=== PATIENT | female | born 1975 | race Two or more races ===

== ENCOUNTER 2024-09-09 21:17 | Emergency (ER) | payer OTHER ==
[~2024-09-09] VITALS: Ht 160 cm; Wt 90.9 kg
[2024-09-09 22:47] LABS: Urine Bacteria FEW /hpf (None Seen); Urine Blood 3+ /uL (Negative); Urine Clarity Turbid (Clear); Urine Color Light-Brown (Yellow); Urine Protein, UAD TRACE (Negative); Urine Specific Gravity 1.004 (1.001-1.035); Urine Urobilinogen Normal (Negative); Urine WBC 2 /hpf (0 - 5)
[2024-09-10 00:03] LABS: Chloride 100 mmol/L (98-107); Potassium 3.9 mmol/L (3.5-5.1); Sodium 132 mmol/L (136-145)
[2024-09-10 00:04] LABS: Anion Gap 8 (5-15); Calcium 9.6 mg/dL (8.7-10.4); Carbon Dioxide 24 mmol/L (20-31)
[2024-09-10 00:08] LABS: Basophils # (auto) 0.1 10 ^3/uL (0-0.2); Eosinophils # (auto) 0.5 10 ^3/uL (0-0.8); Lymphocytes # (auto) 2.2 10 ^3/uL (0.4-5.4); Monocytes # (auto) 0.7 10 ^3/uL (0-1.3)
[2024-09-10 00:09] LABS: BUN/Creatinine Ratio 9.3 (10.0-20.0); Blood Urea Nitrogen 8 mg/dL (9-23); Eosinophils % (auto) 5.3 % (0.0-7.0); Glucose 92 mg/dL (74-106); Hematocrit 37.4 % (36.0-46.0); Hemoglobin 12.7 g/dL (12.2-16.2); Lymphocytes % (auto) 21.6 % (10.0-50.0); Mean Corpuscular Hemoglobin 30.6 pg (28.0-32.0); Mean Corpuscular Hgb Conc. 33.9 g/dL (32.0-36.0); Mean Corpuscular Volume 90.2 fL (80.0-100.0); Monocytes % (auto) 6.7 % (0.0-12.0); Neutrophils # (auto) 6.7 10 ^3/uL (1.6-8.6); Neutrophils % (auto) 65.4 % (37.0-80.0); Platelet Count (auto) 458 10^3/uL (140-450); Red Blood Cells 4.15 10^6/uL (4.0-5.20); Red Cell Distribution Width 14.7 % (11.8-14.3); White Blood Cell 10.2 10^3/uL (4.4-10.8)
[2024-09-10 03:15] VITALS: BP 123/78; PULSE 82; RESP 17; TEMP 98.6; O2SAT 97
== END 2024-09-10 06:00 | disposition home or self-care (01) ==
LOC: ER 21:17
DX: R31.9 Hematuria, unspecified (principal); R10.2 Pelvic and perineal pain
CPT/HCPCS: 36415; 74176; 80048; 81001; 84702; 85025

== ENCOUNTER 2024-11-25 08:43 | Inpatient (IN) | payer MEDICAID, OTHER ==
[2024-11-25] VITALS (28 sets, daily range): BP systolic 90–108; BP diastolic 51–69; PULSE 65–113; RESP 10–17; TEMP 98.2–99.3; O2SAT 97–100
[~2024-11-25] VITALS: Ht 170.2 cm; Wt 96.0 kg
[2024-11-25] MEDS: PIPERACILLIN-TAZOB 3.375GM 100 ML IV SCH
[2024-11-25] MEDS: ETOMIDATE (2MG/ML) 20ML VIAL IV ONE ×2 (08:51→08:58)
[2024-11-25] MEDS: ROCURONIUM 10MG/ML 10ML VIAL IV ONE ×2 (08:51→08:58)
[2024-11-25] MEDS: MIDAZOLAM DRIP 50 mg/50mL 50 ML IV ONE (08:57)
[2024-11-25] MEDS: fentaNYL Drip 2500mCg/250mlNS 250 ML IV ONE (08:59)
[2024-11-25] MEDS: fentaNYL Drip 2500mCg/250mlNS 250 ML IV SCH (09:00)
[2024-11-25] MEDS: MIDAZOLAM DRIP 50 mg/50mL 50 ML IV SCH (09:00)
--- NOTE | 2024-11-25 09:05 | ED.PDOC ---
History of Present Illness HPI Comments 49 y/o F, with a known Hx of HTN, hypothyroidism, and morbid obesity, is BIBA for c/o shortness of breath, today. Per EMS report, patient's spouse called on patient's behalf, due to her becoming short of breath and collapsing to the ground after going out for her morning walk, this morning. Patient was noted to have had unresponsive but had agonal respirations and pulse on scene, with a SpO2 in the low 60's. EMS endorses on placing the patient on oxygen and intubating her en route, with SpO2 improving, until endotracheal was dislodged moments prior to ED arrival. Patient has no additional symptoms reported. Further Hx cannot be obtained at this time, due to patient's current condition and absence of family/grips historians at time of initial assessment. Time Seen by MD: 08:50 Primary Care Provider: Dr. Almeida Reviewed Notes: Nurses Notes, Photocomposing Machine Operator Notes, Medications, Allergies Allergies: Coded Allergies: Cephalexin (Verified Allergy, Unknown, 11/25/24) Ciprofloxacin (Verified Allergy, Unknown, 11/25/24) Information Source: Emergency Med Personnel Mode of Arrival: EMS Severity: Moderate Timing: Hours Duration: Since onset Prehospital treatment: 12 Lead EKG, [employer] Instructor, Intubation, Oxygen Past Medical History PAST MEDICAL HISTORY: HTN, Thyroid (hypothyroidism ) Past Medical History (Other): morbid obesity Surgical History: Denies all surgeries FILLING STATION ATTENDANT History: No Pertinent FILLING STATION ATTENDANT History Family History Family History: Reviewed,noncontributory to illness, No family hx of Cancer, No family hx of DM, No family hx of Heart landen, No family hx of HTN, No family hx ofKidney landen, No family hx of Liver landen, No family hx of Lung landen, No family hx of Stroke Social History Smoker: Non-Smoker Alcohol: Denies ETOH Use Drugs: Denies Drug Use Lives In: Home Respiratory: reports: shortness of breath All Other Systems: Reviewed and Negative (negative unless otherwise stated above or in HPI) Physical Exam General Appearance: No Apparent Distress, Obese HEENT: Other (Pupils around but non reactive to light) Neck: Full Range of Motion, Non-Tender, Normal, Normal Inspection Respiratory: Chest Non-Tender, Lungs Clear, No Accessory Muscle Use, No Respiratory Distress, Normal Breath Sounds, Other (no spontaneous respiratory drive; patient being bagged with soft gel) Cardiovascular: No Edema, No JVD, No Murmur, No Gallop, Normal Peripheral Puls es, Regular Rate/Rhythm Breast Exam: Deferred Gastrointestinal: No Organomegaly, Non Tender, No Pulsatile Mass, Normal Bowel Sounds, Soft Genitalia: Deferred Pelvic: Deferred Rectal: Deferred Extremities: No calf tenderness, Normal capillary refill, Normal inspection, Normal range of motion, Non-tender, No pedal edema Musculoskeletal : Apperance: Normal Neurologic: violin tutor II-XII nml as Tested, No Motor Deficits, Other (unarousable GCS3; psych unable to assess ) Cerebellar Function: Normal Reflexes: Normal Skin: Dry, Normal Color, Warm Lymphatic: No Adenopathy Was a procedure done? Was a procedure done?: Yes Sedation Sedation?: No Intubation Indication: Respiratory Insufficiency, Altered Mental Status Prep: Preoxygenation Pretreated with: Nothing Medicated with: Other (70 mg rocuronium and 20 mg etomidate) Intubation Approach: Orotracheal (8.0) Intubation size: cm (size 8.0 - 24 cm at the lip) Informed consent obtained: No Risks/benefits/alt described: No Differential Dx Considerations may include: URI, respiratory distress, GA, PE, ACS, viral syndrome, encephalopathy X-Ray, Labs, Meds, VS Vital Signs Date Time Temp Pulse Resp B/P (MAP) Pulse Ox O2 Delivery O2 Flow Rate FiO2 11/25/24 13:05 74 16 105/63 (77) 100 55 11/25/24 13:00 97.3 75 16 109/67 (81) 100 97.3 11/25/24 12:45 97.3 75 16 105/63 (77) 100 97.3 11/25/24 12:30 97.3 74 16 105/64 (78) 100 97.3 11/25/24 12:22 83 16 108/69 100 75 11/25/24 12:15 97.3 75 16 106/65 (79) 100 97.3 11/25/24 12:00 97.3 76 16 107/68 (81) 100 97.3 11/25/24 11:45 97.3 76 16 106/67 (80) 100 97.3 11/25/24 11:30 97.3 78 16 107/67 (80) 100 97.3 11/25/24 11:15 80 16 106/66 (79) 100 11/25/24 11:00 83 16 108/69 (82) 100 75 11/25/24 11:00 82 16 108/69 (82) 100 11/25/24 11:00 108/69 11/25/24 11:00 108/69 11/25/24 10:45 85 16 114/73 (87) 100 11/25/24 10:30 115/85 11/25/24 10:30 115/85 11/25/24 10:30 95 20 115/85 (95) 100 11/25/24 10:15 85 16 120/76 (91) 100 11/25/24 10:00 106 27 122/86 (98) 100 11/25/24 10:00 122/86 11/25/24 10:00 122/86 11/25/24 09:45 122 17 166/106 (126) 100 11/25/24 09:30 113 17 165/111 (129) 100 11/25/24 09:30 165/111 11/25/24 09:30 165/111 11/25/24 09:30 113 17 100 Mechanical Ventilator+ 100 100 11/25/24 09:13 86 16 117/78 (91) 86 11/25/24 09:13 88 19 125/86 (99) 100 11/25/24 09:10 117 16 124/77 (93) 100 100 11/25/24 09:09 98.1 88 19 125/86 (99) 100 11/25/24 09:00 106 10 100 Mechanical Ventilator+ 100 100 11/25/24 09:00 123/77 11/25/24 09:00 123/77 11/25/24 08:58 124/77 11/25/24 08:58 117 7 123/72 (89) 96 11/25/24 08:51 92 11/25/24 08:45 96.8 111 7 119/77 (91) 83 96.8 Lab Test 11/25/24 10:47 11/25/24 10:45 11/25/24 09:51 11/25/24 09:32 Range/Units Troponin I High Sensitivity 16 7 </=34 ng/L C-Reactive Protein High Sensitivity 7.48 H <1.0 mg/dL Plasma/Serum Blood Alcohol < 3.0 <10 mg/dL Blood Gas Specimen Type Arterial Blood Gas Sample Site Right radial Blood Gas Patient Temperature 37.0 Arterial Blood Date Drawn [id number] Arterial Blood pH 7.425 7.350-7.450 Arterial Blood Partial Pressure CO2 31.1 L 32.0-45.0 mmHg Arterial Blood Partial Pressure O2 256.2 H 83.0-108.0 mmHg Arterial Blood HCO3 19.9 L 21.0-28.0 mmol/L Arterial Blood Oxygen Saturation 99.7 H 94.0-98.0 % Arterial Blood Base Excess -3.5 L -2.0-3.0 mmol/L Arterial Blood Oxyhemoglobin 98.6 H 94.0-98.0 % Arterial Blood Carboxyhemoglobin 0.3 L 0.5-1.5 % Arterial Blood Methemoglobin 0.8 0.0-1.5 % Jose Test Modified Blood Gas Total Hemoglobin 12.20 12.0-16.0 g/dL Blood Gas Set Respiration Rate 16.0 Blood Gas Modality Vent - ac FiO2 % 100.0 Blood Gas Tidal Volume 500.0 Blood Gas PEEP or CPAP 5.0 White Blood Count 14.3 H 4.4-10.8 10^3/uL Red Blood Count 4.17 4.0-5.20 10^6/uL Hemoglobin 12.6 12.2-16.2 g/dL Hematocrit 37.4 36.0-46.0 % Mean Corpuscular Volume 89.7 80.0-100.0 fL Mean Corpuscular Hemoglobin 30.3 28.0-32.0 pg Mean Corpuscular Hemoglobin Concent 33.8 32.0-36.0 g/dL Red Cell Distribution Width 12.9 11.8-14.3 % Platelet Count 393 140-450 10^3/uL Mean Platelet Volume 7.3 6.9-10.8 fL Neutrophils (%) (Auto) 91.9 H 37.0-80.0 % Lymphocytes (%) (Auto) 5.9 L 10.0-50.0 % Monocytes (%) (Auto) 2.0 0.0-12.0 % Eosinophils (%) (Auto) 0.1 0.0-7.0 % Basophils (%) (Auto) 0.1 0.0-2.0 % Neutrophils # (Auto) 13.2 H 1.6-8.6 10 ^3/uL Lymphocytes # (Auto) 0.8 0.4-5.4 10 ^3/uL Monocytes # (Auto) 0.3 0-1.3 10 ^3/uL Eosinophils # (Auto) 0 0-0.8 10 ^3/uL Basophils # (Auto) 0 0-0.2 10 ^3/uL Nucleated Red Blood Cells 0.2 % Sodium Level 130 L 136-145 mmol/L Potassium Level 4.4 3.5-5.1 mmol/L Chloride Level 98 98-107 mmol/L Carbon Dioxide Level 21 20-31 mmol/L Anion Gap 11 5-15 Blood Urea Nitrogen 6 L 9-23 mg/dL Creatinine 0.77 0.550-1.02 mg/dL Glomerular Filtration Rate Calc 95 >90 mL/min BUN/Creatinine Ratio 7.8 L 10.0-20.0 Serum Glucose 149 H 74-106 mg/dL Calcium Level 9.5 8.7-10.4 mg/dL Total Bilirubin 0.6 0.2-1.0 mg/dL Aspartate Amino Transferase (AST) 35 13-40 U/L Alanine Aminotransferase (ALT) 12 7-40 U/L Alkaline Phosphatase 72 46-116 U/L Total Protein 7.5 5.7-8.2 g/dL Albumin 4.5 3.2-4.8 g/dL Lactic Acid Level 1.2 0.4-2.0 mmol/L Test 11/25/24 08:52 Range/Units Urine Opiates Screen Neg NEGATIVE Urine Fentanyl Screen Pos NEGATIVE Urine Barbiturates Screen Neg NEGATIVE Urine Phencyclidine Screen Neg NEGATIVE Urine Amphetamines Screen Pos NEGATIVE Urine Benzodiazepines Screen Pos NEGATIVE Urine Cocaine Screen Pos NEGATIVE Urine Cannabinoids Screen Neg NEGATIVE Current Medications Medications (Trade) Dose Ordered Sig/Caterina Route Start Time Stop Time Status Last Admin Etomidate 20 mg ONCE ONCE IV 11/25/24 09:00 11/25/24 09:01 DC 11/25/24 08:58 Rocuronium [place] 70 mg ONCE ONCE IV 11/25/24 09:00 11/25/24 09:01 DC 11/25/24 08:58 Midazolam HCl 50 ml @ 1 mls/hr Q24H IV 11/25/24 09:00 11/25/24 09:00 Fentanyl Citrate 250 ml @ 2.5 mls/hr Q24H IV 11/25/24 09:00 11/25/24 09:00 Piperacillin Sod/ Tazobactam Sod 100 ml @ 100 mls/hr ONCE ONCE IV 11/25/24 11:00 11/25/24 11:59 DC 11/25/24 13:24 Vancomycin HCl 250 ml @ 250 mls/hr ONCE ONCE IV 11/25/24 11:30 11/25/24 12:29 DC 11/25/24 16:11 [place] [address] Ph: [phone] DIAGNOSTIC IMAGING Diagnostic Imaging Report : [id number] Signed PATIENT: SAEED TAO ACCT: [id number] UNIT: [id number] : 1975 LOC: ER ROOM / BED: / AGE / SEX: 49 / F ADM STATUS: REG ER SERVICE 1 ORDERING PHYSICIAN: KEMAR ORNELAS MD PROCEDURE(s): HWOCT - HEAD WITHOUT CONTRAST REASON: ALOC ORDER NUMBER(s): [id number], ACCESSION NUMBER(s): [id number] CLINICAL INFORMATION: 49 years old, Female; acute loss of consciousness. Patient found down, not breathing. TECHNIQUE: Axial imaging was obtained through the brain without contrast. Coronal and sagittal reformatted images were obtained, reviewed, and stored. Images were reviewed in brain and bone windows. All CT scans at this medical facility are performed using dose modulation techniques as appropriate to a performed exam including the following: Automated exposure control was utilized; adjustment of the MA and/or KV according to patient size; and use of iterative reconstruction technique. CTDIvol = 59.43 mGy DLP = 1070.12 mGy-cm COMPARISON: None FINDINGS: There is no acute intracranial hemorrhage or extraaxial fluid collection. No mass effect or midline shift. The ventricles and sulci are within normal limits in size for age. Basal cisterns are patent. The calvarium is unremarkable. Mucosal thickening areas of mild partial opacification of the paranasal sinuses. IMPRESSION: 1. No CT evidence of acute intracranial abnormality. 2. Nonacute findings as described above. ATED BY: OSCAR ROSEN DO DICTATED DATE/TIME: 11/25/24936 SIGNED BY: OSCAR ROSEN DO SIGNED DATE/TIME: 11/25/24936 CC: [address] [address] Ph: [phone] DIAGNOSTIC IMAGING Diagnostic Imaging Report : [id number] Signed PATIENT: SAEED TAO ACCT: [id number] UNIT: [id number] : 1975 LOC: ER ROOM / BED: / AGE / SEX: 49 / F ADM STATUS: REG ER SERVICE 1 ORDERING PHYSICIAN: KEMAR ORNELAS MD PROCEDURE(s): CXRP - CHEST PORTABLE REASON: POST INTUBATION ORDER NUMBER(s): [id number], ACCESSION NUMBER(s): [id number] Procedure: XY CHEST PORTABLE 11/25/2024 09:00 AM Indication: POST INTUBATION Comparison: None TECHNIQUE: XY CHEST PORTABLE FINDINGS: Medical devices: The ETT ends at the chuck. Cardiomediastinal: The heart is normal in size. Pulmonary vasculature is within normal limits. Lungs: No focal pulmonary opacity is seen. The costophrenic angles are clear. No pneumothorax. Bones/soft tissues: No acute abnormality is noted. IMPRESSION: 1. ETT ends at the chuck. Recommend 2-3 cm retraction for optimal positioning. 2. No acute cardiopulmonary disease. ATED BY: SOCORRO DIETZ MD DICTATED DATE/TIME: 11/25/24922 SIGNED BY: SOCORRO DIETZ MD SIGNED DATE/TIME: 11/25/24922 CC: Time of 1ST Reevaluation: 09:20 Reevaluation 1ST: Unchanged Patient Education/Counseling: Other (patient unresponsive secondary to respiratory insufficiency) Family Education/Counseling: No Family Present Departure 1 Departure Time of Disposition: 11:00 Impression: Primary Impression: Respiratory arrest Additional Impression: Acute encephalopathy Disposition: ADMITTED INPATIENT Admit to: ICU Condition: Critical Critical Care Note Critical Care Time?: Yes (90 min-critical care time only) Critical care comment: CRITICAL CARE TIME: 90 minutes Treatments/Evaluations: Close monitoring and treatment of unstable vital signs, cardiorespiratory, and neurologic status, while maintaining tight balance of fluid, respiratory, and cardiac interventions. This time includes discussing the case with the patient and the patients family. This time does not include all procedures stated elsewhere in this record. This time also includes reviewing old records, labs and radiological studies. This time includes examining and re-examining the patient. Additionally, this time also includes arranging care with admitting and consulting physicians. Stability Stability form required: No Unstable for transfer: ICU, CCU, PCU, MIKEY Heart Score Heart Score: Heart Score Response (Comments) Value History Highly Suspicious 2 EKG N/A 0 Age 45-64 1 Risk Factors 1 or 2 risk factors 1 Troponin Normal limit 0 Total 4 I personally scribed for KEMAR ORNELAS MD ([email or web address]) on 11/25/24 at 09:05. Electronically submitted by Jerardo Hutchison ([email or web address]). I personally scribed for KEMAR ORNELAS MD ([email or web address]) on 11/25/24 at 09:17. Electronically submitted by Jerardo Hutchison ([email or web address]). I personally scribed for KEMAR ORNELAS MD ([email or web address]) on 11/25/24 at 10:35. Electronically submitted by Jerardo Hutchison ([email or web address]). I personally scribed for KEMAR ORNELAS MD ([email or web address]) on 11/25/24 at 11:24. Electronically submitted by Jerardo Hutchison ([email or web address]). KEMAR ORNELAS MD Nov 25, 2024 09:05
--- NOTE | 2024-11-25 09:26 | DVH ---
Procedure: XY CHEST PORTABLE 11/25/2024 09:00 AM Indication: POST INTUBATION Comparison: None TECHNIQUE: XY CHEST PORTABLE FINDINGS: Medical devices: The ETT ends at the chuck. Cardiomediastinal: The heart is normal in size. Pulmonary vasculature is within normal limits. Lungs: No focal pulmonary opacity is seen. The costophrenic angles are clear. No pneumothorax. Bones/soft tissues: No acute abnormality is noted. IMPRESSION: 1. ETT ends at the chuck. Recommend 2-3 cm retraction for optimal positioning. 2. No acute cardiopulmonary disease.
--- NOTE | 2024-11-25 09:40 | DVH ---
CLINICAL INFORMATION: 49 years old, Female; acute loss of consciousness. Patient found down, not b reathing. TECHNIQUE: Axial imaging was obtained through the brain without contrast. Coronal and sagittal refor matted images were obtained, reviewed, and stored. Images were reviewed in brain and bone windows. A ll CT scans at this medical facility are performed using dose modulation techniques as appropriate to a performed exam including the following: Automated exposure control was utilized; adjustment of the MA and/or KV according to patient size; and use of iterative reconstruction technique. CTDIvol = 59.43 mGy DLP = 1070.12 mGy-cm COMPARISON: None FINDINGS: There is no acute intracranial hemorrhage or extraaxial fluid collection. No mass effect o r midline shift. The ventricles and sulci are within normal limits in size for age. Basal cisterns a re patent. The calvarium is unremarkable. Mucosal thickening areas of mild partial opacification of the paranasal sinuses. IMPRESSION: 1. No CT evidence of acute intracranial abnormality. 2. Nonacute findings as described above.
[2024-11-25] MEDS ORDERED: fentaNYL Drip 2500mCg/250mlNS 250 ML IV SCH (10:15)
[2024-11-25] MEDS ORDERED: MIDAZOLAM DRIP 50 mg/50mL 50 ML IV SCH (10:15)
[2024-11-25 10:31] LABS: Basophils # (auto) 0 10 ^3/uL (0-0.2); Basophils % (auto) 0.1 % (0.0-2.0); Eosinophils # (auto) 0 10 ^3/uL (0-0.8); Eosinophils % (auto) 0.1 % (0.0-7.0); Hematocrit 37.4 % (36.0-46.0); Hemoglobin 12.6 g/dL (12.2-16.2); Lymphocytes # (auto) 0.8 10 ^3/uL (0.4-5.4); Lymphocytes % (auto) 5.9 % (10.0-50.0); Mean Corpuscular Hemoglobin 30.3 pg (28.0-32.0); Mean Corpuscular Hgb Conc. 33.8 g/dL (32.0-36.0); Mean Corpuscular Volume 89.7 fL (80.0-100.0); Monocytes # (auto) 0.3 10 ^3/uL (0-1.3); Neutrophils # (auto) 13.2 10 ^3/uL (1.6-8.6); Neutrophils % (auto) 91.9 % (37.0-80.0); Nucleated Red Blood Cells % 0.2 %; Platelet Count (auto) 393 10^3/uL (140-450); Red Blood Cells 4.17 10^6/uL (4.0-5.20); Red Cell Distribution Width 12.9 % (11.8-14.3); White Blood Cell 14.3 10^3/uL (4.4-10.8)
[2024-11-25 10:33] LABS: Alanine Aminotransferase 12 U/L (7-40); Albumin 4.5 g/dL (3.2-4.8); Alkaline Phosphatase 72 U/L (46-116); Anion Gap 11 (5-15); Aspartate Aminotransferase 35 U/L (13-40); BUN/Creatinine Ratio 7.8 (10.0-20.0); Bilirubin, Total 0.6 mg/dL (0.2-1.0); Blood Urea Nitrogen 6 mg/dL (9-23); Calcium 9.5 mg/dL (8.7-10.4); Carbon Dioxide 21 mmol/L (20-31); Chloride 98 mmol/L (98-107); Glucose 149 mg/dL (74-106); Potassium 4.4 mmol/L (3.5-5.1); Sodium 130 mmol/L (136-145)
[2024-11-25 10:34] LABS: Total Protein 7.5 g/dL (5.7-8.2)
[2024-11-25 10:58] LABS: Base Excess -3.5 mmol/L (-2.0-3.0)
[2024-11-25] MEDS ORDERED: VANCOMYCIN PER PHARMACY 0 MG IV SCH ×2 (11:00→13:15)
--- NOTE | 2024-11-25 11:00 | DVH ---
CHEST RADIOGRAPH Indication: ET Tube adjustment Technique: Single frontal view of the chest was obtained COMPARISON: XY CHEST PORTABLE on DOS: 11/25/24 FINDINGS: Lines and Tubes: Endotracheal tube 2cm above the chuck. In G tube coursing into the stomach but not seen distally. Lungs: Clear Pleura: No effusion. No pneumothorax. Cardiomediastinal contours: Unremarkable Bones: Unremarkable IMPRESSION: 1. Endotracheal tube 2.1 cm above the chuck.
[2024-11-25 11:30] LABS: Amphetamine Screen, Urine Pos (NEGATIVE); Barbiturate Scree,Urine Neg (NEGATIVE); Benzodiazephine Screen, Urine Pos (NEGATIVE); Cannabinoid Screen, Urine Neg (NEGATIVE); Cocaine Screen, Urine Pos (NEGATIVE); Opiate Scree,Urine Neg (NEGATIVE); Phencyclidine Screen, Urine Neg (NEGATIVE)
[2024-11-25] MEDS ORDERED: NITROGLYCERIN 0.4 MG SL TAB SL PRN (13:15)
[2024-11-25] MEDS: SODIUM CHLORIDE 0.9% 1,000 ML IV SCH (13:15)
[2024-11-25] MEDS ORDERED: MORPHINE SULFATE INJ 2 MG/ml SYRG IV PRN (13:15)
[2024-11-25] MEDS ORDERED: ONDANSETRON HCL 4 MG/2 ML VIAL IV PRN (13:15)
--- NOTE | 2024-11-25 13:19 | DVHHP2 ---
History of Present Illness Reason for Visit: s/p cardiac arrest History of Present Illness Kristina Crystal is a 49-year-old female with past medical history of hypertension and hypothyroidism who presents to the ED status post cardiac arrest on the field. Patient currently intubated and on the vent. Per James he states that they were at home and she was in the living room putting something is a way became diaphoretic then passed out, she did not strike her head on the floor as had caught it before her falling down to the ground. He reports that he called EMS and started chest compressions immediately. Patient's reports that she was recently sick with a sore throat and cough had called telemedicine for some steroids. 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 Patient's also denies any recent sick contacts or recent travels. Cardiovascular: HTN Endocrine: Hypothyroidism Lives: with Family Domestic Violence: Neg Review of Systems Allergies: Coded Allergies: Cephalexin (Verified Allergy, Unknown, 11/25/24) Ciprofloxacin (Verified Allergy, Unknown, 11/25/24) Medications Current Medications Medications Dose Ordered Sig/Caterina Route Start Time Stop Time Status Last Admin Dose Admin Midazolam HCl 50 ml @ 1 mls/hr Q24H IV 11/25/24 09:00 11/25/24 09:00 1 MLS/HR Fentanyl Citrate 250 ml @ 2.5 mls/hr Q24H IV 11/25/24 09:00 11/25/24 09:00 2.5 MLS/HR Midazolam HCl 50 ml @ 1 mls/hr Q24H IV 11/25/24 10:15 UNV Fentanyl Citrate 250 ml @ 2.5 mls/hr Q24H IV 11/25/24 10:15 UNV Vancomycin HCl 0 ml @ 0 mls/hr UD IV 11/25/24 11:00 Exam Vital Signs Vital Signs Date Time Temp Pulse Resp B/P (MAP) Pulse Ox O2 Delivery O2 Flow Rate FiO2 11/25/24 12:22 83 16 108/69 100 75 11/25/24 09:09 98.1 11/25/24 09:00 Mechanical Ventilator+ Respiratory: Normal air movement Cardiovascular: Regular rate, Normal S1, Normal S2 Abdominal: Soft Labs/Xrays Labs Test 11/25/24 11:20 11/25/24 10:47 11/25/24 10:45 11/25/24 09:51 Range/Units Troponin I High Sensitivity 16 </=34 ng/L Plasma/Serum Blood Alcohol < 3.0 <10 mg/dL Blood Gas Specimen Type Arterial Blood Gas Sample Site Right radial Blood Gas Patient Temperature 37.0 Arterial Blood Date Drawn [id number] Arterial Blood pH 7.425 7.350-7.450 Arterial Blood Partial Pressure CO2 31.1 L 32.0-45.0 mmHg Arterial Blood Partial Pressure O2 256.2 H 83.0-108.0 mmHg Arterial Blood HCO3 19.9 L 21.0-28.0 mmol/L Arterial Blood Oxygen Saturation 99.7 H 94.0-98.0 % Arterial Blood Base Excess -3.5 L -2.0-3.0 mmol/L Arterial Blood Oxyhemoglobin 98.6 H 94.0-98.0 % Arterial Blood Carboxyhemoglobin 0.3 L 0.5-1.5 % Arterial Blood Methemoglobin 0.8 0.0-1.5 % Jose Test Modified Blood Gas Total Hemoglobin 12.20 12.0-16.0 g/dL Blood Gas Set Respiration Rate 16.0 Blood Gas Modality Vent - ac FiO2 % 100.0 Blood Gas Tidal Volume 500.0 Blood Gas PEEP or CPAP 5.0 White Blood Count 14.3 H 4.4-10.8 10^3/uL Red Blood Count 4.17 4.0-5.20 10^6/uL Hemoglobin 12.6 12.2-16.2 g/dL Hematocrit 37.4 36.0-46.0 % Mean Corpuscular Volume 89.7 80.0-100.0 fL Mean Corpuscular Hemoglobin 30.3 28.0-32.0 pg Mean Corpuscular Hemoglobin Concent 33.8 32.0-36.0 g/dL Red Cell Distribution Width 12.9 11.8-14.3 % Platelet Count 393 140-450 10^3/uL Mean Platelet Volume 7.3 6.9-10.8 fL Neutrophils (%) (Auto) 91.9 H 37.0-80.0 % Lymphocytes (%) (Auto) 5.9 L 10.0-50.0 % Monocytes (%) (Auto) 2.0 0.0-12.0 % Eosinophils (%) (Auto) 0.1 0.0-7.0 % Basophils (%) (Auto) 0.1 0.0-2.0 % Neutrophils # (Auto) 13.2 H 1.6-8.6 10 ^3/uL Lymphocytes # (Auto) 0.8 0.4-5.4 10 ^3/uL Monocytes # (Auto) 0.3 0-1.3 10 ^3/uL Eosinophils # (Auto) 0 0-0.8 10 ^3/uL Basophils # (Auto) 0 0-0.2 10 ^3/uL Nucleated Red Blood Cells 0.2 % Sodium Level 130 L 136-145 mmol/L Potassium Level 4.4 3.5-5.1 mmol/L Chloride Level 98 98-107 mmol/L Carbon Dioxide Level 21 20-31 mmol/L Anion Gap 11 5-15 Blood Urea Nitrogen 6 L 9-23 mg/dL Creatinine 0.77 0.550-1.02 mg/dL Glomerular Filtration Rate Calc 95 >90 mL/min BUN/Creatinine Ratio 7.8 L 10.0-20.0 Serum Glucose 149 H 74-106 mg/dL Calcium Level 9.5 8.7-10.4 mg/dL Total Bilirubin 0.6 0.2-1.0 mg/dL Aspartate Amino Transferase (AST) 35 13-40 U/L Alanine Aminotransferase (ALT) 12 7-40 U/L Alkaline Phosphatase 72 46-116 U/L Total Protein 7.5 5.7-8.2 g/dL Albumin 4.5 3.2-4.8 g/dL Test 11/25/24 09:32 11/25/24 08:52 Range/Units Lactic Acid Level 1.2 0.4-2.0 mmol/L Urine Opiates Screen Neg NEGATIVE Urine Fentanyl Screen Pos NEGATIVE Urine Barbiturates Screen Neg NEGATIVE Urine Phencyclidine Screen Neg NEGATIVE Urine Amphetamines Screen Pos NEGATIVE Urine Benzodiazepines Screen Pos NEGATIVE Urine Cocaine Screen Pos NEGATIVE Urine Cannabinoids Screen Neg NEGATIVE CHEST RADIOGRAPH Indication: ET Tube adjustment Technique: Single frontal view of the chest was obtained COMPARISON: XY CHEST PORTABLE on DOS: 11/25/24 FINDINGS: Lines and Tubes: Endotracheal tube 2cm above the chuck. In G tube coursing into the stomach but not seen distally. Lungs: Clear Pleura: No effusion. No pneumothorax. Cardiomediastinal contours: Unremarkable Bones: Unremarkable IMPRESSION: 1. Endotracheal tube 2.1 cm above the chuck. CLINICAL INFORMATION: 49 years old, Female; acute loss of consciousness. Patient found down, not breathing. TECHNIQUE: Axial imaging was obtained through the brain without contrast. Coronal and sagittal reformatted images were obtained, reviewed, and stored. Images were reviewed in brain and bone windows. All CT scans at this medical facility are performed using dose modulation techniques as appropriate to a performed exam including the following: Automated exposure control was utilized; adjustment of the MA and/or KV according to patient size; and use of iterative reconstruction technique. CTDIvol = 59.43 mGy DLP = 1070.12 mGy-cm COMPARISON: None FINDINGS: There is no acute intracranial hemorrhage or extraaxial fluid collection. No mass effect or midline shift. The ventricles and sulci are within normal limits in size for age. Basal cisterns are patent. The calvarium is unremarkable. Mucosal thickening areas of mild partial opacification of the paranasal sinuses. IMPRESSION: 1. No CT evidence of acute intracranial abnormality. 2. Nonacute findings as described above. Procedure: XY CHEST PORTABLE 11/25/2024 09:00 AM Indication: POST INTUBATION Comparison: None TECHNIQUE: XY CHEST PORTABLE FINDINGS: Medical devices: The ETT ends at the chuck. Cardiomediastinal: The heart is normal in size. Pulmonary vasculature is within normal limits. Lungs: No focal pulmonary opacity is seen. The costophrenic angles are clear. No pneumothorax. Bones/soft tissues: No acute abnormality is noted. IMPRESSION: 1. ETT ends at the chuck. Recommend 2-3 cm retraction for optimal positioning. 2. No acute cardiopulmonary disease. Assessment/Plan Assessment/Plan Assessment/Plan: Acute respiratory failure status post cardiac arrest Leukocytosis Hyponatremia Encephalopathy Intubated on vent IV antibiotics-vancomycin and Zosyn Chest x-ray noted Sedation Creatinine Keppra given ED Blood cultures EKG Li catheterization ABG Respiratory culture Blood alcohol Urine CT head noted UDS Positive for cocaine, amphetamines, benzo, and fentanyl NG tube Blood cultures Troponin negative x2 Lactic noted Chest x-ray in a.m. A.m. labs Labs Echo ordered pulmonary consult Respiratory treatments p.r.n. procal esr crp flu covid Chronic Hypertension Continue home meds Chronic hypothyroidism continue home meds FEN/PPX NPO Ivf DVT ppx lovenox PUD ppx - Protonix Discussed plan of care with nurse Home medications reconciled Admit to ICU Plan discussed with: Spouse, Other Date of Service: Nov 25, 2024 Billing Provider: DINO YOUSIF Common Visit Codes: [id number] INP/OBS CARE (HIGH) DINO YOUSIF Nov 25, 2024 13:19
[2024-11-25] MEDS: PIPERACILLIN-TAZOB 3.375GM 100 ML IV ONE (13:24)
[2024-11-25] MEDS: PROPOFOL 100 ML IV ONE (13:33)
[2024-11-25] MEDS: PROPOFOL 100 ML IV SCH (13:35)
[2024-11-25] MEDS ORDERED: PROPOFOL 100 ML IV SCH (14:00)
[2024-11-25 15:31] LABS: Base Excess 0.3 mmol/L (-2.0-3.0)
[2024-11-25 15:43] LABS: Erythrocyte Sedimentation Rate 43 mm/hr (0-20)
[2024-11-25] MEDS: VANCOMYCIN 1GM/250ML KIT 250 ML IV ONE ×3 (16:11→18:24)
[2024-11-25 18:05] LABS: Urine Bacteria None Seen /hpf (None Seen)
[2024-11-25 18:15] LABS: Urine Blood Negative /uL (Negative); Urine Clarity Clear (Clear); Urine Color Light-Yellow (Yellow); Urine Protein, UAD Negative (Negative); Urine Specific Gravity 1.009 (1.001-1.035); Urine Squamous Epithelial Cell FEW /hpf (<5); Urine Urobilinogen Normal (Negative); Urine WBC 1 /hpf (0 - 5)
[2024-11-25 19:48] LABS: COVID19 ANTIGEN SOFIA FIA NEGATIVE (NEGATIVE); Rapid Influenza A Negative (Negative); Rapid Influenza B Negative (Negative)
--- NOTE | 2024-11-25 22:07 | DVHSR ---
APPROVED REPORT EXAM: Two-dimensional and M-mode echocardiogram with Doppler and color Doppler. Blood Pressure: 108/69 mmHg INDICATION cardiac arrest RISK FACTORS Height: 5'7, Weight: 178 DIMENSIONS LVDd3.8 (3.8-5.7cm)LA (2D)2.8 (1.9-4.0cm)Aortic Root3.3 (2.0-3.7cm) LVDs2.3 (2.5-4.0cm)LA (MM) (1.9-4.0cm)Aortic Cusp Exc1.4 (1.5-2.0cm) EF (%) 60.0 (55-70%)Rt. Atrium3.0 (1.9-4.0cm)Asc. Aorta3.3 cm IVSd0.7 (0.7-1.1cm)RV (D)4.1 (1.8-2.4cm) PWd1.0 (0.7-1.1cm) Mitral Valve MitralMitral Stenosis E wave0.57m/sMV Mean GR.mmHg A wave0.91m/sMV Peak GR.mmHg E/A ratio0.62D MVAcm2 DECEL [id number] 1/2 Timems Aortic Valve Aortic ValveAortic Stenosis V11.22m/Michael Mean GR.5mmHg V21.55m/Michael Peak GR.10mmHg LVOT Diameter2.0 (1.8-2.4cm)Doppler AVA2.47cm2 Pulmonic Valve V20.95m/s Tricuspid Valve TR Velocity2.10m/s [id number] Conclusion LV EJECTION FRACTION IS 60% NORMAL VALVES NORMAL RV FUNCTION NORMAL RVSP AND IS 21 MM OF HG NO EFUSION
--- NOTE | 2024-11-25 23:42 | DVHINCON2 ---
Date of service: Nov 25, 2024 Referring Physician Consuelo Lozano NP Reason for Consultation Acute hypoxic respiratory failure requiring mechanical ventilator History of Present Illness A 49-year-old woman with past medical history of hypertension and hypothyroidism who presents to the ED today status post cardiac arrest on the field. Patient currently intubated and on the vent. Per , they were at home and she was in the living room putting something away, became diaphoretic and then passed out. Pt did not strike her head on the floor as had caught her before falling down to the ground. He reports that he called EMS and started chest compressions immediately. Reports that she was recently sick with a sore throat and cough, had called telemedicine for some steroids. 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 Patient was admitted for further care, and pulmonary consultation is requested for evaluation and management of acute hypoxic respiratory failure requiring mechanical ventilator. Review of Systems: Unable to obtain d/t intubated status. Past Medical History: Hypertension and hypothyroidism Past Surgical History: None Medications: Reviewed. Allergies: Cephalexin Ciprofloxacin Family History: No family history of premature CAD. No family history of lung disorders. Social History: Nonsmoker. 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 Drugs: reports quit drugs over 15 years ago Allergies: Coded Allergies: Cephalexin (Verified Allergy, Unknown, 11/25/24) Ciprofloxacin (Verified Allergy, Unknown, 11/25/24) Current Medications Current Medications Medications (Trade) Dose Ordered Sig/Caterina Route PRN Reason Start Time Stop Time Status Last Admin Midazolam HCl 50 ml @ 1 mls/hr Q24H IV 11/25/24 09:00 11/25/24 20:41 Fentanyl Citrate 250 ml @ 2.5 mls/hr Q24H IV 11/25/24 09:00 11/25/24 09:00 Midazolam HCl 50 ml @ 1 mls/hr Q24H IV 11/25/24 10:15 UNV Fentanyl Citrate 250 ml @ 2.5 mls/hr Q24H IV 11/25/24 10:15 UNV Vancomycin HCl 0 ml @ 0 mls/hr UD IV 11/25/24 11:00 Sodium Chloride 1,000 ml @ 100 mls/hr Q10H IV 11/25/24 13:15 11/25/24 13:15 Ondansetron HCl (Zofran) 4 mg Q4HP PRN IV NAUSEA / VOMITING 11/25/24 13:15 Enoxaparin Sodium (Lovenox) 40 mg DAILY SC 11/26/24 10:00 Nitroglycerin (Ntrostat Sublingual) 0.4 mg Q5MINP PRN SL FOR CHEST PAIN 11/25/24 13:15 Morphine Sulfate 2 mg Q30M PRN IV FOR CHEST PAIN 11/25/24 13:15 Vancomycin HCl 0 ml @ 0 mls/hr UD IV 11/25/24 13:15 UNV Piperacillin Sod/ Tazobactam Sod 100 ml @ 25 mls/hr Q8HR IV 11/25/24 14:00 Pantoprazole Sodium (Protonix) 40 mg DAILY IV 11/26/24 10:00 Albuterol (Ventolin Medneb) 2.5 mg Q4HPRN PRN NEB SHORTNESS OF BREATH 11/25/24 13:45 Ipratropium [place] (Atrovent Medneb) 0.5 mg Q4HPRN PRN NEB SHORTNESS OF BREATH 11/25/24 13:45 Propofol 100 ml @ 2.43 mls/hr Q24H IV 11/25/24 14:00 UNV Propofol 100 ml @ 2.43 mls/hr Q24H IV 11/25/24 14:15 11/25/24 20:25 Vancomycin HCl 300 ml @ 200 mls/hr Q12H IV 11/26/24 04:00 Vital Signs Vital Signs Date Time Temp Pulse Resp B/P (MAP) Pulse Ox O2 Delivery O2 Flow Rate FiO2 11/25/24 23:00 99.1 66 16 99/56 (70) 99 99.1 11/25/24 22:20 40 11/25/24 22:00 Mechanical Ventilator+ Physical Exam Gen.: Patient lying in bed in medical ICU. Sedated, intubated on mechanical ventilator. Head: Normocephalic, atraumatic. Eyes: PERRLA. Ears: Normal external anatomy. Throat: Endotracheal tube and orogastric tube in place. Neck: Supple, trachea midline. Chest: Transmitted breath sounds bilaterally. Decreased air entry bilaterally. No wheezing. Bibasilar crackles. Cardiovascular: Positive S1, positive S2. Regular rate and rhythm. Abdomen: Positive bowel sounds in all 4 quadrants. Soft, nontender, nondistended. : Li in place. Normal external genitalia. Rectal: Deferred. Skin: Warm, dry. Intact. Extremities: 2+ radial pulses bilaterally. No lower extremity edema. Neuro: Sedated. Labs/Diagnostic Data Labs Test 11/25/24 19:00 11/25/24 15:27 11/25/24 14:44 11/25/24 13:15 Range/Units Influenza Type A Antigen Negative Negative Influenza Type B Antigen Negative Negative SARS-CoV-2 Antigen (Rapid) Negative NEGATIVE Blood Gas Specimen Type Arterial Blood Gas Sample Site Right radial Blood Gas Patient Temperature 37.0 Arterial Blood Date Drawn [id number] Arterial Blood pH 7.447 7.350-7.450 Arterial Blood Partial Pressure CO2 35.5 32.0-45.0 mmHg Arterial Blood Partial Pressure O2 88.2 83.0-108.0 mmHg Arterial Blood HCO3 24.0 21.0-28.0 mmol/L Arterial Blood Oxygen Saturation 96.8 94.0-98.0 % Arterial Blood Base Excess 0.3 -2.0-3.0 mmol/L Arterial Blood Oxyhemoglobin 96.0 94.0-98.0 % Arterial Blood Carboxyhemoglobin 0.3 L 0.5-1.5 % Arterial Blood Methemoglobin 0.5 0.0-1.5 % Jose Test Modified Blood Gas Total Hemoglobin 11.80 L 12.0-16.0 g/dL Blood Gas Set Respiration Rate 16.0 Blood Gas Modality Vent - ac FiO2 % 45.0 Blood Gas Tidal Volume 500.0 Blood Gas PEEP or CPAP 5.0 Erythrocyte Sedimentation Rate 43 H 0-20 mm/hr Troponin I High Sensitivity 25 </=34 ng/L Test 11/25/24 10:47 11/25/24 09:51 11/25/24 09:32 11/25/24 08:52 Range/Units C-Reactive Protein High Sensitivity 7.48 H <1.0 mg/dL Plasma/Serum Blood Alcohol < 3.0 <10 mg/dL White Blood Count 14.3 H 4.4-10.8 10^3/uL Red Blood Count 4.17 4.0-5.20 10^6/uL Hemoglobin 12.6 12.2-16.2 g/dL Hematocrit 37.4 36.0-46.0 % Mean Corpuscular Volume 89.7 80.0-100.0 fL Mean Corpuscular Hemoglobin 30.3 28.0-32.0 pg Mean Corpuscular Hemoglobin Concent 33.8 32.0-36.0 g/dL Red Cell Distribution Width 12.9 11.8-14.3 % Platelet Count 393 140-450 10^3/uL Mean Platelet Volume 7.3 6.9-10.8 fL Neutrophils (%) (Auto) 91.9 H 37.0-80.0 % Lymphocytes (%) (Auto) 5.9 L 10.0-50.0 % Monocytes (%) (Auto) 2.0 0.0-12.0 % Eosinophils (%) (Auto) 0.1 0.0-7.0 % Basophils (%) (Auto) 0.1 0.0-2.0 % Neutrophils # (Auto) 13.2 H 1.6-8.6 10 ^3/uL Lymphocytes # (Auto) 0.8 0.4-5.4 10 ^3/uL Monocytes # (Auto) 0.3 0-1.3 10 ^3/uL Eosinophils # (Auto) 0 0-0.8 10 ^3/uL Basophils # (Auto) 0 0-0.2 10 ^3/uL Nucleated Red Blood Cells 0.2 % Sodium Level 130 L 136-145 mmol/L Potassium Level 4.4 3.5-5.1 mmol/L Chloride Level 98 98-107 mmol/L Carbon Dioxide Level 21 20-31 mmol/L Anion Gap 11 5-15 Blood Urea Nitrogen 6 L 9-23 mg/dL Creatinine 0.77 0.550-1.02 mg/dL Glomerular Filtration Rate Calc 95 >90 mL/min BUN/Creatinine Ratio 7.8 L 10.0-20.0 Serum Glucose 149 H 74-106 mg/dL Calcium Level 9.5 8.7-10.4 mg/dL Total Bilirubin 0.6 0.2-1.0 mg/dL Aspartate Amino Transferase (AST) 35 13-40 U/L Alanine Aminotransferase (ALT) 12 7-40 U/L Alkaline Phosphatase 72 46-116 U/L Total Protein 7.5 5.7-8.2 g/dL Albumin 4.5 3.2-4.8 g/dL Lactic Acid Level 1.2 0.4-2.0 mmol/L Urine Opiates Screen Neg NEGATIVE Urine Fentanyl Screen Pos NEGATIVE Urine Barbiturates Screen Neg NEGATIVE Urine Phencyclidine Screen Neg NEGATIVE Urine Amphetamines Screen Pos NEGATIVE Urine Benzodiazepines Screen Pos NEGATIVE Urine Cocaine Screen Pos NEGATIVE Urine Cannabinoids Screen Neg NEGATIVE Test 11/25/24 00:00 Range/Units Urine Color Light-yellow Yellow Urine Clarity Clear Clear Urine pH 6.0 5.0-9.0 Urine Specific [place] 1.009 1.001-1.035 Urine Protein Negative Negative Urine Ketones Negative Negative Urine Blood Negative Negative /uL Urine Nitrite Negative Negative Urine Bilirubin Negative Negative Urine Urobilinogen Normal Negative mg/dL Urine Leukocyte Esterase Negative Negative /uL Urine RBC <1 0 - 4 /hpf Urine WBC 1 0 - 5 /hpf Urine Squamous Epithelial Cells Few <5 /hpf Urine Bacteria None seen None Seen /hpf Urine Glucose Normal Normal mg/dL Assessment Impression: Acute hypoxic respiratory failure On mechanical ventilator Methamphetamine use Hyponatremia Leukocytosis Metabolic acidosis Plan: s/p intubation on mechanical ventilator. CXR image and report reviewed. Devices in place. No acute opacities. No pneumothorax. No pleural effusion. ABG reviewed, compensated. On AC mode; RR 16, VT 500, PEEP 5, FiO2 55% Titrate FIO2 to keep O2 saturation above 90%. VAP bundle. Daily ABG and CXR while intubated Sedate for ventilator synchrony - Fentanyl, Versed, Propofol Continue antibiotics. F/u cultures. Start pressors if necessary to maintain a mean arterial blood pressure greater than 65 mmHg. Obtain ABG and CXR in AM to assess for interval changes. Monitor renal function Monitor electrolytes. Supplement as necessary. Monitor ins and outs. Monitor WBC. GI prophylaxis. DVT prophylaxis. Prognosis: Poor given patient's multiple co-morbidities. Condition: Critical Rest of plan per hospitalist and other consultants. A total of 35 minutes of critical care time was spent reviewing the patient record, examining the patient, making a diagnostic and therapeutic plan, discussing this plan with the medical personnel, following up on diagnostic studies and following the patient for clinical stability excluding any and all procedures. At least 50% of this time was spent in direct, [id number] contact. Thank you, JOSE Lozano,, for allowing me to participate in this patient's care. Further recommendations will depend on the patient's clinical course. Please do not hesitate to contact me if you have any questions or concerns. This medical document was created using an electronic medical record system with [employer] computerized dictation system. Although these documentations are being carefully reviewed, there may still be some phonetic and typographical changes. The errors are purely typographical, due to imperfection on the software program, and do not reflect any compromise in the patient's medical care. Plan discussed with: Spouse, Other (CHRIS Gandhi/JOSE Lozano/) MARCIA BRIGGS MD Nov 25, 2024 23:42
[2024-11-26] VITALS (108 sets, daily range): BP systolic 84–113; BP diastolic 50–67; PULSE 60–90; RESP 16–21; TEMP 97.7–99.5; O2SAT 97–100
[2024-11-26 04:34] LABS: Basophils # (auto) 0 10 ^3/uL (0-0.2); Basophils % (auto) 0.1 % (0.0-2.0); Eosinophils # (auto) 0.4 10 ^3/uL (0-0.8); Eosinophils % (auto) 2.7 % (0.0-7.0); Hematocrit 29.8 % (36.0-46.0); Hemoglobin 10.3 g/dL (12.2-16.2); Lymphocytes % (auto) 6.5 % (10.0-50.0); Mean Corpuscular Hemoglobin 31.3 pg (28.0-32.0); Mean Corpuscular Hgb Conc. 34.7 g/dL (32.0-36.0); Monocytes # (auto) 0.9 10 ^3/uL (0-1.3); Monocytes % (auto) 6.1 % (0.0-12.0); Neutrophils # (auto) 13.1 10 ^3/uL (1.6-8.6); Neutrophils % (auto) 84.6 % (37.0-80.0); Nucleated Red Blood Cells % 0.1 %; Platelet Count (auto) 337 10^3/uL (140-450); Red Cell Distribution Width 13.1 % (11.8-14.3); White Blood Cell 15.5 10^3/uL (4.4-10.8)
[2024-11-26 04:51] LABS: Alkaline Phosphatase 51 U/L (46-116); Anion Gap 7 (5-15); BUN/Creatinine Ratio 6.4 (10.0-20.0); Carbon Dioxide 26 mmol/L (20-31); Chloride 101 mmol/L (98-107); Glucose 99 mg/dL (74-106)
[2024-11-26 04:52] LABS: Albumin 3.4 g/dL (3.2-4.8); Total Protein 5.7 g/dL (5.7-8.2)
[2024-11-26 04:54] LABS: Alanine Aminotransferase < 9 U/L (7-40); Aspartate Aminotransferase 15 U/L (13-40); Bilirubin, Total 0.3 mg/dL (0.2-1.0); Blood Urea Nitrogen 5 mg/dL (9-23); Potassium 3.2 mmol/L (3.5-5.1); Sodium 134 mmol/L (136-145)
[2024-11-26] MEDS: VANCOMYCIN 1.5GM/300ML 300 ML IV SCH (05:00)
--- NOTE | 2024-11-26 05:44 | DVH ---
CHEST RADIOGRAPH Indication: FOLLOW UP CXR Technique: Single frontal view of the chest was obtained Comparison: XY CHEST PORTABLE on DOS: 11/25/24, XY CHEST PORTABLE on DOS: 11/25/24, XY CHEST PORTABLE o n DOS: 11/25/24 FINDINGS: Lines and Tubes: Endotracheal tube 2cm above the chuck. In G tube coursing into the stomach but not seen distally. Lungs: Clear Pleura: No effusion. No pneumothorax. Cardiomediastinal contours: Unremarkable Bones: Unremarkable IMPRESSION: 1. No change.
[2024-11-26] MEDS: POTASSIUM EFFERVESENT TAB 25 MEQ GT ONE (06:47)
[2024-11-26 08:16] LABS: Base Excess 1.3 mmol/L (-2.0-3.0)
[2024-11-26] MEDS: PANTOPRAZOLE 40 MG/10 ML VIAL INJ IV SCH (09:29)
[2024-11-26] MEDS: ENOXAPARIN SOD 40 MG/0.4 ML SYRINGE SC SCH (09:30)
[2024-11-26] MEDS ORDERED: ACETAMINOPHEN 650 mg PER 20.3 mL UD GT PRN (12:45)
--- NOTE | 2024-11-26 13:05 | DVHPN2 ---
Subjective CARDIAC ARREST Reviewed: Care Plan, H&P, Labs, Medications, Previous Orders, Radiology Review of systems PATIENT INTUBATED AND SEDATED Changes from previous H/P or p: No Changes Objective Vitals Vital Signs Date Time Temp Pulse Resp B/P (MAP) Pulse Ox O2 Delivery O2 Flow Rate FiO2 11/26/24 10:42 70 16 106/60 (75) 100 45 11/26/24 10:30 99.1 99.1 11/26/24 10:00 Mechanical Ventilator+ Intake/Output Intake and Output 11/26/24 07:00 Intake Total 2410.94 ml Output Total 400 ml Balance 2010.94 ml Intake IV Total 2410.94 ml Output Urine Total 400 ml General Appearance: Other (INTUBATED AND SEDATED ) Lungs: Clear to auscultation Cardiovascular: Regular rate, Normal S1, Normal S2, No murmurs Abdomen: Normal bowel sounds, Soft, No tenderness Rectal: Deferred Neuro: Other (low grade fever ) Skin: Dry, Intact Psych/Mental Status: Other (INTUBATED AND SEDATED ) Medications Current Medications Medications Dose Ordered Sig/Caterina Route Start Time Stop Time Status Last Admin Dose Admin Midazolam HCl 50 ml @ 1 mls/hr Q24H IV 11/25/24 09:00 11/26/24 10:37 15 MLS/HR Fentanyl Citrate 250 ml @ 2.5 mls/hr Q24H IV 11/25/24 09:00 11/25/24 09:00 2.5 MLS/HR Midazolam HCl 50 ml @ 1 mls/hr Q24H IV 11/25/24 10:15 UNV Fentanyl Citrate 250 ml @ 2.5 mls/hr Q24H IV 11/25/24 10:15 UNV Vancomycin HCl 0 ml @ 0 mls/hr UD IV 11/25/24 11:00 Sodium Chloride 1,000 ml @ 100 mls/hr Q10H IV 11/25/24 13:15 11/26/24 09:15 100 MLS/HR Ondansetron HCl 4 mg Q4HP PRN IV 11/25/24 13:15 Enoxaparin Sodium 40 mg DAILY SC 11/26/24 10:00 11/26/24 09:30 40 MG Nitroglycerin 0.4 mg Q5MINP PRN SL 11/25/24 13:15 Morphine Sulfate 2 mg Q30M PRN IV 11/25/24 13:15 Vancomycin HCl 0 ml @ 0 mls/hr UD IV 11/25/24 13:15 UNV Piperacillin Sod/ Tazobactam Sod 100 ml @ 25 mls/hr Q8HR IV 11/25/24 14:00 11/26/24 00:00 25 MLS/HR Pantoprazole Sodium 40 mg DAILY IV 11/26/24 10:00 11/26/24 09:29 40 MG Albuterol 2.5 mg Q4HPRN PRN NEB 11/25/24 13:45 Ipratropium [place] 0.5 mg Q4HPRN PRN NEB 11/25/24 13:45 Propofol 100 ml @ 2.43 mls/hr Q24H IV 11/25/24 14:00 UNV Propofol 100 ml @ 2.43 mls/hr Q24H IV 11/25/24 14:15 11/26/24 05:25 9.72 MLS/HR Vancomycin HCl 300 ml @ 200 mls/hr Q12H IV 11/26/24 04:00 11/26/24 05:00 200 MLS/HR Laboratory Results Laboratory Tests 11/26/24 03:46 Chemistry Test 11/26/24 03:46 Albumin 3.4 g/dL (3.2-4.8) Calcium Level 9.0 mg/dL (8.7-10.4) Total Protein 5.7 g/dL (5.7-8.2) LFT Test 11/26/24 03:46 Alanine Aminotransferase (ALT) < 9 U/L (7-40) Alkaline Phosphatase 51 U/L (46-116) Aspartate Amino Transferase (AST) 15 U/L (13-40) Total Bilirubin 0.3 mg/dL (0.2-1.0) Urinalysis Test 11/25/24 00:00 Urine Color Light-yellow (Yellow) Urine Clarity Clear (Clear) Urine pH 6.0 (5.0-9.0) Urine Specific [place] 1.009 (1.001-1.035) Urine Protein Negative (Negative) Urine Ketones Negative (Negative) Urine Blood Negative /uL (Negative) Urine Nitrite Negative (Negative) Urine Bilirubin Negative (Negative) Urine Urobilinogen Normal mg/dL (Negative) Urine Leukocyte Esterase Negative /uL (Negative) Urine RBC <1 /hpf (0 - 4) Urine WBC 1 /hpf (0 - 5) Urine Squamous Epithelial Cells Few /hpf (<5) Urine Bacteria None seen /hpf (None Seen) Urine Glucose Normal mg/dL (Normal) Blood Gas Results Test 11/25/24 15:27 11/26/24 07:11 Arterial Blood pH 7.447 (7.350-7.450) 7.453 (7.350-7.450) FiO2 % 45.0 45.0 Microbiology Microbiology Date/Time Source Procedure Growth Status 11/25/24 09:32 Blood Blood Culture - Preliminary NO GROWTH AFTER 24 HOURS OF INCUBATION. Resulted Labs and/or images reviewed: Labs reviewed by me, Image(s) reviewed by me Assessment/Plan Assessment/Plan 49-year-old female with past medical history of hypertension and hypothyroidism who presents to the ED status post cardiac arrest on the field. Patient currently intubated and on the vent. Per James he states that they were at home and she was in the living room putting something is a way became diaphoretic then passed out, she did not strike her head on the floor as had caught it before her falling down to the ground. He reports that he called EMS and started chest compressions immediately. Patient's reports that she was recently sick with a sore throat and cough had called telemedicine for some steroids. 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 Patient's also denies any recent sick contacts or recent travle Impression: -cardiac arrest - acute respiratory failure -metabolic/toxic encephalopathy - substance abuse + for methamphetamines, cocaine - leucocytosis -hypokalemia plan - daily cbc,cmp - recheck potassium and mag for hypokalemia initiate electrolyte protocol -daily CXR -IV fluids 100 mls/hr - switched antibiotic treatment for Flagyl due to cephalexin allergy - Tylenol for fever greater than 100.3 -IV sedation -possible sedation vacation for tomorrow to check neurostatus Plan discussed with: Other (nurse) Date of Service: Nov 26, 2024 Billing Provider: LISA LARSON NP Common Visit Codes: [id number] CARE 30-74 MIN JEB RAMIRES STUDENT CERTIFIED COURT/MEDICAL INTERPRETER Nov 26, 2024 13:05
[2024-11-26] MEDS: metroNIDAZOLE 500MG/100ML 100 ML IV SCH (13:29)
[2024-11-26 14:01] LABS: Potassium 3.5 mmol/L (3.5-5.1)
[2024-11-26 14:30] LABS: Magnesium 1.6 mg/dL (1.6-2.6)
[2024-11-26] MEDS ORDERED: CEFEPIME 2GM/50ML NS 50 ML IV SCH (16:45)
[2024-11-26] MEDS: CEFEPIME 2GM/50ML NS 50 ML IV ONE (17:47)
--- NOTE | 2024-11-26 21:31 | DVHPN2 ---
Progress Note - Dictate Date Seen: Nov 26, 2024 Medical Necessity Reason Pt with a Central, PICC or Fol: Yes The following are medically ne: Zhu Catheter Reason for zhu catheter: Strict I&O Subjective Patient seen and examined at bedside. Sedated, intubated on mechanical ventilator. Overnight events reviewed. vital signs Vital Sign Date Time Temp Pulse Resp B/P (MAP) Pulse Ox O2 Delivery O2 Flow Rate FiO2 11/26/24 21:00 98.2 61 16 99/63 (75) 100 208.8 11/26/24 20:32 35 11/26/24 18:07 Mechanical Ventilator+ Total Intake and Output 11/25/24 11/25/24 11/26/24 15:00 23:00 07:00 Intake Total 100 ml 1155.68 ml 1155.26 ml Output Total 400 ml Balance 100 ml 1155.68 ml 755.26 ml medications Current Medications Medications Dose Ordered Sig/Caterina Route Start Time Stop Time Status Last Admin Dose Admin Midazolam HCl 50 ml @ 1 mls/hr Q24H IV 11/25/24 09:00 11/26/24 20:26 15 MLS/HR Fentanyl Citrate 250 ml @ 2.5 mls/hr Q24H IV 11/25/24 09:00 11/26/24 13:11 20 MLS/HR Midazolam HCl 50 ml @ 1 mls/hr Q24H IV 11/25/24 10:15 UNV Fentanyl Citrate 250 ml @ 2.5 mls/hr Q24H IV 11/25/24 10:15 UNV Vancomycin HCl 0 ml @ 0 mls/hr UD IV 11/25/24 11:00 Sodium Chloride 1,000 ml @ 100 mls/hr Q10H IV 11/25/24 13:15 11/26/24 09:15 100 MLS/HR Ondansetron HCl 4 mg Q4HP PRN IV 11/25/24 13:15 Enoxaparin Sodium 40 mg DAILY SC 11/26/24 10:00 11/26/24 09:30 40 MG Nitroglycerin 0.4 mg Q5MINP PRN SL 11/25/24 13:15 Morphine Sulfate 2 mg Q30M PRN IV 11/25/24 13:15 Vancomycin HCl 0 ml @ 0 mls/hr UD IV 11/25/24 13:15 UNV Pantoprazole Sodium 40 mg DAILY IV 11/26/24 10:00 11/26/24 09:29 40 MG Albuterol 2.5 mg Q4HPRN PRN NEB 11/25/24 13:45 Ipratropium [place] 0.5 mg Q4HPRN PRN NEB 11/25/24 13:45 Propofol 100 ml @ 2.43 mls/hr Q24H IV 11/25/24 14:00 UNV Propofol 100 ml @ 2.43 mls/hr Q24H IV 11/25/24 14:15 11/26/24 14:32 9.72 MLS/HR Vancomycin HCl 300 ml @ 200 mls/hr Q12H IV 11/26/24 04:00 11/26/24 15:51 200 MLS/HR Acetaminophen 650 mg Q6H PRN GT 11/26/24 12:45 Metronidazole 100 ml @ 100 mls/hr Q8HR IV 11/26/24 14:00 11/26/24 13:29 100 MLS/HR Cefepime HCl 50 ml @ 12.5 mls/hr Q8H IV 11/27/24 00:00 objective Gen.: Patient lying in bed in medical ICU. Sedated, intubated on mechanical ventilator. Head: Normocephalic, atraumatic. Eyes: PERRLA. Ears: Normal external anatomy. Throat: Endotracheal tube and orogastric tube in place. Neck: Supple, trachea midline. Chest: Transmitted breath sounds bilaterally. Decreased air entry bilaterally. No wheezing. Bibasilar crackles. Cardiovascular: Positive S1, positive S2. Regular rate and rhythm. Abdomen: Positive bowel sounds in all 4 quadrants. Soft, nontender, nondistended. : Zhu in place. Normal external genitalia. Rectal: Deferred. Skin: Warm, dry. Intact. Extremities: 2+ radial pulses bilaterally. No lower extremity edema. Neuro: Sedated. laboratory and microbiology Laboratory Tests 11/26/24 13:00 11/26/24 03:46 Test 11/26/24 03:46 Range/Units Serum Glucose 99 74-106 mg/dL Assessment/Plan Impression: Acute hypoxic respiratory failure On mechanical ventilator Methamphetamine use Hyponatremia Leukocytosis Metabolic acidosis Events: Remains on vent support On AC mode; RR 16, VT 500, PEEP 5, FiO2 55% -->40% Sedated on Propofol, Fentanyl, Versed ABG reviewed, notable for alkalemia. Continue abx - Vancomycin Follow up cultures Potassium supplementation Monitor renal function Taper sedation as tolerated CPAP in AM - with PS 8, PEEP of 5. Labs and imaging reviewed. Rest of plan as noted below. Plan: s/p intubation on mechanical ventilator. CXR image and report reviewed. Devices in place. No acute opacities. No pneumothorax. No pleural effusion. On AC mode; RR 16, VT 500, PEEP 5, FiO2 40% Titrate FIO2 to keep O2 saturation above 90%. VAP bundle. Daily ABG and CXR while intubated Sedate for ventilator synchrony Continue antibiotics. F/u cultures. Start pressors if necessary to maintain a mean arterial blood pressure greater than 65 mmHg. Monitor renal function Monitor electrolytes. Supplement as necessary. Monitor ins and outs. Monitor WBC. GI prophylaxis. DVT prophylaxis. Prognosis: Poor given patient's multiple co-morbidities. Condition: Critical Rest of plan per hospitalist and other consultants. A total of 35 minutes of critical care time was spent reviewing the patient record, examining the patient, making a diagnostic and therapeutic plan, discussing this plan with the medical personnel, following up on diagnostic studies and following the patient for clinical stability excluding any and all procedures. At least 50% of this time was spent in direct, [id number] contact. Thank you, JOSE Lozano,, for allowing me to participate in this patient's care. Further recommendations will depend on the patient's clinical course. Please do not hesitate to contact me if you have any questions or concerns. This medical document was created using an electronic medical record system with [employer] dictation system. Although these documentations are being carefully reviewed, there may still be some phonetic and typographical changes. The errors are purely typographical, due to imperfection on the software program, and do not reflect any compromise in the patient's medical care. Plan discussed with: Other (CHRIS Keen/Annelise) Critical Care Time(min): 35 MARCIA BRIGGS MD Nov 26, 2024 21:31
[2024-11-27] VITALS (106 sets, daily range): BP systolic 87–179; BP diastolic 46–85; PULSE 56–91; RESP 8–16; TEMP 97.5–98.6; O2SAT 95–100
[2024-11-27] MEDS: CEFEPIME 2GM/50ML NS 50 ML IV SCH (00:18)
--- NOTE | 2024-11-27 05:23 | DVH ---
CHEST RADIOGRAPH Indication: INTUBATED Technique: Single frontal view of the chest was obtained COMPARISON: XY CHEST PORTABLE on DOS: 11/26/24, XY CHEST PORTABLE on DOS: 11/25/24, XY CHEST PORTABLE o n DOS: 11/25/24 FINDINGS: Lines and Tubes: Endotracheal tube and enteric catheter in satisfactory position. Lungs: Right lower lobe airspace disease or atelectasis. Pleura: No effusion. No pneumothorax. Cardiomediastinal contours: Unremarkable Bones: Unremarkable IMPRESSION: Lines and tubes in satisfactory position. No significant interval change.
[2024-11-27 06:21] LABS: Basophils # (auto) 0.1 10 ^3/uL (0-0.2); Basophils % (auto) 0.4 % (0.0-2.0); Eosinophils # (auto) 0.8 10 ^3/uL (0-0.8); Eosinophils % (auto) 5.4 % (0.0-7.0); Hemoglobin 10.4 g/dL (12.2-16.2); Lymphocytes # (auto) 1.3 10 ^3/uL (0.4-5.4); Lymphocytes % (auto) 9.1 % (10.0-50.0); Mean Corpuscular Hemoglobin 30.3 pg (28.0-32.0); Mean Corpuscular Hgb Conc. 32.4 g/dL (32.0-36.0); Mean Corpuscular Volume 93.5 fL (80.0-100.0); Monocytes # (auto) 1.3 10 ^3/uL (0-1.3); Monocytes % (auto) 9.2 % (0.0-12.0); Neutrophils # (auto) 10.8 10 ^3/uL (1.6-8.6); Neutrophils % (auto) 75.9 % (37.0-80.0); Platelet Count (auto) 131 10^3/uL (140-450); Red Blood Cells 3.42 10^6/uL (4.0-5.20); Red Cell Distribution Width 13.8 % (11.8-14.3); White Blood Cell 14.2 10^3/uL (4.4-10.8)
[2024-11-27 06:35] LABS: Alkaline Phosphatase 66 U/L (46-116); Anion Gap 10 (5-15); Aspartate Aminotransferase 17 U/L (13-40); BUN/Creatinine Ratio 4.5 (10.0-20.0); Blood Urea Nitrogen 10 mg/dL (9-23); Calcium 8.8 mg/dL (8.7-10.4); Glucose 76 mg/dL (74-106); Potassium 3.9 mmol/L (3.5-5.1); Sodium 137 mmol/L (136-145)
[2024-11-27 06:44] LABS: Alanine Aminotransferase < 9 U/L (7-40); Albumin 3.1 g/dL (3.2-4.8); Bilirubin, Total 0.3 mg/dL (0.2-1.0); Carbon Dioxide 20 mmol/L (20-31); Chloride 107 mmol/L (98-107); Total Protein 5.4 g/dL (5.7-8.2)
[2024-11-27 06:45] LABS: Base Excess -6.5 mmol/L (-2.0-3.0)
[2024-11-27] MEDS: HEPARIN SODIUM (PORCINE) 5000 UNITS/ML 1ML VIAL ONE (07:42)
[2024-11-27] MEDS: ROCURONIUM 10MG/ML 10ML VIAL IV ONE (08:45)
[2024-11-27] MEDS: NOREPINEPHRINE 8 MG/250ML KIT 250 ML IV SCH (09:38)
[2024-11-27] MEDS: QUEtiapine FUMARATE 25 MG TAB PO SCH (10:00)
--- NOTE | 2024-11-27 11:35 | DVHPN2 ---
Subjective Patient chemically sedated Reviewed: Care Plan, H&P, Labs, Medications, Previous Orders, Radiology Changes from previous H/P or p: No Changes General: Per HPI Objective Vitals Vital Signs Date Time Temp Pulse Resp B/P (MAP) Pulse Ox O2 Delivery O2 Flow Rate FiO2 11/27/24 11:15 98.6 76 16 99/52 (68) 100 209.5 11/27/24 10:17 35 11/27/24 10:00 Mechanical Ventilator+ Intake/Output Intake and Output 11/27/24 06:59 Intake Total 3818.41 ml Output Total 550 ml Balance 3268.41 ml Intake IV Total 3818.41 ml Output Urine Total 550 ml General Appearance: Other (INTUBATED AND SEDATED ) HEENT: PERRLA Lungs: Clear to auscultation Cardiovascular: Regular rate, Normal S1, Normal S2, No murmurs Abdomen: Normal bowel sounds, Soft, No tenderness Rectal: Deferred Extremities: No clubbing, No cyanosis, Normal pulses Neuro: Other (low grade fever ) Skin: Dry, Intact Psych/Mental Status: Other (INTUBATED AND SEDATED ) Medications Current Medications Medications Dose Ordered Sig/Caterina Route Start Time Stop Time Status Last Admin Dose Admin Midazolam HCl 50 ml @ 1 mls/hr Q24H IV 11/25/24 09:00 11/27/24 10:44 15 MLS/HR Fentanyl Citrate 250 ml @ 2.5 mls/hr Q24H IV 11/25/24 09:00 11/27/24 02:05 20 MLS/HR Midazolam HCl 50 ml @ 1 mls/hr Q24H IV 11/25/24 10:15 UNV Fentanyl Citrate 250 ml @ 2.5 mls/hr Q24H IV 11/25/24 10:15 UNV Vancomycin HCl 0 ml @ 0 mls/hr UD IV 11/25/24 11:00 Sodium Chloride 1,000 ml @ 100 mls/hr Q10H IV 11/25/24 13:15 11/26/24 19:15 100 MLS/HR Ondansetron HCl 4 mg Q4HP PRN IV 11/25/24 13:15 Enoxaparin Sodium 40 mg DAILY SC 11/26/24 10:00 11/27/24 09:59 40 MG Nitroglycerin 0.4 mg Q5MINP PRN SL 11/25/24 13:15 Morphine Sulfate 2 mg Q30M PRN IV 11/25/24 13:15 Vancomycin HCl 0 ml @ 0 mls/hr UD IV 11/25/24 13:15 UNV Pantoprazole Sodium 40 mg DAILY IV 11/26/24 10:00 11/27/24 09:59 40 MG Albuterol 2.5 mg Q4HPRN PRN NEB 11/25/24 13:45 Ipratropium [place] 0.5 mg Q4HPRN PRN NEB 11/25/24 13:45 Propofol 100 ml @ 2.43 mls/hr Q24H IV 11/25/24 14:00 UNV Propofol 100 ml @ 2.43 mls/hr Q24H IV 11/25/24 14:15 11/27/24 00:12 7.29 MLS/HR Vancomycin HCl 300 ml @ 200 mls/hr Q12H IV 11/26/24 04:00 11/26/24 15:51 200 MLS/HR Acetaminophen 650 mg Q6H PRN GT 11/26/24 12:45 Metronidazole 100 ml @ 100 mls/hr Q8HR IV 11/26/24 14:00 11/27/24 06:08 100 MLS/HR Cefepime HCl 50 ml @ 12.5 mls/hr Q8H IV 11/27/24 00:00 11/27/24 09:51 12.5 MLS/HR Quetiapine Fumarate 50 mg BID PO 11/27/24 10:00 11/27/24 10:00 50 MG Dexmedetomidine HCl 400 mcg/ Dextrose 100 ml @ 4.05 mls/hr Q24H IV 11/27/24 08:45 Norepinephrine Bitartrate 250 ml @ 3.75 mls/hr Q24H IV 11/27/24 08:45 11/27/24 09:38 3.75 MLS/HR Laboratory Results Laboratory Tests 11/27/24 05:24 11/27/24 05:34 Chemistry Test 11/26/24 13:00 11/27/24 05:24 Magnesium Level 1.6 mg/dL (1.6-2.6) Albumin 3.1 g/dL (3.2-4.8) L Calcium Level 8.8 mg/dL (8.7-10.4) Total Protein 5.4 g/dL (5.7-8.2) L LFT Test 11/27/24 05:24 Alanine Aminotransferase (ALT) < 9 U/L (7-40) Alkaline Phosphatase 66 U/L (46-116) Aspartate Amino Transferase (AST) 17 U/L (13-40) Total Bilirubin 0.3 mg/dL (0.2-1.0) HgA1c, TSH Test 11/26/24 13:00 Thyroid Stimulating Hormone (TSH) 0.61 uIU/mL (0.55-4.78) Urinalysis Test 11/25/24 00:00 Urine Color Light-yellow (Yellow) Urine Clarity Clear (Clear) Urine pH 6.0 (5.0-9.0) Urine Specific [place] 1.009 (1.001-1.035) Urine Protein Negative (Negative) Urine Ketones Negative (Negative) Urine Blood Negative /uL (Negative) Urine Nitrite Negative (Negative) Urine Bilirubin Negative (Negative) Urine Urobilinogen Normal mg/dL (Negative) Urine Leukocyte Esterase Negative /uL (Negative) Urine RBC <1 /hpf (0 - 4) Urine WBC 1 /hpf (0 - 5) Urine Squamous Epithelial Cells Few /hpf (<5) Urine Bacteria None seen /hpf (None Seen) Urine Glucose Normal mg/dL (Normal) Blood Gas Results Test 11/27/24 06:34 Arterial Blood pH 7.384 (7.350-7.450) FiO2 % 35.0 Microbiology Microbiology Date/Time Source Procedure Growth Status 11/25/24 09:32 Blood Blood Culture - Preliminary NO GROWTH AFTER 48 HOURS OF INCUBATION. Resulted 11/25/24 09:07 Sputum Gram Stain - Final Resulted 11/25/24 09:07 Sputum Respiratory Culture - Preliminary Resulted Labs and/or images reviewed: Labs reviewed by me, Image(s) reviewed by me Assessment/Plan Assessment/Plan Impression: -acute hypoxic respiratory failure -toxic metabolic encephalopathy secondary to polysubstance abuse -polysubstance abuse -probable aspiration pneumonia -sepsis with shock -primary hypertension -hypothyroidism -acute kidney injury, hemodynamically mediated Plan: -continue current ventilator settings per pulmonology -vasopressor therapy to keep map greater than 65 mmHg -continue antibiotic therapy, stop vancomycin given increased creatinine -PUD, DVT prophylaxis -continue current sedation -repeat labs, chest x-ray, ABG -assess for spontaneous breathing trial in a.m. Critical care time spent with patient discussing and formulating plan of care: 40 minutes. This does not include time spent performing procedures. This medical document was created using an electronic medical record system with [employer] dictation system. Although this document has been carefully reviewed, there may still be some phonetic and typographical errors. These areas are purely typographical due to imperfections of the software programs, and do not reflect any compromise in the patient's medical care. Plan discussed with: Patient, Other (RN) My Orders Orders - LISA LARSON NP Procedure Category Date Status Time Complete Blood Count LAB 11/28/24 Verified 05:00 Complete Blood Count LAB 11/29/24 Verified 05:00 Comprehensive LAB 11/28/24 Verified Metabolic Panel 05:00 Comprehensive LAB 11/29/24 Verified Metabolic Panel 05:00 Chest Xray 1 View XY 11/27/24 Resulted 05:00 Chest Xray 1 View XY 11/28/24 Logged 05:00 Chest Xray 1 View XY 11/29/24 Logged 05:00 Free T4 (Free LAB 11/26/24 In Process Thyroxine) 14:00 Free T3 LAB 11/26/24 In Process 14:00 Thyroid Panel LAB 11/26/24 In Process 14:00 Acetaminophen PHA 11/26/24 In Process Solution Oral 12:45 Metronidazole PHA 11/26/24 In Process 500mg/100ml (Flagyl 14:00 Pharmacy [facility] 11/26/24 In Process Clarification: 16:33 Cefepime 2gm/50ml Ns PHA 11/27/24 In Process (Maxipime 2gm/50ml) 00:00 Date of Service: Nov 27, 2024 Billing Provider: LISA LARSON NP Common Visit Codes: [id number] CARE 30-74 MIN LISA LARSON NP Nov 27, 2024 11:35
[2024-11-27 11:41] LABS: Free T4 (Free Thyroxine) 1.06 ng/dL (0.89-1.76)
[2024-11-27 11:42] LABS: Free T3 1.96 pg/mL (2.3-4.2)
--- NOTE | 2024-11-27 14:27 | ECG ---
[facility] Test Date: 2024-11-25 Test Time: 08:51:15 Pat Name: SAEED TAO Department: ED Room: 0281T Gender: F Steward/Stewardess Second: SHAWN : 1975 Requested By: KEMAR ORNELAS Order Number: [id number] Reading MD: Sudhakar Pagan Measurements Intervals [place] Rate: 92 P: 58 MA: 180 QRS: 55 QRSD: 111 T: 56 QT: 388 QTc: 481 Interpretive Statements Sinus rhythm Probable left ventricular hypertrophy Electronically Signed On 12-03-2024 14:42:25 PST by Sudhakar Pagan Please click the below link to view image of tracing.
--- NOTE | 2024-11-27 23:16 | DVHPN2 ---
Progress Note - Dictate Date Seen: Nov 27, 2024 Medical Necessity Reason Pt with a Central, PICC or Fol: Yes The following are medically ne: Zhu Catheter Reason for zhu catheter: Strict I&O Subjective Patient seen and examined at bedside. Sedated, intubated on mechanical ventilator. Overnight events reviewed. vital signs Vital Sign Date Time Temp Pulse Resp B/P (MAP) Pulse Ox O2 Delivery O2 Flow Rate FiO2 11/27/24 20:14 105/63 11/27/24 20:02 58 16 100 35 11/27/24 18:00 Mechanical Ventilator+ 11/27/24 16:00 98.2 98.2 Total Intake and Output 11/26/24 11/26/24 11/27/24 15:00 23:00 07:00 Intake Total 1057.76 ml 1482.90 ml 1373.32 ml Output Total 200 ml 350 ml Balance 1057.76 ml 1282.90 ml 1023.32 ml medications Current Medications Medications Dose Ordered Sig/Caterina Route Start Time Stop Time Status Last Admin Dose Admin Midazolam HCl 50 ml @ 1 mls/hr Q24H IV 11/25/24 09:00 11/27/24 20:14 15 MLS/HR Fentanyl Citrate 250 ml @ 2.5 mls/hr Q24H IV 11/25/24 09:00 11/27/24 13:44 22.5 MLS/HR Midazolam HCl 50 ml @ 1 mls/hr Q24H IV 11/25/24 10:15 UNV Fentanyl Citrate 250 ml @ 2.5 mls/hr Q24H IV 11/25/24 10:15 UNV Sodium Chloride 1,000 ml @ 100 mls/hr Q10H IV 11/25/24 13:15 11/27/24 16:24 100 MLS/HR Ondansetron HCl 4 mg Q4HP PRN IV 11/25/24 13:15 Enoxaparin Sodium 40 mg DAILY SC 11/26/24 10:00 11/27/24 09:59 40 MG Nitroglycerin 0.4 mg Q5MINP PRN SL 11/25/24 13:15 Morphine Sulfate 2 mg Q30M PRN IV 11/25/24 13:15 Vancomycin HCl 0 ml @ 0 mls/hr UD IV 11/25/24 13:15 UNV Pantoprazole Sodium 40 mg DAILY IV 11/26/24 10:00 11/27/24 09:59 40 MG Albuterol 2.5 mg Q4HPRN PRN NEB 11/25/24 13:45 Ipratropium [place] 0.5 mg Q4HPRN PRN NEB 11/25/24 13:45 Propofol 100 ml @ 2.43 mls/hr Q24H IV 11/25/24 14:00 UNV Propofol 100 ml @ 2.43 mls/hr Q24H IV 11/25/24 14:15 11/27/24 00:12 7.29 MLS/HR Acetaminophen 650 mg Q6H PRN GT 11/26/24 12:45 Metronidazole 100 ml @ 100 mls/hr Q8HR IV 11/26/24 14:00 11/27/24 22:35 100 MLS/HR Cefepime HCl 50 ml @ 12.5 mls/hr Q8H IV 11/27/24 00:00 11/27/24 16:26 12.5 MLS/HR Quetiapine Fumarate 50 mg BID PO 11/27/24 10:00 11/27/24 22:33 50 MG Dexmedetomidine HCl 400 mcg/ Dextrose 100 ml @ 4.05 mls/hr Q24H IV 11/27/24 08:45 Norepinephrine Bitartrate 250 ml @ 3.75 mls/hr Q24H IV 11/27/24 08:45 11/27/24 09:38 3.75 MLS/HR Enteral Nutritional Formula 1,000 ml 40ML/HR GT 11/27/24 11:30 objective Gen.: Patient lying in bed in medical ICU. Sedated, intubated on mechanical ventilator. Head: Normocephalic, atraumatic. Eyes: PERRLA. Ears: Normal external anatomy. Throat: Endotracheal tube and orogastric tube in place. Neck: Supple, trachea midline. Chest: Transmitted breath sounds bilaterally. Decreased air entry bilaterally. No wheezing. Bibasilar crackles. Cardiovascular: Positive S1, positive S2. Regular rate and rhythm. Abdomen: Positive bowel sounds in all 4 quadrants. Soft, nontender, nondistended. : Zhu in place. Normal external genitalia. Rectal: Deferred. Skin: Warm, dry. Intact. Extremities: 2+ radial pulses bilaterally. No lower extremity edema. Neuro: Sedated. laboratory and microbiology Laboratory Tests 11/27/24 05:34 11/27/24 05:24 Test 11/27/24 05:24 Range/Units Serum Glucose 76 74-106 mg/dL Assessment/Plan Impression: Acute hypoxic respiratory failure On mechanical ventilator Methamphetamine use Hyponatremia Leukocytosis Metabolic acidosis Events: Remains on vent support On AC mode; RR 16, VT 500, PEEP 5, FiO2 40 -->35% Improving FiO2 requirements Sedated on Fentanyl, Versed Off Levophed, hemodynamically stable ABG reviewed, compensated. CXR reviewed, demonstrates Right lower lobe airspace disease or atelectasis. Devices in place. Start Seroquel 50 mg q.12 hours Continue abx - cefepime, metronidazole IV fluids at 100 ml/hr. Taper sedation as tolerated OK for Precedex for agitation CPAP in AM - with PS 8, PEEP of 5. Labs and imaging reviewed. Rest of plan as noted below. Plan: s/p intubation on mechanical ventilator. On AC mode; RR 16, VT 500, PEEP 5, FiO2 35% Titrate FIO2 to keep O2 saturation above 90%. VAP bundle. Daily ABG and CXR while intubated Sedate for ventilator synchrony Continue antibiotics. F/u cultures. Start pressors if necessary to maintain a mean arterial blood pressure greater than 65 mmHg. Monitor renal function Monitor electrolytes. Supplement as necessary. Monitor ins and outs. Monitor WBC. GI prophylaxis. DVT prophylaxis. Prognosis: Poor given patient's multiple co-morbidities. Condition: Critical Rest of plan per hospitalist and other consultants. A total of 35 minutes of critical care time was spent reviewing the patient record, examining the patient, making a diagnostic and therapeutic plan, discussing this plan with the medical personnel, following up on diagnostic studies and following the patient for clinical stability excluding any and all procedures. At least 50% of this time was spent in direct, [id number] contact. Thank you, JOSE Lozano,, for allowing me to participate in this patient's care. Further recommendations will depend on the patient's clinical course. Please do not hesitate to contact me if you have any questions or concerns. This medical document was created using an electronic medical record system with [employer] dictation system. Although these documentations are being carefully reviewed, there may still be some phonetic and typographical changes. The errors are purely typographical, due to imperfection on the software program, and do not reflect any compromise in the patient's medical care. Plan discussed with: Other (CHRIS Arias) Critical Care Time(min): 35 MARCIA BRIGGS MD Nov 27, 2024 23:16
[2024-11-28] VITALS (114 sets, daily range): BP systolic 92–142; BP diastolic 47–94; PULSE 57–91; RESP 12–21; TEMP 97.3–98.4; O2SAT 91–100
[2024-11-28 04:14] LABS: Basophils # (auto) 0.1 10 ^3/uL (0-0.2); Basophils % (auto) 0.7 % (0.0-2.0); Eosinophils % (auto) 9.1 % (0.0-7.0); Hematocrit 28.8 % (36.0-46.0); Hemoglobin 9.7 g/dL (12.2-16.2); Lymphocytes % (auto) 9.4 % (10.0-50.0); Mean Corpuscular Hemoglobin 30.5 pg (28.0-32.0); Mean Corpuscular Hgb Conc. 33.6 g/dL (32.0-36.0); Mean Corpuscular Volume 90.7 fL (80.0-100.0); Monocytes % (auto) 8.8 % (0.0-12.0); Neutrophils # (auto) 7.8 10 ^3/uL (1.6-8.6); Platelet Count (auto) 345 10^3/uL (140-450); Red Blood Cells 3.18 10^6/uL (4.0-5.20); Red Cell Distribution Width 13.6 % (11.8-14.3); White Blood Cell 10.8 10^3/uL (4.4-10.8)
[2024-11-28 04:28] LABS: Alkaline Phosphatase 51 U/L (46-116); Anion Gap 9 (5-15); Aspartate Aminotransferase 20 U/L (13-40); BUN/Creatinine Ratio 5.1 (10.0-20.0); Blood Urea Nitrogen 17 mg/dL (9-23); Glucose 76 mg/dL (74-106); Potassium 3.8 mmol/L (3.5-5.1); Sodium 139 mmol/L (136-145)
[2024-11-28 04:43] LABS: Alanine Aminotransferase < 9 U/L (7-40); Albumin 2.9 g/dL (3.2-4.8); Bilirubin, Total 0.2 mg/dL (0.2-1.0); Calcium 8.5 mg/dL (8.7-10.4); Carbon Dioxide 19 mmol/L (20-31); Chloride 111 mmol/L (98-107); Total Protein 5.3 g/dL (5.7-8.2)
--- NOTE | 2024-11-28 04:52 | DVH ---
CHEST RADIOGRAPH Indication: INTUBATED Technique: Single frontal view of the chest was obtained COMPARISON: XY CHEST XRAY 1 VIEW on DOS: 11/27/24, XY CHEST PORTABLE on DOS: 11/26/24, XY CHEST PORTABL E on DOS: 11/25/24, XY CHEST PORTABLE on DOS: 11/25/24 FINDINGS: Lines and Tubes: Endotracheal tube and enteric catheter in satisfactory position. Lungs: Congestion Pleura: No effusion. No pneumothorax. Cardiomediastinal contours: Unremarkable Bones: Unremarkable IMPRESSION: Lines and tubes in satisfactory position. No significant interval change.
[2024-11-28 07:13] LABS: Base Excess -10.3 mmol/L (-2.0-3.0)
--- NOTE | 2024-11-28 12:28 | DVHPN2 ---
Subjective Patient chemically sedated Reviewed: Care Plan, H&P, Labs, Medications, Previous Orders, Radiology Changes from previous H/P or p: No Changes General: Per HPI Objective Vitals Vital Signs Date Time Temp Pulse Resp B/P (MAP) Pulse Ox O2 Delivery O2 Flow Rate FiO2 11/28/24 10:53 62 16 120/72 (88) 98 11/28/24 10:00 35 11/28/24 10:00 Mechanical Ventilator+ 11/28/24 08:08 98.4 98.4 Intake/Output Intake and Output 11/28/24 07:00 Intake Total 3803.135 ml Output Total 1150 ml Balance 2653.135 ml Intake Oral 30 ml IV Total 3773.135 ml Output Urine Total 1150 ml General Appearance: Other (INTUBATED AND SEDATED ) HEENT: PERRLA Lungs: Clear to auscultation Cardiovascular: Regular rate, Normal S1, Normal S2, No murmurs Abdomen: Normal bowel sounds, Soft, No tenderness Rectal: Deferred Extremities: No clubbing, No cyanosis, Normal pulses Neuro: Other (low grade fever ) Skin: Dry, Intact Psych/Mental Status: Other (INTUBATED AND SEDATED ) Medications Current Medications Medications Dose Ordered Sig/Caterina Route Start Time Stop Time Status Last Admin Dose Admin Midazolam HCl 50 ml @ 1 mls/hr Q24H IV 11/25/24 09:00 11/28/24 06:58 10 MLS/HR Fentanyl Citrate 250 ml @ 2.5 mls/hr Q24H IV 11/25/24 09:00 11/27/24 23:44 25 MLS/HR Midazolam HCl 50 ml @ 1 mls/hr Q24H IV 11/25/24 10:15 UNV Fentanyl Citrate 250 ml @ 2.5 mls/hr Q24H IV 11/25/24 10:15 UNV Sodium Chloride 1,000 ml @ 100 mls/hr Q10H IV 11/25/24 13:15 11/28/24 02:15 100 MLS/HR Ondansetron HCl 4 mg Q4HP PRN IV 11/25/24 13:15 Enoxaparin Sodium 40 mg DAILY SC 11/26/24 10:00 11/28/24 08:22 40 MG Nitroglycerin 0.4 mg Q5MINP PRN SL 11/25/24 13:15 Morphine Sulfate 2 mg Q30M PRN IV 11/25/24 13:15 Vancomycin HCl 0 ml @ 0 mls/hr UD IV 11/25/24 13:15 UNV Pantoprazole Sodium 40 mg DAILY IV 11/26/24 10:00 11/28/24 08:21 40 MG Albuterol 2.5 mg Q4HPRN PRN NEB 11/25/24 13:45 Ipratropium [place] 0.5 mg Q4HPRN PRN NEB 11/25/24 13:45 Propofol 100 ml @ 2.43 mls/hr Q24H IV 11/25/24 14:00 UNV Propofol 100 ml @ 2.43 mls/hr Q24H IV 11/25/24 14:15 11/28/24 01:13 7.29 MLS/HR Acetaminophen 650 mg Q6H PRN GT 11/26/24 12:45 Metronidazole 100 ml @ 100 mls/hr Q8HR IV 11/26/24 14:00 11/28/24 06:14 100 MLS/HR Cefepime HCl 50 ml @ 12.5 mls/hr Q8H IV 11/27/24 00:00 11/28/24 08:22 12.5 MLS/HR Quetiapine Fumarate 50 mg BID PO 11/27/24 10:00 11/28/24 08:23 50 MG Dexmedetomidine HCl 400 mcg/ Dextrose 100 ml @ 4.05 mls/hr Q24H IV 11/27/24 08:45 11/28/24 06:47 4.05 MLS/HR Norepinephrine Bitartrate 250 ml @ 3.75 mls/hr Q24H IV 11/27/24 08:45 11/27/24 09:38 3.75 MLS/HR Enteral Nutritional Formula 1,000 ml 40ML/HR GT 11/27/24 11:30 Laboratory Results Laboratory Tests 11/28/24 03:40 Chemistry Test 11/28/24 03:40 Albumin 2.9 g/dL (3.2-4.8) L Calcium Level 8.5 mg/dL (8.7-10.4) L Total Protein 5.3 g/dL (5.7-8.2) L LFT Test 11/28/24 03:40 Alanine Aminotransferase (ALT) < 9 U/L (7-40) Alkaline Phosphatase 51 U/L (46-116) Aspartate Amino Transferase (AST) 20 U/L (13-40) Total Bilirubin 0.2 mg/dL (0.2-1.0) Urinalysis Test 11/25/24 00:00 Urine Color Light-yellow (Yellow) Urine Clarity Clear (Clear) Urine pH 6.0 (5.0-9.0) Urine Specific [place] 1.009 (1.001-1.035) Urine Protein Negative (Negative) Urine Ketones Negative (Negative) Urine Blood Negative /uL (Negative) Urine Nitrite Negative (Negative) Urine Bilirubin Negative (Negative) Urine Urobilinogen Normal mg/dL (Negative) Urine Leukocyte Esterase Negative /uL (Negative) Urine RBC <1 /hpf (0 - 4) Urine WBC 1 /hpf (0 - 5) Urine Squamous Epithelial Cells Few /hpf (<5) Urine Bacteria None seen /hpf (None Seen) Urine Glucose Normal mg/dL (Normal) Blood Gas Results Test 11/28/24 07:02 Arterial Blood pH 7.288 (7.350-7.450) FiO2 % 35.0 Microbiology Microbiology Date/Time Source Procedure Growth Status 11/25/24 09:32 Blood Blood Culture - Preliminary NO GROWTH AFTER 72 HOURS OF INCUBATION. Resulted 11/25/24 09:07 Sputum Gram Stain - Final Complete 11/25/24 09:07 Sputum Respiratory Culture - Final Complete Labs and/or images reviewed: Labs reviewed by me, Image(s) reviewed by me Assessment/Plan Assessment/Plan Impression: -acute hypoxic respiratory failure -toxic metabolic encephalopathy secondary to polysubstance abuse -polysubstance abuse -probable aspiration pneumonia -sepsis with shock -primary hypertension -hypothyroidism -acute kidney injury, hemodynamically mediated questionable ATN Plan: -events: Worsening renal function. Patient making adequate urine. FiO2 30%. Sedation has been weaned. Spontaneous breathing trial once patient was appropriate. Off vasopressor therapy. -continue Flagyl and cefepime -PUD, DVT prophylaxis -continue current sedation : Use Precedex as needed -repeat labs, chest x-ray, ABG Repeat labs in a.m. Critical care time spent with patient discussing and formulating plan of care: 40 minutes. This does not include time spent performing procedures. This medical document was created using an electronic medical record system with [employer] system. Although this document has been carefully reviewed, there may still be some phonetic and typographical errors. These areas are purely typographical due to imperfections of the software programs, and do not reflect any compromise in the patient's medical care. Plan discussed with: Patient, Other (RN) My Orders Orders - LISA LARSON NP Procedure Category Date Status Time Mrsa Screen KIKE 11/27/24 In Process 18:39 Date of Service: Nov 28, 2024 Billing Provider: LISA LARSON NP Common Visit Codes: [id number] CARE 30-74 MIN LISA LARSON NP Nov 28, 2024 12:28
[2024-11-28] MEDS: SOD CHL 0.45% 1,000 ML IV SCH (14:00)
[2024-11-28] MEDS: Jevity 1.2 Cal/Fiber 1 Liter GT SCH (20:00)
--- NOTE | 2024-11-28 21:42 | DVHPN2 ---
Progress Note - Dictate Date Seen: Nov 28, 2024 Medical Necessity Reason Pt with a Central, PICC or Fol: Yes The following are medically ne: Zhu Catheter Reason for zhu catheter: Strict I&O Subjective Patient seen and examined at bedside. Sedated, intubated on mechanical ventilator. Overnight events reviewed. vital signs Vital Sign Date Time Temp Pulse Resp B/P (MAP) Pulse Ox O2 Delivery O2 Flow Rate FiO2 11/28/24 20:10 71 16 113/67 (82) 100 30 11/28/24 18:00 Mechanical Ventilator+ 11/28/24 16:08 98.3 98.3 Total Intake and Output 11/27/24 11/27/24 11/28/24 14:59 22:59 06:59 Intake Total 1328.48 ml 1224.63 ml 1274.24 ml Output Total 700 ml 450 ml Balance 1328.48 ml 524.63 ml 824.24 ml medications Current Medications Medications Dose Ordered Sig/Caterina Route Start Time Stop Time Status Last Admin Dose Admin Midazolam HCl 50 ml @ 1 mls/hr Q24H IV 11/25/24 09:00 11/28/24 06:58 10 MLS/HR Fentanyl Citrate 250 ml @ 2.5 mls/hr Q24H IV 11/25/24 09:00 11/27/24 23:44 25 MLS/HR Midazolam HCl 50 ml @ 1 mls/hr Q24H IV 11/25/24 10:15 UNV Fentanyl Citrate 250 ml @ 2.5 mls/hr Q24H IV 11/25/24 10:15 UNV Ondansetron HCl 4 mg Q4HP PRN IV 11/25/24 13:15 Enoxaparin Sodium 40 mg DAILY SC 11/26/24 10:00 11/28/24 08:22 40 MG Nitroglycerin 0.4 mg Q5MINP PRN SL 11/25/24 13:15 Morphine Sulfate 2 mg Q30M PRN IV 11/25/24 13:15 Vancomycin HCl 0 ml @ 0 mls/hr UD IV 11/25/24 13:15 UNV Pantoprazole Sodium 40 mg DAILY IV 11/26/24 10:00 11/28/24 08:21 40 MG Albuterol 2.5 mg Q4HPRN PRN NEB 11/25/24 13:45 Ipratropium [place] 0.5 mg Q4HPRN PRN NEB 11/25/24 13:45 Propofol 100 ml @ 2.43 mls/hr Q24H IV 11/25/24 14:00 UNV Propofol 100 ml @ 2.43 mls/hr Q24H IV 11/25/24 14:15 11/28/24 01:13 7.29 MLS/HR Acetaminophen 650 mg Q6H PRN GT 11/26/24 12:45 Metronidazole 100 ml @ 100 mls/hr Q8HR IV 11/26/24 14:00 11/28/24 14:03 100 MLS/HR Quetiapine Fumarate 50 mg BID PO 11/27/24 10:00 11/28/24 08:23 50 MG Dexmedetomidine HCl 400 mcg/ Dextrose 100 ml @ 4.05 mls/hr Q24H IV 11/27/24 08:45 11/28/24 06:47 4.05 MLS/HR Norepinephrine Bitartrate 250 ml @ 3.75 mls/hr Q24H IV 11/27/24 08:45 11/27/24 09:38 3.75 MLS/HR Enteral Nutritional Formula 1,000 ml 40ML/HR GT 11/27/24 11:30 Sodium Chloride 1,000 ml @ 75 mls/hr [id number] IV 11/28/24 12:30 11/28/24 14:00 75 MLS/HR Cefepime HCl 50 ml @ 12.5 mls/hr DAILY@0800 IV 11/29/24 08:00 objective Gen.: Patient lying in bed in medical ICU. Sedated, intubated on mechanical ventilator. Head: Normocephalic, atraumatic. Eyes: PERRLA. Ears: Normal external anatomy. Throat: Endotracheal tube and orogastric tube in place. Neck: Supple, trachea midline. Chest: Transmitted breath sounds bilaterally. Decreased air entry bilaterally. No wheezing. Bibasilar crackles. Cardiovascular: Positive S1, positive S2. Regular rate and rhythm. Abdomen: Positive bowel sounds in all 4 quadrants. Soft, nontender, nondistended. : Zhu in place. Normal external genitalia. Rectal: Deferred. Skin: Warm, dry. Intact. Extremities: 2+ radial pulses bilaterally. No lower extremity edema. Neuro: Sedated. laboratory and microbiology Laboratory Tests 11/28/24 03:40 Test 11/28/24 03:40 Range/Units Serum Glucose 76 74-106 mg/dL Assessment/Plan Impression: Acute hypoxic respiratory failure On mechanical ventilator Methamphetamine use Hyponatremia Leukocytosis Metabolic acidosis Events: Remains on vent support On AC mode; RR 16, VT 500, PEEP 5, FiO2 35 -->30% Improving FiO2 requirements Patient failed CPAP. Sedated on Fentanyl Off Levophed, hemodynamically stable ABG reviewed, notable for acidemia CXR reviewed, demonstrates pulmonary congestion. Devices in place. Seroquel 50 mg q.12 hours Continue abx - cefepime, metronidazole IV fluids at 100 ml/hr. Taper sedation as tolerated OK for Precedex for agitation Will attempt CPAP in AM - with PS 8, PEEP of 5. Labs and imaging reviewed. Rest of plan as noted below. Plan: s/p intubation on mechanical ventilator. On AC mode; RR 16, VT 500, PEEP 5, FiO2 30% Titrate FIO2 to keep O2 saturation above 90%. VAP bundle. Daily ABG and CXR while intubated Sedate for ventilator synchrony Continue antibiotics. F/u cultures. Start pressors if necessary to maintain a mean arterial blood pressure greater than 65 mmHg. Monitor renal function Monitor electrolytes. Supplement as necessary. Monitor ins and outs. Monitor WBC. GI prophylaxis. DVT prophylaxis. Prognosis: Poor given patient's multiple co-morbidities. Condition: Critical Rest of plan per hospitalist and other consultants. A total of 35 minutes of critical care time was spent reviewing the patient record, examining the patient, making a diagnostic and therapeutic plan, discussing this plan with the medical personnel, following up on diagnostic studies and following the patient for clinical stability excluding any and all procedures. At least 50% of this time was spent in direct, [id number] contact. Thank you, [employer] Blake,, for allowing me to participate in this patient's care. Further recommendations will depend on the patient's clinical course. Please do not hesitate to contact me if you have any questions or concerns. This medical document was created using an electronic medical record system with [employer] system. Although these documentations are being carefully reviewed, there may still be some phonetic and typographical changes. The errors are purely typographical, due to imperfection on the software program, and do not reflect any compromise in the patient's medical care. Dietary Evaluation Review Comments: 1) If GI is accessible consider Jevity 1.2 @ 50 ml/hr x 24hr as tolerated (advance to 60ml/hr if GFR trends up to within normal range) 2) If pt remains NPO consider TPN to meet at least 75% of estimated needs 3) Advance pt diet when medically feasible to a 2gm Sodium diet modified per [employer] recommendations Expected Outcomes/Goals: 1) Pt to receive nutrition support within 7 days of NPO status 2) Pt diet to advance 3) F/U in 2-3 days Plan discussed with: Other (CHRIS Wilkins) Critical Care Time(min): 35 MARCIA BRIGGS MD Nov 28, 2024 21:42
[2024-11-29] VITALS (110 sets, daily range): BP systolic 102–162; BP diastolic 56–117; PULSE 65–120; RESP 9–26; TEMP 97.7–98.8; O2SAT 92–100
[2024-11-29 01:06] LABS: Free Thyroxine Index 2.5 (1.2-4.9); Thyroxine (T4) 9.6 ug/dL (4.5-12.0)
[2024-11-29 03:37] LABS: Basophils # (auto) 0.1 10 ^3/uL (0-0.2); Basophils % (auto) 0.8 % (0.0-2.0); Eosinophils # (auto) 1.2 10 ^3/uL (0-0.8); Eosinophils % (auto) 9.9 % (0.0-7.0); Hematocrit 30.7 % (36.0-46.0); Hemoglobin 10.1 g/dL (12.2-16.2); Lymphocytes # (auto) 1.3 10 ^3/uL (0.4-5.4); Lymphocytes % (auto) 11.4 % (10.0-50.0); Mean Corpuscular Hemoglobin 30.2 pg (28.0-32.0); Mean Corpuscular Volume 91.4 fL (80.0-100.0); Monocytes % (auto) 8.7 % (0.0-12.0); Neutrophils # (auto) 8.1 10 ^3/uL (1.6-8.6); Neutrophils % (auto) 69.2 % (37.0-80.0); Platelet Count (auto) 383 10^3/uL (140-450); Red Blood Cells 3.35 10^6/uL (4.0-5.20); Red Cell Distribution Width 14.1 % (11.8-14.3); White Blood Cell 11.7 10^3/uL (4.4-10.8)
[2024-11-29 03:51] LABS: Alkaline Phosphatase 49 U/L (46-116); Anion Gap 11 (5-15); Aspartate Aminotransferase 23 U/L (13-40); BUN/Creatinine Ratio 4.5 (10.0-20.0); Blood Urea Nitrogen 20 mg/dL (9-23); Potassium 3.8 mmol/L (3.5-5.1); Sodium 140 mmol/L (136-145)
[2024-11-29 04:09] LABS: Alanine Aminotransferase < 9 U/L (7-40); Bilirubin, Total 0.2 mg/dL (0.2-1.0); Carbon Dioxide 15 mmol/L (20-31); Chloride 114 mmol/L (98-107); Glucose 56 mg/dL (74-106); Total Protein 5.4 g/dL (5.7-8.2)
--- NOTE | 2024-11-29 05:26 | DVH ---
CHEST RADIOGRAPH Indication: INTUBATED Technique: Single frontal view of the chest was obtained Comparison: XY CHEST XRAY 1 VIEW on DOS: 11/28/24, XY CHEST XRAY 1 VIEW on DOS: 11/27/24, XY CHEST PORT ABLE on DOS: 11/26/24, XY CHEST PORTABLE on DOS: 11/25/24, XY CHEST PORTABLE on DOS: 11/25/24, XY CHEST XRAY 1 VIEW on DOS: 11/28/24 FINDINGS: Lines and Tubes: Endotracheal tube and enteric catheter in satisfactory position. Lungs: Congestion Pleura: No effusion. No pneumothorax. Cardiomediastinal contours: Unremarkable Bones: Unremarkable IMPRESSION: 1. Lines and tubes in satisfactory position. No significant interval change.
[2024-11-29] MEDS: SOD CHL 0.45% 1,000 ML IV SCH (08:00)
[2024-11-29 08:01] LABS: Base Excess -13.8 mmol/L (-2.0-3.0)
[2024-11-29] MEDS: CEFEPIME 2GM/50ML NS 50 ML IV SCH (08:16)
[2024-11-29] MEDS: SODIUM BICARB 8.4% 50Meq/50ml SYR Vial IV ONE ×2 (08:32→16:35)
[2024-11-29] MEDS ORDERED: SODIUM BICARB 50mEq/50ml Vial 50 ML in SOD CHL 0.45% 1,000 ML IV ONE (09:15)
--- NOTE | 2024-11-29 09:42 | DVHPN2 ---
Subjective Patient now awake and following some commands. Reviewed: Care Plan, H&P, Labs, Medications, Previous Orders, Radiology Changes from previous H/P or p: No Changes General: Per HPI Objective Vitals Vital Signs Date Time Temp Pulse Resp B/P (MAP) Pulse Ox O2 Delivery O2 Flow Rate FiO2 11/29/24 08:00 30 11/29/24 08:00 16 99 Mechanical Ventilator+ 11/29/24 06:00 68 11/29/24 05:30 114/68 11/29/24 04:09 98.2 98.2 Intake/Output Intake and Output 11/29/24 07:00 Intake Total 2303.058 ml Output Total 1025 ml Balance 1278.058 ml Intake Oral 30 ml IV Total 2228.058 ml Tube Feeding 45 ml Output Urine Total 1025 ml General Appearance: Alert, moderate distress, Other (Encephalopathic) HEENT: PERRLA Lungs: Clear to auscultation Cardiovascular: Regular rate, Normal S1, Normal S2, No murmurs Abdomen: Normal bowel sounds, Soft, No tenderness Rectal: Deferred Extremities: No clubbing, No cyanosis, Normal pulses Neuro: Other (low grade fever ) Skin: Dry, Intact Psych/Mental Status: Other (INTUBATED AND SEDATED ) Medications Current Medications Medications Dose Ordered Sig/Caterina Route Start Time Stop Time Status Last Admin Dose Admin Midazolam HCl 50 ml @ 1 mls/hr Q24H IV 11/25/24 09:00 11/28/24 06:58 10 MLS/HR Fentanyl Citrate 250 ml @ 2.5 mls/hr Q24H IV 11/25/24 09:00 11/29/24 04:20 7.5 MLS/HR Midazolam HCl 50 ml @ 1 mls/hr Q24H IV 11/25/24 10:15 UNV Fentanyl Citrate 250 ml @ 2.5 mls/hr Q24H IV 11/25/24 10:15 UNV Ondansetron HCl 4 mg Q4HP PRN IV 11/25/24 13:15 Enoxaparin Sodium 40 mg DAILY SC 11/26/24 10:00 11/28/24 08:22 40 MG Nitroglycerin 0.4 mg Q5MINP PRN SL 11/25/24 13:15 Morphine Sulfate 2 mg Q30M PRN IV 11/25/24 13:15 Vancomycin HCl 0 ml @ 0 mls/hr UD IV 11/25/24 13:15 UNV Pantoprazole Sodium 40 mg DAILY IV 11/26/24 10:00 11/28/24 08:21 40 MG Albuterol 2.5 mg Q4HPRN PRN NEB 11/25/24 13:45 Ipratropium [place] 0.5 mg Q4HPRN PRN NEB 11/25/24 13:45 Propofol 100 ml @ 2.43 mls/hr Q24H IV 11/25/24 14:00 UNV Propofol 100 ml @ 2.43 mls/hr Q24H IV 11/25/24 14:15 11/28/24 01:13 7.29 MLS/HR Acetaminophen 650 mg Q6H PRN GT 11/26/24 12:45 Metronidazole 100 ml @ 100 mls/hr Q8HR IV 11/26/24 14:00 11/29/24 05:53 100 MLS/HR Quetiapine Fumarate 50 mg BID PO 11/27/24 10:00 11/28/24 21:54 50 MG Dexmedetomidine HCl 400 mcg/ Dextrose 100 ml @ 4.05 mls/hr Q24H IV 11/27/24 08:45 11/28/24 06:47 4.05 MLS/HR Norepinephrine Bitartrate 250 ml @ 3.75 mls/hr Q24H IV 11/27/24 08:45 11/27/24 09:38 3.75 MLS/HR Enteral Nutritional Formula 1,000 ml 40ML/HR GT 11/27/24 11:30 11/28/24 20:00 1,000 ML Cefepime HCl 50 ml @ 12.5 mls/hr DAILY@0800 IV 11/29/24 08:00 11/29/24 08:16 12.5 MLS/HR Sodium Bicarbonate 75 ml/ Dextrose 1,075 ml @ 100 mls/hr [id number] IV 11/29/24 09:30 Laboratory Results Laboratory Tests 11/29/24 03:00 Chemistry Test 11/29/24 03:00 Albumin 3.0 g/dL (3.2-4.8) L Calcium Level 9.0 mg/dL (8.7-10.4) Total Protein 5.4 g/dL (5.7-8.2) L LFT Test 11/29/24 03:00 Alanine Aminotransferase (ALT) < 9 U/L (7-40) Alkaline Phosphatase 49 U/L (46-116) Aspartate Amino Transferase (AST) 23 U/L (13-40) Total Bilirubin 0.2 mg/dL (0.2-1.0) Urinalysis Test 11/25/24 00:00 Urine Color Light-yellow (Yellow) Urine Clarity Clear (Clear) Urine pH 6.0 (5.0-9.0) Urine Specific [place] 1.009 (1.001-1.035) Urine Protein Negative (Negative) Urine Ketones Negative (Negative) Urine Blood Negative /uL (Negative) Urine Nitrite Negative (Negative) Urine Bilirubin Negative (Negative) Urine Urobilinogen Normal mg/dL (Negative) Urine Leukocyte Esterase Negative /uL (Negative) Urine RBC <1 /hpf (0 - 4) Urine WBC 1 /hpf (0 - 5) Urine Squamous Epithelial Cells Few /hpf (<5) Urine Bacteria None seen /hpf (None Seen) Urine Glucose Normal mg/dL (Normal) Blood Gas Results Test 11/29/24 07:32 Arterial Blood pH 7.216 (7.350-7.450) FiO2 % 30.0 Microbiology Microbiology Date/Time Source Procedure Growth Status 11/27/24 17:00 Nose MRSA Screen - Final Complete 11/25/24 09:32 Blood Blood Culture - Preliminary NO GROWTH AFTER 72 HOURS OF INCUBATION. Resulted 11/25/24 09:07 Sputum Gram Stain - Final Complete 11/25/24 09:07 Sputum Respiratory Culture - Final Complete Labs and/or images reviewed: Labs reviewed by me, Image(s) reviewed by me Assessment/Plan Assessment/Plan Impression: -cardiopulmonary arrest -acute hypoxic respiratory failure -toxic metabolic encephalopathy secondary to polysubstance abuse -polysubstance abuse -probable aspiration pneumonia -sepsis with shock -primary hypertension -hypothyroidism -acute kidney injury, hemodynamically mediated questionable ATN Plan: -events: Patient with worsening acute kidney injury. Patient also hypoglycemic. Worsening acidosis. -two amps of sodium bicarbonate was given. Start sodium bicarbonate drip -nephrology consultation -renal ultrasound -continue Flagyl and cefepime -PUD, DVT prophylaxis -continue current sedation : Use Precedex as needed Repeat labs , chest x-ray, ABG in a.m. Critical care time spent with patient discussing and formulating plan of care: 40 minutes. This does not include time spent performing procedures. This medical document was created using an electronic medical record system with [employer] dictation system. Although this document has been carefully reviewed, there may still be some phonetic and typographical errors. These areas are purely typographical due to imperfections of the software programs, and do not reflect any compromise in the patient's medical care. Plan discussed with: Patient, Other (RN) My Orders Orders - LISA LARSON NP Procedure Category Date Status Time Cpap/Sed Vacation Med ORDERS 11/28/24 Transmitted Weaning 12:17 Cpap/Sed Vacation Med ORDERS 11/28/24 Transmitted Weaning 12:17 Cefepime 2gm/50ml Ns PHA 11/29/24 In Process (Maxipime 2gm/50ml) 08:00 *[facility] CONS 11/29/24 Transmitted -[place] 09:14 Kidney US 11/29/24 Logged 09:15 D5w 5% (Dextrose 5%) PHA 11/29/24 In Process W/Sodium Bicarb 50m 09:30 Date of Service: Nov 29, 2024 Billing Provider: LISA LARSON NP Common Visit Codes: [id number]-[id number] CARE 30-74 MIN LISA LARSON NP Nov 29, 2024 09:42
--- NOTE | 2024-11-29 11:32 | DVH ---
RENAL ULTRASOUND CLINICAL HISTORY: renal failure TECHNIQUE: Multiple ultrasound images of the kidneys and bladder were obtained. COMPARISON: None FINDINGS: The right kidney measures 12.2 cm in length. The left kidney measures 11.2 cm. The kidneys demonstrat e appropriate echotexture and cortical thickness without evidence of a discrete renal lesion, nephrol ithiasis or hydronephrosis. The bladder not visualized on the provided ultrasound images. IMPRESSION: 1. Unremarkable sonographic appearance of the kidneys. 2. Nonvisualization of the bladder. HS:Y
[2024-11-29] MEDS: SODIUM BICARB 50mEq/50ml Vial 75 ML in D5W 5% 1,000 ML IV SCH (12:17)
[2024-11-29 14:48] LABS: Base Excess -13.9 mmol/L (-2.0-3.0)
--- NOTE | 2024-11-29 15:51 | DVHINCON2 ---
Date of service: Nov 29, 2024 Referring Physician hospitalist Reason for Consultation Acute kidney injury History of Present Illness 49-year-old female with past medical history of polysubstance abuse presents to the hospital in the setting of unresponsiveness. Patient was brought to the cardiac arrest. Patient had return of spontaneous circulation. Patient's drug screen was positive for methamphetamine. Patient was intubated in the ICU. Nephrology consulted due to progressive worsening renal function. Over the last several days patient's renal function went from normal on admission to a creatinine greater than four. Patient today is noted to be acidotic. Allergies: Coded Allergies: Cephalexin (Verified Allergy, Unknown, 11/25/24) Ciprofloxacin (Verified Allergy, Unknown, 11/25/24) Current Medications Current Medications Medications (Trade) Dose Ordered Sig/Caterina Route PRN Reason Start Time Stop Time Status Last Admin Cefepime HCl 50 ml @ 12.5 mls/hr DAILY@0800 IV 11/29/24 08:00 11/29/24 08:16 Sodium Chloride 1,000 ml @ 125 mls/hr Q8H IV 11/29/24 08:00 11/29/24 09:20 DC Sodium Bicarbonate 75 ml/ Dextrose 1,075 ml @ 100 mls/hr [id number] IV 11/29/24 09:30 11/29/24 12:17 Hydralazine HCl (Apresoline Injection) 10 mg Q4HP PRN IV SBP>150 11/29/24 13:15 Review of Systems Can not obtain due to critical illness H&P Exam Vital Signs/I&O Vital Sign Date Time Temp Pulse Resp B/P (MAP) Pulse Ox O2 Delivery O2 Flow Rate FiO2 11/29/24 14:24 112 14 95 11/29/24 14:00 Mechanical Ventilator+ 30 30 11/29/24 12:09 98.0 98.0 Intake and Output 11/28/24 11/29/24 18:59 06:59 Intake Total 1213.950 ml 1305.183 ml Output Total 500 ml 525 ml Balance 713.950 ml 780.183 ml Intake Oral 30 ml IV Total 1213.950 ml 1230.183 ml Tube Feeding 45 ml Output Urine Total 500 ml 525 ml Physical Exam Middle-aged white female Intubated Not on pressors Off sedation moving spontaneously Not in respiratory distress breathing on spontaneous breathing trial that. Abdomen is soft No pitting edema Labs/Diagnostic Data Labs/Diagnostic Data Laboratory Tests Test 11/29/24 14:35 11/29/24 07:32 11/29/24 06:10 11/29/24 06:08 Range/Units Blood Gas Specimen Type Arterial Arterial Blood Gas Sample Site Left radial Left radial Blood Gas Patient Temperature 37.0 37.0 Arterial Blood Date Drawn [id number] Arterial Blood pH 7.183 *L 7.216 *L 7.350-7.450 Arterial Blood Partial Pressure CO2 36.6 32.2 32.0-45.0 mmHg Arterial Blood Partial Pressure O2 84.9 124.4 H 83.0-108.0 mmHg Arterial Blood HCO3 13.4 L 12.8 L 21.0-28.0 mmol/L Arterial Blood Oxygen Saturation 95.0 98.2 H 94.0-98.0 % Arterial Blood Base Excess -13.9 L -13.8 L -2.0-3.0 mmol/L Arterial Blood Oxyhemoglobin 94.4 97.9 94.0-98.0 % Arterial Blood Carboxyhemoglobin 0.3 L 0.1 L 0.5-1.5 % Arterial Blood Methemoglobin 0.3 0.2 0.0-1.5 % Jose Test Modified Modified Blood Gas Total Hemoglobin 12.40 13.20 12.0-16.0 g/dL Blood Gas Modality Vent - cpap Vent - ac FiO2 % 30.0 30.0 Blood Gas Pressure Support 8 Blood Gas PEEP or CPAP 5.0 5.0 Blood Gas Critical Value Read Back Yes Yes Blood Gas Notified Whom Dr. zamzam barajas Blood Gas Notified Time [id number] Blood Gas Notified By Blood Gas Set Respiration Rate 16.0 Blood Gas Tidal Volume 500.0 POC Glucose 63 L 52 L 70-106 mg/dl Test 11/29/24 03:00 11/28/24 07:02 11/28/24 03:40 11/27/24 13:50 Range/Units White Blood Count 11.7 H 10.8 4.4-10.8 10^3/uL Red Blood Count 3.35 L 3.18 L 4.0-5.20 10^6/uL Hemoglobin 10.1 L 9.7 L 12.2-16.2 g/dL Hematocrit 30.7 L 28.8 L 36.0-46.0 % Mean Corpuscular Volume 91.4 90.7 80.0-100.0 fL Mean Corpuscular Hemoglobin 30.2 30.5 28.0-32.0 pg Mean Corpuscular Hemoglobin Concent 33.0 33.6 32.0-36.0 g/dL Red Cell Distribution Width 14.1 13.6 11.8-14.3 % Platelet Count 383 345 140-450 10^3/uL Mean Platelet Volume 6.9 7.2 6.9-10.8 fL Neutrophils (%) (Auto) 69.2 72.0 37.0-80.0 % Lymphocytes (%) (Auto) 11.4 9.4 L 10.0-50.0 % Monocytes (%) (Auto) 8.7 8.8 0.0-12.0 % Eosinophils (%) (Auto) 9.9 H 9.1 H 0.0-7.0 % Basophils (%) (Auto) 0.8 0.7 0.0-2.0 % Neutrophils # (Auto) 8.1 7.8 1.6-8.6 10 ^3/uL Lymphocytes # (Auto) 1.3 1.0 0.4-5.4 10 ^3/uL Monocytes # (Auto) 1.0 1.0 0-1.3 10 ^3/uL Eosinophils # (Auto) 1.2 H 1.0 H 0-0.8 10 ^3/uL Basophils # (Auto) 0.1 0.1 0-0.2 10 ^3/uL Nucleated Red Blood Cells 0.0 0.0 % Sodium Level 140 139 136-145 mmol/L Potassium Level 3.8 3.8 3.5-5.1 mmol/L Chloride Level 114 H 111 H 98-107 mmol/L Carbon Dioxide Level 15 L 19 L 20-31 mmol/L Anion Gap 11 9 5-15 Blood Urea Nitrogen 20 17 9-23 mg/dL Creatinine 4.44 #H 3.32 #H 0.550-1.02 mg/dL Glomerular Filtration Rate Calc 12 16 >90 mL/min BUN/Creatinine Ratio 4.5 L 5.1 L 10.0-20.0 Serum Glucose 56 L 76 74-106 mg/dL Calcium Level 9.0 8.5 L 8.7-10.4 mg/dL Total Bilirubin 0.2 0.2 0.2-1.0 mg/dL Aspartate Amino Transferase (AST) 23 20 13-40 U/L Alanine Aminotransferase (ALT) < 9 < 9 7-40 U/L Alkaline Phosphatase 49 51 46-116 U/L Total Protein 5.4 L 5.3 L 5.7-8.2 g/dL Albumin 3.0 L 2.9 L 3.2-4.8 g/dL Blood Gas Specimen Type Arterial Blood Gas Sample Site Right radial Blood Gas Patient Temperature 37.0 Arterial Blood Date Drawn [id number] Arterial Blood pH 7.288 L 7.350-7.450 Arterial Blood Partial Pressure CO2 32.6 32.0-45.0 mmHg Arterial Blood Partial Pressure O2 134.5 H 83.0-108.0 mmHg Arterial Blood HCO3 15.3 L 21.0-28.0 mmol/L Arterial Blood Oxygen Saturation 98.3 H 94.0-98.0 % Arterial Blood Base Excess -10.3 L -2.0-3.0 mmol/L Arterial Blood Oxyhemoglobin 97.8 94.0-98.0 % Arterial Blood Carboxyhemoglobin 0.3 L 0.5-1.5 % Arterial Blood Methemoglobin 0.2 0.0-1.5 % Jose Test Yes Blood Gas Total Hemoglobin 10.40 L 12.0-16.0 g/dL Blood Gas Set Respiration Rate 16.0 Blood Gas Modality Vent - ac FiO2 % 35.0 Blood Gas Tidal Volume 500.0 Blood Gas PEEP or CPAP 5.0 POC Glucose 72 70-106 mg/dl Test 11/27/24 06:34 11/27/24 05:34 11/27/24 05:24 11/27/24 03:15 Range/Units Blood Gas Specimen Type Arterial Blood Gas Sample Site Right radial Blood Gas Patient Temperature 37.0 Arterial Blood Date Drawn [id number] Arterial Blood pH 7.384 7.350-7.450 Arterial Blood Partial Pressure CO2 29.8 L 32.0-45.0 mmHg Arterial Blood Partial Pressure O2 91.4 83.0-108.0 mmHg Arterial Blood HCO3 17.4 L 21.0-28.0 mmol/L Arterial Blood Oxygen Saturation 96.5 94.0-98.0 % Arterial Blood Base Excess -6.5 L -2.0-3.0 mmol/L Arterial Blood Oxyhemoglobin 95.7 94.0-98.0 % Arterial Blood Carboxyhemoglobin 0.3 L 0.5-1.5 % Arterial Blood Methemoglobin 0.5 0.0-1.5 % Jose Test Modified Blood Gas Total Hemoglobin 11.50 L 12.0-16.0 g/dL Blood Gas Set Respiration Rate 16.0 Blood Gas Modality Vent - ac FiO2 % 35.0 Blood Gas Tidal Volume 500.0 Blood Gas PEEP or CPAP 5.0 White Blood Count 14.2 H 4.4-10.8 10^3/uL Red Blood Count 3.42 L 4.0-5.20 10^6/uL Hemoglobin 10.4 L 12.2-16.2 g/dL Hematocrit 32.0 L 36.0-46.0 % Mean Corpuscular Volume 93.5 80.0-100.0 fL Mean Corpuscular Hemoglobin 30.3 28.0-32.0 pg Mean Corpuscular Hemoglobin Concent 32.4 32.0-36.0 g/dL Red Cell Distribution Width 13.8 11.8-14.3 % Platelet Count 131 L 140-450 10^3/uL Mean Platelet Volume 8.1 6.9-10.8 fL Neutrophils (%) (Auto) 75.9 37.0-80.0 % Lymphocytes (%) (Auto) 9.1 L 10.0-50.0 % Monocytes (%) (Auto) 9.2 0.0-12.0 % Eosinophils (%) (Auto) 5.4 0.0-7.0 % Basophils (%) (Auto) 0.4 0.0-2.0 % Neutrophils # (Auto) 10.8 H 1.6-8.6 10 ^3/uL Lymphocytes # (Auto) 1.3 0.4-5.4 10 ^3/uL Monocytes # (Auto) 1.3 0-1.3 10 ^3/uL Eosinophils # (Auto) 0.8 0-0.8 10 ^3/uL Basophils # (Auto) 0.1 0-0.2 10 ^3/uL Nucleated Red Blood Cells 0.0 % Sodium Level 137 136-145 mmol/L Potassium Level 3.9 3.5-5.1 mmol/L Chloride Level 107 98-107 mmol/L Carbon Dioxide Level 20 20-31 mmol/L Anion Gap 10 5-15 Blood Urea Nitrogen 10 9-23 mg/dL Creatinine 2.20 #H 0.550-1.02 mg/dL Glomerular Filtration Rate Calc 27 >90 mL/min BUN/Creatinine Ratio 4.5 L 10.0-20.0 Serum Glucose 76 74-106 mg/dL Calcium Level 8.8 8.7-10.4 mg/dL Total Bilirubin 0.3 0.2-1.0 mg/dL Aspartate Amino Transferase (AST) 17 13-40 U/L Alanine Aminotransferase (ALT) < 9 7-40 U/L Alkaline Phosphatase 66 46-116 U/L Total Protein 5.4 L 5.7-8.2 g/dL Albumin 3.1 L 3.2-4.8 g/dL Vancomycin Level Trough 45.6 *H 5-10 ug/mL Test 11/26/24 13:00 11/26/24 07:11 11/26/24 03:46 11/25/24 19:00 Range/Units Potassium Level 3.5 3.2 L 3.5-5.1 mmol/L Magnesium Level 1.6 1.6-2.6 mg/dL Thyroid Stimulating Hormone (TSH) 0.61 0.55-4.78 uIU/mL Free Thyroxine (T4) Calculated 1.06 0.89-1.76 ng/dL Free Thyroxine Index 2.5 1.2-4.9 Thyroxine (T4) 9.6 4.5-12.0 ug/dL Free Triiodothyronine (T3) pg/mL 1.96 L 2.3-4.2 pg/mL Triiodothyronine (T3) Uptake 26 24-39 % Blood Gas Specimen Type Arterial Blood Gas Sample Site Right radial Blood Gas Patient Temperature 37.0 Arterial Blood Date Drawn [id number] Arterial Blood pH 7.453 H 7.350-7.450 Arterial Blood Partial Pressure CO2 36.6 32.0-45.0 mmHg Arterial Blood Partial Pressure O2 78.0 L 83.0-108.0 mmHg Arterial Blood HCO3 25.0 21.0-28.0 mmol/L Arterial Blood Oxygen Saturation 95.5 94.0-98.0 % Arterial Blood Base Excess 1.3 -2.0-3.0 mmol/L Arterial Blood Oxyhemoglobin 94.7 94.0-98.0 % Arterial Blood Carboxyhemoglobin 0.3 L 0.5-1.5 % Arterial Blood Methemoglobin 0.5 0.0-1.5 % Jose Test Modified Blood Gas Total Hemoglobin 11.40 L 12.0-16.0 g/dL Blood Gas Set Respiration Rate 16.0 Blood Gas Modality Vent - ac FiO2 % 45.0 Blood Gas Tidal Volume 500.0 Blood Gas PEEP or CPAP 5.0 White Blood Count 15.5 H 4.4-10.8 10^3/uL Red Blood Count 3.30 L 4.0-5.20 10^6/uL Hemoglobin 10.3 #L 12.2-16.2 g/dL Hematocrit 29.8 #L 36.0-46.0 % Mean Corpuscular Volume 90.0 80.0-100.0 fL Mean Corpuscular Hemoglobin 31.3 28.0-32.0 pg Mean Corpuscular Hemoglobin Concent 34.7 32.0-36.0 g/dL Red Cell Distribution Width 13.1 11.8-14.3 % Platelet Count 337 140-450 10^3/uL Mean Platelet Volume 7.3 6.9-10.8 fL Neutrophils (%) (Auto) 84.6 H 37.0-80.0 % Lymphocytes (%) (Auto) 6.5 L 10.0-50.0 % Monocytes (%) (Auto) 6.1 0.0-12.0 % Eosinophils (%) (Auto) 2.7 0.0-7.0 % Basophils (%) (Auto) 0.1 0.0-2.0 % Neutrophils # (Auto) 13.1 H 1.6-8.6 10 ^3/uL Lymphocytes # (Auto) 1.0 0.4-5.4 10 ^3/uL Monocytes # (Auto) 0.9 0-1.3 10 ^3/uL Eosinophils # (Auto) 0.4 0-0.8 10 ^3/uL Basophils # (Auto) 0 0-0.2 10 ^3/uL Nucleated Red Blood Cells 0.1 % Sodium Level 134 L 136-145 mmol/L Chloride Level 101 98-107 mmol/L Carbon Dioxide Level 26 20-31 mmol/L Anion Gap 7 5-15 Blood Urea Nitrogen 5 L 9-23 mg/dL Creatinine 0.78 0.550-1.02 mg/dL Glomerular Filtration Rate Calc 94 >90 mL/min BUN/Creatinine Ratio 6.4 L 10.0-20.0 Serum Glucose 99 74-106 mg/dL Calcium Level 9.0 8.7-10.4 mg/dL Total Bilirubin 0.3 0.2-1.0 mg/dL Aspartate Amino Transferase (AST) 15 13-40 U/L Alanine Aminotransferase (ALT) < 9 7-40 U/L Alkaline Phosphatase 51 46-116 U/L Total Protein 5.7 5.7-8.2 g/dL Albumin 3.4 3.2-4.8 g/dL Influenza Type A Antigen Negative Negative Influenza Type B Antigen Negative Negative SARS-CoV-2 Antigen (Rapid) Negative NEGATIVE Test 11/25/24 15:27 11/25/24 14:44 11/25/24 13:15 11/25/24 10:47 Range/Units Blood Gas Specimen Type Arterial Blood Gas Sample Site Right radial Blood Gas Patient Temperature 37.0 Arterial Blood Date Drawn [id number] Arterial Blood pH 7.447 7.350-7.450 Arterial Blood Partial Pressure CO2 35.5 32.0-45.0 mmHg Arterial Blood Partial Pressure O2 88.2 83.0-108.0 mmHg Arterial Blood HCO3 24.0 21.0-28.0 mmol/L Arterial Blood Oxygen Saturation 96.8 94.0-98.0 % Arterial Blood Base Excess 0.3 -2.0-3.0 mmol/L Arterial Blood Oxyhemoglobin 96.0 94.0-98.0 % Arterial Blood Carboxyhemoglobin 0.3 L 0.5-1.5 % Arterial Blood Methemoglobin 0.5 0.0-1.5 % Jose Test Modified Blood Gas Total Hemoglobin 11.80 L 12.0-16.0 g/dL Blood Gas Set Respiration Rate 16.0 Blood Gas Modality Vent - ac FiO2 % 45.0 Blood Gas Tidal Volume 500.0 Blood Gas PEEP or CPAP 5.0 Erythrocyte Sedimentation Rate 43 H 0-20 mm/hr Levetiracetam Level <2.0 L 10.0-40.0 ug/mL Troponin I High Sensitivity 25 16 </=34 ng/L C-Reactive Protein High Sensitivity 7.48 H <1.0 mg/dL Plasma/Serum Blood Alcohol < 3.0 <10 mg/dL Test 11/25/24 10:45 11/25/24 09:51 11/25/24 09:32 11/25/24 08:52 Range/Units Blood Gas Specimen Type Arterial Blood Gas Sample Site Right radial Blood Gas Patient Temperature 37.0 Arterial Blood Date Drawn [id number] Arterial Blood pH 7.425 7.350-7.450 Arterial Blood Partial Pressure CO2 31.1 L 32.0-45.0 mmHg Arterial Blood Partial Pressure O2 256.2 H 83.0-108.0 mmHg Arterial Blood HCO3 19.9 L 21.0-28.0 mmol/L Arterial Blood Oxygen Saturation 99.7 H 94.0-98.0 % Arterial Blood Base Excess -3.5 L -2.0-3.0 mmol/L Arterial Blood Oxyhemoglobin 98.6 H 94.0-98.0 % Arterial Blood Carboxyhemoglobin 0.3 L 0.5-1.5 % Arterial Blood Methemoglobin 0.8 0.0-1.5 % Jose Test Modified Blood Gas Total Hemoglobin 12.20 12.0-16.0 g/dL Blood Gas Set Respiration Rate 16.0 Blood Gas Modality Vent - ac FiO2 % 100.0 Blood Gas Tidal Volume 500.0 Blood Gas PEEP or CPAP 5.0 White Blood Count 14.3 H 4.4-10.8 10^3/uL Red Blood Count 4.17 4.0-5.20 10^6/uL Hemoglobin 12.6 12.2-16.2 g/dL Hematocrit 37.4 36.0-46.0 % Mean Corpuscular Volume 89.7 80.0-100.0 fL Mean Corpuscular Hemoglobin 30.3 28.0-32.0 pg Mean Corpuscular Hemoglobin Concent 33.8 32.0-36.0 g/dL Red Cell Distribution Width 12.9 11.8-14.3 % Platelet Count 393 140-450 10^3/uL Mean Platelet Volume 7.3 6.9-10.8 fL Neutrophils (%) (Auto) 91.9 H 37.0-80.0 % Lymphocytes (%) (Auto) 5.9 L 10.0-50.0 % Monocytes (%) (Auto) 2.0 0.0-12.0 % Eosinophils (%) (Auto) 0.1 0.0-7.0 % Basophils (%) (Auto) 0.1 0.0-2.0 % Neutrophils # (Auto) 13.2 H 1.6-8.6 10 ^3/uL Lymphocytes # (Auto) 0.8 0.4-5.4 10 ^3/uL Monocytes # (Auto) 0.3 0-1.3 10 ^3/uL Eosinophils # (Auto) 0 0-0.8 10 ^3/uL Basophils # (Auto) 0 0-0.2 10 ^3/uL Nucleated Red Blood Cells 0.2 % Sodium Level 130 L 136-145 mmol/L Potassium Level 4.4 3.5-5.1 mmol/L Chloride Level 98 98-107 mmol/L Carbon Dioxide Level 21 20-31 mmol/L Anion Gap 11 5-15 Blood Urea Nitrogen 6 L 9-23 mg/dL Creatinine 0.77 0.550-1.02 mg/dL Glomerular Filtration Rate Calc 95 >90 mL/min BUN/Creatinine Ratio 7.8 L 10.0-20.0 Serum Glucose 149 H 74-106 mg/dL Calcium Level 9.5 8.7-10.4 mg/dL Total Bilirubin 0.6 0.2-1.0 mg/dL Aspartate Amino Transferase (AST) 35 13-40 U/L Alanine Aminotransferase (ALT) 12 7-40 U/L Alkaline Phosphatase 72 46-116 U/L Troponin I High Sensitivity 7 </=34 ng/L Total Protein 7.5 5.7-8.2 g/dL Albumin 4.5 3.2-4.8 g/dL Lactic Acid Level 1.2 0.4-2.0 mmol/L Urine Opiates Screen Neg NEGATIVE Urine Fentanyl Screen Pos NEGATIVE Urine Barbiturates Screen Neg NEGATIVE Urine Phencyclidine Screen Neg NEGATIVE Urine Amphetamines Screen Pos NEGATIVE Urine Benzodiazepines Screen Pos NEGATIVE Urine Cocaine Screen Pos NEGATIVE Urine Cannabinoids Screen Neg NEGATIVE Test 11/25/24 00:00 Range/Units Urine Color Light-yellow Yellow Urine Clarity Clear Clear Urine pH 6.0 5.0-9.0 Urine Specific [place] 1.009 1.001-1.035 Urine Protein Negative Negative Urine Ketones Negative Negative Urine Blood Negative Negative /uL Urine Nitrite Negative Negative Urine Bilirubin Negative Negative Urine Urobilinogen Normal Negative mg/dL Urine Leukocyte Esterase Negative Negative /uL Urine RBC <1 0 - 4 /hpf Urine WBC 1 0 - 5 /hpf Urine Squamous Epithelial Cells Few <5 /hpf Urine Bacteria None seen None Seen /hpf Urine Glucose Normal Normal mg/dL Microbiology Date/Time Source Procedure Growth Status 11/27/24 17:00 Nose MRSA Screen - Final Complete 11/25/24 09:07 Sputum Gram Stain - Final Complete 11/25/24 09:07 Sputum Respiratory Culture - Final Complete Assessment Acute kidney injury hemodynamically mediated in setting of cardiac arrest Acute respiratory failure Cardiac arrest Methamphetamine abuse Metabolic acidosis Sodium bicarbonate drip Diuretic stress dose challenge due to probable acute tubular necrosis Monitor urinary output Avoid hypotension That management as per primary medical team Cardiology Intensive care Critical care time spent 35 minutes Plan discussed with: Other MICHAEL GUAJARDO MD Nov 29, 2024 15:51
[2024-11-29] MEDS: SODIUM BICARB 50mEq/50ml Vial 150 ML in D5W 5% 1,000 ML IV SCH (16:29)
[2024-11-29] MEDS: BUMETANIDE 2.5mg/10ml (0.25 mg/ml) INJ IV ONE (17:01)
--- NOTE | 2024-11-29 22:08 | DVHPN2 ---
Progress Note - Dictate Date Seen: Nov 29, 2024 Medical Necessity Reason Pt with a Central, PICC or Fol: Yes The following are medically ne: Zhu Catheter Reason for zhu catheter: Strict I&O Subjective Patient seen and examined at bedside. Sedated, intubated on mechanical ventilator. Overnight events reviewed. vital signs Vital Sign Date Time Temp Pulse Resp B/P (MAP) Pulse Ox O2 Delivery O2 Flow Rate FiO2 11/29/24 19:26 102 16 143/81 (101) 98 30 11/29/24 18:25 Mechanical Ventilator+ 11/29/24 16:09 97.7 97.7 Total Intake and Output 11/28/24 11/28/24 11/29/24 15:00 23:00 07:00 Intake Total 755.375 ml 779.30 ml 852.883 ml Output Total 500 ml 525 ml Balance 755.375 ml 279.30 ml 327.883 ml medications Current Medications Medications Dose Ordered Sig/Caterina Route Start Time Stop Time Status Last Admin Dose Admin Midazolam HCl 50 ml @ 1 mls/hr Q24H IV 11/25/24 09:00 11/28/24 06:58 10 MLS/HR Fentanyl Citrate 250 ml @ 2.5 mls/hr Q24H IV 11/25/24 09:00 11/29/24 04:20 7.5 MLS/HR Midazolam HCl 50 ml @ 1 mls/hr Q24H IV 11/25/24 10:15 UNV Fentanyl Citrate 250 ml @ 2.5 mls/hr Q24H IV 11/25/24 10:15 UNV Ondansetron HCl 4 mg Q4HP PRN IV 11/25/24 13:15 Enoxaparin Sodium 40 mg DAILY SC 11/26/24 10:00 11/29/24 11:07 40 MG Nitroglycerin 0.4 mg Q5MINP PRN SL 11/25/24 13:15 Morphine Sulfate 2 mg Q30M PRN IV 11/25/24 13:15 Vancomycin HCl 0 ml @ 0 mls/hr UD IV 11/25/24 13:15 UNV Pantoprazole Sodium 40 mg DAILY IV 11/26/24 10:00 11/29/24 11:06 40 MG Albuterol 2.5 mg Q4HPRN PRN NEB 11/25/24 13:45 Ipratropium Haslet 0.5 mg Q4HPRN PRN NEB 11/25/24 13:45 Propofol 100 ml @ 2.43 mls/hr Q24H IV 11/25/24 14:00 UNV Propofol 100 ml @ 2.43 mls/hr Q24H IV 11/25/24 14:15 11/28/24 01:13 7.29 MLS/HR Acetaminophen 650 mg Q6H PRN GT 11/26/24 12:45 Metronidazole 100 ml @ 100 mls/hr Q8HR IV 11/26/24 14:00 11/29/24 17:06 100 MLS/HR Quetiapine Fumarate 50 mg BID PO 11/27/24 10:00 11/29/24 11:06 50 MG Dexmedetomidine HCl 400 mcg/ Dextrose 100 ml @ 4.05 mls/hr Q24H IV 11/27/24 08:45 11/29/24 11:05 4.05 MLS/HR Norepinephrine Bitartrate 250 ml @ 3.75 mls/hr Q24H IV 11/27/24 08:45 11/27/24 09:38 3.75 MLS/HR Enteral Nutritional Formula 1,000 ml 40ML/HR GT 11/27/24 11:30 11/28/24 20:00 1,000 ML Cefepime HCl 50 ml @ 12.5 mls/hr DAILY@0800 IV 11/29/24 08:00 11/29/24 08:16 12.5 MLS/HR Hydralazine HCl 10 mg Q4HP PRN IV 11/29/24 13:15 Sodium Bicarbonate 150 ml/Dextrose 1,150 ml @ 100 mls/hr [id number] IV 11/29/24 16:00 11/29/24 16:29 100 MLS/HR objective Gen.: Patient lying in bed in medical ICU. Sedated, intubated on mechanical ventilator. Head: Normocephalic, atraumatic. Eyes: PERRLA. Ears: Normal external anatomy. Throat: Endotracheal tube and orogastric tube in place. Neck: Supple, trachea midline. Chest: Transmitted breath sounds bilaterally. Decreased air entry bilaterally. No wheezing. Bibasilar crackles. Cardiovascular: Positive S1, positive S2. Regular rate and rhythm. Abdomen: Positive bowel sounds in all 4 quadrants. Soft, nontender, nondistended. : Zhu in place. Normal external genitalia. Rectal: Deferred. Skin: Warm, dry. Intact. Extremities: 2+ radial pulses bilaterally. No lower extremity edema. Neuro: Sedated. laboratory and microbiology Laboratory Tests 11/29/24 03:00 Test 11/29/24 03:00 Range/Units Serum Glucose 56 L 74-106 mg/dL Assessment/Plan Impression: Acute hypoxic respiratory failure On mechanical ventilator Methamphetamine use Hyponatremia Leukocytosis Metabolic acidosis Events: Patient tolerated CPAP. Remains on vent support On AC mode; RR 16, VT 500, PEEP 5, FiO2 30% Sedated on Fentanyl (off Versed) Off Levophed, hemodynamically stable ABG reviewed, notable for acidemia d/t CO2 retention Received 4 amps of bicarb. Bicarb drip at 100 ml/hr CXR reviewed, demonstrates pulmonary congestion. Devices in place. Seroquel 50 mg q.12 hours Continue abx - cefepime, metronidazole IV fluids at 100 ml/hr. Tube feeds for nutritional support Started Bumex for diuresis Monitor UOP Monitor renal function Nephrology recs appreciated. Taper sedation as tolerated OK for Precedex for agitation Will attempt CPAP in AM - with PS 8, PEEP of 5. Labs and imaging reviewed. Rest of plan as noted below. Plan: s/p intubation on mechanical ventilator. On AC mode; RR 16, VT 500, PEEP 5, FiO2 30% Titrate FIO2 to keep O2 saturation above 90%. VAP bundle. Daily ABG and CXR while intubated Sedate for ventilator synchrony Continue antibiotics. F/u cultures. Start pressors if necessary to maintain a mean arterial blood pressure greater than 65 mmHg. Monitor renal function Monitor electrolytes. Supplement as necessary. Monitor ins and outs. Monitor WBC. GI prophylaxis. DVT prophylaxis. Prognosis: Poor given patient's multiple co-morbidities. Condition: Critical Rest of plan per hospitalist and other consultants. A total of 35 minutes of critical care time was spent reviewing the patient record, examining the patient, making a diagnostic and therapeutic plan, discussing this plan with the medical personnel, following up on diagnostic studies and following the patient for clinical stability excluding any and all procedures. At least 50% of this time was spent in direct, [id number] contact. Thank you, JOSE Lozano,, for allowing me to participate in this patient's care. Further recommendations will depend on the patient's clinical course. Please do not hesitate to contact me if you have any questions or concerns. This medical document was created using an electronic medical record system with [employer] dictation system. Although these documentations are being carefully reviewed, there may still be some phonetic and typographical changes. The errors are purely typographical, due to imperfection on the software program, and do not reflect any compromise in the patient's medical care. Dietary Evaluation Review Comments: 1) If GI is accessible consider Jevity 1.2 @ 50 ml/hr x 24hr as tolerated (advance to 60ml/hr if GFR trends up to within normal range) 2) If pt remains NPO consider TPN to meet at least 75% of estimated needs 3) Advance pt diet when medically feasible to a 2gm Sodium diet modified per [employer] recommendations Expected Outcomes/Goals: 1) Pt to receive nutrition support within 7 days of NPO status 2) Pt diet to advance 3) F/U in 2-3 days Plan discussed with: Other (CHRIS Jacinto) Critical Care Time(min): 35 MARCIA BRIGGS MD Nov 29, 2024 22:08
[2024-11-30] VITALS (115 sets, daily range): BP systolic 128–176; BP diastolic 72–110; PULSE 79–134; RESP 5–31; TEMP 98.6–99.4; O2SAT 91–100
[2024-11-30 04:13] LABS: Basophils # (auto) 0.1 10 ^3/uL (0-0.2); Eosinophils # (auto) 0 10 ^3/uL (0-0.8); Hemoglobin 10.7 g/dL (12.2-16.2); Lymphocytes # (auto) 0.6 10 ^3/uL (0.4-5.4); Monocytes # (auto) 0.4 10 ^3/uL (0-1.3); Red Blood Cells 3.49 10^6/uL (4.0-5.20); Red Cell Distribution Width 13.6 % (11.8-14.3)
[2024-11-30 04:17] LABS: Basophils % (auto) 0.6 % (0.0-2.0); Eosinophils % (auto) 0.2 % (0.0-7.0); Hematocrit 31.2 % (36.0-46.0); Lymphocytes % (auto) 5.6 % (10.0-50.0); Mean Corpuscular Hemoglobin 30.6 pg (28.0-32.0); Mean Corpuscular Hgb Conc. 34.3 g/dL (32.0-36.0); Mean Corpuscular Volume 89.3 fL (80.0-100.0); Monocytes % (auto) 3.8 % (0.0-12.0); Neutrophils # (auto) 9.3 10 ^3/uL (1.6-8.6); Neutrophils % (auto) 89.8 % (37.0-80.0); Platelet Count (auto) 472 10^3/uL (140-450); White Blood Cell 10.3 10^3/uL (4.4-10.8)
[2024-11-30 04:37] LABS: Alkaline Phosphatase 52 U/L (46-116); Anion Gap 12 (5-15); Aspartate Aminotransferase 24 U/L (13-40); BUN/Creatinine Ratio 4.8 (10.0-20.0); Blood Urea Nitrogen 23 mg/dL (9-23); Calcium 8.8 mg/dL (8.7-10.4); Carbon Dioxide 23 mmol/L (20-31); Chloride 107 mmol/L (98-107); Sodium 142 mmol/L (136-145)
[2024-11-30 04:56] LABS: Glucose 145 mg/dL (74-106); Potassium 3.5 mmol/L (3.5-5.1)
[2024-11-30 04:57] LABS: Alanine Aminotransferase < 9 U/L (7-40); Albumin 3.1 g/dL (3.2-4.8); Bilirubin, Total 0.2 mg/dL (0.2-1.0); Total Protein 5.6 g/dL (5.7-8.2)
--- NOTE | 2024-11-30 05:43 | DVH ---
CHEST RADIOGRAPH Indication: VENTED Technique: Single frontal view of the chest was obtained Comparison: XY CHEST XRAY 1 VIEW on DOS: 11/29/24 FINDINGS: Lines and Tubes: The endotracheal tube terminates 4.2 cm above the chuck. The enteric tube terminate s in the stomach. Lungs: Mild pulmonary vascular congestion is unchanged. No consolidation. Pleura: No effusion. No pneumothorax. Cardiomediastinal contours: Unremarkable Bones: No acute osseous abnormality. IMPRESSION: 1. Stable position of the support lines and tubes. 2. Stable mild pulmonary congestion.
[2024-11-30 08:05] LABS: Base Excess 0.7 mmol/L (-2.0-3.0)
--- NOTE | 2024-11-30 09:35 | DVHPN2 ---
Subjective Patient now awake and following some commands. Reviewed: Care Plan, H&P, Labs, Medications, Previous Orders, Radiology Changes from previous H/P or p: No Changes General: Per HPI Objective Vitals Vital Signs Date Time Temp Pulse Resp B/P (MAP) Pulse Ox O2 Delivery O2 Flow Rate FiO2 11/30/24 09:28 111 18 152/95 (114) 97 30 11/30/24 06:00 Mechanical Ventilator+ 11/30/24 04:09 98.9 98.9 Intake/Output Intake and Output 11/30/24 07:00 Intake Total 2460.5 ml Output Total 2075 ml Balance 385.5 ml Intake Oral 0 ml IV Total 2390.5 ml Tube Feeding 70 ml Output Urine Total 2075 ml General Appearance: Alert, Oriented X3, mild distress HEENT: PERRLA Lungs: Clear to auscultation Cardiovascular: Regular rate, Normal S1, Normal S2, No murmurs Abdomen: Normal bowel sounds, Soft, No tenderness Rectal: Deferred Extremities: No clubbing, No cyanosis, Normal pulses Neuro: Other (low grade fever ) Skin: Dry, Intact Psych/Mental Status: Other (INTUBATED AND SEDATED ) Medications Current Medications Medications Dose Ordered Sig/Caterina Route Start Time Stop Time Status Last Admin Dose Admin Midazolam HCl 50 ml @ 1 mls/hr Q24H IV 11/25/24 09:00 11/28/24 06:58 10 MLS/HR Fentanyl Citrate 250 ml @ 2.5 mls/hr Q24H IV 11/25/24 09:00 11/29/24 04:20 7.5 MLS/HR Midazolam HCl 50 ml @ 1 mls/hr Q24H IV 11/25/24 10:15 UNV Fentanyl Citrate 250 ml @ 2.5 mls/hr Q24H IV 11/25/24 10:15 UNV Ondansetron HCl 4 mg Q4HP PRN IV 11/25/24 13:15 Enoxaparin Sodium 40 mg DAILY SC 11/26/24 10:00 11/29/24 11:07 40 MG Nitroglycerin 0.4 mg Q5MINP PRN SL 11/25/24 13:15 Morphine Sulfate 2 mg Q30M PRN IV 11/25/24 13:15 Vancomycin HCl 0 ml @ 0 mls/hr UD IV 11/25/24 13:15 UNV Pantoprazole Sodium 40 mg DAILY IV 11/26/24 10:00 11/29/24 11:06 40 MG Albuterol 2.5 mg Q4HPRN PRN NEB 11/25/24 13:45 Ipratropium [place] 0.5 mg Q4HPRN PRN NEB 11/25/24 13:45 Propofol 100 ml @ 2.43 mls/hr Q24H IV 11/25/24 14:00 UNV Propofol 100 ml @ 2.43 mls/hr Q24H IV 11/25/24 14:15 11/28/24 01:13 7.29 MLS/HR Acetaminophen 650 mg Q6H PRN GT 11/26/24 12:45 Metronidazole 100 ml @ 100 mls/hr Q8HR IV 11/26/24 14:00 11/30/24 05:39 100 MLS/HR Quetiapine Fumarate 50 mg BID PO 11/27/24 10:00 11/29/24 22:36 50 MG Dexmedetomidine HCl 400 mcg/ Dextrose 100 ml @ 4.05 mls/hr Q24H IV 11/27/24 08:45 11/29/24 11:05 4.05 MLS/HR Norepinephrine Bitartrate 250 ml @ 3.75 mls/hr Q24H IV 11/27/24 08:45 11/27/24 09:38 3.75 MLS/HR Enteral Nutritional Formula 1,000 ml 40ML/HR GT 11/27/24 11:30 11/28/24 20:00 1,000 ML Cefepime HCl 50 ml @ 12.5 mls/hr DAILY@0800 IV 11/29/24 08:00 11/30/24 08:58 12.5 MLS/HR Hydralazine HCl 10 mg Q4HP PRN IV 11/29/24 13:15 Sodium Bicarbonate 150 ml/Dextrose 1,150 ml @ 100 mls/hr [id number] IV 11/29/24 16:00 11/30/24 04:30 100 MLS/HR Bumetanide 2.5 mg DAILY IV 11/30/24 10:00 Laboratory Results Laboratory Tests 11/30/24 03:54 Chemistry Test 11/30/24 03:54 Albumin 3.1 g/dL (3.2-4.8) L Calcium Level 8.8 mg/dL (8.7-10.4) Total Protein 5.6 g/dL (5.7-8.2) L LFT Test 11/30/24 03:54 Alanine Aminotransferase (ALT) < 9 U/L (7-40) Alkaline Phosphatase 52 U/L (46-116) Aspartate Amino Transferase (AST) 24 U/L (13-40) Total Bilirubin 0.2 mg/dL (0.2-1.0) Urinalysis Test 11/25/24 00:00 Urine Color Light-yellow (Yellow) Urine Clarity Clear (Clear) Urine pH 6.0 (5.0-9.0) Urine Specific [place] 1.009 (1.001-1.035) Urine Protein Negative (Negative) Urine Ketones Negative (Negative) Urine Blood Negative /uL (Negative) Urine Nitrite Negative (Negative) Urine Bilirubin Negative (Negative) Urine Urobilinogen Normal mg/dL (Negative) Urine Leukocyte Esterase Negative /uL (Negative) Urine RBC <1 /hpf (0 - 4) Urine WBC 1 /hpf (0 - 5) Urine Squamous Epithelial Cells Few /hpf (<5) Urine Bacteria None seen /hpf (None Seen) Urine Glucose Normal mg/dL (Normal) Blood Gas Results Test 11/29/24 14:35 11/30/24 07:59 Arterial Blood pH 7.183 (7.350-7.450) 7.461 (7.350-7.450) FiO2 % 30.0 30.0 Microbiology Microbiology Date/Time Source Procedure Growth Status 11/27/24 17:00 Nose MRSA Screen - Final Complete 11/25/24 09:32 Blood Blood Culture - Preliminary NO GROWTH AFTER 72 HOURS OF INCUBATION. Resulted 11/25/24 09:07 Sputum Gram Stain - Final Complete 11/25/24 09:07 Sputum Respiratory Culture - Final Complete Labs and/or images reviewed: Labs reviewed by me, Image(s) reviewed by me Assessment/Plan Assessment/Plan Impression: -cardiopulmonary arrest -acute hypoxic respiratory failure -toxic metabolic encephalopathy secondary to polysubstance abuse -polysubstance abuse -probable aspiration pneumonia -sepsis with shock -primary hypertension -hypothyroidism -acute kidney injury, hemodynamically mediated questionable ATN Plan: -events: Patient failed CPAP trial yesterday. Patient is more awake today. Patient placed back on CPAP. Order has been placed to transfer to network facility. Awaiting notification by case management for accepting provider in hospital. -continue bicarb drip. -nephrology consultation -renal ultrasound -continue Flagyl and cefepime -PUD, DVT prophylaxis -continue current sedation : Use Precedex as needed Repeat labs , chest x-ray, ABG in a.m. Critical care time spent with patient discussing and formulating plan of care: 40 minutes. This does not include time spent performing procedures. This medical document was created using an electronic medical record system with [employer] dictation system. Although this document has been carefully reviewed, there may still be some phonetic and typographical errors. These areas are purely typographical due to imperfections of the software programs, and do not reflect any compromise in the patient's medical care. Plan discussed with: Patient, Other (RN) My Orders Orders - LISA LARSON NP Procedure Category Date Status Time * [facility] [place] CONS 11/29/24 Transmitted Consult Hydralazine Injection PHA 11/29/24 In Process (Apresoline Inject 13:15 Abg W/ Co-Ox RT 11/29/24 Logged 14:00 Discharge DISCHARGE 11/29/24 Transmitted 16:38 Chest Xray 1 View XY 11/30/24 Resulted 04:00 Abg W/ Co-Ox RT 11/30/24 Logged 06:00 Complete Blood Count LAB 12/01/24 Verified 04:00 Comprehensive LAB 12/01/24 Verified Metabolic Panel 04:00 Date of Service: Nov 30, 2024 Billing Provider: LISA LARSON NP Common Visit Codes: [id number] CARE 30-74 MIN LISA LARSON NP Nov 30, 2024 09:35
[2024-11-30 10:24] LABS: Base Excess 1.9 mmol/L (-2.0-3.0)
[2024-11-30] MEDS: BUMETANIDE 2.5mg/10ml (0.25 mg/ml) INJ IV SCH (10:28)
[2024-11-30] MEDS: hydrALAZINE HCL 20 MG/ML VL IV PRN (12:16)
--- NOTE | 2024-11-30 16:21 | DVHPN2 ---
Progress Note Date Seen: Nov 30, 2024 Medical Necessity Reason Pt with a Central, PICC or Fol: Yes The following are medically ne: Zhu Catheter Reason for zhu catheter: Strict I&O Subjective Review of Systems: Deferred Objective vital signs Vital Sign Date Time Temp Pulse Resp B/P (MAP) Pulse Ox O2 Delivery O2 Flow Rate FiO2 11/30/24 15:37 120 17 161/102 (121) 94 11/30/24 14:00 Cool Aerosol 5 28 28 11/30/24 08:10 99.1 99.1 Total Intake and Output 11/29/24 11/29/24 11/30/24 14:59 22:59 06:59 Intake Total 510.0 ml 915.0 ml 1120.0 ml Output Total 475 ml 1600 ml Balance 510.0 ml 440.0 ml -480.0 ml medications Current Medications Medications Dose Ordered Sig/Caterina Route Start Time Stop Time Status Last Admin Dose Admin Midazolam HCl 50 ml @ 1 mls/hr Q24H IV 11/25/24 09:00 11/28/24 06:58 10 MLS/HR Fentanyl Citrate 250 ml @ 2.5 mls/hr Q24H IV 11/25/24 09:00 11/29/24 04:20 7.5 MLS/HR Midazolam HCl 50 ml @ 1 mls/hr Q24H IV 11/25/24 10:15 UNV Fentanyl Citrate 250 ml @ 2.5 mls/hr Q24H IV 11/25/24 10:15 UNV Ondansetron HCl 4 mg Q4HP PRN IV 11/25/24 13:15 Enoxaparin Sodium 40 mg DAILY SC 11/26/24 10:00 11/30/24 10:27 40 MG Nitroglycerin 0.4 mg Q5MINP PRN SL 11/25/24 13:15 Morphine Sulfate 2 mg Q30M PRN IV 11/25/24 13:15 Vancomycin HCl 0 ml @ 0 mls/hr UD IV 11/25/24 13:15 UNV Pantoprazole Sodium 40 mg DAILY IV 11/26/24 10:00 11/30/24 10:26 40 MG Albuterol 2.5 mg Q4HPRN PRN NEB 11/25/24 13:45 Ipratropium [place] 0.5 mg Q4HPRN PRN NEB 11/25/24 13:45 Propofol 100 ml @ 2.43 mls/hr Q24H IV 11/25/24 14:00 UNV Propofol 100 ml @ 2.43 mls/hr Q24H IV 11/25/24 14:15 11/28/24 01:13 7.29 MLS/HR Acetaminophen 650 mg Q6H PRN GT 11/26/24 12:45 Metronidazole 100 ml @ 100 mls/hr Q8HR IV 11/26/24 14:00 11/30/24 15:32 100 MLS/HR Quetiapine Fumarate 50 mg BID PO 11/27/24 10:00 11/29/24 22:36 50 MG Dexmedetomidine HCl 400 mcg/ Dextrose 100 ml @ 4.05 mls/hr Q24H IV 11/27/24 08:45 11/29/24 11:05 4.05 MLS/HR Norepinephrine Bitartrate 250 ml @ 3.75 mls/hr Q24H IV 11/27/24 08:45 11/27/24 09:38 3.75 MLS/HR Enteral Nutritional Formula 1,000 ml 40ML/HR GT 11/27/24 11:30 11/28/24 20:00 1,000 ML Cefepime HCl 50 ml @ 12.5 mls/hr DAILY@0800 IV 11/29/24 08:00 11/30/24 08:58 12.5 MLS/HR Hydralazine HCl 10 mg Q4HP PRN IV 11/29/24 13:15 11/30/24 12:16 10 MG Sodium Bicarbonate 150 ml/Dextrose 1,150 ml @ 100 mls/hr [id number] IV 11/29/24 16:00 11/30/24 15:31 100 MLS/HR Bumetanide 2.5 mg DAILY IV 11/30/24 10:00 11/30/24 10:28 2.5 MG Labetalol HCl 10 mg Q3HR PRN IV 11/30/24 15:45 Examination: GENERAL:Abnormal, LUNGS:Abnormal, ABDOMEN:Abnormal laboratory and microbiology Laboratory Tests 11/30/24 03:54 Test 11/30/24 03:54 Range/Units Serum Glucose 145 H 74-106 mg/dL Microbiology Date/Time Source Procedure Growth Status 11/27/24 17:00 Nose MRSA Screen - Final Complete 11/25/24 09:32 Blood Blood Culture - Final NO GROWTH AFTER 5 DAYS OF INCUBATION. Complete 11/25/24 09:07 Sputum Gram Stain - Final Complete 11/25/24 09:07 Sputum Respiratory Culture - Final Complete Problem List/Assessment/Plan Problem List/Assessment/Plan Acute kidney injury hemodynamically mediated in setting of cardiac arrest Acute respiratory failure Cardiac arrest Methamphetamine abuse Metabolic acidosis cr might have peaked, UOP responded to high dose diuretics. will continue as daily Sodium bicarbonate drip will be stopped today b/c metabolic acidosis resolved continue daily loop diuretic to maintain UOP Monitor urinary output Avoid hypotension no emergent indication for HD at this time now that UOP is improved Critical care time spent 35 minutes Plan discussed with: Other My Orders My Orders Orders - MICHAEL GUAJARDO MD Procedure Category Date Status Time Bumetanide Injection PHA 11/30/24 In Process (Bumex Injection) 10:00 Dietary Evaluation Review Comments: 1) If GI is accessible consider Jevity 1.2 @ 50 ml/hr x 24hr as tolerated (advance to 60ml/hr if GFR trends up to within normal range) 2) If pt remains NPO consider TPN to meet at least 75% of estimated needs 3) Advance pt diet when medically feasible to a 2gm Sodium diet modified per TIRE DESIGN ENGINEER recommendations Expected Outcomes/Goals: 1) Pt to receive nutrition support within 7 days of NPO status 2) Pt diet to advance 3) F/U in 2-3 days MICHAEL GUAJARDO MD Nov 30, 2024 16:21
[2024-11-30] MEDS: LABETALOL HCL 20 MG/4 ML VL IV PRN (16:50)
[2024-11-30] MEDS: LACTATED RINGER'S 1,000 ML IV SCH (16:56)
--- NOTE | 2024-11-30 21:51 | DVHPN2 ---
Progress Note - Dictate Date Seen: Nov 30, 2024 Medical Necessity Reason Pt with a Central, PICC or Fol: Yes The following are medically ne: Zhu Catheter Reason for zhu catheter: Strict I&O Subjective Patient seen and examined at bedside. S/p extubation, currently on supplemental oxygen Overnight events reviewed. vital signs Vital Sign Date Time Temp Pulse Resp B/P (MAP) Pulse Ox O2 Delivery O2 Flow Rate FiO2 11/30/24 20:47 113 17 138/75 (96) 94 11/30/24 20:00 Nasal Cannula* 4 36 11/30/24 19:59 98.6 98.6 Total Intake and Output 11/29/24 11/29/24 11/30/24 15:00 23:00 07:00 Intake Total 525.5 ml 1025.0 ml 1017.5 ml Output Total 475 ml 1600 ml Balance 525.5 ml 550.0 ml -582.5 ml medications Current Medications Medications Dose Ordered Sig/Caterina Route Start Time Stop Time Status Last Admin Dose Admin Midazolam HCl 50 ml @ 1 mls/hr Q24H IV 11/25/24 09:00 11/28/24 06:58 10 MLS/HR Fentanyl Citrate 250 ml @ 2.5 mls/hr Q24H IV 11/25/24 09:00 11/29/24 04:20 7.5 MLS/HR Midazolam HCl 50 ml @ 1 mls/hr Q24H IV 11/25/24 10:15 UNV Fentanyl Citrate 250 ml @ 2.5 mls/hr Q24H IV 11/25/24 10:15 UNV Ondansetron HCl 4 mg Q4HP PRN IV 11/25/24 13:15 Enoxaparin Sodium 40 mg DAILY SC 11/26/24 10:00 11/30/24 10:27 40 MG Nitroglycerin 0.4 mg Q5MINP PRN SL 11/25/24 13:15 Morphine Sulfate 2 mg Q30M PRN IV 11/25/24 13:15 Vancomycin HCl 0 ml @ 0 mls/hr UD IV 11/25/24 13:15 UNV Pantoprazole Sodium 40 mg DAILY IV 11/26/24 10:00 11/30/24 10:26 40 MG Albuterol 2.5 mg Q4HPRN PRN NEB 11/25/24 13:45 Ipratropium [place] 0.5 mg Q4HPRN PRN NEB 11/25/24 13:45 Propofol 100 ml @ 2.43 mls/hr Q24H IV 11/25/24 14:00 UNV Propofol 100 ml @ 2.43 mls/hr Q24H IV 11/25/24 14:15 11/28/24 01:13 7.29 MLS/HR Acetaminophen 650 mg Q6H PRN GT 11/26/24 12:45 Metronidazole 100 ml @ 100 mls/hr Q8HR IV 11/26/24 14:00 11/30/24 21:36 100 MLS/HR Quetiapine Fumarate 50 mg BID PO 11/27/24 10:00 11/29/24 22:36 50 MG Dexmedetomidine HCl 400 mcg/ Dextrose 100 ml @ 4.05 mls/hr Q24H IV 11/27/24 08:45 11/29/24 11:05 4.05 MLS/HR Norepinephrine Bitartrate 250 ml @ 3.75 mls/hr Q24H IV 11/27/24 08:45 11/27/24 09:38 3.75 MLS/HR Enteral Nutritional Formula 1,000 ml 40ML/HR GT 11/27/24 11:30 11/28/24 20:00 1,000 ML Cefepime HCl 50 ml @ 12.5 mls/hr DAILY@0800 IV 11/29/24 08:00 11/30/24 08:58 12.5 MLS/HR Hydralazine HCl 10 mg Q4HP PRN IV 11/29/24 13:15 11/30/24 18:39 10 MG Bumetanide 2.5 mg DAILY IV 11/30/24 10:00 11/30/24 10:28 2.5 MG Labetalol HCl 10 mg Q3HR PRN IV 11/30/24 15:45 11/30/24 16:50 10 MG Lactated Ringer's 1,000 ml @ 75 mls/hr [id number] IV 11/30/24 16:30 11/30/24 16:56 75 MLS/HR objective Gen.: Patient lying in bed in no apparent distress. On supplemental oxygen. Head: Normocephalic, atraumatic. Eyes: EOMI/PERRLA. Ears: Normal hearing. Normal anatomy. Neck/trachea: Trachea midline, supple. Nose: Normal external anatomy. Mouth: Moist mucous membranes. Chest: Decreased air entry bilaterally. No wheezing or rhonchi. Cardiovascular: Positive S1, positive S2. Regular rate and rhythm. Abdomen: Positive bowel sounds in all 4 quadrants. Soft, non-tender, non- distended. : Deferred. Rectal: Deferred. Skin: Warm, dry. Intact. Extremities: 2+ radial pulses bilaterally. No lower extremity edema. Neuro: Awake, alert, oriented x3. No gross motor or sensory deficits. Cranial nerves II through XII intact. Gait not assessed. laboratory and microbiology Laboratory Tests 11/30/24 03:54 Test 11/30/24 03:54 Range/Units Serum Glucose 145 H 74-106 mg/dL Assessment/Plan Impression: Acute hypoxic respiratory failure On mechanical ventilator Methamphetamine use Hyponatremia Leukocytosis Metabolic acidosis Events: Patient underwent CPAP trial this AM, tolerated. She was extubated uneventfully at 10:34 AM, placed on Cool Aerosol at 10L/40%. Off sedation Off pressors, hemodynamically stable CXR reviewed, demonstrates stable mild pulmonary congestion. Devices in place. Continue abx - cefepime, metronidazole Tube feeds for nutritional support Bumex for diuresis Monitor UOP Monitor renal function - creatinine trending up Follow up Nephrology recs Started IV fluids with LR at 75 ml/hr. Stop bicarb drip. Labs and imaging reviewed. Rest of plan as noted below. Plan: s/p extubation today Placed on Cool Aerosol at 10L/40%. Continue supplemental oxygen Off sedation Off pressors, hemodynamically stable Continue antibiotics. F/u cultures. Start pressors if necessary to maintain a mean arterial blood pressure greater than 65 mmHg. Monitor renal function Monitor electrolytes. Supplement as necessary. Monitor ins and outs. Monitor WBC. GI prophylaxis. DVT prophylaxis. Prognosis: Poor given patient's multiple co-morbidities. Condition: Critical Rest of plan per hospitalist and other consultants. A total of 35 minutes of critical care time was spent reviewing the patient record, examining the patient, making a diagnostic and therapeutic plan, discussing this plan with the medical personnel, following up on diagnostic studies and following the patient for clinical stability excluding any and all procedures. At least 50% of this time was spent in direct, [id number] contact. Thank you, JOSE Lozano, for allowing me to participate in this patient's care. Further recommendations will depend on the patient's clinical course. Please do not hesitate to contact me if you have any questions or concerns. This medical document was created using an electronic medical record system with [employer] dictation system. Although these documentations are being carefully reviewed, there may still be some phonetic and typographical changes. The errors are purely typographical, due to imperfection on the software program, and do not reflect any compromise in the patient's medical care. Dietary Evaluation Review Comments: 1) If GI is accessible consider Jevity 1.2 @ 50 ml/hr x 24hr as tolerated (advance to 60ml/hr if GFR trends up to within normal range) 2) If pt remains NPO consider TPN to meet at least 75% of estimated needs 3) Advance pt diet when medically feasible to a 2gm Sodium diet modified per EAR MOLD LABORATORY TECHNICIAN recommendations Expected Outcomes/Goals: 1) Pt to receive nutrition support within 7 days of NPO status 2) Pt diet to advance 3) F/U in 2-3 days Plan discussed with: Patient, Other (CHRIS Arias) Critical Care Time(min): 35 MARCIA BRIGGS MD Nov 30, 2024 21:51
[2024-12-01] VITALS (61 sets, daily range): BP systolic 130–180; BP diastolic 73–127; PULSE 70–118; RESP 10–21; TEMP 98–99.7; O2SAT 90–99
[2024-12-01 03:53] LABS: Basophils # (auto) 0.1 10 ^3/uL (0-0.2); Basophils % (auto) 0.8 % (0.0-2.0); Eosinophils # (auto) 0.2 10 ^3/uL (0-0.8); Eosinophils % (auto) 1.6 % (0.0-7.0); Hematocrit 28.3 % (36.0-46.0); Hemoglobin 9.7 g/dL (12.2-16.2); Lymphocytes # (auto) 1.3 10 ^3/uL (0.4-5.4); Lymphocytes % (auto) 8.8 % (10.0-50.0); Mean Corpuscular Hemoglobin 30.1 pg (28.0-32.0); Mean Corpuscular Hgb Conc. 34.2 g/dL (32.0-36.0); Mean Corpuscular Volume 87.9 fL (80.0-100.0); Monocytes # (auto) 1.1 10 ^3/uL (0-1.3); Monocytes % (auto) 7.5 % (0.0-12.0); Neutrophils # (auto) 11.8 10 ^3/uL (1.6-8.6); Neutrophils % (auto) 81.3 % (37.0-80.0); Platelet Count (auto) 434 10^3/uL (140-450); Red Blood Cells 3.22 10^6/uL (4.0-5.20); Red Cell Distribution Width 13.5 % (11.8-14.3); White Blood Cell 14.6 10^3/uL (4.4-10.8)
[2024-12-01 04:11] LABS: Alkaline Phosphatase 51 U/L (46-116); Anion Gap 12 (5-15); Aspartate Aminotransferase 21 U/L (13-40); BUN/Creatinine Ratio 4.7 (10.0-20.0); Blood Urea Nitrogen 23 mg/dL (9-23); Calcium 8.7 mg/dL (8.7-10.4); Carbon Dioxide 27 mmol/L (20-31); Chloride 106 mmol/L (98-107); Sodium 145 mmol/L (136-145)
[2024-12-01 04:22] LABS: Alanine Aminotransferase < 9 U/L (7-40); Bilirubin, Total 0.2 mg/dL (0.2-1.0); Glucose 112 mg/dL (74-106); Potassium 3.1 mmol/L (3.5-5.1); Total Protein 5.6 g/dL (5.7-8.2)
--- NOTE | 2024-12-01 06:18 | DVH ---
CHEST RADIOGRAPH Indication: CONGESTION Technique: Single frontal view of the chest was obtained Comparison: XY CHEST XRAY 1 VIEW on DOS: 11/30/24, XY CHEST XRAY 1 VIEW on DOS: 11/29/24, XY CHEST XRAY 1 VIEW on DOS: 11/28/24, XY CHEST XRAY 1 VIEW on DOS: 11/27/24, XY CHEST PORTABLE on DOS: 11/26/24, XY CHEST XRAY 1 VIEW on DOS: 11/30/24 FINDINGS: Lines and Tubes: ET and NG tube removed. Lungs: Mild pulmonary vascular congestion is unchanged. No consolidation. Pleura: No effusion. No pneumothorax. Cardiomediastinal contours: Unremarkable Bones: No acute osseous abnormality. IMPRESSION: 1. ET and NG tube removed. 2. Stable mild pulmonary congestion.
--- NOTE | 2024-12-01 08:52 | DVHPN2 ---
Subjective Patient now awake and following some commands. Reviewed: Care Plan, H&P, Labs, Medications, Previous Orders, Radiology Changes from previous H/P or p: No Changes General: Per HPI Objective Vitals Vital Signs Date Time Temp Pulse Resp B/P (MAP) Pulse Ox O2 Delivery O2 Flow Rate FiO2 12/01/24 08:29 109 12 148/80 (102) 95 12/01/24 07:20 Nasal Cannula* 4 36 12/01/24 03:59 98.9 98.9 Intake/Output Intake and Output 12/01/24 07:00 Intake Total 2297.5 ml Output Total 1700 ml Balance 597.5 ml Intake Oral 20 ml IV Total 2277.5 ml Output Urine Total 1700 ml General Appearance: Alert, Oriented X3, mild distress HEENT: PERRLA Lungs: Clear to auscultation Cardiovascular: Regular rate, Normal S1, Normal S2, No murmurs Abdomen: Normal bowel sounds, Soft, No tenderness Rectal: Deferred Extremities: No clubbing, No cyanosis, Normal pulses Neuro: Other (low grade fever ) Skin: Dry, Intact Psych/Mental Status: Other (INTUBATED AND SEDATED ) Medications Current Medications Medications Dose Ordered Sig/Caterina Route Start Time Stop Time Status Last Admin Dose Admin Midazolam HCl 50 ml @ 1 mls/hr Q24H IV 11/25/24 10:15 UNV Fentanyl Citrate 250 ml @ 2.5 mls/hr Q24H IV 11/25/24 10:15 UNV Ondansetron HCl 4 mg Q4HP PRN IV 11/25/24 13:15 Enoxaparin Sodium 40 mg DAILY SC 11/26/24 10:00 11/30/24 10:27 40 MG Nitroglycerin 0.4 mg Q5MINP PRN SL 11/25/24 13:15 Morphine Sulfate 2 mg Q30M PRN IV 11/25/24 13:15 Vancomycin HCl 0 ml @ 0 mls/hr UD IV 11/25/24 13:15 UNV Pantoprazole Sodium 40 mg DAILY IV 11/26/24 10:00 11/30/24 10:26 40 MG Albuterol 2.5 mg Q4HPRN PRN NEB 11/25/24 13:45 Ipratropium [place] 0.5 mg Q4HPRN PRN NEB 11/25/24 13:45 Propofol 100 ml @ 2.43 mls/hr Q24H IV 11/25/24 14:00 UNV Propofol 100 ml @ 2.43 mls/hr Q24H IV 11/25/24 14:15 11/28/24 01:13 7.29 MLS/HR Acetaminophen 650 mg Q6H PRN GT 11/26/24 12:45 Metronidazole 100 ml @ 100 mls/hr Q8HR IV 11/26/24 14:00 12/01/24 05:37 100 MLS/HR Cefepime HCl 50 ml @ 12.5 mls/hr DAILY@0800 IV 11/29/24 08:00 11/30/24 08:58 12.5 MLS/HR Bumetanide 2.5 mg DAILY IV 11/30/24 10:00 11/30/24 10:28 2.5 MG Labetalol HCl 10 mg Q3HR PRN IV 11/30/24 15:45 11/30/24 16:50 10 MG Lactated Ringer's 1,000 ml @ 75 mls/hr [id number] IV 11/30/24 16:30 12/01/24 05:37 75 MLS/HR Potassium Chloride 100 ml @ 50 mls/hr Q2H IV 12/01/24 07:30 12/01/24 11:29 Metoprolol Succinate 25 mg DAILY PO 12/01/24 10:00 Laboratory Results Laboratory Tests 12/01/24 03:07 Chemistry Test 12/01/24 03:07 Albumin 3.0 g/dL (3.2-4.8) L Calcium Level 8.7 mg/dL (8.7-10.4) Total Protein 5.6 g/dL (5.7-8.2) L LFT Test 12/01/24 03:07 Alanine Aminotransferase (ALT) < 9 U/L (7-40) Alkaline Phosphatase 51 U/L (46-116) Aspartate Amino Transferase (AST) 21 U/L (13-40) Total Bilirubin 0.2 mg/dL (0.2-1.0) Urinalysis Test 11/25/24 00:00 Urine Color Light-yellow (Yellow) Urine Clarity Clear (Clear) Urine pH 6.0 (5.0-9.0) Urine Specific [place] 1.009 (1.001-1.035) Urine Protein Negative (Negative) Urine Ketones Negative (Negative) Urine Blood Negative /uL (Negative) Urine Nitrite Negative (Negative) Urine Bilirubin Negative (Negative) Urine Urobilinogen Normal mg/dL (Negative) Urine Leukocyte Esterase Negative /uL (Negative) Urine RBC <1 /hpf (0 - 4) Urine WBC 1 /hpf (0 - 5) Urine Squamous Epithelial Cells Few /hpf (<5) Urine Bacteria None seen /hpf (None Seen) Urine Glucose Normal mg/dL (Normal) Blood Gas Results Test 11/30/24 10:18 Arterial Blood pH 7.438 (7.350-7.450) FiO2 % 30.0 Microbiology Microbiology Date/Time Source Procedure Growth Status 11/27/24 17:00 Nose MRSA Screen - Final Complete 11/25/24 09:32 Blood Blood Culture - Final NO GROWTH AFTER 5 DAYS OF INCUBATION. Complete 11/25/24 09:07 Sputum Gram Stain - Final Complete 11/25/24 09:07 Sputum Respiratory Culture - Final Complete Labs and/or images reviewed: Labs reviewed by me, Image(s) reviewed by me Assessment/Plan Assessment/Plan Impression: -cardiopulmonary arrest -acute hypoxic respiratory failure -toxic metabolic encephalopathy secondary to polysubstance abuse -polysubstance abuse -probable aspiration pneumonia -sepsis with shock -primary hypertension -hypothyroidism -acute kidney injury, hemodynamically mediated questionable ATN -anoxic encephalopathy Plan: -events: Patient extubated yesterday. Neurologically following some commands, but still nurse speaking full sentences. Swallow evaluation currently pending. -nephrology consultation -IV fluids per Nephrology -continue Flagyl and cefepime -PUD, DVT prophylaxis -transfer to telemetry floor -repeat labs in a.m. Total time spent with patient discussing and formulating plan of care: 35 minutes. This medical document was created using an electronic medical record system with [employer] dictation system. Although this document has been carefully reviewed, there may still be some phonetic and typographical errors. These areas are purely typographical due to imperfections of the software programs, and do not reflect any compromise in the patient's medical care. Plan discussed with: Patient, Other (RN) My Orders Orders - LISA LARSON NP Procedure Category Date Status Time Abg W/ Co-Ox RT 11/30/24 Logged 10:00 Extubate CRISELDA 1/16/25 In Process 10:24 Labetalol Hcl PHA 11/30/24 In Process (Labetalol Hcl) 15:45 Chest Portable XY 12/01/24 Resulted 04:00 Potassium Chl PHA 12/01/24 In Process 20meq/100ml 07:30 Metoprolol Xl PHA 12/01/24 In Process Succinate (Toprol Xl) 10:00 Transfer Orders XFER 12/01/24 Transmitted 07:18 * Swallow Request ST 12/01/24 Transmitted 07:48 Date of Service: Dec 01, 2024 Billing Provider: LISA LARSON NP Common Visit Codes: [id number] INP/OBS CARE(HIGH) LISA LARSON NP Dec 01, 2024 08:52
[2024-12-01] MEDS: METOPROLOL SUCCINATE XL 50 MG TAB PO SCH (10:00)
[2024-12-01] MEDS: POTASSIUM CHL 20MEQ/100ML 100 ML IV SCH (10:30)
[2024-12-01] MEDS: ENOXAPARIN SOD 30 MG/0.3 ML SYRINGE SC SCH (10:30)
[2024-12-01] MEDS: LABETALOL HCL 20 MG/4 ML VL IV ONE (14:48)
--- NOTE | 2024-12-01 20:14 | DVHPN2 ---
Progress Note Date Seen: Dec 01, 2024 Medical Necessity Reason Pt with a Central, PICC or Fol: Yes The following are medically ne: Zhu Catheter Reason for zhu catheter: Strict I&O Subjective Patient reports: Other (Patient is awake is bedside) Review of Systems: Deferred Objective vital signs Vital Sign Date Time Temp Pulse Resp B/P (MAP) Pulse Ox O2 Delivery O2 Flow Rate FiO2 12/01/24 17:00 98.2 70 20 146/88 (107) 99 98.2 12/01/24 14:00 Nasal Cannula* 4 36 Total Intake and Output 11/30/24 11/30/24 12/01/24 15:00 23:00 07:00 Intake Total 852.5 ml 735 ml 710 ml Output Total 1200 ml 500 ml Balance 852.5 ml -465 ml 210 ml medications Current Medications Medications Dose Ordered Sig/Caterina Route Start Time Stop Time Status Last Admin Dose Admin Midazolam HCl 50 ml @ 1 mls/hr Q24H IV 11/25/24 10:15 UNV Fentanyl Citrate 250 ml @ 2.5 mls/hr Q24H IV 11/25/24 10:15 UNV Ondansetron HCl 4 mg Q4HP PRN IV 11/25/24 13:15 Nitroglycerin 0.4 mg Q5MINP PRN SL 11/25/24 13:15 Morphine Sulfate 2 mg Q30M PRN IV 11/25/24 13:15 Vancomycin HCl 0 ml @ 0 mls/hr UD IV 11/25/24 13:15 UNV Pantoprazole Sodium 40 mg DAILY IV 11/26/24 10:00 12/01/24 10:00 40 MG Albuterol 2.5 mg Q4HPRN PRN NEB 11/25/24 13:45 Ipratropium [place] 0.5 mg Q4HPRN PRN NEB 11/25/24 13:45 Propofol 100 ml @ 2.43 mls/hr Q24H IV 11/25/24 14:00 UNV Acetaminophen 650 mg Q6H PRN GT 11/26/24 12:45 Metronidazole 100 ml @ 100 mls/hr Q8HR IV 11/26/24 14:00 12/01/24 14:18 100 MLS/HR Cefepime HCl 50 ml @ 12.5 mls/hr DAILY@0800 IV 11/29/24 08:00 12/01/24 08:00 12.5 MLS/HR Bumetanide 2.5 mg DAILY IV 11/30/24 10:00 12/01/24 10:28 2.5 MG Labetalol HCl 10 mg Q3HR PRN IV 11/30/24 15:45 12/01/24 11:57 10 MG Metoprolol Succinate 25 mg DAILY PO 12/01/24 10:00 Enoxaparin Sodium 30 mg DAILY SC 12/01/24 10:00 12/01/24 10:30 30 MG Examination: GENERAL:Abnormal, MSK:Abnormal, NEURO:Abnormal laboratory and microbiology Laboratory Tests 12/01/24 03:07 Test 12/01/24 03:07 Range/Units Serum Glucose 112 H 74-106 mg/dL Microbiology Date/Time Source Procedure Growth Status 11/27/24 17:00 Nose MRSA Screen - Final Complete 11/25/24 09:32 Blood Blood Culture - Final NO GROWTH AFTER 5 DAYS OF INCUBATION. Complete 11/25/24 09:07 Sputum Gram Stain - Final Complete 11/25/24 09:07 Sputum Respiratory Culture - Final Complete Problem List/Assessment/Plan Problem List/Assessment/Plan Acute kidney injury hemodynamically mediated in setting of cardiac arrest Acute respiratory failure Cardiac arrest Methamphetamine abuse Metabolic acidosis Hypertension Recommendations Continue diuretics No indication for dialysis yet Nonoliguric DC IV fluids given BP very high Plan discussed with: Spouse, Other Dietary Evaluation Review Comments: 1) If GI is accessible consider Jevity 1.2 @ 50 ml/hr x 24hr as tolerated (advance to 60ml/hr if GFR trends up to within normal range) 2) If pt remains NPO consider TPN to meet at least 75% of estimated needs 3) Advance pt diet when medically feasible to a 2gm Sodium diet modified per HARBOR TUG CAPTAIN recommendations Expected Outcomes/Goals: 1) Pt to receive nutrition support within 7 days of NPO status 2) Pt diet to advance 3) F/U in 2-3 days KIRSTEN WHIPPLE MD Dec 01, 2024 20:14
--- NOTE | 2024-12-01 23:02 | DVHPN2 ---
Progress Note - Dictate Date Seen: Dec 01, 2024 Medical Necessity Reason Pt with a Central, PICC or Fol: Yes The following are medically ne: Zhu Catheter Reason for zhu catheter: Strict I&O Subjective Patient seen and examined at bedside. Remains on supplemental oxygen Overnight events reviewed. vital signs Vital Sign Date Time Temp Pulse Resp B/P (MAP) Pulse Ox O2 Delivery O2 Flow Rate FiO2 12/01/24 21:56 98.3 83 19 171/86 (114) 95 98.3 12/01/24 21:18 Nasal Cannula* 3 32 Total Intake and Output 11/30/24 11/30/24 12/01/24 15:00 23:00 07:00 Intake Total 852.5 ml 735 ml 710 ml Output Total 1200 ml 500 ml Balance 852.5 ml -465 ml 210 ml medications Current Medications Medications Dose Ordered Sig/Caterina Route Start Time Stop Time Status Last Admin Dose Admin Midazolam HCl 50 ml @ 1 mls/hr Q24H IV 11/25/24 10:15 UNV Fentanyl Citrate 250 ml @ 2.5 mls/hr Q24H IV 11/25/24 10:15 UNV Ondansetron HCl 4 mg Q4HP PRN IV 11/25/24 13:15 Nitroglycerin 0.4 mg Q5MINP PRN SL 11/25/24 13:15 Morphine Sulfate 2 mg Q30M PRN IV 11/25/24 13:15 Vancomycin HCl 0 ml @ 0 mls/hr UD IV 11/25/24 13:15 UNV Pantoprazole Sodium 40 mg DAILY IV 11/26/24 10:00 12/01/24 10:00 40 MG Albuterol 2.5 mg Q4HPRN PRN NEB 11/25/24 13:45 Ipratropium [place] 0.5 mg Q4HPRN PRN NEB 11/25/24 13:45 Propofol 100 ml @ 2.43 mls/hr Q24H IV 11/25/24 14:00 UNV Acetaminophen 650 mg Q6H PRN GT 11/26/24 12:45 Metronidazole 100 ml @ 100 mls/hr Q8HR IV 11/26/24 14:00 12/01/24 21:29 100 MLS/HR Cefepime HCl 50 ml @ 12.5 mls/hr DAILY@0800 IV 11/29/24 08:00 12/01/24 08:00 12.5 MLS/HR Bumetanide 2.5 mg DAILY IV 11/30/24 10:00 12/01/24 10:28 2.5 MG Labetalol HCl 10 mg Q3HR PRN IV 11/30/24 15:45 12/01/24 21:31 10 MG Metoprolol Succinate 25 mg DAILY PO 12/01/24 10:00 Enoxaparin Sodium 30 mg DAILY SC 12/01/24 10:00 12/01/24 10:30 30 MG objective Gen.: Patient lying in bed in no apparent distress. On supplemental oxygen. Head: Normocephalic, atraumatic. Eyes: EOMI/PERRLA. Ears: Normal hearing. Normal anatomy. Neck/trachea: Trachea midline, supple. Nose: Normal external anatomy. Mouth: Moist mucous membranes. Chest: Decreased air entry bilaterally. No wheezing or rhonchi. Cardiovascular: Positive S1, positive S2. Regular rate and rhythm. Abdomen: Positive bowel sounds in all 4 quadrants. Soft, non-tender, non- distended. : Deferred. Rectal: Deferred. Skin: Warm, dry. Intact. Extremities: 2+ radial pulses bilaterally. No lower extremity edema. Neuro: Awake, alert, oriented x3. No gross motor or sensory deficits. Cranial nerves II through XII intact. Gait not assessed. laboratory and microbiology Laboratory Tests 12/01/24 03:07 Test 12/01/24 03:07 Range/Units Serum Glucose 112 H 74-106 mg/dL Assessment/Plan Impression: Acute hypoxic respiratory failure On mechanical ventilator Methamphetamine use Hyponatremia Leukocytosis Metabolic acidosis Events: Remains on supplemental oxygen at 3 LPM NC Taper O2 as tolerated CXR reviewed, demonstrates stable mild pulmonary congestion. Head of bed elevation Aspiration precautions Continue abx - cefepime, metronidazole Tube feeds for nutritional support Bumex for diuresis Monitor UOP Monitor renal function - creatinine 4.88 Nephrology recs appreciated. IV fluids with LR at 75 ml/hr. Patient is stable for discharge from the pulmonary standpoint. Labs and imaging reviewed. Rest of plan as noted below. Plan: s/p extubation on 11/30/24 Remains on supplemental oxygen Off sedation Off pressors, hemodynamically stable Continue antibiotics. F/u cultures. Start pressors if necessary to maintain a mean arterial blood pressure greater than 65 mmHg. Monitor renal function Monitor electrolytes. Supplement as necessary. Monitor ins and outs. Monitor WBC. GI prophylaxis. DVT prophylaxis. Prognosis: Poor given patient's multiple co-morbidities. Condition: Critical Rest of plan per hospitalist and other consultants. A total of 35 minutes of critical care time was spent reviewing the patient record, examining the patient, making a diagnostic and therapeutic plan, discussing this plan with the medical personnel, following up on diagnostic studies and following the patient for clinical stability excluding any and all procedures. At least 50% of this time was spent in direct, [id number] contact. Thank you, GAS PLANT SPECIALIST Blake, for allowing me to participate in this patient's care. Further recommendations will depend on the patient's clinical course. Please do not hesitate to contact me if you have any questions or concerns. This medical document was created using an electronic medical record system with [employer] dictation system. Although these documentations are being carefully reviewed, there may still be some phonetic and typographical changes. The errors are purely typographical, due to imperfection on the software program, and do not reflect any compromise in the patient's medical care. Dietary Evaluation Review Comments: 1) If GI is accessible consider Jevity 1.2 @ 50 ml/hr x 24hr as tolerated (advance to 60ml/hr if GFR trends up to within normal range) 2) If pt remains NPO consider TPN to meet at least 75% of estimated needs 3) Advance pt diet when medically feasible to a 2gm Sodium diet modified per RESEARCH ASST recommendations Expected Outcomes/Goals: 1) Pt to receive nutrition support within 7 days of NPO status 2) Pt diet to advance 3) F/U in 2-3 days Plan discussed with: Other (CHRIS Arias) Critical Care Time(min): 35 MARCIA BRIGGS MD Dec 01, 2024 23:02
[2024-12-02] VITALS (10 sets, daily range): BP systolic 149–165; BP diastolic 75–126; PULSE 89–115; RESP 18–24; TEMP 98–99.3; O2SAT 92–100
--- NOTE | 2024-12-02 08:41 | DVHPN2 ---
Progress Note Date Seen: Dec 02, 2024 Medical Necessity Reason Pt with a Central, PICC or Fol: Yes The following are medically ne: Zhu Catheter Reason for zhu catheter: Strict I&O Subjective Patient reports: Other Review of Systems: Deferred Objective vital signs Vital Sign Date Time Temp Pulse Resp B/P (MAP) Pulse Ox O2 Delivery O2 Flow Rate FiO2 12/02/24 07:17 89 160/75 12/02/24 05:00 99.3 18 96 99.3 12/01/24 21:18 Nasal Cannula* 3 32 Total Intake and Output 12/01/24 12/01/24 12/02/24 14:59 22:59 06:59 Intake Total 450 ml 100 ml 0 ml Output Total 350 ml Balance 450 ml 100 ml -350 ml medications Current Medications Medications Dose Ordered Sig/Caterina Route Start Time Stop Time Status Last Admin Dose Admin Midazolam HCl 50 ml @ 1 mls/hr Q24H IV 11/25/24 10:15 UNV Fentanyl Citrate 250 ml @ 2.5 mls/hr Q24H IV 11/25/24 10:15 UNV Ondansetron HCl 4 mg Q4HP PRN IV 11/25/24 13:15 Nitroglycerin 0.4 mg Q5MINP PRN SL 11/25/24 13:15 Morphine Sulfate 2 mg Q30M PRN IV 11/25/24 13:15 Vancomycin HCl 0 ml @ 0 mls/hr UD IV 11/25/24 13:15 UNV Pantoprazole Sodium 40 mg DAILY IV 11/26/24 10:00 12/01/24 10:00 40 MG Albuterol 2.5 mg Q4HPRN PRN NEB 11/25/24 13:45 Ipratropium [place] 0.5 mg Q4HPRN PRN NEB 11/25/24 13:45 Propofol 100 ml @ 2.43 mls/hr Q24H IV 11/25/24 14:00 UNV Acetaminophen 650 mg Q6H PRN GT 11/26/24 12:45 Metronidazole 100 ml @ 100 mls/hr Q8HR IV 11/26/24 14:00 12/02/24 06:05 100 MLS/HR Cefepime HCl 50 ml @ 12.5 mls/hr DAILY@0800 IV 11/29/24 08:00 12/02/24 08:18 12.5 MLS/HR Bumetanide 2.5 mg DAILY IV 11/30/24 10:00 12/01/24 10:28 2.5 MG Labetalol HCl 10 mg Q3HR PRN IV 11/30/24 15:45 12/02/24 06:17 10 MG Metoprolol Succinate 25 mg DAILY PO 12/01/24 10:00 Enoxaparin Sodium 30 mg DAILY SC 12/01/24 10:00 12/01/24 10:30 30 MG Examination: MSK:Abnormal, SKIN:Abnormal, NEURO:Abnormal laboratory and microbiology Laboratory Tests 12/01/24 03:07 Test 12/01/24 03:07 Range/Units Serum Glucose 112 H 74-106 mg/dL Microbiology Date/Time Source Procedure Growth Status 11/27/24 17:00 Nose MRSA Screen - Final Complete 11/25/24 09:32 Blood Blood Culture - Final NO GROWTH AFTER 5 DAYS OF INCUBATION. Complete 11/25/24 09:07 Sputum Gram Stain - Final Complete 11/25/24 09:07 Sputum Respiratory Culture - Final Complete Problem List/Assessment/Plan Problem List/Assessment/Plan Acute kidney injury hemodynamically mediated in setting of cardiac arrest Acute respiratory failure Cardiac arrest Methamphetamine abuse Metabolic acidosis Hypertension Recommendations Continue diuretics No indication for dialysis yet Nonoliguric DC IV fluids given BP very high downgraded from icu Plan discussed with: Spouse, Other My Orders My Orders Orders - KIRSTEN WHIPPLE MD Procedure Category Date Status Time Basic Metabolic Panel LAB 12/02/24 Logged 08:39 Basic Metabolic Panel LAB 12/03/24 Verified 04:00 Bumetanide Injection PHA 12/02/24 Verified (Bumex Injection) 10:00 Dietary Evaluation Review Comments: 1) If GI is accessible consider Jevity 1.2 @ 50 ml/hr x 24hr as tolerated (advance to 60ml/hr if GFR trends up to within normal range) 2) If pt remains NPO consider TPN to meet at least 75% of estimated needs 3) Advance pt diet when medically feasible to a 2gm Sodium diet modified per URGENT CARE PHYSICIAN ASSISTANT recommendations Expected Outcomes/Goals: 1) Pt to receive nutrition support within 7 days of NPO status 2) Pt diet to advance 3) F/U in 2-3 days KIRSTEN WHIPPLE MD Dec 02, 2024 08:41
--- NOTE | 2024-12-02 09:55 | MEDREC ---
[facility] Intervention Section I [facility] Intervention: Deescalate AB based on CS (PATIENT HAS BEEN ON CEFEPIME AND FLAGYL FOR 7 DAYS. MRSA SCREEN WAS NEGATIVE. THE FINAL RESPIRATORY CULTURE SHOWED BETA-HEMOLYTIC GROUP A STREP. PLEASE CONSIDER DE-ESCALATE ANTIBIOTICS BASED IN CULTURE RESULT) [facility] Dec 02, 2024 09:55
[2024-12-02] MEDS ORDERED: BUMETANIDE 2.5mg/10ml (0.25 mg/ml) INJ IV SCH (10:00)
[2024-12-02] MEDS: BUMETANIDE 2.5mg/10ml (0.25 mg/ml) INJ IV SCH (10:07)
[2024-12-02 10:22] LABS: Sodium 144 mmol/L (136-145)
[2024-12-02 10:23] LABS: Anion Gap 17 (5-15)
[2024-12-02 10:28] LABS: BUN/Creatinine Ratio 6.1 (10.0-20.0)
[2024-12-02 10:32] LABS: Blood Urea Nitrogen 31 mg/dL (9-23); Carbon Dioxide 20 mmol/L (20-31); Chloride 107 mmol/L (98-107); Glucose 119 mg/dL (74-106)
[2024-12-02] MEDS: ACETAMINOPHEN 650 mg PER 20.3 mL UD PO PRN (12:35)
[2024-12-02] MEDS: LORazepam 2MG/ML-1ML VIAL IV ONE (15:49)
--- NOTE | 2024-12-02 20:59 | DVHPN2 ---
Reviewed: Care Plan, H&P, Labs, Medications, Previous Orders, Radiology General: Per HPI Objective Vitals Vital Signs Date Time Temp Pulse Resp B/P (MAP) Pulse Ox O2 Delivery O2 Flow Rate FiO2 12/02/24 17:52 163/87 12/02/24 16:52 98.9 104 18 92 98.9 12/02/24 08:05 Nasal Cannula* 3 32 Intake/Output Intake and Output 12/02/24 07:00 Intake Total 475 ml Output Total 350 ml Balance 125 ml Intake Oral 0 ml IV Total 475 ml Output Urine Total 350 ml General Appearance: Alert, Oriented X3, mild distress HEENT: PERRLA Lungs: Clear to auscultation Cardiovascular: Regular rate, Normal S1, Normal S2, No murmurs Abdomen: Normal bowel sounds, Soft, No tenderness Rectal: Deferred Extremities: No clubbing, No cyanosis, Normal pulses Neuro: Other (low grade fever ) Skin: Dry, Intact Psych/Mental Status: Other (INTUBATED AND SEDATED ) Medications Current Medications Medications Dose Ordered Sig/Caterina Route Start Time Stop Time Status Last Admin Dose Admin Midazolam HCl 50 ml @ 1 mls/hr Q24H IV 11/25/24 10:15 UNV Fentanyl Citrate 250 ml @ 2.5 mls/hr Q24H IV 11/25/24 10:15 UNV Ondansetron HCl 4 mg Q4HP PRN IV 11/25/24 13:15 Nitroglycerin 0.4 mg Q5MINP PRN SL 11/25/24 13:15 Morphine Sulfate 2 mg Q30M PRN IV 11/25/24 13:15 Vancomycin HCl 0 ml @ 0 mls/hr UD IV 11/25/24 13:15 UNV Pantoprazole Sodium 40 mg DAILY IV 11/26/24 10:00 12/02/24 09:32 40 MG Albuterol 2.5 mg Q4HPRN PRN NEB 11/25/24 13:45 Ipratropium [place] 0.5 mg Q4HPRN PRN NEB 11/25/24 13:45 Propofol 100 ml @ 2.43 mls/hr Q24H IV 11/25/24 14:00 UNV Cefepime HCl 50 ml @ 12.5 mls/hr DAILY@0800 IV 11/29/24 08:00 12/02/24 08:18 12.5 MLS/HR Labetalol HCl 10 mg Q3HR PRN IV 11/30/24 15:45 12/02/24 06:17 10 MG Metoprolol Succinate 25 mg DAILY PO 12/01/24 10:00 12/02/24 09:35 25 MG Enoxaparin Sodium 30 mg DAILY SC 12/01/24 10:00 12/02/24 09:33 30 MG Bumetanide 1 mg BIDD IV 12/02/24 10:00 12/02/24 17:52 1 MG Acetaminophen 650 mg Q6H PRN PO 12/02/24 12:15 12/02/24 12:35 650 MG Morphine Sulfate 1 mg Q4HP PRN IV 12/02/24 13:45 Laboratory Results Laboratory Tests 12/01/24 03:07 12/02/24 08:38 Chemistry Test 12/02/24 08:38 Calcium Level 9.0 mg/dL (8.7-10.4) Urinalysis Test 11/25/24 00:00 Urine Color Light-yellow (Yellow) Urine Clarity Clear (Clear) Urine pH 6.0 (5.0-9.0) Urine Specific [place] 1.009 (1.001-1.035) Urine Protein Negative (Negative) Urine Ketones Negative (Negative) Urine Blood Negative /uL (Negative) Urine Nitrite Negative (Negative) Urine Bilirubin Negative (Negative) Urine Urobilinogen Normal mg/dL (Negative) Urine Leukocyte Esterase Negative /uL (Negative) Urine RBC <1 /hpf (0 - 4) Urine WBC 1 /hpf (0 - 5) Urine Squamous Epithelial Cells Few /hpf (<5) Urine Bacteria None seen /hpf (None Seen) Urine Glucose Normal mg/dL (Normal) Microbiology Microbiology Date/Time Source Procedure Growth Status 11/27/24 17:00 Nose MRSA Screen - Final Complete 11/25/24 09:32 Blood Blood Culture - Final NO GROWTH AFTER 5 DAYS OF INCUBATION. Complete 11/25/24 09:07 Sputum Gram Stain - Final Complete 11/25/24 09:07 Sputum Respiratory Culture - Final Complete Assessment/Plan My Orders Orders - DEO WOODY DO Procedure Category Date Status Time Lorazepam 2mg/Ml Inj PHA 12/02/24 In Process (Ativan Inj) 13:45 Morphine Sulfate PHA 12/02/24 In Process Injection 13:45 DEO WOODY DO Dec 02, 2024 20:59
--- NOTE | 2024-12-02 21:02 | DVHPN2 ---
Progress Note - Dictate Date Seen: Dec 02, 2024 Medical Necessity Reason Pt with a Central, PICC or Fol: Yes The following are medically ne: Zhu Catheter Reason for zhu catheter: Strict I&O Subjective Patient seen and examined at bedside. Remains on supplemental oxygen Overnight events reviewed. vital signs Vital Sign Date Time Temp Pulse Resp B/P (MAP) Pulse Ox O2 Delivery O2 Flow Rate FiO2 12/02/24 17:52 163/87 12/02/24 16:52 98.9 104 18 92 98.9 12/02/24 08:05 Nasal Cannula* 3 32 Total Intake and Output 12/01/24 12/01/24 12/02/24 15:00 23:00 07:00 Intake Total 375 ml 100 ml 0 ml Output Total 350 ml Balance 375 ml 100 ml -350 ml medications Current Medications Medications Dose Ordered Sig/Caterina Route Start Time Stop Time Status Last Admin Dose Admin Midazolam HCl 50 ml @ 1 mls/hr Q24H IV 11/25/24 10:15 UNV Fentanyl Citrate 250 ml @ 2.5 mls/hr Q24H IV 11/25/24 10:15 UNV Ondansetron HCl 4 mg Q4HP PRN IV 11/25/24 13:15 Nitroglycerin 0.4 mg Q5MINP PRN SL 11/25/24 13:15 Morphine Sulfate 2 mg Q30M PRN IV 11/25/24 13:15 Vancomycin HCl 0 ml @ 0 mls/hr UD IV 11/25/24 13:15 UNV Pantoprazole Sodium 40 mg DAILY IV 11/26/24 10:00 12/02/24 09:32 40 MG Albuterol 2.5 mg Q4HPRN PRN NEB 11/25/24 13:45 Ipratropium [place] 0.5 mg Q4HPRN PRN NEB 11/25/24 13:45 Propofol 100 ml @ 2.43 mls/hr Q24H IV 11/25/24 14:00 UNV Cefepime HCl 50 ml @ 12.5 mls/hr DAILY@0800 IV 11/29/24 08:00 12/02/24 08:18 12.5 MLS/HR Labetalol HCl 10 mg Q3HR PRN IV 11/30/24 15:45 12/02/24 06:17 10 MG Metoprolol Succinate 25 mg DAILY PO 12/01/24 10:00 12/02/24 09:35 25 MG Enoxaparin Sodium 30 mg DAILY SC 12/01/24 10:00 12/02/24 09:33 30 MG Bumetanide 1 mg BIDD IV 12/02/24 10:00 12/02/24 17:52 1 MG Acetaminophen 650 mg Q6H PRN PO 12/02/24 12:15 12/02/24 12:35 650 MG Morphine Sulfate 1 mg Q4HP PRN IV 12/02/24 13:45 objective Gen.: Patient lying in bed in no apparent distress. On supplemental oxygen. Head: Normocephalic, atraumatic. Eyes: EOMI/PERRLA. Ears: Normal hearing. Normal anatomy. Neck/trachea: Trachea midline, supple. Nose: Normal external anatomy. Mouth: Moist mucous membranes. Chest: Decreased air entry bilaterally. No wheezing or rhonchi. Cardiovascular: Positive S1, positive S2. Regular rate and rhythm. Abdomen: Positive bowel sounds in all 4 quadrants. Soft, non-tender, non- distended. : Deferred. Rectal: Deferred. Skin: Warm, dry. Intact. Extremities: 2+ radial pulses bilaterally. No lower extremity edema. Neuro: Awake, alert, oriented x3. No gross motor or sensory deficits. Cranial nerves II through XII intact. Gait not assessed. laboratory and microbiology Laboratory Tests 12/02/24 08:38 12/01/24 03:07 Test 12/02/24 08:38 Range/Units Serum Glucose 119 H 74-106 mg/dL Assessment/Plan Impression: Acute hypoxic respiratory failure On mechanical ventilator Methamphetamine use Hyponatremia Leukocytosis Metabolic acidosis Events: Remains on supplemental oxygen at 3 LPM NC Taper O2 as tolerated Ativan for anxiety Pain control w/ morphine Avoid oversedation Head of bed elevation Aspiration precautions Tylenol for fever. Continue abx - cefepime Discontinue Flagyl Tube feeds for nutritional support CPK of 43. Bumex for diuresis Monitor UOP Monitor renal function - creatinine trending up, 5.10 Follow up Nephrology recs IV fluids with LR at 75 ml/hr. Patient is stable for discharge from the pulmonary standpoint. CXR on 12/01 demonstrates stable mild pulmonary congestion. Labs and imaging reviewed. Rest of plan as noted below. Plan: s/p extubation on 11/30/24 Remains on supplemental oxygen Off sedation Off pressors, hemodynamically stable Continue antibiotics. F/u cultures. Start pressors if necessary to maintain a mean arterial blood pressure greater than 65 mmHg. Monitor renal function Monitor electrolytes. Supplement as necessary. Monitor ins and outs. Monitor WBC. GI prophylaxis. DVT prophylaxis. Prognosis: Poor given patient's multiple co-morbidities. Condition: Critical Rest of plan per hospitalist and other consultants. A total of 35 minutes of critical care time was spent reviewing the patient record, examining the patient, making a diagnostic and therapeutic plan, discussing this plan with the medical personnel, following up on diagnostic studies and following the patient for clinical stability excluding any and all procedures. At least 50% of this time was spent in direct, [id number] contact. Thank you, JOSE Lozano, for allowing me to participate in this patient's care. Further recommendations will depend on the patient's clinical course. Please do not hesitate to contact me if you have any questions or concerns. This medical document was created using an electronic medical record system with [email or web address] dictation system. Although these documentations are being carefully reviewed, there may still be some phonetic and typographical changes. The errors are purely typographical, due to imperfection on the software program, and do not reflect any compromise in the patient's medical care. Dietary Evaluation Review Comments: 1) If GI is accessible consider Jevity 1.2 @ 50 ml/hr x 24hr as tolerated (advance to 60ml/hr if GFR trends up to within normal range) 2) If pt remains NPO consider TPN to meet at least 75% of estimated needs 3) Advance pt diet when medically feasible to a 2gm Sodium diet modified per STRUCTURAL STEEL SHOP SUPERVISOR recommendations Expected Outcomes/Goals: 1) Pt to receive nutrition support within 7 days of NPO status 2) Pt diet to advance 3) F/U in 2-3 days Plan discussed with: Patient, Other (MARCIA Lake MD Dec 02, 2024 21:02
[2024-12-02] MEDS: ALBUTEROL SULF 2.5 MG/0.5ML(0.5%) NEB SOLN NEB PRN (22:52)
[2024-12-02] MEDS: IPRATROPIUM BROM 0.5 MG/2.5ML INH SOL NEB PRN (22:52)
[2024-12-03] VITALS (11 sets, daily range): BP systolic 175–182; BP diastolic 81–91; PULSE 66–123; RESP 18–40; TEMP 97.5–100.3; O2SAT 89–99
[2024-12-03 06:16] LABS: Potassium 3.7 mmol/L (3.5-5.1)
[2024-12-03 06:17] LABS: Anion Gap 19 (5-15); Calcium 9.6 mg/dL (8.7-10.4); Carbon Dioxide 21 mmol/L (20-31)
[2024-12-03 06:22] LABS: Glucose 88 mg/dL (74-106)
[2024-12-03 06:23] LABS: Blood Urea Nitrogen 48 mg/dL (9-23); Chloride 108 mmol/L (98-107); Sodium 148 mmol/L (136-145)
--- NOTE | 2024-12-03 16:36 | DVHPN2 ---
Progress Note Date Seen: Dec 03, 2024 Medical Necessity Reason Pt with a Central, PICC or Fol: Yes The following are medically ne: Zhu Catheter Reason for zhu catheter: Strict I&O Subjective Patient reports: Other (altered) Review of Systems: Deferred Objective vital signs Vital Sign Date Time Temp Pulse Resp B/P (MAP) Pulse Ox O2 Delivery O2 Flow Rate FiO2 12/03/24 13:11 100.7 12/03/24 12:51 87 26 93 12/03/24 12:45 Nasal Cannula 5.0 12/03/24 12:45 40 12/03/24 12:27 173/92 Total Intake and Output 12/02/24 12/02/24 12/03/24 15:00 23:00 07:00 Intake Total 150 ml 125 ml Output Total 750 ml Balance 150 ml -625 ml medications Current Medications Medications Dose Ordered Sig/Caterina Route Start Time Stop Time Status Last Admin Dose Admin Midazolam HCl 50 ml @ 1 mls/hr Q24H IV 11/25/24 10:15 UNV Fentanyl Citrate 250 ml @ 2.5 mls/hr Q24H IV 11/25/24 10:15 UNV Ondansetron HCl 4 mg Q4HP PRN IV 11/25/24 13:15 Nitroglycerin 0.4 mg Q5MINP PRN SL 11/25/24 13:15 Morphine Sulfate 2 mg Q30M PRN IV 11/25/24 13:15 Vancomycin HCl 0 ml @ 0 mls/hr UD IV 11/25/24 13:15 UNV Pantoprazole Sodium 40 mg DAILY IV 11/26/24 10:00 12/03/24 08:22 40 MG Albuterol 2.5 mg Q4HPRN PRN NEB 11/25/24 13:45 12/03/24 12:45 2.5 MG Ipratropium [place] 0.5 mg Q4HPRN PRN NEB 11/25/24 13:45 12/03/24 12:45 0.5 MG Propofol 100 ml @ 2.43 mls/hr Q24H IV 11/25/24 14:00 UNV Cefepime HCl 50 ml @ 12.5 mls/hr DAILY@0800 IV 11/29/24 08:00 12/03/24 08:22 12.5 MLS/HR Labetalol HCl 10 mg Q3HR PRN IV 11/30/24 15:45 12/03/24 12:27 10 MG Metoprolol Succinate 25 mg DAILY PO 12/01/24 10:00 12/03/24 08:23 25 MG Enoxaparin Sodium 30 mg DAILY SC 12/01/24 10:00 12/03/24 08:23 30 MG Acetaminophen 650 mg Q6H PRN PO 12/02/24 12:15 12/03/24 13:11 650 MG Morphine Sulfate 1 mg Q4HP PRN IV 12/02/24 13:45 Bumetanide 1 mg DAILY IV 12/04/24 10:00 Examination: GENERAL:Abnormal, LUNGS:Abnormal, MSK:Abnormal, SKIN:Abnormal, NEURO:Abnormal laboratory and microbiology Laboratory Tests 12/03/24 04:59 12/01/24 03:07 Test 12/03/24 04:59 Range/Units Serum Glucose 88 74-106 mg/dL Microbiology Date/Time Source Procedure Growth Status 11/27/24 17:00 Nose MRSA Screen - Final Complete 11/25/24 09:32 Blood Blood Culture - Final NO GROWTH AFTER 5 DAYS OF INCUBATION. Complete 11/25/24 09:07 Sputum Gram Stain - Final Complete 11/25/24 09:07 Sputum Respiratory Culture - Final Complete Problem List/Assessment/Plan Problem List/Assessment/Plan Acute kidney injury likely ATN in setting of cardiac arrest + vanco toxicity levels greater than 40 Acute respiratory failure intubated now s/p extubation Status post Cardiac arrest Methamphetamine abuse Metabolic acidosis Hypertension Encephalopathy Hypernatremia Recommendations Continue diuretics as patient on 5 L nasal cannula No emergent indication for dialysis yet,, evaluate MARBLE POLISHER HAND needs daily,,, discussed with patient in detail today Kidney ultrasound no hydronephrosis Nonoliguric We will start low-dose hypotonic fluid for sodium correction downgraded from icu Plan discussed with: Spouse, Other My Orders My Orders Orders - KIRSTEN WHIPPLE MD Procedure Category Date Status Time Bumetanide Injection PHA 12/04/24 In Process (Bumex Injection) 10:00 Dietary Evaluation Review Comments: 1) If GI is accessible consider Jevity 1.2 @ 50 ml/hr x 24hr as tolerated (advance to 60ml/hr if GFR trends up to within normal range) 2) If pt remains NPO consider TPN to meet at least 75% of estimated needs 3) Advance pt diet when medically feasible to a 2gm Sodium diet modified per COMMERCIAL FISHING VESSEL OPERATOR recommendations Expected Outcomes/Goals: 1) Pt to receive nutrition support within 7 days of NPO status 2) Pt diet to advance 3) F/U in 2-3 days KIRSTEN WHIPPLE MD Dec 03, 2024 16:36
[2024-12-03] MEDS: D5W 5% 1,000 ML IV SCH (18:01)
[2024-12-03] MEDS: MORPHINE SULFATE INJ 2 MG/ml SYRG IV PRN (18:03)
--- NOTE | 2024-12-03 23:28 | DVHPN2 ---
Progress Note - Dictate Date Seen: Dec 03, 2024 Medical Necessity Reason Pt with a Central, PICC or Fol: Yes The following are medically ne: Zhu Catheter Reason for zhu catheter: Strict I&O Subjective Patient seen and examined at bedside. Remains on supplemental oxygen Overnight events reviewed. vital signs Vital Sign Date Time Temp Pulse Resp B/P (MAP) Pulse Ox O2 Delivery O2 Flow Rate FiO2 12/03/24 21:00 97.5 86 20 182/81 (114) 95 97.5 12/03/24 18:38 Nasal Cannula 2.0 12/03/24 18:38 28 Total Intake and Output 12/02/24 12/02/24 12/03/24 15:00 23:00 07:00 Intake Total 150 ml 125 ml Output Total 750 ml Balance 150 ml -625 ml medications Current Medications Medications Dose Ordered Sig/Caterina Route Start Time Stop Time Status Last Admin Dose Admin Midazolam HCl 50 ml @ 1 mls/hr Q24H IV 11/25/24 10:15 UNV Fentanyl Citrate 250 ml @ 2.5 mls/hr Q24H IV 11/25/24 10:15 UNV Ondansetron HCl 4 mg Q4HP PRN IV 11/25/24 13:15 Nitroglycerin 0.4 mg Q5MINP PRN SL 11/25/24 13:15 Morphine Sulfate 2 mg Q30M PRN IV 11/25/24 13:15 Vancomycin HCl 0 ml @ 0 mls/hr UD IV 11/25/24 13:15 UNV Pantoprazole Sodium 40 mg DAILY IV 11/26/24 10:00 12/03/24 08:22 40 MG Albuterol 2.5 mg Q4HPRN PRN NEB 11/25/24 13:45 12/03/24 19:14 2.5 MG Ipratropium [place] 0.5 mg Q4HPRN PRN NEB 11/25/24 13:45 12/03/24 19:14 0.5 MG Propofol 100 ml @ 2.43 mls/hr Q24H IV 11/25/24 14:00 UNV Cefepime HCl 50 ml @ 12.5 mls/hr DAILY@0800 IV 11/29/24 08:00 12/03/24 08:22 12.5 MLS/HR Labetalol HCl 10 mg Q3HR PRN IV 11/30/24 15:45 12/03/24 12:27 10 MG Metoprolol Succinate 25 mg DAILY PO 12/01/24 10:00 12/03/24 08:23 25 MG Enoxaparin Sodium 30 mg DAILY SC 12/01/24 10:00 12/03/24 08:23 30 MG Acetaminophen 650 mg Q6H PRN PO 12/02/24 12:15 12/03/24 13:11 650 MG Morphine Sulfate 1 mg Q4HP PRN IV 12/02/24 13:45 12/03/24 18:03 1 MG Bumetanide 1 mg DAILY IV 12/04/24 10:00 Dextrose 1,000 ml @ 75 mls/hr [id number] IV 12/03/24 16:45 12/03/24 18:01 75 MLS/HR objective Gen.: Patient lying in bed in no apparent distress. On supplemental oxygen. Head: Normocephalic, atraumatic. Eyes: EOMI/PERRLA. Ears: Normal hearing. Normal anatomy. Neck/trachea: Trachea midline, supple. Nose: Normal external anatomy. Mouth: Moist mucous membranes. Chest: Decreased air entry bilaterally. No wheezing or rhonchi. Cardiovascular: Positive S1, positive S2. Regular rate and rhythm. Abdomen: Positive bowel sounds in all 4 quadrants. Soft, non-tender, non- distended. : Deferred. Rectal: Deferred. Skin: Warm, dry. Intact. Extremities: 2+ radial pulses bilaterally. No lower extremity edema. Neuro: Altered. No gross motor or sensory deficits. Cranial nerves II through XII intact. Gait not assessed. laboratory and microbiology Laboratory Tests 12/03/24 04:59 12/01/24 03:07 Test 12/03/24 04:59 Range/Units Serum Glucose 88 74-106 mg/dL Assessment/Plan Impression: Acute hypoxic respiratory failure Methamphetamine use Hyponatremia Leukocytosis Metabolic acidosis Events: Remains on supplemental oxygen at 3 --> 5 LPM NC OK to use simple mask or Oxymask Taper O2 as tolerated Patient remains altered. Pain control w/ morphine Avoid oversedation Head of bed elevation Aspiration precautions Continue bronchodilators. Continue abx - cefepime Tube feeds for nutritional support Wound care Bumex for diuresis Monitor UOP Monitor renal function - creatinine trending up, 5.33 Follow up Nephrology recs IV fluids with LR at 75 ml/hr. Patient is stable for discharge from the pulmonary standpoint. CXR on 12/01 demonstrates stable mild pulmonary congestion. Labs and imaging reviewed. Rest of plan as noted below. Plan: s/p extubation on 11/30/24 Remains on supplemental oxygen Off sedation Off pressors, hemodynamically stable Continue antibiotics. F/u cultures. Start pressors if necessary to maintain a mean arterial blood pressure greater than 65 mmHg. Monitor renal function Monitor electrolytes. Supplement as necessary. Monitor ins and outs. Monitor WBC. GI prophylaxis. DVT prophylaxis. Prognosis: Poor given patient's multiple co-morbidities. Rest of plan per hospitalist and other consultants. Thank you, BAG GRADER Blake, for allowing me to participate in this patient's care. Further recommendations will depend on the patient's clinical course. Please do not hesitate to contact me if you have any questions or concerns. This medical document was created using an electronic medical record system with [employer] dictation system. Although these documentations are being carefully reviewed, there may still be some phonetic and typographical changes. The errors are purely typographical, due to imperfection on the software program, and do not reflect any compromise in the patient's medical care. Dietary Evaluation Review Comments: 1) If GI is accessible consider Jevity 1.2 @ 50 ml/hr x 24hr as tolerated (advance to 60ml/hr if GFR trends up to within normal range) 2) If pt remains NPO consider TPN to meet at least 75% of estimated needs 3) Advance pt diet when medically feasible to a 2gm Sodium diet modified per NATIONAL SECRETARY recommendations Expected Outcomes/Goals: 1) Pt to receive nutrition support within 7 days of NPO status 2) Pt diet to advance 3) F/U in 2-3 days Plan discussed with: Patient, Other (CHRIS Rosales) MARCIA BRIGGS MD Dec 03, 2024 23:28
[2024-12-04] VITALS (10 sets, daily range): BP systolic 106–179; BP diastolic 79–102; PULSE 84–115; RESP 18–20; TEMP 97.9–98.3; O2SAT 94–98
[2024-12-04] MEDS: TEMAZEPAM 15 MG CAP PO ONE (01:02)
[2024-12-04 08:15] LABS: Calcium 9.7 mg/dL (8.7-10.4)
[2024-12-04 08:16] LABS: Anion Gap 15 (5-15); Carbon Dioxide 24 mmol/L (20-31); Chloride 110 mmol/L (98-107); Sodium 149 mmol/L (136-145)
[2024-12-04 08:21] LABS: BUN/Creatinine Ratio 10.9 (10.0-20.0)
[2024-12-04 08:23] LABS: Blood Urea Nitrogen 57 mg/dL (9-23); Glucose 115 mg/dL (74-106)
[2024-12-04] MEDS: BUMETANIDE 2.5mg/10ml (0.25 mg/ml) INJ IV SCH (10:23)
[2024-12-04] MEDS: POTASSIUM EFFERVESENT TAB 25 MEQ PO ONE (11:26)
--- NOTE | 2024-12-04 14:45 | DVHPN2 ---
Subjective Patient now awake and following some commands. Pt. aphasic. Reviewed: Care Plan, H&P, Labs, Medications, Previous Orders, Radiology Changes from previous H/P or p: No Changes General: Per HPI Objective Vitals Vital Signs Date Time Temp Pulse Resp B/P (MAP) Pulse Ox O2 Delivery O2 Flow Rate FiO2 12/04/24 11:14 88 18 106/79 98 6.0 45 12/04/24 10:42 Nasal Cannula 12/04/24 05:00 97.9 97.9 Intake/Output Intake and Output 12/04/24 07:00 Intake Total 850 ml Output Total 550 ml Balance 300 ml IV Total 850 ml Output Urine Total 550 ml General Appearance: Alert, Cooperative HEENT: PERRLA Lungs: Clear to auscultation Cardiovascular: Normal S1, Normal S2, No murmurs, Other (ST) Abdomen: Normal bowel sounds, Soft, No tenderness Rectal: Deferred Extremities: No clubbing, No cyanosis, Normal pulses Neuro: Other (low grade fever ) Skin: Dry, Intact Psych/Mental Status: Other (Encephalopathic) Medications Current Medications Medications Dose Ordered Sig/Caterina Route Start Time Stop Time Status Last Admin Dose Admin Midazolam HCl 50 ml @ 1 mls/hr Q24H IV 11/25/24 10:15 UNV Fentanyl Citrate 250 ml @ 2.5 mls/hr Q24H IV 11/25/24 10:15 UNV Ondansetron HCl 4 mg Q4HP PRN IV 11/25/24 13:15 Nitroglycerin 0.4 mg Q5MINP PRN SL 11/25/24 13:15 Morphine Sulfate 2 mg Q30M PRN IV 11/25/24 13:15 Vancomycin HCl 0 ml @ 0 mls/hr UD IV 11/25/24 13:15 UNV Pantoprazole Sodium 40 mg DAILY IV 11/26/24 10:00 12/04/24 10:22 40 MG Albuterol 2.5 mg Q4HPRN PRN NEB 11/25/24 13:45 12/03/24 19:14 2.5 MG Ipratropium [place] 0.5 mg Q4HPRN PRN NEB 11/25/24 13:45 12/03/24 19:14 0.5 MG Propofol 100 ml @ 2.43 mls/hr Q24H IV 11/25/24 14:00 UNV Cefepime HCl 50 ml @ 12.5 mls/hr DAILY@0800 IV 11/29/24 08:00 12/04/24 10:22 12.5 MLS/HR Labetalol HCl 10 mg Q3HR PRN IV 11/30/24 15:45 12/03/24 12:27 10 MG Metoprolol Succinate 25 mg DAILY PO 12/01/24 10:00 12/03/24 08:23 25 MG Enoxaparin Sodium 30 mg DAILY SC 12/01/24 10:00 12/04/24 10:24 30 MG Acetaminophen 650 mg Q6H PRN PO 12/02/24 12:15 12/04/24 12:38 650 MG Morphine Sulfate 1 mg Q4HP PRN IV 12/02/24 13:45 12/03/24 18:03 1 MG Bumetanide 1 mg DAILY IV 12/04/24 10:00 12/04/24 10:23 1 MG Dextrose 1,000 ml @ 75 mls/hr [id number] IV 12/03/24 16:45 12/04/24 10:35 75 MLS/HR Laboratory Results Laboratory Tests 12/01/24 03:07 12/04/24 06:58 Chemistry Test 12/04/24 06:58 Calcium Level 9.7 mg/dL (8.7-10.4) Urinalysis Test 11/25/24 00:00 Urine Color Light-yellow (Yellow) Urine Clarity Clear (Clear) Urine pH 6.0 (5.0-9.0) Urine Specific [place] 1.009 (1.001-1.035) Urine Protein Negative (Negative) Urine Ketones Negative (Negative) Urine Blood Negative /uL (Negative) Urine Nitrite Negative (Negative) Urine Bilirubin Negative (Negative) Urine Urobilinogen Normal mg/dL (Negative) Urine Leukocyte Esterase Negative /uL (Negative) Urine RBC <1 /hpf (0 - 4) Urine WBC 1 /hpf (0 - 5) Urine Squamous Epithelial Cells Few /hpf (<5) Urine Bacteria None seen /hpf (None Seen) Urine Glucose Normal mg/dL (Normal) Microbiology Microbiology Date/Time Source Procedure Growth Status 11/27/24 17:00 Nose MRSA Screen - Final Complete 11/25/24 09:32 Blood Blood Culture - Final NO GROWTH AFTER 5 DAYS OF INCUBATION. Complete 11/25/24 09:07 Sputum Gram Stain - Final Complete 11/25/24 09:07 Sputum Respiratory Culture - Final Complete Labs and/or images reviewed: Labs reviewed by me, Image(s) reviewed by me Assessment/Plan Assessment/Plan Impression: -cardiopulmonary arrest -acute hypoxic respiratory failure -toxic metabolic encephalopathy secondary to polysubstance abuse -polysubstance abuse -probable aspiration pneumonia -sepsis with shock -primary hypertension -hypothyroidism -acute kidney injury, hemodynamically mediated questionable ATN -anoxic encephalopathy Plan: -events: Pt. aphasic. Able to follow commands -Bronchodilators -Neurology consult -nephrology consultation -IV fluids per Nephrology -continue Flagyl and cefepime -PUD, DVT prophylaxis -Chest x ray -Social service consult: Transfer to [facility]. Total time spent with patient discussing and formulating plan of care: 35 minutes. This medical document was created using an electronic medical record system with [employer] dictation system. Although this document has been carefully reviewed, there may still be some phonetic and typographical errors. These areas are purely typographical due to imperfections of the software programs, and do not reflect any compromise in the patient's medical care. Plan discussed with: Patient, Other (RN) My Orders Orders - LISA LARSON NP Procedure Category Date Status Time Pt Request For Service PT 12/04/24 Logged 10:09 Chest Xray 1 View XY 12/04/24 Logged 13:52 Complete Blood Count LAB 12/05/24 Verified 04:00 Comprehensive LAB 12/05/24 Verified Metabolic Panel 04:00 * Optical Manufacturing Technician CONS 12/04/24 Transmitted Consult 14:37 Date of Service: Dec 04, 2024 Billing Provider: LISA LARSON NP Common Visit Codes: [id number] INP/OBS CARE(HIGH) LISA LARSON NP Dec 04, 2024 14:45
--- NOTE | 2024-12-04 16:33 | DVHPN2 ---
Progress Note Date Seen: Dec 04, 2024 Medical Necessity Reason Pt with a Central, PICC or Fol: Yes The following are medically ne: Zhu Catheter Reason for zhu catheter: Strict I&O Subjective Patient reports: No new complaints Other Systems: Patient seen and examined by myself today in f/u Objective vital signs Vital Sign Date Time Temp Pulse Resp B/P (MAP) Pulse Ox O2 Delivery O2 Flow Rate FiO2 12/04/24 11:14 88 18 106/79 98 6.0 45 12/04/24 10:42 Nasal Cannula 12/04/24 05:00 97.9 97.9 Total Intake and Output 12/03/24 12/03/24 12/04/24 15:00 23:00 07:00 Intake Total 50 ml 800 ml Output Total 550 ml Balance 50 ml -550 ml 800 ml medications Current Medications Medications Dose Ordered Sig/Caterina Route Start Time Stop Time Status Last Admin Dose Admin Midazolam HCl 50 ml @ 1 mls/hr Q24H IV 11/25/24 10:15 UNV Fentanyl Citrate 250 ml @ 2.5 mls/hr Q24H IV 11/25/24 10:15 UNV Ondansetron HCl 4 mg Q4HP PRN IV 11/25/24 13:15 Nitroglycerin 0.4 mg Q5MINP PRN SL 11/25/24 13:15 Morphine Sulfate 2 mg Q30M PRN IV 11/25/24 13:15 Vancomycin HCl 0 ml @ 0 mls/hr UD IV 11/25/24 13:15 UNV Pantoprazole Sodium 40 mg DAILY IV 11/26/24 10:00 12/04/24 10:22 40 MG Albuterol 2.5 mg Q4HPRN PRN NEB 11/25/24 13:45 12/03/24 19:14 2.5 MG Ipratropium [place] 0.5 mg Q4HPRN PRN NEB 11/25/24 13:45 12/03/24 19:14 0.5 MG Propofol 100 ml @ 2.43 mls/hr Q24H IV 11/25/24 14:00 UNV Cefepime HCl 50 ml @ 12.5 mls/hr DAILY@0800 IV 11/29/24 08:00 12/04/24 10:22 12.5 MLS/HR Labetalol HCl 10 mg Q3HR PRN IV 11/30/24 15:45 12/03/24 12:27 10 MG Metoprolol Succinate 25 mg DAILY PO 12/01/24 10:00 12/03/24 08:23 25 MG Enoxaparin Sodium 30 mg DAILY SC 12/01/24 10:00 12/04/24 10:24 30 MG Acetaminophen 650 mg Q6H PRN PO 12/02/24 12:15 12/04/24 12:38 650 MG Morphine Sulfate 1 mg Q4HP PRN IV 12/02/24 13:45 12/03/24 18:03 1 MG Bumetanide 1 mg DAILY IV 12/04/24 10:00 12/04/24 10:23 1 MG Dextrose 1,000 ml @ 75 mls/hr [id number] IV 12/03/24 16:45 12/04/24 10:35 75 MLS/HR Examination: LUNGS:Normal, CVS:Normal, MSK:Normal laboratory and microbiology Laboratory Tests 12/04/24 06:58 12/01/24 03:07 Test 12/04/24 06:58 Range/Units Serum Glucose 115 H 74-106 mg/dL Microbiology Date/Time Source Procedure Growth Status 11/27/24 17:00 Nose MRSA Screen - Final Complete 11/25/24 09:32 Blood Blood Culture - Final NO GROWTH AFTER 5 DAYS OF INCUBATION. Complete 11/25/24 09:07 Sputum Gram Stain - Final Complete 11/25/24 09:07 Sputum Respiratory Culture - Final Complete Problem List/Assessment/Plan Problem List/Assessment/Plan Acute kidney injury likely ATN in setting of cardiac arrest + vanco toxicity levels greater than 40 Acute respiratory failure intubated now s/p extubation Status post Cardiac arrest Methamphetamine abuse Metabolic acidosis Hypertension Encephalopathy Hypernatremia Non verbal Recommendations Kidney function stabilized Increased UOP IVF 1/2 NS @ 100 cc/hr d/c vancomycin Kidney ultrasound no hydronephrosis Will continue to follow Plan discussed with: Other (nurse) Dietary Evaluation Review Comments: 1) If GI is accessible consider Jevity 1.2 @ 50 ml/hr x 24hr as tolerated (advance to 60ml/hr if GFR trends up to within normal range) 2) If pt remains NPO consider TPN to meet at least 75% of estimated needs 3) Advance pt diet when medically feasible to a 2gm Sodium diet modified per INDUSTRIAL MAINTENANCE TECHNICIAN recommendations Expected Outcomes/Goals: 1) Pt to receive nutrition support within 7 days of NPO status 2) Pt diet to advance 3) F/U in 2-3 days VERONICA COLLINS MD Dec 04, 2024 16:33
[2024-12-04] MEDS: SOD CHL 0.45% 1,000 ML IV SCH (16:45)
--- NOTE | 2024-12-04 22:43 | DVHPN2 ---
Progress Note - Dictate Date Seen: Dec 04, 2024 Medical Necessity Reason Pt with a Central, PICC or Fol: Yes The following are medically ne: Zhu Catheter Reason for zhu catheter: Strict I&O Subjective Patient seen and examined at bedside. Remains on supplemental oxygen Overnight events reviewed. vital signs Vital Sign Date Time Temp Pulse Resp B/P (MAP) Pulse Ox O2 Delivery O2 Flow Rate FiO2 12/04/24 22:14 90 179/100 12/04/24 20:00 Nasal Cannula* 5 40 12/04/24 17:00 98.0 20 94 98.0 Total Intake and Output 12/03/24 12/03/24 12/04/24 15:00 23:00 07:00 Intake Total 50 ml 1040 ml Output Total 550 ml 850 ml Balance 50 ml -550 ml 190 ml medications Current Medications Medications Dose Ordered Sig/Caterina Route Start Time Stop Time Status Last Admin Dose Admin Midazolam HCl 50 ml @ 1 mls/hr Q24H IV 11/25/24 10:15 UNV Fentanyl Citrate 250 ml @ 2.5 mls/hr Q24H IV 11/25/24 10:15 UNV Ondansetron HCl 4 mg Q4HP PRN IV 11/25/24 13:15 Nitroglycerin 0.4 mg Q5MINP PRN SL 11/25/24 13:15 Morphine Sulfate 2 mg Q30M PRN IV 11/25/24 13:15 Vancomycin HCl 0 ml @ 0 mls/hr UD IV 11/25/24 13:15 UNV Pantoprazole Sodium 40 mg DAILY IV 11/26/24 10:00 12/04/24 10:22 40 MG Albuterol 2.5 mg Q4HPRN PRN NEB 11/25/24 13:45 12/04/24 19:28 2.5 MG Ipratropium [place] 0.5 mg Q4HPRN PRN NEB 11/25/24 13:45 12/04/24 19:28 0.5 MG Propofol 100 ml @ 2.43 mls/hr Q24H IV 11/25/24 14:00 UNV Cefepime HCl 50 ml @ 12.5 mls/hr DAILY@0800 IV 11/29/24 08:00 12/04/24 10:22 12.5 MLS/HR Labetalol HCl 10 mg Q3HR PRN IV 11/30/24 15:45 12/04/24 22:14 10 MG Metoprolol Succinate 25 mg DAILY PO 12/01/24 10:00 12/03/24 08:23 25 MG Enoxaparin Sodium 30 mg DAILY SC 12/01/24 10:00 12/04/24 10:24 30 MG Acetaminophen 650 mg Q6H PRN PO 12/02/24 12:15 12/04/24 20:44 650 MG Morphine Sulfate 1 mg Q4HP PRN IV 12/02/24 13:45 12/03/24 18:03 1 MG Bumetanide 1 mg DAILY IV 12/04/24 10:00 12/04/24 10:23 1 MG Sodium Chloride 1,000 ml @ 125 mls/hr Q8H IV 12/04/24 16:45 12/04/24 16:45 125 MLS/HR objective Gen.: Patient lying in bed in no apparent distress. On supplemental oxygen. Head: Normocephalic, atraumatic. Eyes: EOMI/PERRLA. Ears: Normal hearing. Normal anatomy. Neck/trachea: Trachea midline, supple. Nose: Normal external anatomy. Mouth: Moist mucous membranes. Chest: Decreased air entry bilaterally. No wheezing or rhonchi. Cardiovascular: Positive S1, positive S2. Regular rate and rhythm. Abdomen: Positive bowel sounds in all 4 quadrants. Soft, non-tender, non- distended. : Deferred. Rectal: Deferred. Skin: Warm, dry. Intact. Extremities: 2+ radial pulses bilaterally. No lower extremity edema. Neuro: Altered. No gross motor or sensory deficits. Cranial nerves II through XII intact. Gait not assessed. laboratory and microbiology Laboratory Tests 12/04/24 06:58 12/01/24 03:07 Test 12/04/24 06:58 Range/Units Serum Glucose 115 H 74-106 mg/dL Assessment/Plan Impression: Acute hypoxic respiratory failure Methamphetamine use Hyponatremia Leukocytosis Metabolic acidosis Events: Remains on supplemental oxygen at 5 LPM NC Taper O2 as tolerated Patient remains altered. Head of bed elevation Aspiration precautions Continue bronchodilators. Continue abx - cefepime Tube feeds for nutritional support Wound care Bumex for diuresis Monitor UOP Monitor renal function - creatinine 5.22 Follow up Nephrology recs IV fluids with LR at 75 ml/hr. Patient is stable for discharge from the pulmonary standpoint. Awaiting for transfer due to insurance issues CXR on 12/01 demonstrates stable mild pulmonary congestion. Labs and imaging reviewed. Rest of plan as noted below. Plan: s/p extubation on 11/30/24 Remains on supplemental oxygen Off sedation Off pressors, hemodynamically stable Continue antibiotics. F/u cultures. Start pressors if necessary to maintain a mean arterial blood pressure greater than 65 mmHg. Monitor renal function Monitor electrolytes. Supplement as necessary. Monitor ins and outs. Monitor WBC. GI prophylaxis. DVT prophylaxis. Prognosis: Poor given patient's multiple co-morbidities. Rest of plan per hospitalist and other consultants. Thank you, CREATIVE RESOURCE MANAGER Blake, for allowing me to participate in this patient's care. Further recommendations will depend on the patient's clinical course. Please do not hesitate to contact me if you have any questions or concerns. This medical document was created using an electronic medical record system with [employer] dictation system. Although these documentations are being carefully reviewed, there may still be some phonetic and typographical changes. The errors are purely typographical, due to imperfection on the software program, and do not reflect any compromise in the patient's medical care. Dietary Evaluation Review Comments: 1) If GI is accessible consider Jevity 1.2 @ 50 ml/hr x 24hr as tolerated (advance to 60ml/hr if GFR trends up to within normal range) 2) If pt remains NPO consider TPN to meet at least 75% of estimated needs 3) Advance pt diet when medically feasible to a 2gm Sodium diet modified per CANE PUSHER recommendations Expected Outcomes/Goals: 1) Pt to receive nutrition support within 7 days of NPO status 2) Pt diet to advance 3) F/U in 2-3 days Plan discussed with: Patient, Other (CHRIS Soto) MARCIA BRIGGS MD Dec 04, 2024 22:43
--- NOTE | 2024-12-04 23:50 | DVHINCON2 ---
Date of service: Dec 04, 2024 Referring Physician Srini Reason for Consultation Anoxic damage, aphasia History of Present Illness Ms. Crystal is a 49 years old female with a history of hypertension, hypothyroidism, obesity, the patient was brought to the [facility] on 11/25/2024 with a chief complaint of altered mental status, shortness breath. At this time, the patient was awake, she tracks, but she does not vocalize, or answer/follow. She keeps moving in the bed, sitter and nurse reported the patient was did not have sleep. History is obtained from her nurse, and chart review On 11/25/2024, after he returned from her morning walk, her noticed ab normal behavior on her, and the patient was had sharp breath, and then she collapsed, and become nonresponsive, her /CPR right away and when the EMS came over, her pulse ox was in the low 60s. The patient resuscitated, and intubated in the ambulance on the way to the hospital, but unfortunately the tube dislodged before she was arrived the ER, and then the patient was reint ubated again. With appropriate treatment, the patient was extubated on 12/01/2024, but mentally the patient was does not know improve as anticipated UDS, 11/25/2024: Fentanyl, amphetamine, benzo, cocaine Urinalysis, 11/25/2024: Unremarkable WBC/HB/PLT/CV, 12/01/2024: 14.6/9.7/434/87.9 ABG, 11/28/24: Metabolic acidosis, 11/29/2024: Metabolic acidosis, BUN/CR, 11/25/2019 5:6/1.77, 11/27/24: 10/2.2, 11/30/24: 20/4.4 12/04/2024: 57/2.22 Liver function tests, 11/25/2024: Normal TSH, 11/26/2024: 0.61 FT4, 11/26/2024: 1.06 Chest x-ray, 11/25/2024: 1. ETT ends at the chuck. Recommend 2-3 cm retraction for optimal positioning. 2. No acute cardiopulmonary disease Chest x-ray 11/30/2024: 1. Stable position of the support lines and tubes. 2. St able mild pulmonary congestion Chest x-ray,12/01/24: ET and NG tube removed. CT head, 11/25/2024: 1. No CT evidence of acute intracranial abnormality. 2. Nonacute findings as described above Past Medical History Hypertension, hypothyroidism, obesity Past Surgical History Unobtainable Family History Unobtainable Social History Unobtainable, but UDS dated 11/25/2024 showed fentanyl, amphetamine, cocaine and benzo Allergies: Coded Allergies: Cephalexin (Verified Allergy, Unknown, 11/25/24) Ciprofloxacin (Verified Allergy, Unknown, 11/25/24) Home Meds Unobtainable Current Medications Current Medications Medications (Trade) Dose Ordered Sig/Caterina Route PRN Reason Start Time Stop Time Status Last Admin Bumetanide (Bumex Injection) 1 mg DAILY IV 12/04/24 10:00 12/04/24 10:23 Sodium Chloride 1,000 ml @ 125 mls/hr Q8H IV 12/04/24 16:45 12/04/24 16:45 Vital Signs Vital Signs Date Time Temp Pulse Resp B/P (MAP) Pulse Ox O2 Delivery O2 Flow Rate FiO2 12/04/24 22:14 90 179/100 12/04/24 20:00 Nasal Cannula* 5 40 12/04/24 17:00 98.0 20 94 98.0 Physical Exam GENERAL EXAM: General: the patient is well developed and nourished. No acute distress. HEENT: Normocephalic, neck is supple, no carotid bruits. No mass. RESPIRATORY: Normal respiratory effort with symmetrical lung expansion. Lungs clear to auscultation. CARDIOVASCULAR: Regular rate and rhythm with no murmurs. S1, S2. ABDOMEN: Soft, nontender, normal bowel sound NEUROLOGICAL: HPI SPEECH, LANGUAGE, HIGHER CORTICAL FUNCTION: She does not notice vocalize. CRANIAL NERVES: #2: Intact visual river to confrontation (visual thread) #3,4,6: Pupils are equal, round and reactive. EOMs full and conjugate. #5: Facial sensation intact in all three divisions bilaterally. Mandibular strength ok #7: Facial muscles symmetrical and strength intact. #8: Hearing grossly ok. #9,10: Deferred #11: Trapezius and sternomastoid strength intact bilaterally. #12: Deferred SENSATION: Sensation to touch and pinprick is okay MOTOR: Normal tone in the upper and lower extremity. Normal muscle bulk. No fasciculations. No abnormal movements or posturing. He moves the arms and legs REFLEXES: Deep tendon reflexes are symmetrical. No pathological reflexes. CEREBELLAR/COORDINATION: Deferred GAIT/STATION: deferred. Labs/Diagnostic Data Labs Test 12/04/24 06:58 12/02/24 08:38 12/01/24 07:29 12/01/24 03:07 Range/Units Sodium Level 149 H 136-145 mmol/L Potassium Level 3.0 L 3.5-5.1 mmol/L Chloride Level 110 H 98-107 mmol/L Carbon Dioxide Level 24 20-31 mmol/L Anion Gap 15 5-15 Blood Urea Nitrogen 57 H 9-23 mg/dL Creatinine 5.22 H 0.550-1.02 mg/dL Glomerular Filtration Rate Calc 10 >90 mL/min BUN/Creatinine Ratio 10.9 10.0-20.0 Serum Glucose 115 H 74-106 mg/dL Calcium Level 9.7 8.7-10.4 mg/dL Creatine Kinase 43 34-145 U/L POC Glucose 128 H 70-106 mg/dl White Blood Count 14.6 #H 4.4-10.8 10^3/uL Red Blood Count 3.22 L 4.0-5.20 10^6/uL Hemoglobin 9.7 L 12.2-16.2 g/dL Hematocrit 28.3 L 36.0-46.0 % Mean Corpuscular Volume 87.9 80.0-100.0 fL Mean Corpuscular Hemoglobin 30.1 28.0-32.0 pg Mean Corpuscular Hemoglobin Concent 34.2 32.0-36.0 g/dL Red Cell Distribution Width 13.5 11.8-14.3 % Platelet Count 434 140-450 10^3/uL Mean Platelet Volume 6.9 6.9-10.8 fL Neutrophils (%) (Auto) 81.3 H 37.0-80.0 % Lymphocytes (%) (Auto) 8.8 L 10.0-50.0 % Monocytes (%) (Auto) 7.5 0.0-12.0 % Eosinophils (%) (Auto) 1.6 0.0-7.0 % Basophils (%) (Auto) 0.8 0.0-2.0 % Neutrophils # (Auto) 11.8 H 1.6-8.6 10 ^3/uL Lymphocytes # (Auto) 1.3 0.4-5.4 10 ^3/uL Monocytes # (Auto) 1.1 0-1.3 10 ^3/uL Eosinophils # (Auto) 0.2 0-0.8 10 ^3/uL Basophils # (Auto) 0.1 0-0.2 10 ^3/uL Nucleated Red Blood Cells 0.0 % Total Bilirubin 0.2 0.2-1.0 mg/dL Aspartate Amino Transferase (AST) 21 13-40 U/L Alanine Aminotransferase (ALT) < 9 7-40 U/L Alkaline Phosphatase 51 46-116 U/L Total Protein 5.6 L 5.7-8.2 g/dL Albumin 3.0 L 3.2-4.8 g/dL Test 11/30/24 10:18 11/30/24 07:59 11/29/24 16:15 11/29/24 14:35 Range/Units Blood Gas Specimen Type Arterial Blood Gas Sample Site Right radial Blood Gas Patient Temperature 37.0 Arterial Blood Date Drawn [id number] Arterial Blood pH 7.438 7.350-7.450 Arterial Blood Partial Pressure CO2 39.6 32.0-45.0 mmHg Arterial Blood Partial Pressure O2 81.3 L 83.0-108.0 mmHg Arterial Blood HCO3 26.2 21.0-28.0 mmol/L Arterial Blood Oxygen Saturation 95.6 94.0-98.0 % Arterial Blood Base Excess 1.9 -2.0-3.0 mmol/L Arterial Blood Oxyhemoglobin 95.0 94.0-98.0 % Arterial Blood Carboxyhemoglobin 0.3 L 0.5-1.5 % Arterial Blood Methemoglobin 0.3 0.0-1.5 % Jose Test Modified Blood Gas Total Hemoglobin 11.40 L 12.0-16.0 g/dL Blood Gas Modality Vent - cpap FiO2 % 30.0 Blood Gas Pressure Support 8 Blood Gas PEEP or CPAP 5.0 Blood Gas Set Respiration Rate 16.0 Blood Gas Tidal Volume 500.0 Lactic Acid Level 0.4 0.4-2.0 mmol/L Blood Gas Critical Value Read Back Yes Blood Gas Notified Whom Dr. zamzam vazquez Blood Gas Notified Time [id number] Blood Gas Notified By Test 11/27/24 03:15 11/26/24 13:00 11/25/24 19:00 11/25/24 14:44 Range/Units Vancomycin Level Trough 45.6 *H 5-10 ug/mL Magnesium Level 1.6 1.6-2.6 mg/dL Thyroid Stimulating Hormone (TSH) 0.61 0.55-4.78 uIU/mL Free Thyroxine (T4) Calculated 1.06 0.89-1.76 ng/dL Free Thyroxine Index 2.5 1.2-4.9 Thyroxine (T4) 9.6 4.5-12.0 ug/dL Free Triiodothyronine (T3) pg/mL 1.96 L 2.3-4.2 pg/mL Triiodothyronine (T3) Uptake 26 24-39 % Influenza Type A Antigen Negative Negative Influenza Type B Antigen Negative Negative SARS-CoV-2 Antigen (Rapid) Negative NEGATIVE Erythrocyte Sedimentation Rate 43 H 0-20 mm/hr Levetiracetam Level <2.0 L 10.0-40.0 ug/mL Test 11/25/24 13:15 11/25/24 10:47 11/25/24 08:52 11/25/24 00:00 Range/Units Troponin I High Sensitivity 25 </=34 ng/L C-Reactive Protein High Sensitivity 7.48 H <1.0 mg/dL Plasma/Serum Blood Alcohol < 3.0 <10 mg/dL Urine Opiates Screen Neg NEGATIVE Urine Fentanyl Screen Pos NEGATIVE Urine Barbiturates Screen Neg NEGATIVE Urine Phencyclidine Screen Neg NEGATIVE Urine Amphetamines Screen Pos NEGATIVE Urine Benzodiazepines Screen Pos NEGATIVE Urine Cocaine Screen Pos NEGATIVE Urine Cannabinoids Screen Neg NEGATIVE Urine Color Light-yellow Yellow Urine Clarity Clear Clear Urine pH 6.0 5.0-9.0 Urine Specific [place] 1.009 1.001-1.035 Urine Protein Negative Negative Urine Ketones Negative Negative Urine Blood Negative Negative /uL Urine Nitrite Negative Negative Urine Bilirubin Negative Negative Urine Urobilinogen Normal Negative mg/dL Urine Leukocyte Esterase Negative Negative /uL Urine RBC <1 0 - 4 /hpf Urine WBC 1 0 - 5 /hpf Urine Squamous Epithelial Cells Few <5 /hpf Urine Bacteria None seen None Seen /hpf Urine Glucose Normal Normal mg/dL Microbiology Date/Time Source Procedure Growth Status 11/27/24 17:00 Nose MRSA Screen - Final Complete 11/25/24 09:32 Blood Blood Culture - Final NO GROWTH AFTER 5 DAYS OF INCUBATION. Complete 11/25/24 09:07 Sputum Gram Stain - Final Complete 11/25/24 09:07 Sputum Respiratory Culture - Final Complete Assessment Altered mental status Hypoxic encephalopathy Metabolic encephalopathy ? Chronic organic brain syndrome Acute respiratory failure Status post CPR Cardiopulmonary arrest Substance abuse Plan/Recommendation Monitoring Supportive treatment Telemetry MR brain scan Haldol 2.5 mg intramuscular Q 6 hours p.r.n. for agitation DVT prophylaxis/Lovenox GI prophylaxis/Protonix More recommendation per clinical course Progress: Poor This medical document was created using an electronic medical record system with [employer] dictation system. Although this document has been carefully reviewed, there may still be some phonetic and typographical errors. These areas are purely typographical due to imperfections of the software programs, and do not reflect any compromise in the patient's medical care. Plan discussed with: JEFFREY Zelaya MD Dec 04, 2024 23:50
[2024-12-05] VITALS (13 sets, daily range): BP systolic 158–189; BP diastolic 78–102; PULSE 62–98; RESP 16–20; TEMP 96.5–98.9; O2SAT 90–100
[2024-12-05] MEDS ORDERED: LORazepam 2MG/ML-1ML VIAL IV PRN ×2 (00:15→08:45)
[2024-12-05 05:59] LABS: Basophils # (auto) 0.1 10 ^3/uL (0-0.2); Basophils % (auto) 0.5 % (0.0-2.0); Eosinophils # (auto) 0.7 10 ^3/uL (0-0.8); Eosinophils % (auto) 4.3 % (0.0-7.0); Hematocrit 27.3 % (36.0-46.0); Hemoglobin 9.1 g/dL (12.2-16.2); Lymphocytes % (auto) 11.4 % (10.0-50.0); Mean Corpuscular Hemoglobin 30.1 pg (28.0-32.0); Mean Corpuscular Hgb Conc. 33.3 g/dL (32.0-36.0); Mean Corpuscular Volume 90.4 fL (80.0-100.0); Monocytes # (auto) 1.1 10 ^3/uL (0-1.3); Monocytes % (auto) 6.4 % (0.0-12.0); Neutrophils # (auto) 13.5 10 ^3/uL (1.6-8.6); Neutrophils % (auto) 77.4 % (37.0-80.0); Platelet Count (auto) 318 10^3/uL (140-450); Red Blood Cells 3.02 10^6/uL (4.0-5.20); White Blood Cell 17.4 10^3/uL (4.4-10.8)
[2024-12-05 06:21] LABS: Alanine Aminotransferase 13 U/L (7-40); Alkaline Phosphatase 47 U/L (46-116); Anion Gap 15 (5-15); Aspartate Aminotransferase 38 U/L (13-40); BUN/Creatinine Ratio 11.5 (10.0-20.0); Calcium 8.8 mg/dL (8.7-10.4); Carbon Dioxide 24 mmol/L (20-31); Chloride 107 mmol/L (98-107); Glucose 87 mg/dL (74-106)
[2024-12-05 06:22] LABS: Albumin 3.2 g/dL (3.2-4.8); Bilirubin, Total 0.3 mg/dL (0.2-1.0); Blood Urea Nitrogen 54 mg/dL (9-23); Potassium 3.2 mmol/L (3.5-5.1); Sodium 146 mmol/L (136-145); Total Protein 5.5 g/dL (5.7-8.2)
[2024-12-05] MEDS: LORazepam 2MG/ML-1ML VIAL IV ONE (10:16)
--- NOTE | 2024-12-05 10:51 | DVHPN2 ---
Progress Note Date Seen: Dec 05, 2024 Medical Necessity Reason Pt with a Central, PICC or Fol: Yes The following are medically ne: Zhu Catheter Reason for zhu catheter: Strict I&O Subjective Patient reports: No new complaints Other Systems: Patient seen and examined by myself today in follow-up Objective vital signs Vital Sign Date Time Temp Pulse Resp B/P (MAP) Pulse Ox O2 Delivery O2 Flow Rate FiO2 12/05/24 09:14 98 187/90 12/05/24 05:00 96.5 20 100 96.5 12/04/24 20:00 Nasal Cannula* 5 40 Total Intake and Output 12/04/24 12/04/24 12/05/24 15:00 23:00 07:00 Intake Total 2180 ml 2140 ml Output Total 1650 ml 1000 ml Balance 530 ml 1140 ml medications Current Medications Medications Dose Ordered Sig/Caterina Route Start Time Stop Time Status Last Admin Dose Admin Midazolam HCl 50 ml @ 1 mls/hr Q24H IV 11/25/24 10:15 UNV Fentanyl Citrate 250 ml @ 2.5 mls/hr Q24H IV 11/25/24 10:15 UNV Ondansetron HCl 4 mg Q4HP PRN IV 11/25/24 13:15 Nitroglycerin 0.4 mg Q5MINP PRN SL 11/25/24 13:15 Morphine Sulfate 2 mg Q30M PRN IV 11/25/24 13:15 Vancomycin HCl 0 ml @ 0 mls/hr UD IV 11/25/24 13:15 UNV Pantoprazole Sodium 40 mg DAILY IV 11/26/24 10:00 12/05/24 09:12 40 MG Albuterol 2.5 mg Q4HPRN PRN NEB 11/25/24 13:45 12/04/24 19:28 2.5 MG Ipratropium [place] 0.5 mg Q4HPRN PRN NEB 11/25/24 13:45 12/04/24 19:28 0.5 MG Propofol 100 ml @ 2.43 mls/hr Q24H IV 11/25/24 14:00 UNV Cefepime HCl 50 ml @ 12.5 mls/hr DAILY@0800 IV 11/29/24 08:00 12/05/24 09:13 12.5 MLS/HR Labetalol HCl 10 mg Q3HR PRN IV 11/30/24 15:45 12/05/24 06:42 10 MG Metoprolol Succinate 25 mg DAILY PO 12/01/24 10:00 12/05/24 09:14 25 MG Enoxaparin Sodium 30 mg DAILY SC 12/01/24 10:00 12/05/24 09:14 30 MG Acetaminophen 650 mg Q6H PRN PO 12/02/24 12:15 12/04/24 20:44 650 MG Morphine Sulfate 1 mg Q4HP PRN IV 12/02/24 13:45 12/03/24 18:03 1 MG Bumetanide 1 mg DAILY IV 12/04/24 10:00 12/05/24 09:13 1 MG Sodium Chloride 1,000 ml @ 125 mls/hr Q8H IV 12/04/24 16:45 12/05/24 09:15 125 MLS/HR Haloperidol Lactate 2.5 mg Q8HP PRN IM 12/05/24 00:15 Lorazepam 1 mg ONCE PRN IV 12/05/24 08:45 Cancel Examination: LUNGS:Normal, CVS:Normal, MSK:Normal laboratory and microbiology Laboratory Tests 12/05/24 04:33 Test 12/05/24 04:33 Range/Units Serum Glucose 87 74-106 mg/dL Microbiology Date/Time Source Procedure Growth Status 11/27/24 17:00 Nose MRSA Screen - Final Complete 11/25/24 09:32 Blood Blood Culture - Final NO GROWTH AFTER 5 DAYS OF INCUBATION. Complete 11/25/24 09:07 Sputum Gram Stain - Final Complete 11/25/24 09:07 Sputum Respiratory Culture - Final Complete Problem List/Assessment/Plan Problem List/Assessment/Plan Acute kidney injury likely ATN in setting of cardiac arrest + vanco toxicity levels greater than 40 Acute respiratory failure intubated now s/p extubation Status post Cardiac arrest Methamphetamine abuse Metabolic acidosis Hypertension Encephalopathy Hypernatremia Non verbal Hypokalemia Recommendations Kidney function continues to improve Increased UOP IVF 1/2 NS @ 100 cc/hr KCL replacement d/c vancomycin Kidney ultrasound no hydronephrosis Will continue to follow Plan discussed with: Patient My Orders My Orders Orders - VERONICA COLLINS MD Procedure Category Date Status Time Sod Chl 0.45% (Sodium PHA 12/04/24 In Process Chloride 0.45% Via 16:45 Dietary Evaluation Review Comments: 1) If GI is accessible consider Jevity 1.2 @ 50 ml/hr x 24hr as tolerated (advance to 60ml/hr if GFR trends up to within normal range) 2) If pt remains NPO consider TPN to meet at least 75% of estimated needs 3) Advance pt diet when medically feasible to a 2gm Sodium diet modified per SEAL[facility] S[facility]ER recommendations Expected Outcomes/Goals: 1) Pt to receive nutrition support within 7 days of NPO status 2) Pt diet to advance 3) F/U in 2-3 days VERONICA COLLINS MD Dec 05, 2024 10:51
--- NOTE | 2024-12-05 12:04 | DVH ---
EXAMINATION: MRI BRAIN HEAD WO CONTRAST INDICATION: ALOC COMPARISON: CT head 11/25/2024 TECHNIQUE: Multiplanar, multisequence magnetic resonance imaging of the brain was performed without the use of i ntravenous contrast. FINDINGS: There is no restricted diffusion. The renee and white matter signal is age appropriate. There is no ev idence of hemorrhage, mass, mass effect or midline shift. There is no hydrocephalus or extra-axial fl uid collection. The visualized intracranial vasculature demonstrates appropriate flow-voids. The sagi ttal midline structures appear unremarkable. The craniocervical junction is within normal limits. The calvarium demonstrates normal marrow signal. There is mucosal thickening in the right maxillary sinu s. There is small amount of fluid in the right mastoid air cells. IMPRESSION: 1. There is no acute intracranial process. HS:Y
[2024-12-05] MEDS: POTASSIUM EFFERVESENT TAB 25 MEQ PO ONE (12:39)
--- NOTE | 2024-12-05 14:36 | DVHPN2 ---
Subjective Patient now awake and following some commands. Pt now awake and verbal. Reviewed: Care Plan, H&P, Labs, Medications, Previous Orders, Radiology Changes from previous H/P or p: No Changes General: Per HPI Objective Vitals Vital Signs Date Time Temp Pulse Resp B/P (MAP) Pulse Ox O2 Delivery O2 Flow Rate FiO2 12/05/24 11:29 86 18 100 12/05/24 11:19 Nasal Cannula* 1 24 12/05/24 09:14 187/90 12/05/24 05:00 96.5 96.5 Intake/Output Intake and Output 12/05/24 07:00 Intake Total 4320 ml Output Total 2650 ml Balance 1670 ml Intake Oral 2320 ml IV Total 1000 ml Tube Feeding 1000 ml Output Urine Total 2650 ml # Bowel Movements 4 General Appearance: Alert, Cooperative, No acute distress HEENT: PERRLA Lungs: Clear to auscultation Cardiovascular: Normal S1, Normal S2, No murmurs, Other (ST) Abdomen: Normal bowel sounds, Soft, No tenderness Rectal: Deferred Extremities: No clubbing, No cyanosis, Normal pulses Neuro: Other (low grade fever ) Skin: Dry, Intact Psych/Mental Status: Other (Encephalopathic) Medications Current Medications Medications Dose Ordered Sig/Caterina Route Start Time Stop Time Status Last Admin Dose Admin Midazolam HCl 50 ml @ 1 mls/hr Q24H IV 11/25/24 10:15 UNV Fentanyl Citrate 250 ml @ 2.5 mls/hr Q24H IV 11/25/24 10:15 UNV Ondansetron HCl 4 mg Q4HP PRN IV 11/25/24 13:15 Nitroglycerin 0.4 mg Q5MINP PRN SL 11/25/24 13:15 Morphine Sulfate 2 mg Q30M PRN IV 11/25/24 13:15 Vancomycin HCl 0 ml @ 0 mls/hr UD IV 11/25/24 13:15 UNV Pantoprazole Sodium 40 mg DAILY IV 11/26/24 10:00 12/05/24 09:12 40 MG Albuterol 2.5 mg Q4HPRN PRN NEB 11/25/24 13:45 12/05/24 11:18 2.5 MG Ipratropium [place] 0.5 mg Q4HPRN PRN NEB 11/25/24 13:45 12/05/24 11:18 0.5 MG Propofol 100 ml @ 2.43 mls/hr Q24H IV 11/25/24 14:00 UNV Cefepime HCl 50 ml @ 12.5 mls/hr DAILY@0800 IV 11/29/24 08:00 12/05/24 09:13 12.5 MLS/HR Labetalol HCl 10 mg Q3HR PRN IV 11/30/24 15:45 12/05/24 06:42 10 MG Metoprolol Succinate 25 mg DAILY PO 12/01/24 10:00 12/05/24 09:14 25 MG Enoxaparin Sodium 30 mg DAILY SC 12/01/24 10:00 12/05/24 09:14 30 MG Acetaminophen 650 mg Q6H PRN PO 12/02/24 12:15 12/04/24 20:44 650 MG Morphine Sulfate 1 mg Q4HP PRN IV 12/02/24 13:45 12/03/24 18:03 1 MG Bumetanide 1 mg DAILY IV 12/04/24 10:00 12/05/24 09:13 1 MG Sodium Chloride 1,000 ml @ 125 mls/hr Q8H IV 12/04/24 16:45 12/05/24 09:15 125 MLS/HR Haloperidol Lactate 2.5 mg Q8HP PRN IM 12/05/24 00:15 Lorazepam 1 mg ONCE PRN IV 12/05/24 08:45 Cancel Laboratory Results Laboratory Tests 12/05/24 04:33 Chemistry Test 12/05/24 04:33 Albumin 3.2 g/dL (3.2-4.8) Calcium Level 8.8 mg/dL (8.7-10.4) Total Protein 5.5 g/dL (5.7-8.2) L LFT Test 12/05/24 04:33 Alanine Aminotransferase (ALT) 13 U/L (7-40) Alkaline Phosphatase 47 U/L (46-116) Aspartate Amino Transferase (AST) 38 U/L (13-40) Total Bilirubin 0.3 mg/dL (0.2-1.0) Urinalysis Test 11/25/24 00:00 Urine Color Light-yellow (Yellow) Urine Clarity Clear (Clear) Urine pH 6.0 (5.0-9.0) Urine Specific [place] 1.009 (1.001-1.035) Urine Protein Negative (Negative) Urine Ketones Negative (Negative) Urine Blood Negative /uL (Negative) Urine Nitrite Negative (Negative) Urine Bilirubin Negative (Negative) Urine Urobilinogen Normal mg/dL (Negative) Urine Leukocyte Esterase Negative /uL (Negative) Urine RBC <1 /hpf (0 - 4) Urine WBC 1 /hpf (0 - 5) Urine Squamous Epithelial Cells Few /hpf (<5) Urine Bacteria None seen /hpf (None Seen) Urine Glucose Normal mg/dL (Normal) Microbiology Microbiology Date/Time Source Procedure Growth Status 11/27/24 17:00 Nose MRSA Screen - Final Complete 11/25/24 09:32 Blood Blood Culture - Final NO GROWTH AFTER 5 DAYS OF INCUBATION. Complete 11/25/24 09:07 Sputum Gram Stain - Final Complete 11/25/24 09:07 Sputum Respiratory Culture - Final Complete Labs and/or images reviewed: Labs reviewed by me, Image(s) reviewed by me Assessment/Plan Assessment/Plan Impression: -cardiopulmonary arrest -acute hypoxic respiratory failure -toxic metabolic encephalopathy secondary to polysubstance abuse -polysubstance abuse -probable aspiration pneumonia -sepsis with shock -primary hypertension -hypothyroidism -acute kidney injury, hemodynamically mediated questionable ATN -anoxic encephalopathy Plan: -events: Pt. verbal and alert -Dc zhu -Advance diet -Bronchodilators -Neurology consult -nephrology consultation -IV fluids per Nephrology -continue abx -continue IVF Total time spent with patient discussing and formulating plan of care: 35 minutes. This medical document was created using an electronic medical record system with [employer] dictation system. Although this document has been carefully reviewed, there may still be some phonetic and typographical errors. These areas are purely typographical due to imperfections of the software programs, and do not reflect any compromise in the patient's medical care. Plan discussed with: Patient, Other (RN) My Orders Orders - LISA LARSON NP Procedure Category Date Status Time * Leather Stamper CONS 12/04/24 Transmitted Consult 14:37 * Neurology Consult CONS 12/04/24 Transmitted 14:42 Basic Metabolic Panel LAB 12/06/24 Verified 04:00 Date of Service: Dec 05, 2024 Billing Provider: LISA LARSON NP Common Visit Codes: [id number] INP/OBS CARE(HIGH) LISA LARSON NP Dec 05, 2024 14:36
[2024-12-05] MEDS: SOD CHL 0.45% 1,000 ML IV SCH (15:16)
--- NOTE | 2024-12-05 22:08 | DVHPN2 ---
Progress Note - Dictate Date Seen: Dec 05, 2024 Medical Necessity Reason Pt with a Central, PICC or Fol: Yes The following are medically ne: Zhu Catheter Reason for zhu catheter: Strict I&O Subjective Patient seen and examined at bedside. Breathing comfortably on room air. Overnight events reviewed. vital signs Vital Sign Date Time Temp Pulse Resp B/P (MAP) Pulse Ox O2 Delivery O2 Flow Rate FiO2 12/05/24 21:40 68 188/78 12/05/24 20:30 16 Room Air* 0 21 12/05/24 17:11 98.1 98 98.1 Total Intake and Output 12/04/24 12/04/24 12/05/24 15:00 23:00 07:00 Intake Total 2180 ml 2140 ml Output Total 1650 ml 1000 ml Balance 530 ml 1140 ml medications Current Medications Medications Dose Ordered Sig/Caterina Route Start Time Stop Time Status Last Admin Dose Admin Midazolam HCl 50 ml @ 1 mls/hr Q24H IV 11/25/24 10:15 UNV Fentanyl Citrate 250 ml @ 2.5 mls/hr Q24H IV 11/25/24 10:15 UNV Ondansetron HCl 4 mg Q4HP PRN IV 11/25/24 13:15 Nitroglycerin 0.4 mg Q5MINP PRN SL 11/25/24 13:15 Morphine Sulfate 2 mg Q30M PRN IV 11/25/24 13:15 Vancomycin HCl 0 ml @ 0 mls/hr UD IV 11/25/24 13:15 UNV Pantoprazole Sodium 40 mg DAILY IV 11/26/24 10:00 12/05/24 09:12 40 MG Albuterol 2.5 mg Q4HPRN PRN NEB 11/25/24 13:45 12/05/24 11:18 2.5 MG Ipratropium Cornell 0.5 mg Q4HPRN PRN NEB 11/25/24 13:45 12/05/24 11:18 0.5 MG Propofol 100 ml @ 2.43 mls/hr Q24H IV 11/25/24 14:00 UNV Cefepime HCl 50 ml @ 12.5 mls/hr DAILY@0800 IV 11/29/24 08:00 12/05/24 09:13 12.5 MLS/HR Labetalol HCl 10 mg Q3HR PRN IV 11/30/24 15:45 12/05/24 21:40 10 MG Metoprolol Succinate 25 mg DAILY PO 12/01/24 10:00 12/05/24 09:14 25 MG Enoxaparin Sodium 30 mg DAILY SC 12/01/24 10:00 12/05/24 09:14 30 MG Acetaminophen 650 mg Q6H PRN PO 12/02/24 12:15 12/04/24 20:44 650 MG Morphine Sulfate 1 mg Q4HP PRN IV 12/02/24 13:45 12/03/24 18:03 1 MG Bumetanide 1 mg DAILY IV 12/04/24 10:00 12/05/24 09:13 1 MG Haloperidol Lactate 2.5 mg Q8HP PRN IM 12/05/24 00:15 Lorazepam 1 mg ONCE PRN IV 12/05/24 08:45 Cancel Sodium Chloride 1,000 ml @ 100 mls/hr Q10H IV 12/05/24 15:00 12/05/24 15:16 100 MLS/HR objective Gen.: Patient lying in bed in no apparent distress. On room air. Head: Normocephalic, atraumatic. Eyes: EOMI/PERRLA. Ears: Normal hearing. Normal anatomy. Neck/trachea: Trachea midline, supple. Nose: Normal external anatomy. Mouth: Moist mucous membranes. Chest: Decreased air entry bilaterally. No wheezing or rhonchi. Cardiovascular: Positive S1, positive S2. Regular rate and rhythm. Abdomen: Positive bowel sounds in all 4 quadrants. Soft, non-tender, non- distended. : Deferred. Rectal: Deferred. Skin: Warm, dry. Intact. Extremities: 2+ radial pulses bilaterally. No lower extremity edema. Neuro: Awake, alert, following commands. No gross motor or sensory deficits. Cranial nerves II through XII intact. Gait not assessed. laboratory and microbiology Laboratory Tests 12/05/24 04:33 Test 12/05/24 04:33 Range/Units Serum Glucose 87 74-106 mg/dL Assessment/Plan Impression: Acute hypoxic respiratory failure Methamphetamine use Hyponatremia Leukocytosis Metabolic acidosis Events: Currently breathing on room air. Supplemental oxygen PRN Patient is following all commands and answering questions appropriately. Head of bed elevation Aspiration precautions Continue bronchodilators PRN Continue abx - cefepime Incentive spirometry Tube feeds for nutritional support Wound care Pain control Avoid oversedation Bumex for diuresis Monitor UOP Monitor renal function; creatinine 5.22 -->4.68 Potassium supplementation Follow up Nephrology recs IV fluids with NS at 100 ml/hr. Patient is stable for discharge from the pulmonary standpoint. Awaiting for transfer due to insurance issues CXR on 12/01 demonstrates stable mild pulmonary congestion. Labs and imaging reviewed. Rest of plan as noted below. Plan: s/p extubation on 11/30/24 Supplemental oxygen PRN Titrate to keep sats above 92% Off sedation Off pressors, hemodynamically stable Continue antibiotics. F/u cultures. Start pressors if necessary to maintain a mean arterial blood pressure greater than 65 mmHg. Monitor renal function Monitor electrolytes. Supplement as necessary. Monitor ins and outs. Monitor WBC. GI prophylaxis. DVT prophylaxis. Prognosis: Poor given patient's multiple co-morbidities. Rest of plan per hospitalist and other consultants. Thank you, JOSE Lozano, for allowing me to participate in this patient's care. Further recommendations will depend on the patient's clinical course. Please do not hesitate to contact me if you have any questions or concerns. This medical document was created using an electronic medical record system with [employer] dictation system. Although these documentations are being carefully reviewed, there may still be some phonetic and typographical changes. The errors are purely typographical, due to imperfection on the software program, and do not reflect any compromise in the patient's medical care. Dietary Evaluation Review Comments: 1) If GI is accessible consider Jevity 1.2 @ 50 ml/hr x 24hr as tolerated (advance to 60ml/hr if GFR trends up to within normal range) 2) If pt remains NPO consider TPN to meet at least 75% of estimated needs 3) Advance pt diet when medically feasible to a 2gm Sodium diet modified per DISC RULER OPERATOR recommendations Expected Outcomes/Goals: 1) Pt to receive nutrition support within 7 days of NPO status 2) Pt diet to advance 3) F/U in 2-3 days Plan discussed with: Patient, Other (CHRIS Soto) MARCIA BRIGGS MD Dec 05, 2024 22:08
[2024-12-06] VITALS (10 sets, daily range): BP systolic 104–184; BP diastolic 58–109; PULSE 66–94; RESP 17–22; TEMP 97.6–98.1; O2SAT 94–100
[2024-12-06 06:05] LABS: Chloride 107 mmol/L (98-107)
[2024-12-06 06:06] LABS: Anion Gap 12 (5-15); Calcium 9.4 mg/dL (8.7-10.4); Carbon Dioxide 26 mmol/L (20-31)
[2024-12-06 06:11] LABS: BUN/Creatinine Ratio 10.5 (10.0-20.0); Glucose 94 mg/dL (74-106)
[2024-12-06 06:19] LABS: Blood Urea Nitrogen 43 mg/dL (9-23); Potassium 3.4 mmol/L (3.5-5.1); Sodium 145 mmol/L (136-145)
[2024-12-06] MEDS: NIFEdipine ER 30 MG TAB PO ONE (12:12)
--- NOTE | 2024-12-06 12:19 | DVHPN2 ---
Subjective Patient now awake and following some commands. Pt now awake and verbal. Reviewed: Care Plan, H&P, Labs, Medications, Previous Orders, Radiology Changes from previous H/P or p: No Changes General: Per HPI Objective Vitals Vital Signs Date Time Temp Pulse Resp B/P (MAP) Pulse Ox O2 Delivery O2 Flow Rate FiO2 12/06/24 12:12 204/103 12/06/24 10:46 78 12/06/24 09:00 97.6 18 94 97.6 12/06/24 07:30 Room Air 0.0 12/06/24 07:30 21 Intake/Output Intake and Output 12/06/24 07:00 Intake Total 1050 ml Output Total 2000 ml Balance -950 ml Intake Oral 1000 ml IV Total 50 ml Output Urine Total 2000 ml # Voids 2 # Bowel Movements 3 General Appearance: Alert, Cooperative, No acute distress HEENT: PERRLA Lungs: Clear to auscultation Cardiovascular: Normal S1, Normal S2, No murmurs, Other (ST) Abdomen: Normal bowel sounds, Soft, No tenderness Rectal: Deferred Extremities: No clubbing, No cyanosis, Normal pulses Neuro: Other (Garbled speech) Skin: Dry, Intact Psych/Mental Status: Other (Encephalopathic) Medications Current Medications Medications Dose Ordered Sig/Caterina Route Start Time Stop Time Status Last Admin Dose Admin Midazolam HCl 50 ml @ 1 mls/hr Q24H IV 11/25/24 10:15 UNV Fentanyl Citrate 250 ml @ 2.5 mls/hr Q24H IV 11/25/24 10:15 UNV Ondansetron HCl 4 mg Q4HP PRN IV 11/25/24 13:15 Nitroglycerin 0.4 mg Q5MINP PRN SL 11/25/24 13:15 Morphine Sulfate 2 mg Q30M PRN IV 11/25/24 13:15 Vancomycin HCl 0 ml @ 0 mls/hr UD IV 11/25/24 13:15 UNV Pantoprazole Sodium 40 mg DAILY IV 11/26/24 10:00 12/06/24 09:31 40 MG Albuterol 2.5 mg Q4HPRN PRN NEB 11/25/24 13:45 12/05/24 11:18 2.5 MG Ipratropium Sharps 0.5 mg Q4HPRN PRN NEB 11/25/24 13:45 12/05/24 11:18 0.5 MG Propofol 100 ml @ 2.43 mls/hr Q24H IV 11/25/24 14:00 UNV Cefepime HCl 50 ml @ 12.5 mls/hr DAILY@0800 IV 11/29/24 08:00 12/06/24 08:35 12.5 MLS/HR Labetalol HCl 10 mg Q3HR PRN IV 11/30/24 15:45 12/06/24 10:46 10 MG Enoxaparin Sodium 30 mg DAILY SC 12/01/24 10:00 12/06/24 10:47 30 MG Acetaminophen 650 mg Q6H PRN PO 12/02/24 12:15 12/04/24 20:44 650 MG Morphine Sulfate 1 mg Q4HP PRN IV 12/02/24 13:45 12/03/24 18:03 1 MG Bumetanide 1 mg DAILY IV 12/04/24 10:00 12/06/24 09:30 1 MG Haloperidol Lactate 2.5 mg Q8HP PRN IM 12/05/24 00:15 Lorazepam 1 mg ONCE PRN IV 12/05/24 08:45 Cancel Sodium Chloride 1,000 ml @ 100 mls/hr Q10H IV 12/05/24 15:00 12/05/24 15:16 100 MLS/HR Nifedipine 60 mg DAILY PO 12/07/24 10:00 Laboratory Results Laboratory Tests 12/05/24 04:33 12/06/24 05:29 Chemistry Test 12/06/24 05:29 Calcium Level 9.4 mg/dL (8.7-10.4) Urinalysis Test 11/25/24 00:00 Urine Color Light-yellow (Yellow) Urine Clarity Clear (Clear) Urine pH 6.0 (5.0-9.0) Urine Specific Barnard 1.009 (1.001-1.035) Urine Protein Negative (Negative) Urine Ketones Negative (Negative) Urine Blood Negative /uL (Negative) Urine Nitrite Negative (Negative) Urine Bilirubin Negative (Negative) Urine Urobilinogen Normal mg/dL (Negative) Urine Leukocyte Esterase Negative /uL (Negative) Urine RBC <1 /hpf (0 - 4) Urine WBC 1 /hpf (0 - 5) Urine Squamous Epithelial Cells Few /hpf (<5) Urine Bacteria None seen /hpf (None Seen) Urine Glucose Normal mg/dL (Normal) Microbiology Microbiology Date/Time Source Procedure Growth Status 11/27/24 17:00 Nose MRSA Screen - Final Complete 11/25/24 09:32 Blood Blood Culture - Final NO GROWTH AFTER 5 DAYS OF INCUBATION. Complete 11/25/24 09:07 Sputum Gram Stain - Final Complete 11/25/24 09:07 Sputum Respiratory Culture - Final Complete Assessment/Plan Assessment/Plan Impression: -cardiopulmonary arrest -acute hypoxic respiratory failure -toxic metabolic encephalopathy secondary to polysubstance abuse -polysubstance abuse -probable aspiration pneumonia -sepsis with shock -primary hypertension -hypothyroidism -acute kidney injury, hemodynamically mediated questionable ATN -anoxic encephalopathy Plan: -events: Pt. verbal and alert -Dc zhu -Advance diet -Bronchodilators -Neurology consult -nephrology consultation -IV fluids per Nephrology -continue abx -continue IVF Total time spent with patient discussing and formulating plan of care: 35 minutes. This medical document was created using an electronic medical record system with [employer] dictation system. Although this document has been carefully reviewed, there may still be some phonetic and typographical errors. These areas are purely typographical due to imperfections of the software programs, and do not reflect any compromise in the patient's medical care. Plan discussed with: Patient, Other (RN) My Orders Orders - LISA LARSON NP Procedure Category Date Status Time Sod Chl 0.45% (Sodium PHA 12/05/24 In Process Chloride 0.45% Via 15:00 Discontinue Zhu CRISELDA 12/05/24 In Process Catheter 14:54 Renal DIET 12/05/24 Transmitted Standard(2gna,3gk,Lopho) Dinner Nifedipine Er PHA 12/07/24 In Process (Procardia Xl 10:00 1/2 Ns PHA 12/06/24 Verified 12:15 Complete Blood Count LAB 12/07/24 Verified 04:00 Date of Service: Dec 06, 2024 Billing Provider: LISA LARSON NP Common Visit Codes: [id number] INP/OBS CARE(HIGH) LISA LARSON NP Dec 06, 2024 12:19
[2024-12-06] MEDS: POTASSIUM EFFERVESENT TAB 25 MEQ PO ONE (13:18)
--- NOTE | 2024-12-06 13:40 | DVH ---
Chest x-ray Technique: AP portable Comparison: 12/01/2024 CLINICAL INDICATION: Shortness of breath FINDINGS: Size is slightly prominent. The aorta is tortuous. There are congestive changes throughout all lung river. IMPRESSION: 1. Signs of mild pulmonary edema CTICIDE SPRAYER MAXI
[2024-12-06] MEDS: SOD CHL 0.45% 1,000 ML IV SCH (15:05)
--- NOTE | 2024-12-06 16:15 | DVHPN2 ---
Progress Note Date Seen: Dec 06, 2024 Medical Necessity Reason Pt with a Central, PICC or Fol: Yes The following are medically ne: Zhu Catheter Reason for zhu catheter: Strict I&O Subjective Patient reports: No new complaints Other Systems: Patient seen and examined by myself today in follow-up Objective vital signs Vital Sign Date Time Temp Pulse Resp B/P (MAP) Pulse Ox O2 Delivery O2 Flow Rate FiO2 12/06/24 14:58 90 113/71 (85) 12/06/24 13:00 20 12/06/24 10:00 94 Room Air 12/06/24 10:00 0 21 12/06/24 09:00 97.6 97.6 Total Intake and Output 12/05/24 12/05/24 12/06/24 15:00 23:00 07:00 Intake Total 50 ml 300 ml 700 ml Output Total 2000 ml Balance 50 ml -1700 ml 700 ml medications Current Medications Medications Dose Ordered Sig/Caterina Route Start Time Stop Time Status Last Admin Dose Admin Midazolam HCl 50 ml @ 1 mls/hr Q24H IV 11/25/24 10:15 UNV Fentanyl Citrate 250 ml @ 2.5 mls/hr Q24H IV 11/25/24 10:15 UNV Ondansetron HCl 4 mg Q4HP PRN IV 11/25/24 13:15 Nitroglycerin 0.4 mg Q5MINP PRN SL 11/25/24 13:15 Morphine Sulfate 2 mg Q30M PRN IV 11/25/24 13:15 Vancomycin HCl 0 ml @ 0 mls/hr UD IV 11/25/24 13:15 UNV Pantoprazole Sodium 40 mg DAILY IV 11/26/24 10:00 12/06/24 09:31 40 MG Propofol 100 ml @ 2.43 mls/hr Q24H IV 11/25/24 14:00 UNV Cefepime HCl 50 ml @ 12.5 mls/hr DAILY@0800 IV 11/29/24 08:00 12/06/24 08:35 12.5 MLS/HR Labetalol HCl 10 mg Q3HR PRN IV 11/30/24 15:45 12/06/24 10:46 10 MG Enoxaparin Sodium 30 mg DAILY SC 12/01/24 10:00 12/06/24 10:47 30 MG Acetaminophen 650 mg Q6H PRN PO 12/02/24 12:15 12/04/24 20:44 650 MG Morphine Sulfate 1 mg Q4HP PRN IV 12/02/24 13:45 12/03/24 18:03 1 MG Bumetanide 1 mg DAILY IV 12/04/24 10:00 12/06/24 09:30 1 MG Haloperidol Lactate 2.5 mg Q8HP PRN IM 12/05/24 00:15 Lorazepam 1 mg ONCE PRN IV 12/05/24 08:45 Cancel Nifedipine 60 mg DAILY PO 12/07/24 10:00 Sodium Chloride 1,000 ml @ 75 mls/hr [id number] IV 12/06/24 12:15 12/06/24 15:05 75 MLS/HR Examination: LUNGS:Normal, CVS:Normal, MSK:Normal laboratory and microbiology Laboratory Tests 12/06/24 05:29 12/05/24 04:33 Test 12/06/24 05:29 Range/Units Serum Glucose 94 74-106 mg/dL Microbiology Date/Time Source Procedure Growth Status 11/27/24 17:00 Nose MRSA Screen - Final Complete 11/25/24 09:32 Blood Blood Culture - Final NO GROWTH AFTER 5 DAYS OF INCUBATION. Complete 11/25/24 09:07 Sputum Gram Stain - Final Complete 11/25/24 09:07 Sputum Respiratory Culture - Final Complete Problem List/Assessment/Plan Problem List/Assessment/Plan Acute kidney injury likely ATN in setting of cardiac arrest + vanco toxicity levels greater than 40 Acute respiratory failure intubated now s/p extubation Status post Cardiac arrest Methamphetamine abuse Metabolic acidosis Hypertension Encephalopathy Hypernatremia Non verbal Hypokalemia Recommendations Kidney function continues to improve Increased UOP IVF 1/2 NS @ 100 cc/hr KCL replacement d/c vancomycin Kidney ultrasound no hydronephrosis Will continue to follow Plan discussed with: Patient Dietary Evaluation Review Comments: 1) If GI is accessible consider Jevity 1.2 @ 50 ml/hr x 24hr as tolerated (advance to 60ml/hr if GFR trends up to within normal range) 2) If pt remains NPO consider TPN to meet at least 75% of estimated needs 3) Advance pt diet when medically feasible to a 2gm Sodium diet modified per PRESS OPERATOR MEAT recommendations Expected Outcomes/Goals: 1) Pt to receive nutrition support within 7 days of NPO status 2) Pt diet to advance 3) F/U in 2-3 days VERONICA COLLINS MD Dec 06, 2024 16:15
--- NOTE | 2024-12-06 22:21 | DVHPN2 ---
Progress Note - Dictate Date Seen: Dec 06, 2024 Medical Necessity Reason Pt with a Central, PICC or Fol: Yes The following are medically ne: Zhu Catheter Reason for zhu catheter: Strict I&O Subjective Ms. Crystal is a 49 years old female with a history of hypertension, hypothyroidism, obesity, the patient was brought to the [facility] on 11/25/2024 with a chief complaint of altered mental status, shortness breath. I have seen examined the patient, discussed with nurse and sitter she is awake, she does not but talked nurse earlier today. UDS, 11/25/2024: Fentanyl, amphetamine, benzo, cocaine Urinalysis, 11/25/2024: Unremarkable WBC/HB/PLT/CV, 12/01/2024: 14.6/9.7/434/87.9 ABG, 11/28/24: Metabolic acidosis, 11/29/2024: Metabolic acidosis, BUN/CR, 11/25/2019 5:6/1.77, 11/27/24: 10/2.2, 11/30/24: 20/4.4 12/04/2024: 57/2.22 Liver function tests, 11/25/2024: Normal TSH, 11/26/2024: 0.61 FT4, 11/26/2024: 1.06 Chest x-ray, 11/25/2024: 1. ETT ends at the chuck. Recommend 2-3 cm retraction for optimal positioning. 2. No acute cardiopulmonary disease Chest x-ray 11/30/2024: 1. Stable position of the support lines and tubes. 2. Stable mild pulmonary congestion Chest x-ray,12/01/24: ET and NG tube removed. CT head, 11/25/2024: 1. No CT evidence of acute intracranial abnormality. 2. Nonacute findings as described above MRI head, 12/05/2024: There is no acute intracranial process. vital signs Vital Sign Date Time Temp Pulse Resp B/P (MAP) Pulse Ox O2 Delivery O2 Flow Rate FiO2 12/06/24 20:00 94 Room Air* 0 21 12/06/24 14:58 90 113/71 (85) 12/06/24 13:00 98.1 20 98.1 Total Intake and Output 12/05/24 12/05/24 12/06/24 15:00 23:00 07:00 Intake Total 50 ml 300 ml 700 ml Output Total 2000 ml Balance 50 ml -1700 ml 700 ml medications Current Medications Medications Dose Ordered Sig/Caterina Route Start Time Stop Time Status Last Admin Dose Admin Midazolam HCl 50 ml @ 1 mls/hr Q24H IV 11/25/24 10:15 UNV Fentanyl Citrate 250 ml @ 2.5 mls/hr Q24H IV 11/25/24 10:15 UNV Ondansetron HCl 4 mg Q4HP PRN IV 11/25/24 13:15 Nitroglycerin 0.4 mg Q5MINP PRN SL 11/25/24 13:15 Morphine Sulfate 2 mg Q30M PRN IV 11/25/24 13:15 Vancomycin HCl 0 ml @ 0 mls/hr UD IV 11/25/24 13:15 UNV Pantoprazole Sodium 40 mg DAILY IV 11/26/24 10:00 12/06/24 09:31 40 MG Propofol 100 ml @ 2.43 mls/hr Q24H IV 11/25/24 14:00 UNV Cefepime HCl 50 ml @ 12.5 mls/hr DAILY@0800 IV 11/29/24 08:00 12/06/24 08:35 12.5 MLS/HR Labetalol HCl 10 mg Q3HR PRN IV 11/30/24 15:45 12/06/24 10:46 10 MG Enoxaparin Sodium 30 mg DAILY SC 12/01/24 10:00 12/06/24 10:47 30 MG Acetaminophen 650 mg Q6H PRN PO 12/02/24 12:15 12/04/24 20:44 650 MG Morphine Sulfate 1 mg Q4HP PRN IV 12/02/24 13:45 12/03/24 18:03 1 MG Bumetanide 1 mg DAILY IV 12/04/24 10:00 12/06/24 09:30 1 MG Haloperidol Lactate 2.5 mg Q8HP PRN IM 12/05/24 00:15 Lorazepam 1 mg ONCE PRN IV 12/05/24 08:45 Cancel Nifedipine 60 mg DAILY PO 12/07/24 10:00 Sodium Chloride 1,000 ml @ 75 mls/hr [id number] IV 12/06/24 12:15 12/06/24 15:05 75 MLS/HR objective General: the patient is well developed and nourished. No acute distress. NEUROLOGICAL: Subjective SPEECH, LANGUAGE, HIGHER CORTICAL FUNCTION: She does not notice vocalize. CRANIAL NERVES: Pupils are equal, round and reactive. EOMs full and conjugate. Facial sensation intact in all three divisions bilaterally. Mandibular strength ok Facial muscles symmetrical and strength intact. SENSATION: Sensation to touch and pinprick is okay MOTOR: Normal tone in the upper and lower extremity. Normal muscle bulk. No fasciculations. No abnormal movements or posturing. He moves the arms and legs REFLEXES: Deep tendon reflexes are symmetrical. No pathological reflexes. CEREBELLAR/COORDINATION: Deferred GAIT/STATION: deferred laboratory and microbiology Laboratory Tests 12/06/24 05:29 12/05/24 04:33 Test 12/06/24 05:29 Range/Units Serum Glucose 94 74-106 mg/dL Problem List Altered mental status Hypoxic encephalopathy Metabolic encephalopathy ? Chronic organic brain syndrome Acute respiratory failure Status post CPR Cardiopulmonary arrest Substance abuse Assessment/Plan Monitoring Supportive treatment Telemetry Haldol 2.5 mg intramuscular Q 6 hours p.r.n. for agitation DVT prophylaxis/Lovenox GI prophylaxis/Protonix More recommendation per clinical course This medical document was created using an electronic medical record system with [employer] computerized dictation system. Although this document has been carefully reviewed, there may still be some phonetic and typographical errors. These areas are purely typographical due to imperfections of the software programs, and do not reflect any compromise in the patient's medical care. Prognosis poor Dietary Evaluation Review Comments: 1) If GI is accessible consider Jevity 1.2 @ 50 ml/hr x 24hr as tolerated (advance to 60ml/hr if GFR trends up to within normal range) 2) If pt remains NPO consider TPN to meet at least 75% of estimated needs 3) Advance pt diet when medically feasible to a 2gm Sodium diet modified per BEVERAGE INSPECTION MACHINE TENDER recommendations Expected Outcomes/Goals: 1) Pt to receive nutrition support within 7 days of NPO status 2) Pt diet to advance 3) F/U in 2-3 days Plan discussed with: JEFFREY Zelaya MD Dec 06, 2024 22:21
--- NOTE | 2024-12-06 22:33 | DVHPN2 ---
Progress Note - Dictate Date Seen: Dec 06, 2024 Medical Necessity Reason Pt with a Central, PICC or Fol: Yes The following are medically ne: Zhu Catheter Reason for zhu catheter: Strict I&O Subjective Patient seen and examined at bedside. Breathing comfortably on room air. Overnight events reviewed. vital signs Vital Sign Date Time Temp Pulse Resp B/P (MAP) Pulse Ox O2 Delivery O2 Flow Rate FiO2 12/06/24 20:00 94 Room Air* 0 21 12/06/24 14:58 90 113/71 (85) 12/06/24 13:00 98.1 20 98.1 Total Intake and Output 12/05/24 12/05/24 12/06/24 15:00 23:00 07:00 Intake Total 50 ml 300 ml 700 ml Output Total 2000 ml Balance 50 ml -1700 ml 700 ml medications Current Medications Medications Dose Ordered Sig/Caterina Route Start Time Stop Time Status Last Admin Dose Admin Midazolam HCl 50 ml @ 1 mls/hr Q24H IV 11/25/24 10:15 UNV Fentanyl Citrate 250 ml @ 2.5 mls/hr Q24H IV 11/25/24 10:15 UNV Ondansetron HCl 4 mg Q4HP PRN IV 11/25/24 13:15 Nitroglycerin 0.4 mg Q5MINP PRN SL 11/25/24 13:15 Morphine Sulfate 2 mg Q30M PRN IV 11/25/24 13:15 Vancomycin HCl 0 ml @ 0 mls/hr UD IV 11/25/24 13:15 UNV Pantoprazole Sodium 40 mg DAILY IV 11/26/24 10:00 12/06/24 09:31 40 MG Propofol 100 ml @ 2.43 mls/hr Q24H IV 11/25/24 14:00 UNV Cefepime HCl 50 ml @ 12.5 mls/hr DAILY@0800 IV 11/29/24 08:00 12/06/24 08:35 12.5 MLS/HR Labetalol HCl 10 mg Q3HR PRN IV 11/30/24 15:45 12/06/24 10:46 10 MG Enoxaparin Sodium 30 mg DAILY SC 12/01/24 10:00 12/06/24 10:47 30 MG Acetaminophen 650 mg Q6H PRN PO 12/02/24 12:15 12/04/24 20:44 650 MG Morphine Sulfate 1 mg Q4HP PRN IV 12/02/24 13:45 12/03/24 18:03 1 MG Bumetanide 1 mg DAILY IV 12/04/24 10:00 12/06/24 09:30 1 MG Haloperidol Lactate 2.5 mg Q8HP PRN IM 12/05/24 00:15 Lorazepam 1 mg ONCE PRN IV 12/05/24 08:45 Cancel Nifedipine 60 mg DAILY PO 12/07/24 10:00 Sodium Chloride 1,000 ml @ 75 mls/hr [id number] IV 12/06/24 12:15 12/06/24 15:05 75 MLS/HR objective Gen.: Patient lying in bed in no apparent distress. On room air. Head: Normocephalic, atraumatic. Eyes: EOMI/PERRLA. Ears: Normal hearing. Normal anatomy. Neck/trachea: Trachea midline, supple. Nose: Normal external anatomy. Mouth: Moist mucous membranes. Chest: Decreased air entry bilaterally. No wheezing or rhonchi. Cardiovascular: Positive S1, positive S2. Regular rate and rhythm. Abdomen: Positive bowel sounds in all 4 quadrants. Soft, non-tender, non- distended. : Deferred. Rectal: Deferred. Skin: Warm, dry. Intact. Extremities: 2+ radial pulses bilaterally. No lower extremity edema. Neuro: Awake, alert. Altered. No gross motor or sensory deficits. Cranial nerves II through XII intact. Gait not assessed. laboratory and microbiology Laboratory Tests 12/06/24 05:29 12/05/24 04:33 Test 12/06/24 05:29 Range/Units Serum Glucose 94 74-106 mg/dL Assessment/Plan Impression: Acute hypoxic respiratory failure Methamphetamine use Hyponatremia Leukocytosis Metabolic acidosis Events: Remains on room air. Supplemental oxygen PRN Patient is altered. Head of bed elevation Aspiration precautions Monitor blood pressure Continue bronchodilators PRN Continue abx - cefepime Incentive spirometry Tube feeds for nutritional support Wound care Bumex for diuresis Monitor UOP Monitor renal function; creatinine 4.68 -->4.11 Potassium supplementation Nephrology recs appreciated IV fluids with NS at 75 ml/hr. Patient is stable for discharge from the pulmonary standpoint. Awaiting for transfer due to insurance issues CXR on 12/01 demonstrates stable mild pulmonary congestion. Labs and imaging reviewed. Rest of plan as noted below. Plan: s/p extubation on 11/30/24 Supplemental oxygen PRN Titrate to keep sats above 92% Off sedation Off pressors, hemodynamically stable Continue antibiotics. F/u cultures. Start pressors if necessary to maintain a mean arterial blood pressure greater than 65 mmHg. Monitor renal function Monitor electrolytes. Supplement as necessary. Monitor ins and outs. Monitor WBC. GI prophylaxis. DVT prophylaxis. Prognosis: Poor given patient's multiple co-morbidities. Rest of plan per hospitalist and other consultants. Thank you, FITNESS TECHNICIAN Blake, for allowing me to participate in this patient's care. Further recommendations will depend on the patient's clinical course. Please do not hesitate to contact me if you have any questions or concerns. This medical document was created using an electronic medical record system with [employer] dictation system. Although these documentations are being carefully reviewed, there may still be some phonetic and typographical changes. The errors are purely typographical, due to imperfection on the software program, and do not reflect any compromise in the patient's medical care. Dietary Evaluation Review Comments: 1) If GI is accessible consider Jevity 1.2 @ 50 ml/hr x 24hr as tolerated (advance to 60ml/hr if GFR trends up to within normal range) 2) If pt remains NPO consider TPN to meet at least 75% of estimated needs 3) Advance pt diet when medically feasible to a 2gm Sodium diet modified per BIOENGINEER recommendations Expected Outcomes/Goals: 1) Pt to receive nutrition support within 7 days of NPO status 2) Pt diet to advance 3) F/U in 2-3 days Plan discussed with: Patient, Other (CHRIS Johnson) MARCIA BRIGGS MD Dec 06, 2024 22:33
[2024-12-06] MEDS: HALOPERIDOL LACTATE 5 MG/ML INJ VIAL IM PRN (22:58)
[2024-12-07] VITALS (10 sets, daily range): BP systolic 113–190; BP diastolic 59–111; PULSE 66–95; RESP 18–22; TEMP 97.3–98.4; O2SAT 94–100
[2024-12-07 06:05] LABS: Basophils # (auto) 0.1 10 ^3/uL (0-0.2); Basophils % (auto) 0.6 % (0.0-2.0); Eosinophils # (auto) 0.5 10 ^3/uL (0-0.8); Eosinophils % (auto) 2.3 % (0.0-7.0); Hematocrit 34.8 % (36.0-46.0); Hemoglobin 11.5 g/dL (12.2-16.2); Lymphocytes # (auto) 1.8 10 ^3/uL (0.4-5.4); Lymphocytes % (auto) 9.3 % (10.0-50.0); Mean Corpuscular Hemoglobin 30.2 pg (28.0-32.0); Mean Corpuscular Volume 91.7 fL (80.0-100.0); Monocytes # (auto) 0.8 10 ^3/uL (0-1.3); Neutrophils # (auto) 16.3 10 ^3/uL (1.6-8.6); Neutrophils % (auto) 83.8 % (37.0-80.0); Platelet Count (auto) 419 10^3/uL (140-450); Red Cell Distribution Width 14.3 % (11.8-14.3); White Blood Cell 19.4 10^3/uL (4.4-10.8)
[2024-12-07 06:11] LABS: Chloride 104 mmol/L (98-107); Sodium 140 mmol/L (136-145)
[2024-12-07 06:13] LABS: Anion Gap 15 (5-15); Calcium 9.4 mg/dL (8.7-10.4); Carbon Dioxide 21 mmol/L (20-31)
[2024-12-07 06:18] LABS: BUN/Creatinine Ratio 8.1 (10.0-20.0); Blood Urea Nitrogen 31 mg/dL (9-23); Glucose 85 mg/dL (74-106); Potassium 3.3 mmol/L (3.5-5.1)
[2024-12-07] MEDS: NIFEdipine ER 30 MG TAB PO SCH (10:00)
[2024-12-07] MEDS: LABETALOL HCL 20 MG/4 ML VL IV ONE (12:33)
--- NOTE | 2024-12-07 14:21 | DVHPN2 ---
Subjective Acute neurological changes with patient no longer being verbal, not following commands. Reviewed: Care Plan, H&P, Labs, Medications, Previous Orders, Radiology Changes from previous H/P or p: Changes General: Per HPI Objective Vitals Vital Signs Date Time Temp Pulse Resp B/P (MAP) Pulse Ox O2 Delivery O2 Flow Rate FiO2 12/07/24 12:48 98.1 81 20 179/102 (127) 98 98.1 12/06/24 20:00 Room Air* 0 21 Intake/Output Intake and Output 12/07/24 07:00 Intake Total 2009 ml Balance 2009 ml Intake Oral 960 ml IV Total 1050 ml # Voids 9 # Bowel Movements 7 General Appearance: Other (Acute mental change) HEENT: PERRLA Lungs: Clear to auscultation Cardiovascular: Normal S1, Normal S2, No murmurs, Other (ST) Abdomen: Normal bowel sounds, Soft, No tenderness Rectal: Deferred Extremities: No clubbing, No cyanosis, Normal pulses Neuro: Other (Eyes fluttering, no longer following commands or tracking to voice) Skin: Dry, Intact Psych/Mental Status: Other (Encephalopathic) Medications Current Medications Medications Dose Ordered Sig/Caterina Route Start Time Stop Time Status Last Admin Dose Admin Midazolam HCl 50 ml @ 1 mls/hr Q24H IV 11/25/24 10:15 UNV Fentanyl Citrate 250 ml @ 2.5 mls/hr Q24H IV 11/25/24 10:15 UNV Ondansetron HCl 4 mg Q4HP PRN IV 11/25/24 13:15 Nitroglycerin 0.4 mg Q5MINP PRN SL 11/25/24 13:15 Morphine Sulfate 2 mg Q30M PRN IV 11/25/24 13:15 Vancomycin HCl 0 ml @ 0 mls/hr UD IV 11/25/24 13:15 UNV Pantoprazole Sodium 40 mg DAILY IV 11/26/24 10:00 12/07/24 09:19 40 MG Propofol 100 ml @ 2.43 mls/hr Q24H IV 11/25/24 14:00 UNV Cefepime HCl 50 ml @ 12.5 mls/hr DAILY@0800 IV 11/29/24 08:00 12/07/24 09:19 12.5 MLS/HR Enoxaparin Sodium 30 mg DAILY SC 12/01/24 10:00 12/07/24 09:18 30 MG Acetaminophen 650 mg Q6H PRN PO 12/02/24 12:15 12/04/24 20:44 650 MG Morphine Sulfate 1 mg Q4HP PRN IV 12/02/24 13:45 12/03/24 18:03 1 MG Bumetanide 1 mg DAILY IV 12/04/24 10:00 12/07/24 09:21 1 MG Haloperidol Lactate 2.5 mg Q8HP PRN IM 12/05/24 00:15 12/06/24 22:58 2.5 MG Lorazepam 1 mg ONCE PRN IV 12/05/24 08:45 Cancel Nifedipine 60 mg DAILY PO 12/07/24 10:00 Sodium Chloride 1,000 ml @ 75 mls/hr [id number] IV 12/06/24 12:15 12/07/24 02:11 75 MLS/HR Labetalol HCl 20 mg Q3HR PRN IV 12/07/24 12:00 Laboratory Results Laboratory Tests 12/07/24 05:25 Chemistry Test 12/07/24 05:25 Calcium Level 9.4 mg/dL (8.7-10.4) Urinalysis Test 11/25/24 00:00 Urine Color Light-yellow (Yellow) Urine Clarity Clear (Clear) Urine pH 6.0 (5.0-9.0) Urine Specific [place] 1.009 (1.001-1.035) Urine Protein Negative (Negative) Urine Ketones Negative (Negative) Urine Blood Negative /uL (Negative) Urine Nitrite Negative (Negative) Urine Bilirubin Negative (Negative) Urine Urobilinogen Normal mg/dL (Negative) Urine Leukocyte Esterase Negative /uL (Negative) Urine RBC <1 /hpf (0 - 4) Urine WBC 1 /hpf (0 - 5) Urine Squamous Epithelial Cells Few /hpf (<5) Urine Bacteria None seen /hpf (None Seen) Urine Glucose Normal mg/dL (Normal) Microbiology Microbiology Date/Time Source Procedure Growth Status 11/27/24 17:00 Nose MRSA Screen - Final Complete 11/25/24 09:32 Blood Blood Culture - Final NO GROWTH AFTER 5 DAYS OF INCUBATION. Complete 11/25/24 09:07 Sputum Gram Stain - Final Complete 11/25/24 09:07 Sputum Respiratory Culture - Final Complete Labs and/or images reviewed: Labs reviewed by me, Image(s) reviewed by me Assessment/Plan Assessment/Plan Impression: -cardiopulmonary arrest -acute hypoxic respiratory failure -toxic metabolic encephalopathy secondary to polysubstance abuse -polysubstance abuse -probable aspiration pneumonia -sepsis with shock -primary hypertension -hypothyroidism -acute kidney injury, hemodynamically mediated questionable ATN -anoxic encephalopathy Plan: -events: Patient with acute mental change with patient no longer following commands, eye fluttering noted, as well as being aphasic. Patient also noted to have uncontrolled hypertension. -stat CT scan of the head. MRI of the brain reviewed from yesterday, unremarkable -Advance diet -Bronchodilators -Neurology consult -nephrology consultation -IV fluids per Nephrology -continue abx -continue IVF Total time spent with patient discussing and formulating plan of care: 35 minutes. This medical document was created using an electronic medical record system with [employer] dictation system. Although this document has been carefully reviewed, there may still be some phonetic and typographical errors. These areas are purely typographical due to imperfections of the software programs, and do not reflect any compromise in the patient's medical care. Plan discussed with: Patient, Other (RN) My Orders Orders - LISA LARSON NP Procedure Category Date Status Time Labetalol Hcl PHA 12/07/24 In Process (Labetalol Hcl) 12:00 Clonidine 0.3mg/24hr PHA 12/07/24 Logged 7day Patc (Catapres 13:30 * Medical Insurance Coding Specialist CONS 12/07/24 Transmitted Consult Head Without Contrast CT 12/07/24 Taken 13:46 Date of Service: Dec 07, 2024 Billing Provider: LISA LARSON NP Common Visit Codes: [id number] INP/OBS CARE(HIGH) LISA LARSON NP Dec 07, 2024 14:21
--- NOTE | 2024-12-07 14:24 | DVH ---
EXAM: CT HEAD WITHOUT CONTRAST HISTORY: RULE OUT CVA COMPARISON: CT HEAD WITHOUT CONTRAST on DOS: 11/25/24 TECHNIQUE: Axial images of the head were obtained and reformatted in coronal and sagittal planes. All CT scans at this medical facility are performed using dose modulation techniques as appropriate t o a performed exam including the following: Automated exposure control was utilized; adjustment of th e MA and/or KV according to patient size; and use of iterative reconstruction technique. CT Dose: CTDI volume is 67 mGy. Dose-length product is 1313 mGy*cm FINDINGS: There is no evidence of acute intracranial hemorrhage, mass, mass effect midline shift. There is no h ydrocephalus or extra-axial fluid collection. Ratliff-white matter differentiation is maintained. The visualized paranasal sinuses and mastoid air cells are clear. The calvarium is intact. IMPRESSION: 1. No acute intracranial process. HS:Y
--- NOTE | 2024-12-07 14:44 | DVHPN2 ---
Progress Note Date Seen: Dec 07, 2024 Medical Necessity Reason Pt with a Central, PICC or Fol: Yes The following are medically ne: Zhu Catheter Reason for zhu catheter: Strict I&O Subjective Patient reports: No new complaints Other Systems: Patient seen and examined by myself today in follow-up Objective vital signs Vital Sign Date Time Temp Pulse Resp B/P (MAP) Pulse Ox O2 Delivery O2 Flow Rate FiO2 12/07/24 12:48 98.1 81 20 179/102 (127) 98 98.1 12/06/24 20:00 Room Air* 0 21 Total Intake and Output 12/06/24 12/06/24 12/07/24 15:00 23:00 07:00 Intake Total 50 ml 460 ml 1500 ml Balance 50 ml 460 ml 1500 ml medications Current Medications Medications Dose Ordered Sig/Caterina Route Start Time Stop Time Status Last Admin Dose Admin Midazolam HCl 50 ml @ 1 mls/hr Q24H IV 11/25/24 10:15 UNV Fentanyl Citrate 250 ml @ 2.5 mls/hr Q24H IV 11/25/24 10:15 UNV Ondansetron HCl 4 mg Q4HP PRN IV 11/25/24 13:15 Nitroglycerin 0.4 mg Q5MINP PRN SL 11/25/24 13:15 Morphine Sulfate 2 mg Q30M PRN IV 11/25/24 13:15 Vancomycin HCl 0 ml @ 0 mls/hr UD IV 11/25/24 13:15 UNV Pantoprazole Sodium 40 mg DAILY IV 11/26/24 10:00 12/07/24 09:19 40 MG Propofol 100 ml @ 2.43 mls/hr Q24H IV 11/25/24 14:00 UNV Cefepime HCl 50 ml @ 12.5 mls/hr DAILY@0800 IV 11/29/24 08:00 12/07/24 09:19 12.5 MLS/HR Enoxaparin Sodium 30 mg DAILY SC 12/01/24 10:00 12/07/24 09:18 30 MG Acetaminophen 650 mg Q6H PRN PO 12/02/24 12:15 12/04/24 20:44 650 MG Morphine Sulfate 1 mg Q4HP PRN IV 12/02/24 13:45 12/03/24 18:03 1 MG Bumetanide 1 mg DAILY IV 12/04/24 10:00 12/07/24 09:21 1 MG Haloperidol Lactate 2.5 mg Q8HP PRN IM 12/05/24 00:15 12/06/24 22:58 2.5 MG Lorazepam 1 mg ONCE PRN IV 12/05/24 08:45 Cancel Nifedipine 60 mg DAILY PO 12/07/24 10:00 Sodium Chloride 1,000 ml @ 75 mls/hr [id number] IV 12/06/24 12:15 12/07/24 02:11 75 MLS/HR Labetalol HCl 20 mg Q3HR PRN IV 12/07/24 12:00 Examination: LUNGS:Normal, CVS:Normal, MSK:Normal laboratory and microbiology Laboratory Tests 12/07/24 05:25 Test 12/07/24 05:25 Range/Units Serum Glucose 85 74-106 mg/dL Microbiology Date/Time Source Procedure Growth Status 11/27/24 17:00 Nose MRSA Screen - Final Complete 11/25/24 09:32 Blood Blood Culture - Final NO GROWTH AFTER 5 DAYS OF INCUBATION. Complete 11/25/24 09:07 Sputum Gram Stain - Final Complete 11/25/24 09:07 Sputum Respiratory Culture - Final Complete Problem List/Assessment/Plan Problem List/Assessment/Plan Acute kidney injury likely ATN in setting of cardiac arrest + vanco toxicity levels greater than 40 Acute respiratory failure intubated now s/p extubation Status post Cardiac arrest Methamphetamine abuse Metabolic acidosis Hypertension Encephalopathy Hypernatremia Non verbal Hypokalemia Hypomagnesemia Recommendations Kidney function continues to improve Hyponatremia appropriately resolved Increased UOP IVF 1/2 NS @ 100 cc/hr KCL replacement Magnesium sulfate IV piggyback d/c vancomycin Kidney ultrasound no hydronephrosis Will continue to follow Plan discussed with: Patient Dietary Evaluation Review Comments: 1) If GI is accessible consider Jevity 1.2 @ 50 ml/hr x 24hr as tolerated (advance to 60ml/hr if GFR trends up to within normal range) 2) If pt remains NPO consider TPN to meet at least 75% of estimated needs 3) Advance pt diet when medically feasible to a 2gm Sodium diet modified per [employer] OFFICER recommendations Expected Outcomes/Goals: 1) Pt to receive nutrition support within 7 days of NPO status 2) Pt diet to advance 3) F/U in 2-3 days VERONICA COLLINS MD Dec 07, 2024 14:44
[2024-12-07] MEDS: POTASSIUM CHLORIDE 20 MEQ, LIDOCAINE 1% (LOCAL ANESTH.) 2 ML in SODIUM CHL 0.9% 100 ML IV ONE (14:53)
[2024-12-07] MEDS: cloNIDine 0.3 mg/24hr 7DAY PATCH TD ONE (15:51)
[2024-12-07] MEDS: hydrALAZINE HCL 20 MG/ML VL IV ONE (17:05)
[2024-12-07] MEDS: MAGNESIUM SULFATE 1GM/100ML 100 ML IV SCH (17:06)
[2024-12-07] MEDS: LABETALOL HCL 20 MG/4 ML VL IV PRN (18:15)
[2024-12-07] MEDS: hydrALAZINE HCL 20 MG/ML VL IV PRN (23:30)
--- NOTE | 2024-12-07 23:34 | DVHPN2 ---
Progress Note - Dictate Date Seen: Dec 07, 2024 Medical Necessity Reason Pt with a Central, PICC or Fol: No Subjective Patient seen and examined at bedside. Breathing comfortably on room air. Overnight events reviewed. vital signs Vital Sign Date Time Temp Pulse Resp B/P (MAP) Pulse Ox O2 Delivery O2 Flow Rate FiO2 12/07/24 21:16 91 181/106 12/07/24 21:00 97.7 18 98 97.7 12/07/24 20:00 Room Air* 0 21 Total Intake and Output 12/06/24 12/06/24 12/07/24 15:00 23:00 07:00 Intake Total 50 ml 460 ml 1500 ml Balance 50 ml 460 ml 1500 ml medications Current Medications Medications Dose Ordered Sig/Caterina Route Start Time Stop Time Status Last Admin Dose Admin Midazolam HCl 50 ml @ 1 mls/hr Q24H IV 11/25/24 10:15 UNV Fentanyl Citrate 250 ml @ 2.5 mls/hr Q24H IV 11/25/24 10:15 UNV Ondansetron HCl 4 mg Q4HP PRN IV 11/25/24 13:15 Nitroglycerin 0.4 mg Q5MINP PRN SL 11/25/24 13:15 Morphine Sulfate 2 mg Q30M PRN IV 11/25/24 13:15 Vancomycin HCl 0 ml @ 0 mls/hr UD IV 11/25/24 13:15 UNV Pantoprazole Sodium 40 mg DAILY IV 11/26/24 10:00 12/07/24 09:19 40 MG Propofol 100 ml @ 2.43 mls/hr Q24H IV 11/25/24 14:00 UNV Cefepime HCl 50 ml @ 12.5 mls/hr DAILY@0800 IV 11/29/24 08:00 12/07/24 09:19 12.5 MLS/HR Enoxaparin Sodium 30 mg DAILY SC 12/01/24 10:00 12/07/24 09:18 30 MG Acetaminophen 650 mg Q6H PRN PO 12/02/24 12:15 12/04/24 20:44 650 MG Morphine Sulfate 1 mg Q4HP PRN IV 12/02/24 13:45 12/03/24 18:03 1 MG Bumetanide 1 mg DAILY IV 12/04/24 10:00 12/07/24 09:21 1 MG Haloperidol Lactate 2.5 mg Q8HP PRN IM 12/05/24 00:15 12/06/24 22:58 2.5 MG Lorazepam 1 mg ONCE PRN IV 12/05/24 08:45 Cancel Nifedipine 60 mg DAILY PO 12/07/24 10:00 Sodium Chloride 1,000 ml @ 75 mls/hr [id number] IV 12/06/24 12:15 12/07/24 02:11 75 MLS/HR Labetalol HCl 20 mg Q3HR PRN IV 12/07/24 12:00 12/07/24 21:16 20 MG Hydralazine HCl 10 mg Q6HP PRN IV 12/07/24 23:15 objective Gen.: Patient lying in bed in no apparent distress. On room air. Head: Normocephalic, atraumatic. Eyes: EOMI/PERRLA. Ears: Normal hearing. Normal anatomy. Neck/trachea: Trachea midline, supple. Nose: Normal external anatomy. Mouth: Moist mucous membranes. Chest: Decreased air entry bilaterally. No wheezing or rhonchi. Cardiovascular: Positive S1, positive S2. Regular rate and rhythm. Abdomen: Positive bowel sounds in all 4 quadrants. Soft, non-tender, non- distended. : Deferred. Rectal: Deferred. Skin: Warm, dry. Intact. Extremities: 2+ radial pulses bilaterally. No lower extremity edema. Neuro: Awake, alert. Altered. No gross motor or sensory deficits. Cranial nerves II through XII intact. Gait not assessed. laboratory and microbiology Laboratory Tests 12/07/24 05:25 Test 12/07/24 05:25 Range/Units Serum Glucose 85 74-106 mg/dL Assessment/Plan Impression: Acute hypoxic respiratory failure Methamphetamine use Hyponatremia Leukocytosis Metabolic acidosis Events: Remains on room air. Supplemental oxygen PRN Patient is altered. Refusing medications Received Haldol. Head CT revealed no intracranial hemorrhage or stroke. Head of bed elevation Aspiration precautions Increased blood pressure - labetalol/Bumex Continue bronchodilators PRN Continue abx - cefepime Incentive spirometry Tube feeds for nutritional support Wound care Bumex for diuresis Monitor UOP Monitor renal function; creatinine 4.11 -->3.82 Potassium supplementation - K of 3.3 Nephrology recs appreciated IV fluids with NS at 75 ml/hr. Patient is stable for discharge from the pulmonary standpoint. Awaiting transfer due to insurance issues Labs and imaging reviewed. Rest of plan as noted below. Plan: s/p extubation on 11/30/24 Supplemental oxygen PRN Titrate to keep sats above 92% Off sedation Off pressors, hemodynamically stable Continue antibiotics. F/u cultures. Start pressors if necessary to maintain a mean arterial blood pressure greater than 65 mmHg. Monitor renal function Monitor electrolytes. Supplement as necessary. Monitor ins and outs. Monitor WBC. GI prophylaxis. DVT prophylaxis. Prognosis: Poor given patient's multiple co-morbidities. Rest of plan per hospitalist and other consultants. Thank you, CLOTH CARRIER Blake, for allowing me to participate in this patient's care. Further recommendations will depend on the patient's clinical course. Please do not hesitate to contact me if you have any questions or concerns. This medical document was created using an electronic medical record system with [employer] dictation system. Although these documentations are being carefully reviewed, there may still be some phonetic and typographical changes. The errors are purely typographical, due to imperfection on the software program, and do not reflect any compromise in the patient's medical care. Dietary Evaluation Review Comments: 1) If GI is accessible consider Jevity 1.2 @ 50 ml/hr x 24hr as tolerated (advance to 60ml/hr if GFR trends up to within normal range) 2) If pt remains NPO consider TPN to meet at least 75% of estimated needs 3) Advance pt diet when medically feasible to a 2gm Sodium diet modified per DELINQUENCY PREVENTION OFFICER recommendations Expected Outcomes/Goals: 1) Pt to receive nutrition support within 7 days of NPO status 2) Pt diet to advance 3) F/U in 2-3 days Plan discussed with: Patient, Other (CHRIS Canales) MARCIA BRIGGS MD Dec 07, 2024 23:34
[2024-12-08] VITALS (9 sets, daily range): BP systolic 126–175; BP diastolic 84–102; PULSE 69–93; RESP 17–19; TEMP 97.5–98.7; O2SAT 94–100
[2024-12-08 06:40] LABS: Anion Gap 16 (5-15); Calcium 9.5 mg/dL (8.7-10.4); Chloride 105 mmol/L (98-107); Sodium 141 mmol/L (136-145)
[2024-12-08 06:42] LABS: Carbon Dioxide 20 mmol/L (20-31); Potassium 3.3 mmol/L (3.5-5.1)
[2024-12-08 06:46] LABS: BUN/Creatinine Ratio 9.5 (10.0-20.0); Glucose 94 mg/dL (74-106)
[2024-12-08 06:47] LABS: Blood Urea Nitrogen 34 mg/dL (9-23)
[2024-12-08] MEDS: EPINEPHrine HCL 0.5 ML NEB NEB ONE (09:37)
--- NOTE | 2024-12-08 12:15 | DVHPN2 ---
Progress Note Date Seen: Dec 08, 2024 Medical Necessity Reason Pt with a Central, PICC or Fol: No Subjective Patient reports: No new complaints Other Systems: Patient seen and examined by myself today in follow-up Objective vital signs Vital Sign Date Time Temp Pulse Resp B/P (MAP) Pulse Ox O2 Delivery O2 Flow Rate FiO2 12/08/24 11:30 89 158/83 12/08/24 09:13 98.2 17 98 98.2 12/07/24 20:00 Room Air* 0 21 Total Intake and Output 12/07/24 12/07/24 12/08/24 15:00 23:00 07:00 Intake Total 362 ml 240 ml Balance 362 ml 240 ml medications Current Medications Medications Dose Ordered Sig/Caterina Route Start Time Stop Time Status Last Admin Dose Admin Midazolam HCl 50 ml @ 1 mls/hr Q24H IV 11/25/24 10:15 UNV Fentanyl Citrate 250 ml @ 2.5 mls/hr Q24H IV 11/25/24 10:15 UNV Ondansetron HCl 4 mg Q4HP PRN IV 11/25/24 13:15 Nitroglycerin 0.4 mg Q5MINP PRN SL 11/25/24 13:15 Morphine Sulfate 2 mg Q30M PRN IV 11/25/24 13:15 Vancomycin HCl 0 ml @ 0 mls/hr UD IV 11/25/24 13:15 UNV Pantoprazole Sodium 40 mg DAILY IV 11/26/24 10:00 12/08/24 09:38 40 MG Propofol 100 ml @ 2.43 mls/hr Q24H IV 11/25/24 14:00 UNV Cefepime HCl 50 ml @ 12.5 mls/hr DAILY@0800 IV 11/29/24 08:00 12/08/24 09:38 12.5 MLS/HR Enoxaparin Sodium 30 mg DAILY SC 12/01/24 10:00 12/08/24 09:39 30 MG Acetaminophen 650 mg Q6H PRN PO 12/02/24 12:15 12/04/24 20:44 650 MG Morphine Sulfate 1 mg Q4HP PRN IV 12/02/24 13:45 12/08/24 00:19 1 MG Bumetanide 1 mg DAILY IV 12/04/24 10:00 12/08/24 09:39 1 MG Haloperidol Lactate 2.5 mg Q8HP PRN IM 12/05/24 00:15 12/06/24 22:58 2.5 MG Lorazepam 1 mg ONCE PRN IV 12/05/24 08:45 Cancel Nifedipine 60 mg DAILY PO 12/07/24 10:00 Sodium Chloride 1,000 ml @ 75 mls/hr [id number] IV 12/06/24 12:15 12/07/24 02:11 75 MLS/HR Labetalol HCl 20 mg Q3HR PRN IV 12/07/24 12:00 12/08/24 10:09 20 MG Hydralazine HCl 10 mg Q6HP PRN IV 12/07/24 23:15 12/08/24 06:32 10 MG Examination: LUNGS:Normal, CVS:Normal, MSK:Normal laboratory and microbiology Laboratory Tests 12/08/24 05:11 12/07/24 05:25 Test 12/08/24 05:11 Range/Units Serum Glucose 94 74-106 mg/dL Microbiology Date/Time Source Procedure Growth Status 11/27/24 17:00 Nose MRSA Screen - Final Complete 11/25/24 09:32 Blood Blood Culture - Final NO GROWTH AFTER 5 DAYS OF INCUBATION. Complete 11/25/24 09:07 Sputum Gram Stain - Final Complete 11/25/24 09:07 Sputum Respiratory Culture - Final Complete Problem List/Assessment/Plan Problem List/Assessment/Plan Acute kidney injury likely ATN in setting of cardiac arrest + vanco toxicity levels greater than 40 Acute respiratory failure intubated now s/p extubation Status post Cardiac arrest Methamphetamine abuse Metabolic acidosis Hypertension Encephalopathy Hypernatremia Non verbal Hypokalemia Hypomagnesemia Recommendations Kidney function continues to improve Hypernatremia appropriately resolved Increased UOP IVF 1/2 NS @ 100 cc/hr KCL replacement Magnesium sulfate IV piggyback d/c vancomycin Kidney ultrasound no hydronephrosis Will continue to follow Plan discussed with: Patient Dietary Evaluation Review Comments: 1) If GI is accessible consider Jevity 1.2 @ 50 ml/hr x 24hr as tolerated (advance to 60ml/hr if GFR trends up to within normal range) 2) If pt remains NPO consider TPN to meet at least 75% of estimated needs 3) Advance pt diet when medically feasible to a 2gm Sodium diet modified per METHODS STUDY ANALYST recommendations Expected Outcomes/Goals: 1) Pt to receive nutrition support within 7 days of NPO status 2) Pt diet to advance 3) F/U in 2-3 days VERONICA COLLINS MD Dec 08, 2024 12:15
[2024-12-08] MEDS: MAGNESIUM SULFATE 1GM/100ML 100 ML IV SCH ×2 (13:00→22:42)
[2024-12-08] MEDS ORDERED: CLINIMIX PER PHARMACY 0 ML IV SCH (14:15)
--- NOTE | 2024-12-08 14:23 | DVHPN2 ---
Subjective Acute neurological changes with patient no longer being verbal, not following commands. Reviewed: Care Plan, H&P, Labs, Medications, Previous Orders, Radiology Changes from previous H/P or p: No Changes General: Per HPI Objective Vitals Vital Signs Date Time Temp Pulse Resp B/P (MAP) Pulse Ox O2 Delivery O2 Flow Rate FiO2 12/08/24 13:04 98.6 86 18 142/85 (104) 94 98.6 12/08/24 10:00 Room Air* 0 21 Intake/Output Intake and Output 12/08/24 07:00 Intake Total 602 ml Balance 602 ml IV Total 602 ml # Voids 9 General Appearance: Other (Patient with altered mental status. Not following any commands.) HEENT: PERRLA Lungs: Clear to auscultation Cardiovascular: Normal S1, Normal S2, No murmurs, Other (ST) Abdomen: Normal bowel sounds, Soft, No tenderness Rectal: Deferred Extremities: No clubbing, No cyanosis, Normal pulses Neuro: Other (Eyes fluttering, no longer following commands or tracking to voice) Skin: Dry, Intact Psych/Mental Status: Other (Encephalopathic) Medications Current Medications Medications Dose Ordered Sig/Caterina Route Start Time Stop Time Status Last Admin Dose Admin Midazolam HCl 50 ml @ 1 mls/hr Q24H IV 11/25/24 10:15 UNV Fentanyl Citrate 250 ml @ 2.5 mls/hr Q24H IV 11/25/24 10:15 UNV Ondansetron HCl 4 mg Q4HP PRN IV 11/25/24 13:15 Nitroglycerin 0.4 mg Q5MINP PRN SL 11/25/24 13:15 Morphine Sulfate 2 mg Q30M PRN IV 11/25/24 13:15 Vancomycin HCl 0 ml @ 0 mls/hr UD IV 11/25/24 13:15 UNV Pantoprazole Sodium 40 mg DAILY IV 11/26/24 10:00 12/08/24 09:38 40 MG Propofol 100 ml @ 2.43 mls/hr Q24H IV 11/25/24 14:00 UNV Cefepime HCl 50 ml @ 12.5 mls/hr DAILY@0800 IV 11/29/24 08:00 12/08/24 09:38 12.5 MLS/HR Enoxaparin Sodium 30 mg DAILY SC 12/01/24 10:00 12/08/24 09:39 30 MG Acetaminophen 650 mg Q6H PRN PO 12/02/24 12:15 12/04/24 20:44 650 MG Morphine Sulfate 1 mg Q4HP PRN IV 12/02/24 13:45 12/08/24 00:19 1 MG Bumetanide 1 mg DAILY IV 12/04/24 10:00 12/08/24 09:39 1 MG Haloperidol Lactate 2.5 mg Q8HP PRN IM 12/05/24 00:15 12/06/24 22:58 2.5 MG Lorazepam 1 mg ONCE PRN IV 12/05/24 08:45 Cancel Nifedipine 60 mg DAILY PO 12/07/24 10:00 Sodium Chloride 1,000 ml @ 75 mls/hr [id number] IV 12/06/24 12:15 12/07/24 02:11 75 MLS/HR Labetalol HCl 20 mg Q3HR PRN IV 12/07/24 12:00 12/08/24 10:09 20 MG Hydralazine HCl 10 mg Q6HP PRN IV 12/07/24 23:15 12/08/24 12:26 10 MG Magnesium Sulfate/ Dextrose 100 ml @ 100 mls/hr Q1HR IV 12/08/24 13:00 12/08/24 14:59 Potassium Chloride 100 ml @ 50 mls/hr Q2H IV 12/08/24 12:15 12/08/24 16:14 Laboratory Results Laboratory Tests 12/07/24 05:25 12/08/24 05:11 Chemistry Test 12/08/24 05:11 Calcium Level 9.5 mg/dL (8.7-10.4) Urinalysis Test 11/25/24 00:00 Urine Color Light-yellow (Yellow) Urine Clarity Clear (Clear) Urine pH 6.0 (5.0-9.0) Urine Specific [place] 1.009 (1.001-1.035) Urine Protein Negative (Negative) Urine Ketones Negative (Negative) Urine Blood Negative /uL (Negative) Urine Nitrite Negative (Negative) Urine Bilirubin Negative (Negative) Urine Urobilinogen Normal mg/dL (Negative) Urine Leukocyte Esterase Negative /uL (Negative) Urine RBC <1 /hpf (0 - 4) Urine WBC 1 /hpf (0 - 5) Urine Squamous Epithelial Cells Few /hpf (<5) Urine Bacteria None seen /hpf (None Seen) Urine Glucose Normal mg/dL (Normal) Microbiology Microbiology Date/Time Source Procedure Growth Status 11/27/24 17:00 Nose MRSA Screen - Final Complete 11/25/24 09:32 Blood Blood Culture - Final NO GROWTH AFTER 5 DAYS OF INCUBATION. Complete 11/25/24 09:07 Sputum Gram Stain - Final Complete 11/25/24 09:07 Sputum Respiratory Culture - Final Complete Labs and/or images reviewed: Labs reviewed by me, Image(s) reviewed by me Assessment/Plan Assessment/Plan Impression: -cardiopulmonary arrest -acute hypoxic respiratory failure -toxic metabolic encephalopathy secondary to polysubstance abuse -polysubstance abuse -probable aspiration pneumonia -sepsis with shock -primary hypertension -hypothyroidism -acute kidney injury, hemodynamically mediated questionable ATN -anoxic encephalopathy Plan: -events: Patient was continues to be encephalopathic. Not opening eyes or following commands as she was two days ago. CT scan of the head performed yesterday was unremarkable. Noted white blood cell count elevation. Patient continues to be hypertensive. -blood pressure control with IV hydralazine, labetalol, and Catapres TTS three patch -start Clinimix -dexter cultures -change antibiotic therapy to Zyvox and Zosyn -strict aspiration precaution -Bronchodilators -recommend re-consultation with Neurology -continue IV hydration with Clinimix Total time spent with patient discussing and formulating plan of care: 35 minutes. This medical document was created using an electronic medical record system with [employer] dictation system. Although this document has been carefully reviewed, there may still be some phonetic and typographical errors. These areas are purely typographical due to imperfections of the software programs, and do not reflect any compromise in the patient's medical care. Plan discussed with: Patient, Other (RN) Date of Service: Dec 08, 2024 Billing Provider: LISA LARSON NP Common Visit Codes: [id number] INP/OBS CARE(HIGH) LISA LARSON NP Dec 08, 2024 14:22
[2024-12-08] MEDS: POTASSIUM CHL 20MEQ/100ML 100 ML IV SCH (15:17)
[2024-12-08] MEDS: PIPERACILLIN-TAZOB 3.375GM 100 ML IV SCH (18:49)
--- NOTE | 2024-12-08 22:15 | DVHPN2 ---
Progress Note - Dictate Date Seen: Dec 08, 2024 Medical Necessity Reason Pt with a Central, PICC or Fol: No Subjective Ms. Crystal is a 49 years old female with a history of hypertension, hypothyroidism, obesity, the patient was brought to the [facility] on 11/25/2024 with a chief complaint of altered mental status, shortness breath. I have seen examined the patient, discussed with nurse and sitter she is awake, she does not talk or follow verbal commands, she does not not respond to verbal stimuli. She has mild muscle twitching in bilateral face, left leg UDS, 11/25/2024: Fentanyl, amphetamine, benzo, cocaine Urinalysis, 11/25/2024: Unremarkable WBC/HB/PLT/CV, 12/01/2024: 14.6/9.7/434/87.9 ABG, 11/28/24: Metabolic acidosis, 11/29/2024: Metabolic acidosis, BUN/CR, 11/25/2019 5:6/1.77, 11/27/24: 10/2.2, 11/30/24: 20/4.4 12/04/2024: 57/2.22 Liver function tests, 11/25/2024: Normal TSH, 11/26/2024: 0.61 FT4, 11/26/2024: 1.06 Chest x-ray, 11/25/2024: 1. ETT ends at the chuck. Recommend 2-3 cm retraction for optimal positioning. 2. No acute cardiopulmonary disease Chest x-ray 11/30/2024: 1. Stable position of the support lines and tubes. 2. Stable mild pulmonary congestion Chest x-ray,12/01/24: ET and NG tube removed. CT head, 11/25/2024: 1. No CT evidence of acute intracranial abnormality. 2. Nonacute findings as described above MRI head, 12/05/2024: There is no acute intracranial process. vital signs Vital Sign Date Time Temp Pulse Resp B/P (MAP) Pulse Ox O2 Delivery O2 Flow Rate FiO2 12/08/24 17:08 98.7 71 17 164/88 (113) 97 98.7 12/08/24 10:00 Room Air* 0 21 Total Intake and Output 12/07/24 12/07/24 12/08/24 15:00 23:00 07:00 Intake Total 362 ml 240 ml Balance 362 ml 240 ml medications Current Medications Medications Dose Ordered Sig/Caterina Route Start Time Stop Time Status Last Admin Dose Admin Midazolam HCl 50 ml @ 1 mls/hr Q24H IV 11/25/24 10:15 UNV Fentanyl Citrate 250 ml @ 2.5 mls/hr Q24H IV 11/25/24 10:15 UNV Ondansetron HCl 4 mg Q4HP PRN IV 11/25/24 13:15 Nitroglycerin 0.4 mg Q5MINP PRN SL 11/25/24 13:15 Morphine Sulfate 2 mg Q30M PRN IV 11/25/24 13:15 Vancomycin HCl 0 ml @ 0 mls/hr UD IV 11/25/24 13:15 UNV Pantoprazole Sodium 40 mg DAILY IV 11/26/24 10:00 12/08/24 09:38 40 MG Propofol 100 ml @ 2.43 mls/hr Q24H IV 11/25/24 14:00 UNV Enoxaparin Sodium 30 mg DAILY SC 12/01/24 10:00 12/08/24 09:39 30 MG Acetaminophen 650 mg Q6H PRN PO 12/02/24 12:15 12/04/24 20:44 650 MG Morphine Sulfate 1 mg Q4HP PRN IV 12/02/24 13:45 12/08/24 00:19 1 MG Bumetanide 1 mg DAILY IV 12/04/24 10:00 12/08/24 09:39 1 MG Haloperidol Lactate 2.5 mg Q8HP PRN IM 12/05/24 00:15 12/06/24 22:58 2.5 MG Lorazepam 1 mg ONCE PRN IV 12/05/24 08:45 Cancel Nifedipine 60 mg DAILY PO 12/07/24 10:00 Sodium Chloride 1,000 ml @ 75 mls/hr [id number] IV 12/06/24 12:15 12/07/24 02:11 75 MLS/HR Labetalol HCl 20 mg Q3HR PRN IV 12/07/24 12:00 12/08/24 15:34 20 MG Hydralazine HCl 10 mg Q6HP PRN IV 12/07/24 23:15 12/08/24 12:26 10 MG Linezolid 300 ml @ 150 mls/hr Q12HR IV 12/08/24 22:00 Amino Acids 0 ml @ 0 mls/hr PER PHARMACY IV 12/08/24 14:15 Piperacillin Sod/ Tazobactam Sod 100 ml @ 25 mls/hr Q12H IV 12/08/24 17:00 12/08/24 18:49 25 MLS/HR Diagnostic Test (Pha) 1 strip Q6HR 12/09/24 00:00 Insulin Human Regular FOLLOW SLIDING SCALE Q6HR SC 12/09/24 00:00 Dextrose 50 ml UD IV 12/09/24 00:00 Amino Acids/ Electrolytes/ Dextrose 1,000 ml @ 41 mls/hr DAILY@2200 IV 12/08/24 22:00 Magnesium Sulfate/ Dextrose 100 ml @ 100 mls/hr Q1HR IV 12/08/24 22:00 12/08/24 23:59 objective General: the patient is well developed and nourished. No acute distress. NEUROLOGICAL: Subjective SPEECH, LANGUAGE, HIGHER CORTICAL FUNCTION: She does not notice vocalize. CRANIAL NERVES: Pupils are equal, round and reactive. EOMs full and conjugate. Facial sensation intact in all three divisions bilaterally. Mandibular strength ok Facial muscles symmetrical and strength intact. SENSATION: Sensation to touch and pinprick is okay MOTOR: Normal tone in the upper and lower extremity. Normal muscle bulk. No fasciculations. No abnormal movements or posturing. She can move REFLEXES: Deep tendon reflexes are symmetrical. No pathological reflexes. CEREBELLAR/COORDINATION: Deferred GAIT/STATION: deferred laboratory and microbiology Laboratory Tests 12/08/24 05:11 12/07/24 05:25 Test 12/08/24 05:11 Range/Units Serum Glucose 94 74-106 mg/dL Problem List Altered mental status Hypoxic encephalopathy Metabolic encephalopathy ? Chronic organic brain syndrome Acute respiratory failure Status post CPR Cardiopulmonary arrest Substance abuse Bilateral facial muscle twitching Left leg twitching Assessment/Plan Monitoring Supportive treatment Telemetry EEG Haldol 2.5 mg intramuscular Q 6 hours p.r.n. for agitation DVT prophylaxis/Lovenox GI prophylaxis/Protonix More recommendation per clinical course This medical document was created using an electronic medical record system with [employer] system. Although this document has been carefully reviewed, there may still be some phonetic and typographical errors. These areas are purely typographical due to imperfections of the software programs, and do not reflect any compromise in the patient's medical care. Prognosis poor Dietary Evaluation Review Comments: 1) If GI is accessible consider Jevity 1.2 @ 50 ml/hr x 24hr as tolerated (advance to 60ml/hr if GFR trends up to within normal range) 2) If pt remains NPO consider TPN to meet at least 75% of estimated needs 3) Advance pt diet when medically feasible to a 2gm Sodium diet modified per COMMUNITY MARKETING COORDINATOR recommendations Expected Outcomes/Goals: 1) Pt to receive nutrition support within 7 days of NPO status 2) Pt diet to advance 3) F/U in 2-3 days Plan discussed with: Other JEFFREY ANDRADE MD Dec 08, 2024 22:15
[2024-12-08] MEDS: LINEZOLID 600MG/300ML 300 ML IV SCH (22:40)
[2024-12-08] MEDS: AMINO ACID INFUSION IN D10W 1,000 ML IV SCH (22:41)
[2024-12-08] MEDS: ACCU-CHEK COMFORT CURVE STRIP VI SCH (23:11)
[2024-12-08] MEDS: InsuLIN REG 1unit/0.01ml Soln (100units/ml) SC SCH (23:11)
--- NOTE | 2024-12-08 23:26 | DVHPN2 ---
Progress Note - Dictate Date Seen: Dec 08, 2024 Medical Necessity Reason Pt with a Central, PICC or Fol: Yes The following are medically ne: Zhu Catheter Reason for zhu catheter: Strict I&O Subjective Patient seen and examined at bedside. Breathing comfortably on room air. Overnight events reviewed. vital signs Vital Sign Date Time Temp Pulse Resp B/P (MAP) Pulse Ox O2 Delivery O2 Flow Rate FiO2 12/08/24 17:08 98.7 71 17 164/88 (113) 97 98.7 12/08/24 10:00 Room Air* 0 21 Total Intake and Output 12/07/24 12/07/24 12/08/24 15:00 23:00 07:00 Intake Total 362 ml 240 ml Balance 362 ml 240 ml medications Current Medications Medications Dose Ordered Sig/Caterina Route Start Time Stop Time Status Last Admin Dose Admin Midazolam HCl 50 ml @ 1 mls/hr Q24H IV 11/25/24 10:15 UNV Fentanyl Citrate 250 ml @ 2.5 mls/hr Q24H IV 11/25/24 10:15 UNV Ondansetron HCl 4 mg Q4HP PRN IV 11/25/24 13:15 Nitroglycerin 0.4 mg Q5MINP PRN SL 11/25/24 13:15 Morphine Sulfate 2 mg Q30M PRN IV 11/25/24 13:15 Vancomycin HCl 0 ml @ 0 mls/hr UD IV 11/25/24 13:15 UNV Pantoprazole Sodium 40 mg DAILY IV 11/26/24 10:00 12/08/24 09:38 40 MG Propofol 100 ml @ 2.43 mls/hr Q24H IV 11/25/24 14:00 UNV Enoxaparin Sodium 30 mg DAILY SC 12/01/24 10:00 12/08/24 09:39 30 MG Acetaminophen 650 mg Q6H PRN PO 12/02/24 12:15 12/04/24 20:44 650 MG Morphine Sulfate 1 mg Q4HP PRN IV 12/02/24 13:45 12/08/24 00:19 1 MG Bumetanide 1 mg DAILY IV 12/04/24 10:00 12/08/24 09:39 1 MG Haloperidol Lactate 2.5 mg Q8HP PRN IM 12/05/24 00:15 12/06/24 22:58 2.5 MG Lorazepam 1 mg ONCE PRN IV 12/05/24 08:45 Cancel Nifedipine 60 mg DAILY PO 12/07/24 10:00 Sodium Chloride 1,000 ml @ 75 mls/hr [id number] IV 12/06/24 12:15 12/07/24 02:11 75 MLS/HR Labetalol HCl 20 mg Q3HR PRN IV 12/07/24 12:00 12/08/24 15:34 20 MG Hydralazine HCl 10 mg Q6HP PRN IV 12/07/24 23:15 12/08/24 12:26 10 MG Linezolid 300 ml @ 150 mls/hr Q12HR IV 12/08/24 22:00 12/08/24 22:40 150 MLS/HR Amino Acids 0 ml @ 0 mls/hr PER PHARMACY IV 12/08/24 14:15 Piperacillin Sod/ Tazobactam Sod 100 ml @ 25 mls/hr Q12H IV 12/08/24 17:00 12/08/24 18:49 25 MLS/HR Diagnostic Test (Pha) 1 strip Q6HR 12/09/24 00:00 Insulin Human Regular FOLLOW SLIDING SCALE Q6HR SC 12/09/24 00:00 Dextrose 50 ml UD IV 12/09/24 00:00 Amino Acids/ Electrolytes/ Dextrose 1,000 ml @ 41 mls/hr DAILY@2200 IV 12/08/24 22:00 12/08/24 22:41 41 MLS/HR Magnesium Sulfate/ Dextrose 100 ml @ 100 mls/hr Q1HR IV 12/08/24 22:00 12/08/24 23:59 12/08/24 22:42 100 MLS/HR objective Gen.: Patient lying in bed in no apparent distress. On room air. Head: Normocephalic, atraumatic. Eyes: EOMI/PERRLA. Ears: Normal hearing. Normal anatomy. Neck/trachea: Trachea midline, supple. Nose: Normal external anatomy. Mouth: Moist mucous membranes. Chest: Decreased air entry bilaterally. No wheezing or rhonchi. Cardiovascular: Positive S1, positive S2. Regular rate and rhythm. Abdomen: Positive bowel sounds in all 4 quadrants. Soft, non-tender, non- distended. : Deferred. Rectal: Deferred. Skin: Warm, dry. Intact. Extremities: 2+ radial pulses bilaterally. No lower extremity edema. Neuro: Patient is altered, not responsive. GCS >8. laboratory and microbiology Laboratory Tests 12/08/24 05:11 12/07/24 05:25 Test 12/08/24 05:11 Range/Units Serum Glucose 94 74-106 mg/dL Assessment/Plan Impression: Acute hypoxic respiratory failure Methamphetamine use Hyponatremia Leukocytosis Metabolic acidosis Events: Remains on room air. Supplemental oxygen PRN Patient is altered, GCS >8. Not responsive Head of bed elevation Aspiration precautions Continue bronchodilators PRN Continue antibiotics Incentive spirometry Tube feeds for nutritional support Wound care Bumex for diuresis Monitor UOP - Zhu was placed Monitor renal function; creatinine 3.57, trending down Potassium, magnesium supplementation Nephrology recs appreciated IV fluids with NS at 75 ml/hr. Awaiting transfer due to insurance issues Labs and imaging reviewed. Rest of plan as noted below. Plan: s/p extubation on 11/30/24 Supplemental oxygen PRN Titrate to keep sats above 92% Off sedation Off pressors, hemodynamically stable Continue antibiotics. F/u cultures. Start pressors if necessary to maintain a mean arterial blood pressure greater than 65 mmHg. Monitor renal function Monitor electrolytes. Supplement as necessary. Monitor ins and outs. Monitor WBC. GI prophylaxis. DVT prophylaxis. Prognosis: Poor given patient's multiple co-morbidities. Rest of plan per hospitalist and other consultants. Thank you, JOSE Lozano, for allowing me to participate in this patient's care. Further recommendations will depend on the patient's clinical course. Please do not hesitate to contact me if you have any questions or concerns. This medical document was created using an electronic medical record system with [employer] dictation system. Although these documentations are being carefully reviewed, there may still be some phonetic and typographical changes. The errors are purely typographical, due to imperfection on the software program, and do not reflect any compromise in the patient's medical care. Dietary Evaluation Review Comments: 1) If GI is accessible consider Jevity 1.2 @ 50 ml/hr x 24hr as tolerated (advance to 60ml/hr if GFR trends up to within normal range) 2) If pt remains NPO consider TPN to meet at least 75% of estimated needs 3) Advance pt diet when medically feasible to a 2gm Sodium diet modified per HAND SANDER recommendations Expected Outcomes/Goals: 1) Pt to receive nutrition support within 7 days of NPO status 2) Pt diet to advance 3) F/U in 2-3 days Plan discussed with: Other (CHRIS Mccord) MARCIA BRIGGS MD Dec 08, 2024 23:26
[2024-12-09] VITALS (10 sets, daily range): BP systolic 134–164; BP diastolic 64–94; PULSE 65–90; RESP 16–20; TEMP 97.5–98.5; O2SAT 94–99
[2024-12-09] MEDS ORDERED: DEXTROSE (50%) 50ML SYRG IV SCH
[2024-12-09 06:01] LABS: Alanine Aminotransferase 13 U/L (7-40); Albumin 3.5 g/dL (3.2-4.8); Alkaline Phosphatase 50 U/L (46-116); Anion Gap 15 (5-15); Aspartate Aminotransferase 37 U/L (13-40); BUN/Creatinine Ratio 8.8 (10.0-20.0); Calcium 9.1 mg/dL (8.7-10.4); Carbon Dioxide 21 mmol/L (20-31); Chloride 104 mmol/L (98-107); Magnesium 2.4 mg/dL (1.6-2.6); Potassium 4.6 mmol/L (3.5-5.1); Sodium 140 mmol/L (136-145)
[2024-12-09 06:02] LABS: Phosphorus 3.1 mg/dL (2.4-5.1); Total Protein 6.2 g/dL (5.7-8.2)
[2024-12-09 06:05] LABS: Bilirubin, Total 0.2 mg/dL (0.2-1.0); Blood Urea Nitrogen 31 mg/dL (9-23); Glucose 134 mg/dL (74-106)
--- NOTE | 2024-12-09 11:35 | DVHPN2 ---
Progress Note Date Seen: Dec 09, 2024 Medical Necessity Reason Pt with a Central, PICC or Fol: Yes The following are medically ne: Zhu Catheter Reason for zhu catheter: Strict I&O Subjective Patient reports: No new complaints Other Systems: Patient seen and examined by myself today in follow-up Objective vital signs Vital Sign Date Time Temp Pulse Resp B/P (MAP) Pulse Ox O2 Delivery O2 Flow Rate FiO2 12/09/24 10:38 123/72 12/09/24 08:00 97.6 90 20 96 97.6 12/08/24 20:00 Room Air* 0 21 Total Intake and Output 12/08/24 12/08/24 12/09/24 15:00 23:00 07:00 Intake Total 275 ml 100 ml Output Total 550 ml Balance 275 ml -450 ml medications Current Medications Medications Dose Ordered Sig/Caterina Route Start Time Stop Time Status Last Admin Dose Admin Midazolam HCl 50 ml @ 1 mls/hr Q24H IV 11/25/24 10:15 UNV Fentanyl Citrate 250 ml @ 2.5 mls/hr Q24H IV 11/25/24 10:15 UNV Ondansetron HCl 4 mg Q4HP PRN IV 11/25/24 13:15 Nitroglycerin 0.4 mg Q5MINP PRN SL 11/25/24 13:15 Morphine Sulfate 2 mg Q30M PRN IV 11/25/24 13:15 Vancomycin HCl 0 ml @ 0 mls/hr UD IV 11/25/24 13:15 UNV Pantoprazole Sodium 40 mg DAILY IV 11/26/24 10:00 12/09/24 10:36 40 MG Propofol 100 ml @ 2.43 mls/hr Q24H IV 11/25/24 14:00 UNV Enoxaparin Sodium 30 mg DAILY SC 12/01/24 10:00 12/09/24 10:37 30 MG Acetaminophen 650 mg Q6H PRN PO 12/02/24 12:15 12/04/24 20:44 650 MG Morphine Sulfate 1 mg Q4HP PRN IV 12/02/24 13:45 12/08/24 00:19 1 MG Bumetanide 1 mg DAILY IV 12/04/24 10:00 12/09/24 10:36 1 MG Haloperidol Lactate 2.5 mg Q8HP PRN IM 12/05/24 00:15 12/06/24 22:58 2.5 MG Lorazepam 1 mg ONCE PRN IV 12/05/24 08:45 Cancel Nifedipine 60 mg DAILY PO 12/07/24 10:00 12/09/24 10:38 60 MG Sodium Chloride 1,000 ml @ 75 mls/hr [id number] IV 12/06/24 12:15 12/09/24 05:26 75 MLS/HR Labetalol HCl 20 mg Q3HR PRN IV 12/07/24 12:00 12/08/24 15:34 20 MG Hydralazine HCl 10 mg Q6HP PRN IV 12/07/24 23:15 12/08/24 12:26 10 MG Linezolid 300 ml @ 150 mls/hr Q12HR IV 12/08/24 22:00 12/09/24 10:34 150 MLS/HR Amino Acids 0 ml @ 0 mls/hr PER PHARMACY IV 12/08/24 14:15 Piperacillin Sod/ Tazobactam Sod 100 ml @ 25 mls/hr Q12H IV 12/08/24 17:00 12/09/24 05:11 25 MLS/HR Diagnostic Test (Pha) 1 strip Q6HR 12/09/24 00:00 12/09/24 05:26 1 STRIP Insulin Human Regular FOLLOW SLIDING SCALE Q6HR SC 12/09/24 00:00 Dextrose 50 ml UD IV 12/09/24 00:00 Amino Acids/ Electrolytes/ Dextrose 1,000 ml @ 41 mls/hr DAILY@2200 IV 12/08/24 22:00 12/08/24 22:41 41 MLS/HR Examination: LUNGS:Normal, CVS:Normal, MSK:Normal laboratory and microbiology Laboratory Tests 12/09/24 05:04 12/07/24 05:25 Test 12/09/24 05:04 Range/Units Serum Glucose 134 H 74-106 mg/dL Microbiology Date/Time Source Procedure Growth Status 11/27/24 17:00 Nose MRSA Screen - Final Complete 11/25/24 09:32 Blood Blood Culture - Final NO GROWTH AFTER 5 DAYS OF INCUBATION. Complete 11/25/24 09:07 Sputum Gram Stain - Final Complete 11/25/24 09:07 Sputum Respiratory Culture - Final Complete Problem List/Assessment/Plan Problem List/Assessment/Plan Acute kidney injury likely ATN in setting of cardiac arrest + vanco toxicity levels greater than 40 Acute respiratory failure intubated now s/p extubation Status post Cardiac arrest Methamphetamine abuse Metabolic acidosis Hypertension Encephalopathy Hypernatremia Non verbal Hypokalemia Hypomagnesemia Recommendations Kidney function slowly is improving Hypernatremia appropriately resolved Increased UOP IVF 1/2 NS @ 100 cc/hr KCL replacement Magnesium sulfate IV piggyback d/c vancomycin Kidney ultrasound no hydronephrosis Will continue to follow Plan discussed with: Other (Nurse) Dietary Evaluation Review Comments: 1) If GI is accessible consider Jevity 1.2 @ 50 ml/hr x 24hr as tolerated (advance to 60ml/hr if GFR trends up to within normal range) 2) If pt remains NPO consider TPN to meet at least 75% of estimated needs 3) Advance pt diet when medically feasible to a 2gm Sodium diet modified per QUALITY ASSURANCE REPRESENTATIVE recommendations Expected Outcomes/Goals: 1) Pt to receive nutrition support within 7 days of NPO status 2) Pt diet to advance 3) F/U in 2-3 days VERONICA COLLINS MD Dec 09, 2024 11:35
--- NOTE | 2024-12-09 22:47 | DVHPN2 ---
Progress Note - Dictate Date Seen: Dec 09, 2024 Medical Necessity Reason Pt with a Central, PICC or Fol: Yes The following are medically ne: Zhu Catheter Reason for zhu catheter: Strict I&O Subjective Patient seen and examined at bedside. Breathing comfortably on room air. Overnight events reviewed. vital signs Vital Sign Date Time Temp Pulse Resp B/P (MAP) Pulse Ox O2 Delivery O2 Flow Rate FiO2 12/09/24 18:21 76 140/84 (102) 12/09/24 16:00 97.5 20 98 97.5 12/09/24 10:03 Room Air* 0 21 Total Intake and Output 12/08/24 12/08/24 12/09/24 15:00 23:00 07:00 Intake Total 275 ml 100 ml Output Total 550 ml Balance 275 ml -450 ml medications Current Medications Medications Dose Ordered Sig/Caterina Route Start Time Stop Time Status Last Admin Dose Admin Midazolam HCl 50 ml @ 1 mls/hr Q24H IV 11/25/24 10:15 UNV Fentanyl Citrate 250 ml @ 2.5 mls/hr Q24H IV 11/25/24 10:15 UNV Ondansetron HCl 4 mg Q4HP PRN IV 11/25/24 13:15 Nitroglycerin 0.4 mg Q5MINP PRN SL 11/25/24 13:15 Morphine Sulfate 2 mg Q30M PRN IV 11/25/24 13:15 Vancomycin HCl 0 ml @ 0 mls/hr UD IV 11/25/24 13:15 UNV Pantoprazole Sodium 40 mg DAILY IV 11/26/24 10:00 12/09/24 10:36 40 MG Propofol 100 ml @ 2.43 mls/hr Q24H IV 11/25/24 14:00 UNV Enoxaparin Sodium 30 mg DAILY SC 12/01/24 10:00 12/09/24 10:37 30 MG Acetaminophen 650 mg Q6H PRN PO 12/02/24 12:15 12/04/24 20:44 650 MG Morphine Sulfate 1 mg Q4HP PRN IV 12/02/24 13:45 12/08/24 00:19 1 MG Bumetanide 1 mg DAILY IV 12/04/24 10:00 12/09/24 10:36 1 MG Haloperidol Lactate 2.5 mg Q8HP PRN IM 12/05/24 00:15 12/06/24 22:58 2.5 MG Lorazepam 1 mg ONCE PRN IV 12/05/24 08:45 Cancel Nifedipine 60 mg DAILY PO 12/07/24 10:00 12/09/24 10:38 60 MG Sodium Chloride 1,000 ml @ 75 mls/hr [id number] IV 12/06/24 12:15 12/09/24 05:26 75 MLS/HR Labetalol HCl 20 mg Q3HR PRN IV 12/07/24 12:00 12/08/24 15:34 20 MG Hydralazine HCl 10 mg Q6HP PRN IV 12/07/24 23:15 12/09/24 17:44 10 MG Linezolid 300 ml @ 150 mls/hr Q12HR IV 12/08/24 22:00 12/09/24 22:19 150 MLS/HR Amino Acids 0 ml @ 0 mls/hr PER PHARMACY IV 12/08/24 14:15 Piperacillin Sod/ Tazobactam Sod 100 ml @ 25 mls/hr Q12H IV 12/08/24 17:00 12/09/24 16:25 25 MLS/HR Diagnostic Test (Pha) 1 strip Q6HR 12/09/24 00:00 12/09/24 17:27 1 STRIP Insulin Human Regular FOLLOW SLIDING SCALE Q6HR SC 12/09/24 00:00 12/09/24 12:22 4 UNITS Dextrose 50 ml UD IV 12/09/24 00:00 Amino Acids/ Electrolytes/ Dextrose 1,000 ml @ 41 mls/hr DAILY@2200 IV 12/08/24 22:00 12/09/24 22:19 41 MLS/HR objective Gen.: Patient lying in bed in no apparent distress. On room air. Head: Normocephalic, atraumatic. Eyes: EOMI/PERRLA. Ears: Normal hearing. Normal anatomy. Neck/trachea: Trachea midline, supple. Nose: Normal external anatomy. Mouth: Moist mucous membranes. Chest: Decreased air entry bilaterally. No wheezing or rhonchi. Cardiovascular: Positive S1, positive S2. Regular rate and rhythm. Abdomen: Positive bowel sounds in all 4 quadrants. Soft, non-tender, non- distended. : Deferred. Rectal: Deferred. Skin: Warm, dry. Intact. Extremities: 2+ radial pulses bilaterally. No lower extremity edema. Neuro: Patient is altered, awake, alert. laboratory and microbiology Laboratory Tests 12/09/24 05:04 12/07/24 05:25 Test 12/09/24 05:04 Range/Units Serum Glucose 134 H 74-106 mg/dL Assessment/Plan Impression: Acute hypoxic respiratory failure Methamphetamine use Hyponatremia Leukocytosis Metabolic acidosis Events: Remains on room air. Supplemental oxygen PRN Patient is awake, alert Head of bed elevation Aspiration precautions Continue bronchodilators PRN Continue antibiotics Incentive spirometry Clinimix for nutritional support Wound care Bumex for diuresis Monitor UOP Monitor renal function Nephrology recs appreciated Awaiting transfer due to insurance issues Labs and imaging reviewed. Rest of plan as noted below. Plan: s/p extubation on 11/30/24 Supplemental oxygen PRN Titrate to keep sats above 92% Off sedation Off pressors, hemodynamically stable Continue antibiotics. F/u cultures. Start pressors if necessary to maintain a mean arterial blood pressure greater than 65 mmHg. Monitor renal function Monitor electrolytes. Supplement as necessary. Monitor ins and outs. Monitor WBC. GI prophylaxis. DVT prophylaxis. Prognosis: Poor given patient's multiple co-morbidities. Rest of plan per hospitalist and other consultants. Thank you, JOSE Lozano, for allowing me to participate in this patient's care. Further recommendations will depend on the patient's clinical course. Please do not hesitate to contact me if you have any questions or concerns. This medical document was created using an electronic medical record system with [employer] dictation system. Although these documentations are being carefully reviewed, there may still be some phonetic and typographical changes. The errors are purely typographical, due to imperfection on the software program, and do not reflect any compromise in the patient's medical care. Dietary Evaluation Review Comments: 1) If GI is accessible consider Jevity 1.2 @ 50 ml/hr x 24hr as tolerated (advance to 60ml/hr if GFR trends up to within normal range) 2) If pt remains NPO consider TPN to meet at least 75% of estimated needs 3) Advance pt diet when medically feasible to a 2gm Sodium diet modified per [employer] AS[employer]BLER recommendations Expected Outcomes/Goals: 1) Pt to receive nutrition support within 7 days of NPO status 2) Pt diet to advance 3) F/U in 2-3 days Plan discussed with: Patient, Other (RN Brielle) MARCIA BRIGGS MD Dec 09, 2024 22:47
--- NOTE | 2024-12-09 23:14 | DVHPN2 ---
Subjective The patient is seen and examined at bedside. Remained weak and not talking. Reviewed: Care Plan, H&P, Labs, Medications, Previous Orders, Radiology Changes from previous H/P or p: No Changes General: Per HPI Objective Vitals Vital Signs Date Time Temp Pulse Resp B/P (MAP) Pulse Ox O2 Delivery O2 Flow Rate FiO2 12/09/24 21:00 98.0 66 19 134/64 (87) 94 98.0 12/09/24 10:03 Room Air* 0 21 Intake/Output Intake and Output 12/09/24 07:00 Intake Total 375 ml Output Total 550 ml Balance -175 ml Intake Oral 150 ml IV Total 225 ml Output Urine Total 550 ml # Voids 5 General Appearance: Other (Patient with altered mental status. Not following any commands.) HEENT: PERRLA Lungs: Clear to auscultation Cardiovascular: Normal S1, Normal S2, No murmurs, Other (ST) Abdomen: Normal bowel sounds, Soft, No tenderness Rectal: Deferred Extremities: No clubbing, No cyanosis, Normal pulses Neuro: Other (Eyes fluttering, no longer following commands or tracking to voice) Skin: Dry, Intact Psych/Mental Status: Other (Encephalopathic) Medications Current Medications Medications Dose Ordered Sig/Caterina Route Start Time Stop Time Status Last Admin Dose Admin Midazolam HCl 50 ml @ 1 mls/hr Q24H IV 11/25/24 10:15 UNV Fentanyl Citrate 250 ml @ 2.5 mls/hr Q24H IV 11/25/24 10:15 UNV Ondansetron HCl 4 mg Q4HP PRN IV 11/25/24 13:15 Nitroglycerin 0.4 mg Q5MINP PRN SL 11/25/24 13:15 Morphine Sulfate 2 mg Q30M PRN IV 11/25/24 13:15 Vancomycin HCl 0 ml @ 0 mls/hr UD IV 11/25/24 13:15 UNV Pantoprazole Sodium 40 mg DAILY IV 11/26/24 10:00 12/09/24 10:36 40 MG Propofol 100 ml @ 2.43 mls/hr Q24H IV 11/25/24 14:00 UNV Enoxaparin Sodium 30 mg DAILY SC 12/01/24 10:00 12/09/24 10:37 30 MG Acetaminophen 650 mg Q6H PRN PO 12/02/24 12:15 12/04/24 20:44 650 MG Morphine Sulfate 1 mg Q4HP PRN IV 12/02/24 13:45 12/08/24 00:19 1 MG Bumetanide 1 mg DAILY IV 12/04/24 10:00 12/09/24 10:36 1 MG Haloperidol Lactate 2.5 mg Q8HP PRN IM 12/05/24 00:15 12/06/24 22:58 2.5 MG Lorazepam 1 mg ONCE PRN IV 12/05/24 08:45 Cancel Nifedipine 60 mg DAILY PO 12/07/24 10:00 12/09/24 10:38 60 MG Sodium Chloride 1,000 ml @ 75 mls/hr [id number] IV 12/06/24 12:15 12/09/24 05:26 75 MLS/HR Labetalol HCl 20 mg Q3HR PRN IV 12/07/24 12:00 12/08/24 15:34 20 MG Hydralazine HCl 10 mg Q6HP PRN IV 12/07/24 23:15 12/09/24 17:44 10 MG Linezolid 300 ml @ 150 mls/hr Q12HR IV 12/08/24 22:00 12/09/24 22:19 150 MLS/HR Amino Acids 0 ml @ 0 mls/hr PER PHARMACY IV 12/08/24 14:15 Piperacillin Sod/ Tazobactam Sod 100 ml @ 25 mls/hr Q12H IV 12/08/24 17:00 12/09/24 16:25 25 MLS/HR Diagnostic Test (Pha) 1 strip Q6HR 12/09/24 00:00 12/09/24 17:27 1 STRIP Insulin Human Regular FOLLOW SLIDING SCALE Q6HR SC 12/09/24 00:00 12/09/24 12:22 4 UNITS Dextrose 50 ml UD IV 12/09/24 00:00 Amino Acids/ Electrolytes/ Dextrose 1,000 ml @ 41 mls/hr DAILY@2200 IV 12/08/24 22:00 12/09/24 22:19 41 MLS/HR Laboratory Results Laboratory Tests 12/07/24 05:25 12/09/24 05:04 Chemistry Test 12/09/24 05:04 Albumin 3.5 g/dL (3.2-4.8) Calcium Level 9.1 mg/dL (8.7-10.4) Magnesium Level 2.4 mg/dL (1.6-2.6) Phosphorus Level 3.1 mg/dL (2.4-5.1) Total Protein 6.2 g/dL (5.7-8.2) LFT Test 12/09/24 05:04 Alanine Aminotransferase (ALT) 13 U/L (7-40) Alkaline Phosphatase 50 U/L (46-116) Aspartate Amino Transferase (AST) 37 U/L (13-40) Total Bilirubin 0.2 mg/dL (0.2-1.0) Urinalysis Test 11/25/24 00:00 Urine Color Light-yellow (Yellow) Urine Clarity Clear (Clear) Urine pH 6.0 (5.0-9.0) Urine Specific Irving 1.009 (1.001-1.035) Urine Protein Negative (Negative) Urine Ketones Negative (Negative) Urine Blood Negative /uL (Negative) Urine Nitrite Negative (Negative) Urine Bilirubin Negative (Negative) Urine Urobilinogen Normal mg/dL (Negative) Urine Leukocyte Esterase Negative /uL (Negative) Urine RBC <1 /hpf (0 - 4) Urine WBC 1 /hpf (0 - 5) Urine Squamous Epithelial Cells Few /hpf (<5) Urine Bacteria None seen /hpf (None Seen) Urine Glucose Normal mg/dL (Normal) Microbiology Microbiology Date/Time Source Procedure Growth Status 12/08/24 18:57 Urine - Li Port Urine Culture - Preliminary Resulted 12/08/24 14:55 Blood Blood Culture - Preliminary NO GROWTH AFTER 24 HOURS OF INCUBATION. Resulted 11/27/24 17:00 Nose MRSA Screen - Final Complete 11/25/24 09:07 Sputum Gram Stain - Final Complete 11/25/24 09:07 Sputum Respiratory Culture - Final Complete Labs and/or images reviewed: Labs reviewed by me Assessment/Plan Assessment/Plan -cardiopulmonary arrest -acute hypoxic respiratory failure -toxic metabolic encephalopathy secondary to polysubstance abuse -polysubstance abuse -probable aspiration pneumonia -sepsis with shock -primary hypertension -hypothyroidism -acute kidney injury, hemodynamically mediated questionable ATN -anoxic encephalopathy Plan: Continuing current management. The patient is still not follow command. We will CT head is unremarkable. With hypertensive medication Continuing with hydralazine IV p.r.n., labetalol IV p.r.n., and Catapres TTS patch Continuing with Clinimix With Zyvox and Zosyn Strict aspiration precautions Continuing with nebulizer Continuing IV fluid This medical document was created using an electronic medical record system with [employer] direct computerized dictation system. Although this document has been carefully reviewed, there may still be some phonetic and typographical errors. These areas are purely typographical due to imperfections of the software programs, and do not reflect any compromise in the patient's medical care. Plan discussed with: Other (RN) Date of Service: Dec 09, 2024 Billing Provider: STELLA CARRILLO MD Common Visit Codes: [id number] INP/OBS CARE(HIGH) STELLA CARRILLO MD Dec 09, 2024 23:14
[2024-12-10] VITALS (9 sets, daily range): BP systolic 139–155; BP diastolic 79–98; PULSE 64–89; RESP 16–19; TEMP 97.7–99.6; O2SAT 94–96
[2024-12-10 06:08] LABS: Alanine Aminotransferase 15 U/L (7-40); Albumin 3.5 g/dL (3.2-4.8); Alkaline Phosphatase 51 U/L (46-116); Anion Gap 16 (5-15); Aspartate Aminotransferase 33 U/L (13-40); BUN/Creatinine Ratio 9.5 (10.0-20.0); Calcium 9.1 mg/dL (8.7-10.4); Carbon Dioxide 21 mmol/L (20-31); Chloride 102 mmol/L (98-107); Magnesium 1.9 mg/dL (1.6-2.6); Phosphorus 2.5 mg/dL (2.4-5.1); Sodium 139 mmol/L (136-145); Total Protein 6.3 g/dL (5.7-8.2)
[2024-12-10 06:10] LABS: Glucose 121 mg/dL (74-106); Potassium 2.9 mmol/L (3.5-5.1)
[2024-12-10 06:11] LABS: Bilirubin, Total 0.2 mg/dL (0.2-1.0); Blood Urea Nitrogen 31 mg/dL (9-23)
--- NOTE | 2024-12-10 11:12 | DVHPN2 ---
Progress Note Date Seen: Dec 10, 2024 Medical Necessity Reason Pt with a Central, PICC or Fol: Yes The following are medically ne: Zhu Catheter Reason for zhu catheter: Strict I&O Subjective Patient reports: No new complaints Other Systems: Patient seen and examined by myself today in follow-up Objective vital signs Vital Sign Date Time Temp Pulse Resp B/P (MAP) Pulse Ox O2 Delivery O2 Flow Rate FiO2 12/10/24 10:34 160/95 12/10/24 05:00 98.3 65 18 96 98.3 12/09/24 20:00 Room Air* 0 21 Total Intake and Output 12/09/24 12/09/24 12/10/24 15:00 23:00 07:00 Intake Total 775 ml 2518 ml 1078 ml Output Total 750 ml 520 ml Balance 775 ml 1768 ml 558 ml medications Current Medications Medications Dose Ordered Sig/Caterina Route Start Time Stop Time Status Last Admin Dose Admin Midazolam HCl 50 ml @ 1 mls/hr Q24H IV 11/25/24 10:15 UNV Fentanyl Citrate 250 ml @ 2.5 mls/hr Q24H IV 11/25/24 10:15 UNV Ondansetron HCl 4 mg Q4HP PRN IV 11/25/24 13:15 Nitroglycerin 0.4 mg Q5MINP PRN SL 11/25/24 13:15 Morphine Sulfate 2 mg Q30M PRN IV 11/25/24 13:15 Vancomycin HCl 0 ml @ 0 mls/hr UD IV 11/25/24 13:15 UNV Pantoprazole Sodium 40 mg DAILY IV 11/26/24 10:00 12/10/24 10:16 40 MG Propofol 100 ml @ 2.43 mls/hr Q24H IV 11/25/24 14:00 UNV Enoxaparin Sodium 30 mg DAILY SC 12/01/24 10:00 12/10/24 10:18 30 MG Acetaminophen 650 mg Q6H PRN PO 12/02/24 12:15 12/04/24 20:44 650 MG Morphine Sulfate 1 mg Q4HP PRN IV 12/02/24 13:45 12/08/24 00:19 1 MG Bumetanide 1 mg DAILY IV 12/04/24 10:00 12/09/24 10:36 1 MG Haloperidol Lactate 2.5 mg Q8HP PRN IM 1/21/25 00:15 12/06/24 22:58 2.5 MG Lorazepam 1 mg ONCE PRN IV 12/05/24 08:45 Cancel Nifedipine 60 mg DAILY PO 12/07/24 10:00 12/09/24 10:38 60 MG Sodium Chloride 1,000 ml @ 75 mls/hr [id number] IV 12/06/24 12:15 12/10/24 10:14 75 MLS/HR Labetalol HCl 20 mg Q3HR PRN IV 12/07/24 12:00 12/08/24 15:34 20 MG Hydralazine HCl 10 mg Q6HP PRN IV 12/07/24 23:15 12/10/24 10:34 10 MG Linezolid 300 ml @ 150 mls/hr Q12HR IV 12/08/24 22:00 12/10/24 10:20 150 MLS/HR Amino Acids 0 ml @ 0 mls/hr PER PHARMACY IV 12/08/24 14:15 Piperacillin Sod/ Tazobactam Sod 100 ml @ 25 mls/hr Q12H IV 12/08/24 17:00 12/10/24 05:06 25 MLS/HR Diagnostic Test (Pha) 1 strip Q6HR 12/09/24 00:00 12/10/24 05:18 1 STRIP Insulin Human Regular FOLLOW SLIDING SCALE Q6HR SC 12/09/24 00:00 12/10/24 00:36 2 UNITS Dextrose 50 ml UD IV 12/09/24 00:00 Amino Acids/ Electrolytes/ Dextrose 1,000 ml @ 41 mls/hr DAILY@2200 IV 12/08/24 22:00 12/09/24 22:19 41 MLS/HR Examination: LUNGS:Normal, CVS:Normal, MSK:Normal laboratory and microbiology Laboratory Tests 12/10/24 04:46 12/07/24 05:25 Test 12/10/24 04:46 Range/Units Serum Glucose 121 H 74-106 mg/dL Microbiology Date/Time Source Procedure Growth Status 12/08/24 18:57 Urine - Zhu Port Urine Culture - Preliminary Resulted 12/08/24 14:55 Blood Blood Culture - Preliminary NO GROWTH AFTER 24 HOURS OF INCUBATION. Resulted 11/27/24 17:00 Nose MRSA Screen - Final Complete 11/25/24 09:07 Sputum Gram Stain - Final Complete 11/25/24 09:07 Sputum Respiratory Culture - Final Complete Problem List/Assessment/Plan Problem List/Assessment/Plan Acute kidney injury likely ATN in setting of cardiac arrest + vanco toxicity levels greater than 40 Acute respiratory failure intubated now s/p extubation Status post Cardiac arrest Methamphetamine abuse Metabolic acidosis Hypertension Encephalopathy Hypernatremia Non verbal Hypokalemia Hypomagnesemia Recommendations Kidney function slowly is improving Hypernatremia appropriately resolved Increased UOP IVF / NS @ 100 cc/hr KCL replacement Magnesium sulfate IV piggyback d/c vancomycin Kidney ultrasound no hydronephrosis Will continue to follow Plan discussed with: Patient Dietary Evaluation Review Comments: 1) If GI is accessible consider Jevity 1.2 @ 50 ml/hr x 24hr as tolerated (advance to 60ml/hr if GFR trends up to within normal range) 2) If pt remains NPO consider TPN to meet at least 75% of estimated needs 3) Advance pt diet when medically feasible to a 2gm Sodium diet modified per SPIRITUAL ADVISOR recommendations Expected Outcomes/Goals: 1) Pt to receive nutrition support within 7 days of NPO status 2) Pt diet to advance 3) F/U in 2-3 days VERONICA COLLINS MD Dec 10, 2024 11:12
[2024-12-10] MEDS ORDERED: POTASSIUM EFFERVESENT TAB 25 MEQ GT ONE (11:45)
[2024-12-10] MEDS: POTASSIUM EFFERVESENT TAB 25 MEQ PO ONE (11:57)
[2024-12-10] MEDS: POTASSIUM CHL 20MEQ/100ML 100 ML IV SCH (12:02)
[2024-12-10] MEDS ORDERED: POTASSIUM EFFERVESENT TAB 25 MEQ PO ONE (13:30)
[2024-12-10] MEDS: PIPERACILLIN-TAZOB 3.375GM 100 ML IV SCH (20:37)
--- NOTE | 2024-12-10 23:04 | DVHPN2 ---
Progress Note - Dictate Date Seen: Dec 10, 2024 Medical Necessity Reason Pt with a Central, PICC or Fol: Yes The following are medically ne: Zhu Catheter Reason for zhu catheter: Strict I&O Subjective Patient seen and examined at bedside. Breathing comfortably on room air. Overnight events reviewed. vital signs Vital Sign Date Time Temp Pulse Resp B/P (MAP) Pulse Ox O2 Delivery O2 Flow Rate FiO2 12/10/24 21:00 99.6 82 18 149/85 (106) 95 99.6 12/10/24 10:16 Room Air* 0 21 Total Intake and Output 12/09/24 12/09/24 12/10/24 15:00 23:00 07:00 Intake Total 775 ml 2518 ml 1078 ml Output Total 750 ml 520 ml Balance 775 ml 1768 ml 558 ml medications Current Medications Medications Dose Ordered Sig/Caterina Route Start Time Stop Time Status Last Admin Dose Admin Midazolam HCl 50 ml @ 1 mls/hr Q24H IV 11/25/24 10:15 UNV Fentanyl Citrate 250 ml @ 2.5 mls/hr Q24H IV 11/25/24 10:15 UNV Ondansetron HCl 4 mg Q4HP PRN IV 11/25/24 13:15 Nitroglycerin 0.4 mg Q5MINP PRN SL 11/25/24 13:15 Morphine Sulfate 2 mg Q30M PRN IV 11/25/24 13:15 Vancomycin HCl 0 ml @ 0 mls/hr UD IV 11/25/24 13:15 UNV Pantoprazole Sodium 40 mg DAILY IV 11/26/24 10:00 12/10/24 10:16 40 MG Propofol 100 ml @ 2.43 mls/hr Q24H IV 11/25/24 14:00 UNV Enoxaparin Sodium 30 mg DAILY SC 12/01/24 10:00 12/10/24 10:18 30 MG Acetaminophen 650 mg Q6H PRN PO 12/02/24 12:15 12/04/24 20:44 650 MG Morphine Sulfate 1 mg Q4HP PRN IV 12/02/24 13:45 12/08/24 00:19 1 MG Bumetanide 1 mg DAILY IV 12/04/24 10:00 12/09/24 10:36 1 MG Haloperidol Lactate 2.5 mg Q8HP PRN IM 12/05/24 00:15 12/06/24 22:58 2.5 MG Lorazepam 1 mg ONCE PRN IV 12/05/24 08:45 Cancel Nifedipine 60 mg DAILY PO 12/07/24 10:00 12/09/24 10:38 60 MG Sodium Chloride 1,000 ml @ 75 mls/hr [id number] IV 12/06/24 12:15 12/10/24 10:14 75 MLS/HR Labetalol HCl 20 mg Q3HR PRN IV 12/07/24 12:00 12/08/24 15:34 20 MG Hydralazine HCl 10 mg Q6HP PRN IV 12/07/24 23:15 12/10/24 18:12 10 MG Linezolid 300 ml @ 150 mls/hr Q12HR IV 12/08/24 22:00 12/10/24 10:20 150 MLS/HR Amino Acids 0 ml @ 0 mls/hr PER PHARMACY IV 12/08/24 14:15 Diagnostic Test (Pha) 1 strip Q6HR 12/09/24 00:00 12/10/24 17:58 1 STRIP Insulin Human Regular FOLLOW SLIDING SCALE Q6HR SC 12/09/24 00:00 12/10/24 12:27 2 UNITS Dextrose 50 ml UD IV 12/09/24 00:00 Amino Acids/ Electrolytes/ Dextrose 1,000 ml @ 41 mls/hr DAILY@2200 IV 12/08/24 22:00 12/10/24 21:32 41 MLS/HR Piperacillin Sod/ Tazobactam Sod 100 ml @ 25 mls/hr Q12H IV 12/10/24 20:00 12/10/24 20:37 25 MLS/HR objective Gen.: Patient lying in bed in no apparent distress. On room air. Head: Normocephalic, atraumatic. Eyes: EOMI/PERRLA. Ears: Normal hearing. Normal anatomy. Neck/trachea: Trachea midline, supple. Nose: Normal external anatomy. Mouth: Moist mucous membranes. Chest: Decreased air entry bilaterally. No wheezing or rhonchi. Cardiovascular: Positive S1, positive S2. Regular rate and rhythm. Abdomen: Positive bowel sounds in all 4 quadrants. Soft, non-tender, non- distended. : Deferred. Rectal: Deferred. Skin: Warm, dry. Intact. Extremities: 2+ radial pulses bilaterally. No lower extremity edema. Neuro: Patient is altered, awake, alert. laboratory and microbiology Laboratory Tests 12/10/24 04:46 12/07/24 05:25 Test 12/10/24 04:46 Range/Units Serum Glucose 121 H 74-106 mg/dL Assessment/Plan Impression: Acute hypoxic respiratory failure Methamphetamine use Hyponatremia Leukocytosis Metabolic acidosis Events: Remains on room air. Supplemental oxygen PRN Patient is awake, alert Head of bed elevation Aspiration precautions Continue bronchodilators PRN Continue antibiotics Incentive spirometry Clinimix for nutritional support Wound care Monitor renal function Nephrology recs appreciated Awaiting transfer due to insurance issues Labs and imaging reviewed. Rest of plan as noted below. Plan: s/p extubation on 11/30/24 Supplemental oxygen PRN Titrate to keep sats above 92% Off sedation Off pressors, hemodynamically stable Continue antibiotics. F/u cultures. Start pressors if necessary to maintain a mean arterial blood pressure greater than 65 mmHg. Monitor renal function Monitor electrolytes. Supplement as necessary. Monitor ins and outs. Monitor WBC. GI prophylaxis. DVT prophylaxis. Prognosis: Guarded given patient's multiple co-morbidities. Rest of plan per hospitalist and other consultants. Thank you, AUTOMATIC VULCANIZING LEAD OPERATOR Blake, for allowing me to participate in this patient's care. Further recommendations will depend on the patient's clinical course. Please do not hesitate to contact me if you have any questions or concerns. This medical document was created using an electronic medical record system with [employer] dictation system. Although these documentations are being carefully reviewed, there may still be some phonetic and typographical changes. The errors are purely typographical, due to imperfection on the software program, and do not reflect any compromise in the patient's medical care. Dietary Evaluation Review Comments: 1) If GI is accessible consider Jevity 1.2 @ 50 ml/hr x 24hr as tolerated (advance to 60ml/hr if GFR trends up to within normal range) 2) If pt remains NPO consider TPN to meet at least 75% of estimated needs 3) Advance pt diet when medically feasible to a 2gm Sodium diet modified per CUSTOM HOME INSTALLER recommendations Expected Outcomes/Goals: 1) Pt to receive nutrition support within 7 days of NPO status 2) Pt diet to advance 3) F/U in 2-3 days Plan discussed with: Patient, Other (CHRIS Russell) MARCIA BRIGGS MD Dec 10, 2024 23:04
--- NOTE | 2024-12-10 23:59 | DVHPN2 ---
Progress Note - Dictate Date Seen: Dec 11, 2024 Medical Necessity Reason Pt with a Central, PICC or Fol: Yes The following are medically ne: Zhu Catheter Reason for zhu catheter: Strict I&O Subjective Ms. Crystal is a 49 years old female with a history of hypertension, hypothyroidism, obesity, the patient was brought to the [facility] on 11/25/2024 with a chief complaint of altered mental status, shortness breath. I have seen examined the patient, discussed with nurse and sitter she is awake, she does not talk or follow verbal commands, she does not not respond to verbal stimuli. She has mild muscle twitching in bilateral face There was resistance when I tried to open her eyes and move her arms UDS, 11/25/2024: Fentanyl, amphetamine, benzo, cocaine Urinalysis, 11/25/2024: Unremarkable WBC/HB/PLT/CV, 12/01/2024: 14.6/9.7/434/87.9 ABG, 11/28/24: Metabolic acidosis, 11/29/2024: Metabolic acidosis, BUN/CR, 11/25/2019 5:6/1.77, 11/27/24: 10/2.2, 11/30/24: 20/4.4 12/04/2024: 57/2.22 Liver function tests, 11/25/2024: Normal TSH, 11/26/2024: 0.61 FT4, 11/26/2024: 1.06 Chest x-ray, 11/25/2024: 1. ETT ends at the chuck. Recommend 2-3 cm retraction for optimal positioning. 2. No acute cardiopulmonary disease Chest x-ray 11/30/2024: 1. Stable position of the support lines and tubes. 2. Stable mild pulmonary congestion Chest x-ray,12/01/24: ET and NG tube removed. CT head, 11/25/2024: 1. No CT evidence of acute intracranial abnormality. 2. Nonacute findings as described above CT head, 12/07/2024: No acute intracranial process. MRI head, 12/05/2024: There is no acute intracranial process. vital signs Vital Sign Date Time Temp Pulse Resp B/P (MAP) Pulse Ox O2 Delivery O2 Flow Rate FiO2 12/10/24 21:00 99.6 82 18 149/85 (106) 95 99.6 12/10/24 10:16 Room Air* 0 21 Total Intake and Output 12/09/24 12/09/24 12/10/24 15:00 23:00 07:00 Intake Total 775 ml 2518 ml 1078 ml Output Total 750 ml 520 ml Balance 775 ml 1768 ml 558 ml medications Current Medications Medications Dose Ordered Sig/Caterina Route Start Time Stop Time Status Last Admin Dose Admin Midazolam HCl 50 ml @ 1 mls/hr Q24H IV 11/25/24 10:15 UNV Fentanyl Citrate 250 ml @ 2.5 mls/hr Q24H IV 11/25/24 10:15 UNV Ondansetron HCl 4 mg Q4HP PRN IV 11/25/24 13:15 Nitroglycerin 0.4 mg Q5MINP PRN SL 11/25/24 13:15 Morphine Sulfate 2 mg Q30M PRN IV 11/25/24 13:15 Vancomycin HCl 0 ml @ 0 mls/hr UD IV 11/25/24 13:15 UNV Pantoprazole Sodium 40 mg DAILY IV 11/26/24 10:00 12/10/24 10:16 40 MG Propofol 100 ml @ 2.43 mls/hr Q24H IV 11/25/24 14:00 UNV Enoxaparin Sodium 30 mg DAILY SC 12/01/24 10:00 12/10/24 10:18 30 MG Acetaminophen 650 mg Q6H PRN PO 12/02/24 12:15 12/04/24 20:44 650 MG Morphine Sulfate 1 mg Q4HP PRN IV 12/02/24 13:45 12/08/24 00:19 1 MG Bumetanide 1 mg DAILY IV 12/04/24 10:00 12/09/24 10:36 1 MG Haloperidol Lactate 2.5 mg Q8HP PRN IM 12/05/24 00:15 12/06/24 22:58 2.5 MG Lorazepam 1 mg ONCE PRN IV 12/05/24 08:45 Cancel Nifedipine 60 mg DAILY PO 12/07/24 10:00 12/09/24 10:38 60 MG Sodium Chloride 1,000 ml @ 75 mls/hr [id number] IV 12/06/24 12:15 12/10/24 10:14 75 MLS/HR Labetalol HCl 20 mg Q3HR PRN IV 12/07/24 12:00 12/08/24 15:34 20 MG Hydralazine HCl 10 mg Q6HP PRN IV 12/07/24 23:15 12/10/24 18:12 10 MG Linezolid 300 ml @ 150 mls/hr Q12HR IV 12/08/24 22:00 12/10/24 23:35 150 MLS/HR Amino Acids 0 ml @ 0 mls/hr PER PHARMACY IV 12/08/24 14:15 Diagnostic Test (Pha) 1 strip Q6HR 12/09/24 00:00 12/10/24 17:58 1 STRIP Insulin Human Regular FOLLOW SLIDING SCALE Q6HR SC 12/09/24 00:00 12/10/24 12:27 2 UNITS Dextrose 50 ml UD IV 12/09/24 00:00 Amino Acids/ Electrolytes/ Dextrose 1,000 ml @ 41 mls/hr DAILY@2200 IV 12/08/24 22:00 12/10/24 21:32 41 MLS/HR Piperacillin Sod/ Tazobactam Sod 100 ml @ 25 mls/hr Q12H IV 12/10/24 20:00 12/10/24 20:37 25 MLS/HR objective General: the patient is well developed and nourished. No acute distress. NEUROLOGICAL: Subjective SPEECH, LANGUAGE, HIGHER CORTICAL FUNCTION: She does not notice vocalize. CRANIAL NERVES: Pupils are equal, round and reactive. EOMs full and conjugate. Facial sensation intact in all three divisions bilaterally. Mandibular strength ok Facial muscles symmetrical and strength intact. SENSATION: Sensation to touch and pinprick is okay MOTOR: Normal tone in the upper and lower extremity. Normal muscle bulk. No fasciculations. No abnormal movements or posturing. She does not move the arms and legs REFLEXES: Deep tendon reflexes are symmetrical. No pathological reflexes. CEREBELLAR/COORDINATION: Deferred GAIT/STATION: deferred laboratory and microbiology Laboratory Tests 12/10/24 04:46 12/07/24 05:25 Test 12/10/24 04:46 Range/Units Serum Glucose 121 H 74-106 mg/dL Problem List Altered mental status Hypoxic encephalopathy Metabolic encephalopathy ? Chronic organic brain syndrome Acute respiratory failure Status post CPR Cardiopulmonary arrest Substance abuse Bilateral facial muscle twitching Left leg twitching Assessment/Plan Monitoring Supportive treatment Telemetry EEG Haldol 2.5 mg intramuscular Q 6 hours p.r.n. for agitation DVT prophylaxis/Lovenox GI prophylaxis/Protonix More recommendation per clinical course This medical document was created using an electronic medical record system with [employer] dictation system. Although this document has been carefully reviewed, there may still be some phonetic and typographical errors. These areas are purely typographical due to imperfections of the software programs, and do not reflect any compromise in the patient's medical care. Prognosis poor Dietary Evaluation Review Comments: 1) If GI is accessible consider Jevity 1.2 @ 50 ml/hr x 24hr as tolerated (advance to 60ml/hr if GFR trends up to within normal range) 2) If pt remains NPO consider TPN to meet at least 75% of estimated needs 3) Advance pt diet when medically feasible to a 2gm Sodium diet modified per [employer] recommendations Expected Outcomes/Goals: 1) Pt to receive nutrition support within 7 days of NPO status 2) Pt diet to advance 3) F/U in 2-3 days Plan discussed with: Other JEFFREY ANDRADE MD Dec 10, 2024 23:59
[2024-12-11] VITALS (9 sets, daily range): BP systolic 118–161; BP diastolic 69–92; PULSE 64–88; RESP 18–22; TEMP 98.2–98.9; O2SAT 95–97
--- NOTE | 2024-12-11 10:12 | DVHPN2 ---
Subjective Patient is seen and examined bedside. Still not talking in nonverbal. Reviewed: Care Plan, H&P, Labs, Medications, Previous Orders, Radiology Changes from previous H/P or p: No Changes General: Per HPI Objective Vitals Vital Signs Date Time Temp Pulse Resp B/P (MAP) Pulse Ox O2 Delivery O2 Flow Rate FiO2 12/10/24 05:50 161/87 12/10/24 05:00 98.9 71 18 96 98.9 12/09/24 20:00 Room Air* 0 21 Intake/Output Intake and Output 12/11/24 07:00 Intake Total 1845.5 ml Output Total 600 ml Balance 1245.5 ml Intake Oral 50 ml IV Total 1795.5 ml Output Urine Total 600 ml General Appearance: Other (Patient with altered mental status. Not following any commands.) HEENT: PERRLA Lungs: Clear to auscultation Cardiovascular: Normal S1, Normal S2, No murmurs, Other (ST) Abdomen: Normal bowel sounds, Soft, No tenderness Rectal: Deferred Extremities: No clubbing, No cyanosis, Normal pulses Neuro: Other (Eyes fluttering, no longer following commands or tracking to voice) Skin: Dry, Intact Psych/Mental Status: Other (Encephalopathic) Medications Current Medications Medications Dose Ordered Sig/Caterina Route Start Time Stop Time Status Last Admin Dose Admin Midazolam HCl 50 ml @ 1 mls/hr Q24H IV 11/25/24 10:15 UNV Fentanyl Citrate 250 ml @ 2.5 mls/hr Q24H IV 11/25/24 10:15 UNV Ondansetron HCl 4 mg Q4HP PRN IV 11/25/24 13:15 Nitroglycerin 0.4 mg Q5MINP PRN SL 11/25/24 13:15 Morphine Sulfate 2 mg Q30M PRN IV 11/25/24 13:15 Vancomycin HCl 0 ml @ 0 mls/hr UD IV 11/25/24 13:15 UNV Pantoprazole Sodium 40 mg DAILY IV 11/26/24 10:00 12/10/24 10:16 40 MG Propofol 100 ml @ 2.43 mls/hr Q24H IV 11/25/24 14:00 UNV Enoxaparin Sodium 30 mg DAILY SC 12/01/24 10:00 12/10/24 10:18 30 MG Acetaminophen 650 mg Q6H PRN PO 12/02/24 12:15 12/04/24 20:44 650 MG Morphine Sulfate 1 mg Q4HP PRN IV 12/02/24 13:45 12/08/24 00:19 1 MG Bumetanide 1 mg DAILY IV 12/04/24 10:00 12/09/24 10:36 1 MG Haloperidol Lactate 2.5 mg Q8HP PRN IM 12/05/24 00:15 12/06/24 22:58 2.5 MG Lorazepam 1 mg ONCE PRN IV 12/05/24 08:45 Cancel Nifedipine 60 mg DAILY PO 12/07/24 10:00 12/09/24 10:38 60 MG Sodium Chloride 1,000 ml @ 75 mls/hr [id number] IV 12/06/24 12:15 12/11/24 02:30 75 MLS/HR Labetalol HCl 20 mg Q3HR PRN IV 12/07/24 12:00 12/08/24 15:34 20 MG Hydralazine HCl 10 mg Q6HP PRN IV 12/07/24 23:15 12/11/24 05:50 10 MG Linezolid 300 ml @ 150 mls/hr Q12HR IV 12/08/24 22:00 12/10/24 23:35 150 MLS/HR Amino Acids 0 ml @ 0 mls/hr PER PHARMACY IV 12/08/24 14:15 Diagnostic Test (Pha) 1 strip Q6HR 12/09/24 00:00 12/11/24 05:47 1 STRIP Insulin Human Regular FOLLOW SLIDING SCALE Q6HR SC 12/09/24 00:00 12/10/24 12:27 2 UNITS Dextrose 50 ml UD IV 12/09/24 00:00 Amino Acids/ Electrolytes/ Dextrose 1,000 ml @ 41 mls/hr DAILY@2200 IV 12/08/24 22:00 12/10/24 21:32 41 MLS/HR Piperacillin Sod/ Tazobactam Sod 100 ml @ 25 mls/hr Q12H IV 12/10/24 20:00 12/11/24 08:07 25 MLS/HR Laboratory Results Laboratory Tests 12/07/24 05:25 Chemistry Test 12/11/24 09:40 Albumin Pending Calcium Level Pending Magnesium Level Pending Phosphorus Level Pending Total Protein Pending LFT Test 12/11/24 09:40 Alanine Aminotransferase (ALT) Pending Alkaline Phosphatase Pending Aspartate Amino Transferase (AST) Pending Total Bilirubin Pending Urinalysis Test 11/25/24 00:00 Urine Color Light-yellow (Yellow) Urine Clarity Clear (Clear) Urine pH 6.0 (5.0-9.0) Urine Specific [place] 1.009 (1.001-1.035) Urine Protein Negative (Negative) Urine Ketones Negative (Negative) Urine Blood Negative /uL (Negative) Urine Nitrite Negative (Negative) Urine Bilirubin Negative (Negative) Urine Urobilinogen Normal mg/dL (Negative) Urine Leukocyte Esterase Negative /uL (Negative) Urine RBC <1 /hpf (0 - 4) Urine WBC 1 /hpf (0 - 5) Urine Squamous Epithelial Cells Few /hpf (<5) Urine Bacteria None seen /hpf (None Seen) Urine Glucose Normal mg/dL (Normal) Microbiology Microbiology Date/Time Source Procedure Growth Status 12/08/24 18:57 Urine - Li Port Urine Culture - Final Complete 12/08/24 14:55 Blood Blood Culture - Preliminary NO GROWTH AFTER 48 HOURS OF INCUBATION. Resulted 11/27/24 17:00 Nose MRSA Screen - Final Complete 11/25/24 09:07 Sputum Gram Stain - Final Complete 11/25/24 09:07 Sputum Respiratory Culture - Final Complete Labs and/or images reviewed: Labs reviewed by me Assessment/Plan Assessment/Plan -cardiopulmonary arrest -acute hypoxic respiratory failure -toxic metabolic encephalopathy secondary to polysubstance abuse -polysubstance abuse -probable aspiration pneumonia -sepsis with shock -primary hypertension -hypothyroidism -acute kidney injury, hemodynamically mediated questionable ATN -anoxic encephalopathy Plan: Continuing current management. The patient is still not follow command. We will CT head is unremarkable. With hypertensive medication Continuing with hydralazine IV p.r.n., labetalol IV p.r.n., and Catapres TTS patch Continuing with Clinimix With Zyvox and Zosyn Strict aspiration precautions Continuing with nebulizer Continuing IV fluid This medical document was created using an electronic medical record system with [employer] direct computerized dictation system. Although this document has been carefully reviewed, there may still be some phonetic and typographical errors. These areas are purely typographical due to imperfections of the software programs, and do not reflect any compromise in the patient's medical care. Plan discussed with: Other (RN) My Orders Orders - STELLA CARRILLO MD Procedure Category Date Status Time Piperacillin-Tazob PHA 12/10/24 In Process 3.375gm (Zosyn 3.375g 20:00 Date of Service: Dec 10, 2024 Billing Provider: STELLA CARRILLO MD Common Visit Codes: [id number] INP/OBS CARE(HIGH) STELLA CARRILLO MD Dec 11, 2024 10:12
[2024-12-11 10:36] LABS: Albumin 3.4 g/dL (3.2-4.8); Alkaline Phosphatase 50 U/L (46-116); Anion Gap 13 (5-15); Aspartate Aminotransferase 20 U/L (13-40); BUN/Creatinine Ratio 9.5 (10.0-20.0); Carbon Dioxide 20 mmol/L (20-31); Chloride 104 mmol/L (98-107); Magnesium 1.6 mg/dL (1.6-2.6); Potassium 3.9 mmol/L (3.5-5.1); Sodium 137 mmol/L (136-145)
[2024-12-11 10:37] LABS: Phosphorus 2.5 mg/dL (2.4-5.1)
[2024-12-11 10:47] LABS: Alanine Aminotransferase < 9 U/L (7-40); Bilirubin, Total 0.2 mg/dL (0.2-1.0); Blood Urea Nitrogen 28 mg/dL (9-23); Glucose 122 mg/dL (74-106)
--- NOTE | 2024-12-11 10:59 | DVHPN2 ---
Progress Note Date Seen: Dec 11, 2024 Medical Necessity Reason Pt with a Central, PICC or Fol: Yes The following are medically ne: Zhu Catheter Reason for zhu catheter: Strict I&O Subjective Review of Systems: HEENT:Normal Objective vital signs Vital Sign Date Time Temp Pulse Resp B/P (MAP) Pulse Ox O2 Delivery O2 Flow Rate FiO2 12/11/24 10:34 159/92 12/11/24 05:00 98.9 71 18 96 98.9 12/10/24 20:00 Room Air* 0 21 Total Intake and Output 12/10/24 12/10/24 12/11/24 15:00 23:00 07:00 Intake Total 612.5 ml 833 ml 400 ml Output Total 600 ml Balance 612.5 ml 233 ml 400 ml medications Current Medications Medications Dose Ordered Sig/Caterina Route Start Time Stop Time Status Last Admin Dose Admin Midazolam HCl 50 ml @ 1 mls/hr Q24H IV 11/25/24 10:15 UNV Fentanyl Citrate 250 ml @ 2.5 mls/hr Q24H IV 11/25/24 10:15 UNV Ondansetron HCl 4 mg Q4HP PRN IV 11/25/24 13:15 Nitroglycerin 0.4 mg Q5MINP PRN SL 11/25/24 13:15 Morphine Sulfate 2 mg Q30M PRN IV 11/25/24 13:15 Vancomycin HCl 0 ml @ 0 mls/hr UD IV 11/25/24 13:15 UNV Pantoprazole Sodium 40 mg DAILY IV 11/26/24 10:00 12/11/24 10:34 40 MG Propofol 100 ml @ 2.43 mls/hr Q24H IV 11/25/24 14:00 UNV Enoxaparin Sodium 30 mg DAILY SC 12/01/24 10:00 12/11/24 10:34 30 MG Acetaminophen 650 mg Q6H PRN PO 12/02/24 12:15 12/04/24 20:44 650 MG Morphine Sulfate 1 mg Q4HP PRN IV 12/02/24 13:45 12/08/24 00:19 1 MG Bumetanide 1 mg DAILY IV 12/04/24 10:00 12/11/24 10:34 1 MG Haloperidol Lactate 2.5 mg Q8HP PRN IM 12/05/24 00:15 12/06/24 22:58 2.5 MG Lorazepam 1 mg ONCE PRN IV 12/05/24 08:45 Cancel Nifedipine 60 mg DAILY PO 12/07/24 10:00 12/11/24 10:33 60 MG Sodium Chloride 1,000 ml @ 75 mls/hr [id number] IV 12/06/24 12:15 12/11/24 02:30 75 MLS/HR Labetalol HCl 20 mg Q3HR PRN IV 12/07/24 12:00 12/08/24 15:34 20 MG Hydralazine HCl 10 mg Q6HP PRN IV 12/07/24 23:15 12/11/24 05:50 10 MG Linezolid 300 ml @ 150 mls/hr Q12HR IV 12/08/24 22:00 12/11/24 10:34 150 MLS/HR Amino Acids 0 ml @ 0 mls/hr PER PHARMACY IV 12/08/24 14:15 Diagnostic Test (Pha) 1 strip Q6HR 12/09/24 00:00 12/11/24 05:47 1 STRIP Insulin Human Regular FOLLOW SLIDING SCALE Q6HR SC 12/09/24 00:00 12/10/24 12:27 2 UNITS Dextrose 50 ml UD IV 12/09/24 00:00 Amino Acids/ Electrolytes/ Dextrose 1,000 ml @ 41 mls/hr DAILY@2200 IV 12/08/24 22:00 12/10/24 21:32 41 MLS/HR Piperacillin Sod/ Tazobactam Sod 100 ml @ 25 mls/hr Q12H IV 12/10/24 20:00 12/11/24 08:07 25 MLS/HR Examination: GENERAL:Abnormal, CVS:Abnormal, SKIN:Normal laboratory and microbiology Laboratory Tests 12/11/24 09:40 12/07/24 05:25 Test 12/11/24 09:40 Range/Units Serum Glucose 122 H 74-106 mg/dL Microbiology Date/Time Source Procedure Growth Status 12/08/24 18:57 Urine - Zhu Port Urine Culture - Final Complete 12/08/24 14:55 Blood Blood Culture - Preliminary NO GROWTH AFTER 48 HOURS OF INCUBATION. Resulted 11/27/24 17:00 Nose MRSA Screen - Final Complete 11/25/24 09:07 Sputum Gram Stain - Final Complete 11/25/24 09:07 Sputum Respiratory Culture - Final Complete Problem List/Assessment/Plan Problem List/Assessment/Plan Acute kidney injury hemodynamically mediated in setting of cardiac arrest Acute respiratory failure Cardiac arrest Methamphetamine abuse Metabolic acidosis monitor uop and renal function downtrend continue daily loop diuretic to maintain UOP Monitor urinary output Avoid hypotension Plan discussed with: Patient Dietary Evaluation Review Comments: 1) If GI is accessible consider Jevity 1.2 @ 50 ml/hr x 24hr as tolerated (advance to 60ml/hr if GFR trends up to within normal range) 2) If pt remains NPO consider TPN to meet at least 75% of estimated needs 3) Advance pt diet when medically feasible to a 2gm Sodium diet modified per [employer] recommendations Expected Outcomes/Goals: 1) Pt to receive nutrition support within 7 days of NPO status 2) Pt diet to advance 3) F/U in 2-3 days MICHAEL GUAJARDO MD Dec 11, 2024 10:59
--- NOTE | 2024-12-11 16:14 | DVHPN2 ---
Subjective Patient not responding during my assessment. According to greta, patient is verbal when she chooses to be. Reviewed: Care Plan, H&P, Labs, Medications, Previous Orders, Radiology Changes from previous H/P or p: Changes General: Per HPI Objective Vitals Vital Signs Date Time Temp Pulse Resp B/P (MAP) Pulse Ox O2 Delivery O2 Flow Rate FiO2 12/11/24 12:30 98.2 87 18 119/74 (89) 96 98.2 12/11/24 10:00 Room Air* 0 21 Intake/Output Intake and Output 12/11/24 07:00 Intake Total 1845.5 ml Output Total 600 ml Balance 1245.5 ml Intake Oral 50 ml IV Total 1795.5 ml Output Urine Total 600 ml General Appearance: Alert, Other (Patient with altered mental status. Not following any commands.) HEENT: PERRLA Lungs: Clear to auscultation Cardiovascular: Normal S1, Normal S2, No murmurs, Other (ST) Abdomen: Normal bowel sounds, Soft, No tenderness Rectal: Deferred Extremities: No clubbing, No cyanosis, Normal pulses Neuro: Other (Eyes fluttering, no longer following commands or tracking to voice) Skin: Dry, Intact Psych/Mental Status: Other (Encephalopathic) Medications Current Medications Medications Dose Ordered Sig/Caterina Route Start Time Stop Time Status Last Admin Dose Admin Midazolam HCl 50 ml @ 1 mls/hr Q24H IV 11/25/24 10:15 UNV Fentanyl Citrate 250 ml @ 2.5 mls/hr Q24H IV 11/25/24 10:15 UNV Ondansetron HCl 4 mg Q4HP PRN IV 11/25/24 13:15 Nitroglycerin 0.4 mg Q5MINP PRN SL 11/25/24 13:15 Morphine Sulfate 2 mg Q30M PRN IV 11/25/24 13:15 Vancomycin HCl 0 ml @ 0 mls/hr UD IV 11/25/24 13:15 UNV Pantoprazole Sodium 40 mg DAILY IV 11/26/24 10:00 12/11/24 10:34 40 MG Propofol 100 ml @ 2.43 mls/hr Q24H IV 11/25/24 14:00 UNV Enoxaparin Sodium 30 mg DAILY SC 12/01/24 10:00 12/11/24 10:34 30 MG Acetaminophen 650 mg Q6H PRN PO 12/02/24 12:15 12/04/24 20:44 650 MG Morphine Sulfate 1 mg Q4HP PRN IV 12/02/24 13:45 12/08/24 00:19 1 MG Bumetanide 1 mg DAILY IV 12/04/24 10:00 12/11/24 10:34 1 MG Haloperidol Lactate 2.5 mg Q8HP PRN IM 12/05/24 00:15 12/06/24 22:58 2.5 MG Lorazepam 1 mg ONCE PRN IV 12/05/24 08:45 Cancel Nifedipine 60 mg DAILY PO 12/07/24 10:00 12/11/24 10:33 60 MG Sodium Chloride 1,000 ml @ 75 mls/hr [id number] IV 12/06/24 12:15 12/11/24 12:15 75 MLS/HR Labetalol HCl 20 mg Q3HR PRN IV 12/07/24 12:00 12/08/24 15:34 20 MG Hydralazine HCl 10 mg Q6HP PRN IV 12/07/24 23:15 12/11/24 05:50 10 MG Linezolid 300 ml @ 150 mls/hr Q12HR IV 12/08/24 22:00 12/11/24 10:34 150 MLS/HR Amino Acids 0 ml @ 0 mls/hr PER PHARMACY IV 12/08/24 14:15 Diagnostic Test (Pha) 1 strip Q6HR 12/09/24 00:00 12/11/24 12:00 1 STRIP Insulin Human Regular FOLLOW SLIDING SCALE Q6HR SC 12/09/24 00:00 12/10/24 12:27 2 UNITS Dextrose 50 ml UD IV 12/09/24 00:00 Amino Acids/ Electrolytes/ Dextrose 1,000 ml @ 41 mls/hr DAILY@2200 IV 12/08/24 22:00 12/10/24 21:32 41 MLS/HR Piperacillin Sod/ Tazobactam Sod 100 ml @ 25 mls/hr Q12H IV 12/10/24 20:00 12/11/24 08:07 25 MLS/HR Laboratory Results Laboratory Tests 12/07/24 05:25 12/11/24 09:40 Chemistry Test 12/11/24 09:40 Albumin 3.4 g/dL (3.2-4.8) Calcium Level 9.0 mg/dL (8.7-10.4) Magnesium Level 1.6 mg/dL (1.6-2.6) Phosphorus Level 2.5 mg/dL (2.4-5.1) Total Protein 6.0 g/dL (5.7-8.2) LFT Test 12/11/24 09:40 Alanine Aminotransferase (ALT) < 9 U/L (7-40) Alkaline Phosphatase 50 U/L (46-116) Aspartate Amino Transferase (AST) 20 U/L (13-40) Total Bilirubin 0.2 mg/dL (0.2-1.0) Urinalysis Test 11/25/24 00:00 Urine Color Light-yellow (Yellow) Urine Clarity Clear (Clear) Urine pH 6.0 (5.0-9.0) Urine Specific [place] 1.009 (1.001-1.035) Urine Protein Negative (Negative) Urine Ketones Negative (Negative) Urine Blood Negative /uL (Negative) Urine Nitrite Negative (Negative) Urine Bilirubin Negative (Negative) Urine Urobilinogen Normal mg/dL (Negative) Urine Leukocyte Esterase Negative /uL (Negative) Urine RBC <1 /hpf (0 - 4) Urine WBC 1 /hpf (0 - 5) Urine Squamous Epithelial Cells Few /hpf (<5) Urine Bacteria None seen /hpf (None Seen) Urine Glucose Normal mg/dL (Normal) Microbiology Microbiology Date/Time Source Procedure Growth Status 12/08/24 18:57 Urine - Li Port Urine Culture - Final Complete 12/08/24 14:55 Blood Blood Culture - Preliminary NO GROWTH AFTER 72 HOURS OF INCUBATION. Resulted 11/27/24 17:00 Nose MRSA Screen - Final Complete 11/25/24 09:07 Sputum Gram Stain - Final Complete 11/25/24 09:07 Sputum Respiratory Culture - Final Complete Labs and/or images reviewed: Labs reviewed by me, Image(s) reviewed by me Assessment/Plan Assessment/Plan Impression: -cardiopulmonary arrest -acute hypoxic respiratory failure -toxic metabolic encephalopathy secondary to polysubstance abuse -polysubstance abuse -probable aspiration pneumonia -sepsis with shock -primary hypertension -hypothyroidism -acute kidney injury, hemodynamically mediated questionable ATN -anoxic encephalopathy Plan: -events: Continues to present with anoxic injury. Blood pressure improved. Patient tolerating oral intake. -blood pressure control with IV hydralazine, labetalol, and Catapres TTS three patch -discontinue Clinimix -dexter cultures : Repeat cultures negative -change antibiotic therapy to Zyvox and Zosyn -strict aspiration precaution -Bronchodilators -recommend re-consultation with Neurology -repeat labs in a.m. Total time spent with patient discussing and formulating plan of care: 35 minutes. This medical document was created using an electronic medical record system with [employer] dictation system. Although this document has been carefully reviewed, there may still be some phonetic and typographical errors. These areas are purely typographical due to imperfections of the software programs, and do not reflect any compromise in the patient's medical care. Plan discussed with: Patient, Other (RN) My Orders Orders - LISA LARSON NP Procedure Category Date Status Time Comprehensive LAB 12/12/24 Verified Metabolic Panel 04:00 Magnesium LAB 12/12/24 Verified 04:00 Phosphorus LAB 12/12/24 Verified 04:00 Triglycerides LAB 12/12/24 Verified 04:00 Clinimix Per Pharmacy [facility] 12/11/24 In Process 22:00 Basic Metabolic Panel LAB 12/12/24 Verified 05:00 Basic Metabolic Panel LAB 12/13/24 Verified 05:00 Basic Metabolic Panel LAB 12/14/24 Verified 05:00 Complete Blood Count LAB 12/12/24 Verified 05:00 Complete Blood Count LAB 12/13/24 Verified 05:00 Complete Blood Count LAB 12/14/24 Verified 05:00 Date of Service: Dec 11, 2024 Billing Provider: LISA LARSON NP Common Visit Codes: [id number] INP/OBS CARE(HIGH) LISA LARSON NP Dec 11, 2024 16:14
--- NOTE | 2024-12-11 21:42 | DVHPN2 ---
Progress Note - Dictate Date Seen: Dec 11, 2024 Medical Necessity Reason Pt with a Central, PICC or Fol: Yes The following are medically ne: Zhu Catheter Reason for zhu catheter: Strict I&O Subjective Ms. Crystal is a 49 years old female with a history of hypertension, hypothyroidism, obesity, the patient was brought to the [facility] on 11/25/2024 with a chief complaint of altered mental status, shortness breath. I have seen examined the patient, discussed with nurse and sitter she is awake, she laughs herself but she does not talk or follow verbal commands, she does not not respond to verbal stimuli. She Moves the arms and legs UDS, 11/25/2024: Fentanyl, amphetamine, benzo, cocaine Urinalysis, 11/25/2024: Unremarkable WBC/HB/PLT/CV, 12/01/2024: 14.6/9.7/434/87.9 ABG, 11/28/24: Metabolic acidosis, 11/29/2024: Metabolic acidosis, BUN/CR, 11/25/2019 5:6/1.77, 11/27/24: 10/2.2, 11/30/24: 20/4.4 12/04/2024: 57/2.22 Liver function tests, 11/25/2024: Normal TSH, 11/26/2024: 0.61 FT4, 11/26/2024: 1.06 Chest x-ray, 11/25/2024: 1. ETT ends at the chuck. Recommend 2-3 cm retraction for optimal positioning. 2. No acute cardiopulmonary disease Chest x-ray 11/30/2024: 1. Stable position of the support lines and tubes. 2. Stable mild pulmonary congestion Chest x-ray,12/01/24: ET and NG tube removed. CT head, 11/25/2024: 1. No CT evidence of acute intracranial abnormality. 2. Nonacute findings as described above CT head, 12/07/2024: No acute intracranial process. MRI head, 12/05/2024: There is no acute intracranial process. vital signs Vital Sign Date Time Temp Pulse Resp B/P (MAP) Pulse Ox O2 Delivery O2 Flow Rate FiO2 12/11/24 16:31 98.7 85 18 118/69 (85) 95 98.7 12/11/24 10:00 Room Air* 0 21 Total Intake and Output 12/10/24 12/10/24 12/11/24 15:00 23:00 07:00 Intake Total 612.5 ml 833 ml 400 ml Output Total 600 ml Balance 612.5 ml 233 ml 400 ml medications Current Medications Medications Dose Ordered Sig/Caterina Route Start Time Stop Time Status Last Admin Dose Admin Midazolam HCl 50 ml @ 1 mls/hr Q24H IV 11/25/24 10:15 UNV Fentanyl Citrate 250 ml @ 2.5 mls/hr Q24H IV 11/25/24 10:15 UNV Ondansetron HCl 4 mg Q4HP PRN IV 11/25/24 13:15 Nitroglycerin 0.4 mg Q5MINP PRN SL 11/25/24 13:15 Morphine Sulfate 2 mg Q30M PRN IV 11/25/24 13:15 Vancomycin HCl 0 ml @ 0 mls/hr UD IV 11/25/24 13:15 UNV Pantoprazole Sodium 40 mg DAILY IV 11/26/24 10:00 12/11/24 10:34 40 MG Propofol 100 ml @ 2.43 mls/hr Q24H IV 11/25/24 14:00 UNV Enoxaparin Sodium 30 mg DAILY SC 12/01/24 10:00 12/11/24 10:34 30 MG Acetaminophen 650 mg Q6H PRN PO 12/02/24 12:15 12/04/24 20:44 650 MG Morphine Sulfate 1 mg Q4HP PRN IV 12/02/24 13:45 12/08/24 00:19 1 MG Bumetanide 1 mg DAILY IV 12/04/24 10:00 12/11/24 10:34 1 MG Haloperidol Lactate 2.5 mg Q8HP PRN IM 12/05/24 00:15 12/06/24 22:58 2.5 MG Lorazepam 1 mg ONCE PRN IV 12/05/24 08:45 Cancel Nifedipine 60 mg DAILY PO 12/07/24 10:00 12/11/24 10:33 60 MG Sodium Chloride 1,000 ml @ 75 mls/hr [id number] IV 12/06/24 12:15 12/11/24 12:15 75 MLS/HR Labetalol HCl 20 mg Q3HR PRN IV 12/07/24 12:00 12/08/24 15:34 20 MG Hydralazine HCl 10 mg Q6HP PRN IV 12/07/24 23:15 12/11/24 05:50 10 MG Linezolid 300 ml @ 150 mls/hr Q12HR IV 12/08/24 22:00 12/11/24 10:34 150 MLS/HR Amino Acids/ Electrolytes/ Dextrose 1,000 ml @ 41 mls/hr DAILY@2200 IV 12/08/24 22:00 12/11/24 21:59 12/10/24 21:32 41 MLS/HR Piperacillin Sod/ Tazobactam Sod 100 ml @ 25 mls/hr Q12H IV 12/10/24 20:00 12/11/24 21:15 25 MLS/HR objective General: the patient is well developed and nourished. No acute distress. NEUROLOGICAL: Subjective SPEECH, LANGUAGE, HIGHER CORTICAL FUNCTION: She does not notice vocalize. CRANIAL NERVES: Pupils are equal, round and reactive. EOMs full and conjugate. Facial sensation intact in all three divisions bilaterally. Mandibular strength ok Facial muscles symmetrical and strength intact. SENSATION: Sensation to touch and pinprick is okay MOTOR: Normal tone in the upper and lower extremity. Normal muscle bulk. No fasciculations. No abnormal movements or posturing. She moves the arms and legs REFLEXES: Deep tendon reflexes are symmetrical. No pathological reflexes. CEREBELLAR/COORDINATION: Deferred GAIT/STATION: deferred laboratory and microbiology Laboratory Tests 12/11/24 09:40 12/07/24 05:25 Test 12/11/24 09:40 Range/Units Serum Glucose 122 H 74-106 mg/dL Problem List Altered mental status Hypoxic encephalopathy Metabolic encephalopathy ? Chronic organic brain syndrome Acute respiratory failure Status post CPR Cardiopulmonary arrest Substance abuse Bilateral facial muscle twitching Left leg twitching Assessment/Plan Monitoring Supportive treatment Telemetry EEG Haldol 2.5 mg intramuscular Q 6 hours p.r.n. for agitation DVT prophylaxis/Lovenox GI prophylaxis/Protonix More recommendation per clinical course This medical document was created using an electronic medical record system with [employer] dictation system. Although this document has been carefully reviewed, there may still be some phonetic and typographical errors. These areas are purely typographical due to imperfections of the software programs, and do not reflect any compromise in the patient's medical care. Dietary Evaluation Review Comments: 1) If GI is accessible consider Jevity 1.2 @ 50 ml/hr x 24hr as tolerated (advance to 60ml/hr if GFR trends up to within normal range) 2) If pt remains NPO consider TPN to meet at least 75% of estimated needs 3) Advance pt diet when medically feasible to a 2gm Sodium diet modified per [employer] recommendations Expected Outcomes/Goals: 1) Pt to receive nutrition support within 7 days of NPO status 2) Pt diet to advance 3) F/U in 2-3 days Plan discussed with: Other JEFFREY ANDRADE MD Dec 11, 2024 21:42
--- NOTE | 2024-12-11 23:17 | DVHPN2 ---
Progress Note - Dictate Date Seen: Dec 11, 2024 Medical Necessity Reason Pt with a Central, PICC or Fol: Yes The following are medically ne: Zhu Catheter Reason for zhu catheter: Strict I&O Subjective Patient seen and examined at bedside. Breathing comfortably on room air. Overnight events reviewed. vital signs Vital Sign Date Time Temp Pulse Resp B/P (MAP) Pulse Ox O2 Delivery O2 Flow Rate FiO2 12/11/24 16:31 98.7 85 18 118/69 (85) 95 98.7 12/11/24 10:00 Room Air* 0 21 Total Intake and Output 12/10/24 12/10/24 12/11/24 15:00 23:00 07:00 Intake Total 612.5 ml 833 ml 400 ml Output Total 600 ml Balance 612.5 ml 233 ml 400 ml medications Current Medications Medications Dose Ordered Sig/Caterina Route Start Time Stop Time Status Last Admin Dose Admin Midazolam HCl 50 ml @ 1 mls/hr Q24H IV 11/25/24 10:15 UNV Fentanyl Citrate 250 ml @ 2.5 mls/hr Q24H IV 11/25/24 10:15 UNV Ondansetron HCl 4 mg Q4HP PRN IV 11/25/24 13:15 Nitroglycerin 0.4 mg Q5MINP PRN SL 11/25/24 13:15 Morphine Sulfate 2 mg Q30M PRN IV 11/25/24 13:15 Vancomycin HCl 0 ml @ 0 mls/hr UD IV 11/25/24 13:15 UNV Pantoprazole Sodium 40 mg DAILY IV 11/26/24 10:00 12/11/24 10:34 40 MG Propofol 100 ml @ 2.43 mls/hr Q24H IV 11/25/24 14:00 UNV Enoxaparin Sodium 30 mg DAILY SC 12/01/24 10:00 12/11/24 10:34 30 MG Acetaminophen 650 mg Q6H PRN PO 12/02/24 12:15 12/04/24 20:44 650 MG Morphine Sulfate 1 mg Q4HP PRN IV 12/02/24 13:45 12/08/24 00:19 1 MG Bumetanide 1 mg DAILY IV 12/04/24 10:00 12/11/24 10:34 1 MG Haloperidol Lactate 2.5 mg Q8HP PRN IM 12/05/24 00:15 12/06/24 22:58 2.5 MG Lorazepam 1 mg ONCE PRN IV 12/05/24 08:45 Cancel Nifedipine 60 mg DAILY PO 12/07/24 10:00 12/11/24 10:33 60 MG Sodium Chloride 1,000 ml @ 75 mls/hr [id number] IV 12/06/24 12:15 12/11/24 12:15 75 MLS/HR Labetalol HCl 20 mg Q3HR PRN IV 12/07/24 12:00 12/08/24 15:34 20 MG Hydralazine HCl 10 mg Q6HP PRN IV 12/07/24 23:15 12/11/24 05:50 10 MG Linezolid 300 ml @ 150 mls/hr Q12HR IV 12/08/24 22:00 12/11/24 10:34 150 MLS/HR Piperacillin Sod/ Tazobactam Sod 100 ml @ 25 mls/hr Q12H IV 12/10/24 20:00 12/11/24 21:15 25 MLS/HR objective Gen.: Patient lying in bed in no apparent distress. On room air. Head: Normocephalic, atraumatic. Eyes: EOMI/PERRLA. Ears: Normal hearing. Normal anatomy. Neck/trachea: Trachea midline, supple. Nose: Normal external anatomy. Mouth: Moist mucous membranes. Chest: Decreased air entry bilaterally. No wheezing or rhonchi. Cardiovascular: Positive S1, positive S2. Regular rate and rhythm. Abdomen: Positive bowel sounds in all 4 quadrants. Soft, non-tender, non- distended. : Deferred. Rectal: Deferred. Skin: Warm, dry. Intact. Extremities: 2+ radial pulses bilaterally. No lower extremity edema. Neuro: Patient is altered, awake, alert. laboratory and microbiology Laboratory Tests 12/11/24 09:40 12/07/24 05:25 Test 12/11/24 09:40 Range/Units Serum Glucose 122 H 74-106 mg/dL Assessment/Plan Impression: Acute hypoxic respiratory failure Methamphetamine use Hyponatremia Leukocytosis Metabolic acidosis Events: Remains on room air. Supplemental oxygen PRN Patient is altered. Head of bed elevation Aspiration precautions Continue bronchodilators PRN Continue antibiotics Incentive spirometry Clinimix for nutritional support Wound care Monitor renal function Nephrology recs appreciated Awaiting transfer due to insurance issues Labs and imaging reviewed. Rest of plan as noted below. Plan: s/p extubation on 11/30/24 Supplemental oxygen PRN Titrate to keep sats above 92% Off sedation Off pressors, hemodynamically stable Continue antibiotics. F/u cultures. Start pressors if necessary to maintain a mean arterial blood pressure greater than 65 mmHg. Monitor renal function Monitor electrolytes. Supplement as necessary. Monitor ins and outs. Monitor WBC. GI prophylaxis. DVT prophylaxis. Prognosis: Guarded given patient's multiple co-morbidities. Rest of plan per hospitalist and other consultants. Thank you, [employer] CL[employer] Blake, for allowing me to participate in this patient's care. Further recommendations will depend on the patient's clinical course. Please do not hesitate to contact me if you have any questions or concerns. This medical document was created using an electronic medical record system with [employer] dictation system. Although these documentations are being carefully reviewed, there may still be some phonetic and typographical changes. The errors are purely typographical, due to imperfection on the software program, and do not reflect any compromise in the patient's medical care. Dietary Evaluation Review Comments: 1) If GI is accessible consider Jevity 1.2 @ 50 ml/hr x 24hr as tolerated (advance to 60ml/hr if GFR trends up to within normal range) 2) If pt remains NPO consider TPN to meet at least 75% of estimated needs 3) Advance pt diet when medically feasible to a 2gm Sodium diet modified per [employer] recommendations Expected Outcomes/Goals: 1) Pt to receive nutrition support within 7 days of NPO status 2) Pt diet to advance 3) F/U in 2-3 days Plan discussed with: Patient, Other (CHRIS Arguelles) MARCIA BRIGGS MD Dec 11, 2024 23:17
[2024-12-12] VITALS (9 sets, daily range): BP systolic 114–179; BP diastolic 69–99; PULSE 66–105; RESP 18–22; TEMP 97.8–98.2; O2SAT 95–99
[2024-12-12 08:13] LABS: Basophils # (auto) 0.1 10 ^3/uL (0-0.2); Basophils % (auto) 1.2 % (0.0-2.0); Eosinophils # (auto) 0.5 10 ^3/uL (0-0.8); Eosinophils % (auto) 4.7 % (0.0-7.0); Hematocrit 33.3 % (36.0-46.0); Lymphocytes # (auto) 1.7 10 ^3/uL (0.4-5.4); Lymphocytes % (auto) 15.3 % (10.0-50.0); Mean Corpuscular Hemoglobin 29.4 pg (28.0-32.0); Mean Corpuscular Hgb Conc. 33.1 g/dL (32.0-36.0); Monocytes % (auto) 8.7 % (0.0-12.0); Neutrophils # (auto) 7.9 10 ^3/uL (1.6-8.6); Neutrophils % (auto) 70.1 % (37.0-80.0); Nucleated Red Blood Cells % 0.1 %; Platelet Count (auto) 426 10^3/uL (140-450); Red Blood Cells 3.74 10^6/uL (4.0-5.20); Red Cell Distribution Width 14.5 % (11.8-14.3); White Blood Cell 11.3 10^3/uL (4.4-10.8)
[2024-12-12 08:23] LABS: Calcium 9.7 mg/dL (8.7-10.4); Chloride 103 mmol/L (98-107); Potassium 3.8 mmol/L (3.5-5.1); Sodium 137 mmol/L (136-145)
[2024-12-12 08:24] LABS: Anion Gap 13 (5-15); Carbon Dioxide 21 mmol/L (20-31)
[2024-12-12 08:29] LABS: BUN/Creatinine Ratio 9.9 (10.0-20.0); Glucose 98 mg/dL (74-106)
[2024-12-12 08:30] LABS: Blood Urea Nitrogen 29 mg/dL (9-23)
--- NOTE | 2024-12-12 09:58 | DVHPN2 ---
Progress Note Date Seen: Dec 12, 2024 Medical Necessity Reason Pt with a Central, PICC or Fol: Yes The following are medically ne: Zhu Catheter Reason for zhu catheter: Strict I&O Subjective Patient reports: No new complaints Objective vital signs Vital Sign Date Time Temp Pulse Resp B/P (MAP) Pulse Ox O2 Delivery O2 Flow Rate FiO2 12/12/24 09:00 97.8 76 20 165/99 (121) 96 97.8 12/12/24 08:00 Room Air* 0 21 Total Intake and Output 12/11/24 12/11/24 12/12/24 15:00 23:00 07:00 Intake Total 400 ml 1199 ml 400 ml Output Total 1650 ml 1400 ml Balance 400 ml -451 ml -1000 ml medications Current Medications Medications Dose Ordered Sig/Caterina Route Start Time Stop Time Status Last Admin Dose Admin Midazolam HCl 50 ml @ 1 mls/hr Q24H IV 11/25/24 10:15 UNV Fentanyl Citrate 250 ml @ 2.5 mls/hr Q24H IV 11/25/24 10:15 UNV Ondansetron HCl 4 mg Q4HP PRN IV 11/25/24 13:15 Nitroglycerin 0.4 mg Q5MINP PRN SL 11/25/24 13:15 Morphine Sulfate 2 mg Q30M PRN IV 11/25/24 13:15 Vancomycin HCl 0 ml @ 0 mls/hr UD IV 11/25/24 13:15 UNV Pantoprazole Sodium 40 mg DAILY IV 11/26/24 10:00 12/11/24 10:34 40 MG Propofol 100 ml @ 2.43 mls/hr Q24H IV 11/25/24 14:00 UNV Enoxaparin Sodium 30 mg DAILY SC 12/01/24 10:00 12/11/24 10:34 30 MG Acetaminophen 650 mg Q6H PRN PO 12/02/24 12:15 12/04/24 20:44 650 MG Morphine Sulfate 1 mg Q4HP PRN IV 12/02/24 13:45 12/08/24 00:19 1 MG Bumetanide 1 mg DAILY IV 12/04/24 10:00 12/11/24 10:34 1 MG Haloperidol Lactate 2.5 mg Q8HP PRN IM 12/05/24 00:15 12/06/24 22:58 2.5 MG Lorazepam 1 mg ONCE PRN IV 12/05/24 08:45 Cancel Nifedipine 60 mg DAILY PO 12/07/24 10:00 12/11/24 10:33 60 MG Sodium Chloride 1,000 ml @ 75 mls/hr [id number] IV 12/06/24 12:15 12/12/24 02:05 75 MLS/HR Labetalol HCl 20 mg Q3HR PRN IV 12/07/24 12:00 12/08/24 15:34 20 MG Hydralazine HCl 10 mg Q6HP PRN IV 12/07/24 23:15 12/11/24 05:50 10 MG Linezolid 300 ml @ 150 mls/hr Q12HR IV 12/08/24 22:00 12/11/24 23:45 150 MLS/HR Piperacillin Sod/ Tazobactam Sod 100 ml @ 25 mls/hr Q12H IV 12/10/24 20:00 12/12/24 08:03 25 MLS/HR Examination: GENERAL:Normal, CVS:Normal laboratory and microbiology Laboratory Tests 12/12/24 07:26 Test 12/12/24 07:26 Range/Units Serum Glucose 98 74-106 mg/dL Microbiology Date/Time Source Procedure Growth Status 12/08/24 18:57 Urine - Zhu Port Urine Culture - Final Complete 12/08/24 14:55 Blood Blood Culture - Preliminary NO GROWTH AFTER 72 HOURS OF INCUBATION. Resulted 11/27/24 17:00 Nose MRSA Screen - Final Complete 11/25/24 09:07 Sputum Gram Stain - Final Complete 11/25/24 09:07 Sputum Respiratory Culture - Final Complete Problem List/Assessment/Plan Problem List/Assessment/Plan Acute kidney injury hemodynamically mediated in setting of cardiac arrest / ATN Acute respiratory failure resolved Cardiac arrest Methamphetamine abuse Metabolic acidosis resolved stable cr has not normalized but has remained same last several days monitor uop and renal function downtrend continue daily loop diuretic to maintain UOP Monitor urinary output Avoid hypotension Plan discussed with: Patient Dietary Evaluation Review Comments: 1) If GI is accessible consider Jevity 1.2 @ 50 ml/hr x 24hr as tolerated (advance to 60ml/hr if GFR trends up to within normal range) 2) If pt remains NPO consider TPN to meet at least 75% of estimated needs 3) Advance pt diet when medically feasible to a 2gm Sodium diet modified per [employer] recommendations Expected Outcomes/Goals: 1) Pt to receive nutrition support within 7 days of NPO status 2) Pt diet to advance 3) F/U in 2-3 days MCIHAEL GUAJARDO MD Dec 12, 2024 09:58
--- NOTE | 2024-12-12 11:01 | DVHPN2 ---
Subjective Patient not responding during my assessment. According to greta, patient is verbal when she chooses to be. Reviewed: Care Plan, H&P, Labs, Medications, Previous Orders, Radiology Changes from previous H/P or p: No Changes General: Per HPI Objective Vitals Vital Signs Date Time Temp Pulse Resp B/P (MAP) Pulse Ox O2 Delivery O2 Flow Rate FiO2 12/12/24 10:40 165/99 12/12/24 09:00 97.8 76 20 96 97.8 12/12/24 08:00 Room Air* 0 21 Intake/Output Intake and Output 12/12/24 07:00 Intake Total 1999 ml Output Total 3050 ml Balance -1051 ml Intake Oral 380 ml IV Total 1619 ml Output Urine Total 3050 ml # Bowel Movements 1 General Appearance: Alert, Other (Patient with altered mental status. Not following any commands.) HEENT: PERRLA Lungs: Clear to auscultation Cardiovascular: Normal S1, Normal S2, No murmurs, Other (ST) Abdomen: Normal bowel sounds, Soft, No tenderness Rectal: Deferred Extremities: No clubbing, No cyanosis, Normal pulses Neuro: Other (Patient not following commands.) Skin: Dry, Intact Psych/Mental Status: Other (Encephalopathic) Medications Current Medications Medications Dose Ordered Sig/Caterina Route Start Time Stop Time Status Last Admin Dose Admin Midazolam HCl 50 ml @ 1 mls/hr Q24H IV 11/25/24 10:15 UNV Fentanyl Citrate 250 ml @ 2.5 mls/hr Q24H IV 11/25/24 10:15 UNV Ondansetron HCl 4 mg Q4HP PRN IV 11/25/24 13:15 Nitroglycerin 0.4 mg Q5MINP PRN SL 11/25/24 13:15 Morphine Sulfate 2 mg Q30M PRN IV 11/25/24 13:15 Vancomycin HCl 0 ml @ 0 mls/hr UD IV 11/25/24 13:15 UNV Pantoprazole Sodium 40 mg DAILY IV 11/26/24 10:00 12/12/24 10:38 40 MG Propofol 100 ml @ 2.43 mls/hr Q24H IV 11/25/24 14:00 UNV Enoxaparin Sodium 30 mg DAILY SC 12/01/24 10:00 12/12/24 10:37 30 MG Acetaminophen 650 mg Q6H PRN PO 12/02/24 12:15 12/04/24 20:44 650 MG Morphine Sulfate 1 mg Q4HP PRN IV 12/02/24 13:45 12/08/24 00:19 1 MG Bumetanide 1 mg DAILY IV 12/04/24 10:00 12/12/24 10:38 1 MG Haloperidol Lactate 2.5 mg Q8HP PRN IM 12/05/24 00:15 12/12/24 10:53 2.5 MG Lorazepam 1 mg ONCE PRN IV 12/05/24 08:45 Cancel Nifedipine 60 mg DAILY PO 12/07/24 10:00 12/12/24 10:40 60 MG Sodium Chloride 1,000 ml @ 75 mls/hr [id number] IV 12/06/24 12:15 12/12/24 02:05 75 MLS/HR Labetalol HCl 20 mg Q3HR PRN IV 12/07/24 12:00 12/08/24 15:34 20 MG Hydralazine HCl 10 mg Q6HP PRN IV 12/07/24 23:15 12/11/24 05:50 10 MG Laboratory Results Laboratory Tests 12/12/24 07:26 Chemistry Test 12/12/24 07:26 Calcium Level 9.7 mg/dL (8.7-10.4) Urinalysis Test 11/25/24 00:00 Urine Color Light-yellow (Yellow) Urine Clarity Clear (Clear) Urine pH 6.0 (5.0-9.0) Urine Specific [place] 1.009 (1.001-1.035) Urine Protein Negative (Negative) Urine Ketones Negative (Negative) Urine Blood Negative /uL (Negative) Urine Nitrite Negative (Negative) Urine Bilirubin Negative (Negative) Urine Urobilinogen Normal mg/dL (Negative) Urine Leukocyte Esterase Negative /uL (Negative) Urine RBC <1 /hpf (0 - 4) Urine WBC 1 /hpf (0 - 5) Urine Squamous Epithelial Cells Few /hpf (<5) Urine Bacteria None seen /hpf (None Seen) Urine Glucose Normal mg/dL (Normal) Microbiology Microbiology Date/Time Source Procedure Growth Status 12/08/24 18:57 Urine - Li Port Urine Culture - Final Complete 12/08/24 14:55 Blood Blood Culture - Preliminary NO GROWTH AFTER 72 HOURS OF INCUBATION. Resulted 11/27/24 17:00 Nose MRSA Screen - Final Complete 11/25/24 09:07 Sputum Gram Stain - Final Complete 11/25/24 09:07 Sputum Respiratory Culture - Final Complete Labs and/or images reviewed: Labs reviewed by me, Image(s) reviewed by me Assessment/Plan Assessment/Plan Impression: -cardiopulmonary arrest -acute hypoxic respiratory failure -toxic metabolic encephalopathy secondary to polysubstance abuse -polysubstance abuse -probable aspiration pneumonia -sepsis with shock -primary hypertension -hypothyroidism -acute kidney injury, hemodynamically mediated questionable ATN -anoxic encephalopathy Plan: -events: Continues to present with anoxic injury. Blood pressure improved. Patient tolerating oral intake. -blood pressure control with IV hydralazine, labetalol, and Catapres TTS three patch -repeat cultures negative. Stop antibiotic therapy. -strict aspiration precaution -Bronchodilators -recommend re-consultation with Neurology -discussed case with skilled nursing case manager. Given patient's neurological deficits, recommend placement in a facility. Total time spent with patient discussing and formulating plan of care: 35 minutes. This medical document was created using an electronic medical record system with [employer] dictation system. Although this document has been carefully reviewed, there may still be some phonetic and typographical errors. These areas are purely typographical due to imperfections of the software programs, and do not reflect any compromise in the patient's medical care. Plan discussed with: Patient, Other (RN) My Orders Orders - LISA LARSON NP Procedure Category Date Status Time Basic Metabolic Panel LAB 12/13/24 Verified 05:00 Basic Metabolic Panel LAB 12/14/24 Verified 05:00 Complete Blood Count LAB 12/13/24 Verified 05:00 Complete Blood Count LAB 12/14/24 Verified 05:00 Date of Service: Dec 12, 2024 Billing Provider: LISA LARSON NP Common Visit Codes: [id number] INP/OBS CARE(HIGH) LISA LARSON NP Dec 12, 2024 11:01
--- NOTE | 2024-12-12 23:09 | DVHPN2 ---
Progress Note - Dictate Date Seen: Dec 12, 2024 Medical Necessity Reason Pt with a Central, PICC or Fol: Yes The following are medically ne: Zhu Catheter Reason for zhu catheter: Strict I&O Subjective Patient seen and examined at bedside. Breathing comfortably on room air. Overnight events reviewed. vital signs Vital Sign Date Time Temp Pulse Resp B/P (MAP) Pulse Ox O2 Delivery O2 Flow Rate FiO2 12/12/24 22:00 169/69 12/12/24 21:00 98.2 66 18 99 98.2 12/12/24 10:00 Room Air 0.0 12/12/24 10:00 21 Total Intake and Output 12/11/24 12/11/24 12/12/24 15:00 23:00 07:00 Intake Total 400 ml 1199 ml 400 ml Output Total 1650 ml 1400 ml Balance 400 ml -451 ml -1000 ml medications Current Medications Medications Dose Ordered Sig/Caterina Route Start Time Stop Time Status Last Admin Dose Admin Midazolam HCl 50 ml @ 1 mls/hr Q24H IV 11/25/24 10:15 UNV Fentanyl Citrate 250 ml @ 2.5 mls/hr Q24H IV 11/25/24 10:15 UNV Ondansetron HCl 4 mg Q4HP PRN IV 11/25/24 13:15 Nitroglycerin 0.4 mg Q5MINP PRN SL 11/25/24 13:15 Morphine Sulfate 2 mg Q30M PRN IV 11/25/24 13:15 Vancomycin HCl 0 ml @ 0 mls/hr UD IV 11/25/24 13:15 UNV Pantoprazole Sodium 40 mg DAILY IV 11/26/24 10:00 12/12/24 10:38 40 MG Propofol 100 ml @ 2.43 mls/hr Q24H IV 11/25/24 14:00 UNV Enoxaparin Sodium 30 mg DAILY SC 12/01/24 10:00 12/12/24 10:37 30 MG Acetaminophen 650 mg Q6H PRN PO 12/02/24 12:15 12/04/24 20:44 650 MG Morphine Sulfate 1 mg Q4HP PRN IV 12/02/24 13:45 12/08/24 00:19 1 MG Bumetanide 1 mg DAILY IV 12/04/24 10:00 12/12/24 10:38 1 MG Haloperidol Lactate 2.5 mg Q8HP PRN IM 12/05/24 00:15 12/12/24 10:53 2.5 MG Lorazepam 1 mg ONCE PRN IV 12/05/24 08:45 Cancel Nifedipine 60 mg DAILY PO 12/07/24 10:00 12/12/24 10:40 60 MG Sodium Chloride 1,000 ml @ 75 mls/hr [id number] IV 12/06/24 12:15 12/12/24 14:40 75 MLS/HR Labetalol HCl 20 mg Q3HR PRN IV 12/07/24 12:00 12/08/24 15:34 20 MG Hydralazine HCl 10 mg Q6HP PRN IV 12/07/24 23:15 12/12/24 22:00 10 MG objective Gen.: Patient lying in bed in no apparent distress. On room air. Head: Normocephalic, atraumatic. Eyes: EOMI/PERRLA. Ears: Normal hearing. Normal anatomy. Neck/trachea: Trachea midline, supple. Nose: Normal external anatomy. Mouth: Moist mucous membranes. Chest: Decreased air entry bilaterally. No wheezing or rhonchi. Cardiovascular: Positive S1, positive S2. Regular rate and rhythm. Abdomen: Positive bowel sounds in all 4 quadrants. Soft, non-tender, non- distended. : Deferred. Rectal: Deferred. Skin: Warm, dry. Intact. Extremities: 2+ radial pulses bilaterally. No lower extremity edema. Neuro: Patient is altered, awake, alert. laboratory and microbiology Laboratory Tests 12/12/24 07:26 Test 12/12/24 07:26 Range/Units Serum Glucose 98 74-106 mg/dL Assessment/Plan Impression: Acute hypoxic respiratory failure Methamphetamine use Hyponatremia Leukocytosis Metabolic acidosis Events: Remains on room air. Supplemental oxygen PRN 1:1 monitoring for safety Patient is altered. Head of bed elevation Aspiration precautions Continue bronchodilators PRN Continue antibiotics Incentive spirometry Clinimix for nutritional support Wound care Monitor renal function Nephrology recs appreciated Awaiting transfer due to insurance issues Labs and imaging reviewed. Rest of plan as noted below. Plan: s/p extubation on 11/30/24 Supplemental oxygen PRN Titrate to keep sats above 92% Off sedation Off pressors, hemodynamically stable Continue antibiotics. F/u cultures. Start pressors if necessary to maintain a mean arterial blood pressure greater than 65 mmHg. Monitor renal function Monitor electrolytes. Supplement as necessary. Monitor ins and outs. Monitor WBC. GI prophylaxis. DVT prophylaxis. Prognosis: Guarded given patient's multiple co-morbidities. Rest of plan per hospitalist and other consultants. Thank you, CONTROL SYSTEMS ENGINEER Blake, for allowing me to participate in this patient's care. Further recommendations will depend on the patient's clinical course. Please do not hesitate to contact me if you have any questions or concerns. This medical document was created using an electronic medical record system with [employer] dictation system. Although these documentations are being carefully reviewed, there may still be some phonetic and typographical changes. The errors are purely typographical, due to imperfection on the software program, and do not reflect any compromise in the patient's medical care. Dietary Evaluation Review Comments: 1) If GI is accessible consider Jevity 1.2 @ 50 ml/hr x 24hr as tolerated (advance to 60ml/hr if GFR trends up to within normal range) 2) If pt remains NPO consider TPN to meet at least 75% of estimated needs 3) Advance pt diet when medically feasible to a 2gm Sodium diet modified per EMBEDDER recommendations Expected Outcomes/Goals: 1) Pt to receive nutrition support within 7 days of NPO status 2) Pt diet to advance 3) F/U in 2-3 days Plan discussed with: Patient, Other (CHRIS Vazquez) MARCIA BRIGGS MD Dec 12, 2024 23:09
[2024-12-13] VITALS (9 sets, daily range): BP systolic 132–191; BP diastolic 69–92; PULSE 66–90; RESP 16–20; TEMP 97.9–98.9; O2SAT 95–99
[2024-12-13 06:33] LABS: Basophils # (auto) 0.2 10 ^3/uL (0-0.2); Basophils % (auto) 1.3 % (0.0-2.0); Eosinophils # (auto) 0.6 10 ^3/uL (0-0.8); Eosinophils % (auto) 4.7 % (0.0-7.0); Hematocrit 29.4 % (36.0-46.0); Hemoglobin 9.6 g/dL (12.2-16.2); Lymphocytes # (auto) 1.7 10 ^3/uL (0.4-5.4); Lymphocytes % (auto) 14.1 % (10.0-50.0); Mean Corpuscular Hemoglobin 29.2 pg (28.0-32.0); Mean Corpuscular Hgb Conc. 32.8 g/dL (32.0-36.0); Monocytes # (auto) 1.1 10 ^3/uL (0-1.3); Monocytes % (auto) 9.1 % (0.0-12.0); Neutrophils # (auto) 8.8 10 ^3/uL (1.6-8.6); Neutrophils % (auto) 70.8 % (37.0-80.0); Nucleated Red Blood Cells % 0.1 %; Platelet Count (auto) 393 10^3/uL (140-450); Red Blood Cells 3.31 10^6/uL (4.0-5.20); Red Cell Distribution Width 14.3 % (11.8-14.3); White Blood Cell 12.4 10^3/uL (4.4-10.8)
[2024-12-13 06:45] LABS: Chloride 104 mmol/L (98-107); Sodium 140 mmol/L (136-145)
[2024-12-13 06:46] LABS: Anion Gap 14 (5-15); Calcium 9.6 mg/dL (8.7-10.4); Carbon Dioxide 22 mmol/L (20-31)
[2024-12-13 06:51] LABS: BUN/Creatinine Ratio 9.4 (10.0-20.0); Blood Urea Nitrogen 25 mg/dL (9-23); Glucose 84 mg/dL (74-106); Potassium 3.5 mmol/L (3.5-5.1)
--- NOTE | 2024-12-13 13:00 | DVHPN2 ---
Progress Note Date Seen: Dec 13, 2024 Medical Necessity Reason Pt with a Central, PICC or Fol: Yes The following are medically ne: Zhu Catheter Reason for zhu catheter: Strict I&O Subjective Patient reports: Feels better Objective vital signs Vital Sign Date Time Temp Pulse Resp B/P (MAP) Pulse Ox O2 Delivery O2 Flow Rate FiO2 12/13/24 12:01 173/92 12/13/24 09:00 98.2 90 16 99 98.2 12/12/24 20:00 Room Air* 0 21 Total Intake and Output 12/12/24 12/12/24 12/13/24 15:00 23:00 07:00 Intake Total 75 ml 550 ml 240 ml Output Total 1425 ml 1900 ml Balance 75 ml -875 ml -1660 ml medications Current Medications Medications Dose Ordered Sig/Caterina Route Start Time Stop Time Status Last Admin Dose Admin Midazolam HCl 50 ml @ 1 mls/hr Q24H IV 11/25/24 10:15 UNV Fentanyl Citrate 250 ml @ 2.5 mls/hr Q24H IV 11/25/24 10:15 UNV Ondansetron HCl 4 mg Q4HP PRN IV 11/25/24 13:15 Nitroglycerin 0.4 mg Q5MINP PRN SL 11/25/24 13:15 Morphine Sulfate 2 mg Q30M PRN IV 11/25/24 13:15 Vancomycin HCl 0 ml @ 0 mls/hr UD IV 11/25/24 13:15 UNV Pantoprazole Sodium 40 mg DAILY IV 11/26/24 10:00 12/13/24 12:00 40 MG Propofol 100 ml @ 2.43 mls/hr Q24H IV 11/25/24 14:00 UNV Enoxaparin Sodium 30 mg DAILY SC 12/01/24 10:00 12/13/24 12:02 30 MG Acetaminophen 650 mg Q6H PRN PO 12/02/24 12:15 12/04/24 20:44 650 MG Morphine Sulfate 1 mg Q4HP PRN IV 12/02/24 13:45 12/08/24 00:19 1 MG Bumetanide 1 mg DAILY IV 12/04/24 10:00 12/13/24 10:00 1 MG Haloperidol Lactate 2.5 mg Q8HP PRN IM 12/05/24 00:15 12/12/24 10:53 2.5 MG Lorazepam 1 mg ONCE PRN IV 12/05/24 08:45 Cancel Nifedipine 60 mg DAILY PO 12/07/24 10:00 12/13/24 12:01 60 MG Sodium Chloride 1,000 ml @ 75 mls/hr [id number] IV 12/06/24 12:15 12/13/24 04:15 75 MLS/HR Labetalol HCl 20 mg Q3HR PRN IV 12/07/24 12:00 12/08/24 15:34 20 MG Hydralazine HCl 10 mg Q6HP PRN IV 12/07/24 23:15 12/12/24 22:00 10 MG Examination: GENERAL:Normal laboratory and microbiology Laboratory Tests 12/13/24 05:01 Test 12/13/24 05:01 Range/Units Serum Glucose 84 74-106 mg/dL Microbiology Date/Time Source Procedure Growth Status 12/08/24 18:57 Urine - Zhu Port Urine Culture - Final Complete 12/08/24 14:55 Blood Blood Culture - Preliminary NO GROWTH AFTER 72 HOURS OF INCUBATION. Resulted 11/27/24 17:00 Nose MRSA Screen - Final Complete 11/25/24 09:07 Sputum Gram Stain - Final Complete 11/25/24 09:07 Sputum Respiratory Culture - Final Complete Problem List/Assessment/Plan Problem List/Assessment/Plan Acute kidney injury hemodynamically mediated in setting of cardiac arrest / ATN Acute respiratory failure resolved Cardiac arrest Methamphetamine abuse Metabolic acidosis resolved stable cr has not normalized but has remained same last several days monitor uop and renal function downtrend stop IVF increase BP meds continue daily loop diuretic to maintain UOP Monitor urinary output Avoid hypotension no new recs at this time Plan discussed with: Patient Dietary Evaluation Review Comments: 1) If GI is accessible consider Jevity 1.2 @ 50 ml/hr x 24hr as tolerated (advance to 60ml/hr if GFR trends up to within normal range) 2) If pt remains NPO consider TPN to meet at least 75% of estimated needs 3) Advance pt diet when medically feasible to a 2gm Sodium diet modified per ELEVATOR CONSTRUCTOR SUPERVISOR recommendations Expected Outcomes/Goals: 1) Pt to receive nutrition support within 7 days of NPO status 2) Pt diet to advance 3) F/U in 2-3 days MICHAEL GUAJARDO MD Dec 13, 2024 13:00
[2024-12-13] MEDS ORDERED: LABE200T10 PO (15:12)
[2024-12-13] MEDS ORDERED: NIFE1TAB31 PO (15:12)
[2024-12-13] MEDS ORDERED: FURO1TAB33 PO (15:12)
--- NOTE | 2024-12-13 15:20 | DVHDS2 ---
Discharge Summary Date of Admission Nov 25, 2024 at 13:14 Date of Discharge: Dec 13, 2024 Admitting Diagnosis Cardiopulmonary arrest Labs/Diagnostic Data: Laboratory Results Test 12/13/24 05:01 12/12/24 17:26 12/11/24 09:40 12/02/24 08:38 White Blood Count 12.4 10^3/uL (4.4-10.8) Red Blood Count 3.31 10^6/uL (4.0-5.20) Hemoglobin 9.6 g/dL (12.2-16.2) Hematocrit 29.4 % (36.0-46.0) Mean Corpuscular Volume 89.0 fL (80.0-100.0) Mean Corpuscular Hemoglobin 29.2 pg (28.0-32.0) Mean Corpuscular Hemoglobin Concent 32.8 g/dL (32.0-36.0) Red Cell Distribution Width 14.3 % (11.8-14.3) Platelet Count 393 10^3/uL (140-450) Mean Platelet Volume 9.5 fL (6.9-10.8) Neutrophils (%) (Auto) 70.8 % (37.0-80.0) Lymphocytes (%) (Auto) 14.1 % (10.0-50.0) Monocytes (%) (Auto) 9.1 % (0.0-12.0) Eosinophils (%) (Auto) 4.7 % (0.0-7.0) Basophils (%) (Auto) 1.3 % (0.0-2.0) Neutrophils # (Auto) 8.8 10 ^3/uL (1.6-8.6) Lymphocytes # (Auto) 1.7 10 ^3/uL (0.4-5.4) Monocytes # (Auto) 1.1 10 ^3/uL (0-1.3) Eosinophils # (Auto) 0.6 10 ^3/uL (0-0.8) Basophils # (Auto) 0.2 10 ^3/uL (0-0.2) Nucleated Red Blood Cells 0.1 % Sodium Level 140 mmol/L (136-145) Potassium Level 3.5 mmol/L (3.5-5.1) Chloride Level 104 mmol/L (98-107) Carbon Dioxide Level 22 mmol/L (20-31) Anion Gap 14 (5-15) Blood Urea Nitrogen 25 mg/dL (9-23) Creatinine 2.67 mg/dL (0.550-1.02) Glomerular Filtration Rate Calc 21 mL/min (>90) BUN/Creatinine Ratio 9.4 (10.0-20.0) Serum Glucose 84 mg/dL (74-106) Calcium Level 9.6 mg/dL (8.7-10.4) POC Glucose 98 mg/dl (70-106) Phosphorus Level 2.5 mg/dL (2.4-5.1) Magnesium Level 1.6 mg/dL (1.6-2.6) Total Bilirubin 0.2 mg/dL (0.2-1.0) Aspartate Amino Transferase (AST) 20 U/L (13-40) Alanine Aminotransferase (ALT) < 9 U/L (7-40) Alkaline Phosphatase 50 U/L (46-116) Total Protein 6.0 g/dL (5.7-8.2) Albumin 3.4 g/dL (3.2-4.8) Creatine Kinase 43 U/L (34-145) Test 11/30/24 10:18 11/30/24 07:59 11/29/24 16:15 11/29/24 14:35 Blood Gas Specimen Type Arterial Blood Gas Sample Site Right radial Blood Gas Patient Temperature 37.0 Arterial Blood Date Drawn [id number] Arterial Blood pH 7.438 (7.350-7.450) Arterial Blood Partial Pressure CO2 39.6 mmHg (32.0-45.0) Arterial Blood Partial Pressure O2 81.3 mmHg (83.0-108.0) Arterial Blood HCO3 26.2 mmol/L (21.0-28.0) Arterial Blood Oxygen Saturation 95.6 % (94.0-98.0) Arterial Blood Base Excess 1.9 mmol/L (-2.0-3.0) Arterial Blood Oxyhemoglobin 95.0 % (94.0-98.0) Arterial Blood Carboxyhemoglobin 0.3 % (0.5-1.5) Arterial Blood Methemoglobin 0.3 % (0.0-1.5) Jose Test Modified Blood Gas Total Hemoglobin 11.40 g/dL (12.0-16.0) Blood Gas Modality Vent - cpap FiO2 % 30.0 Blood Gas Pressure Support 8 Blood Gas PEEP or CPAP 5.0 Blood Gas Set Respiration Rate 16.0 Blood Gas Tidal Volume 500.0 Lactic Acid Level 0.4 mmol/L (0.4-2.0) Blood Gas Critical Value Read Back Yes Blood Gas Notified Whom Dr. zamzam larson Blood Gas Notified Time [id number] Blood Gas Notified By Test 11/27/24 03:15 11/26/24 13:00 11/25/24 19:00 11/25/24 14:44 Vancomycin Level Trough 45.6 ug/mL (5-10) Thyroid Stimulating Hormone (TSH) 0.61 uIU/mL (0.55-4.78) Free Thyroxine (T4) Calculated 1.06 ng/dL (0.89-1.76) Free Thyroxine Index 2.5 (1.2-4.9) Thyroxine (T4) 9.6 ug/dL (4.5-12.0) Free Triiodothyronine (T3) pg/mL 1.96 pg/mL (2.3-4.2) Triiodothyronine (T3) Uptake 26 % (24-39) Influenza Type A Antigen Negative (Negative) Influenza Type B Antigen Negative (Negative) SARS-CoV-2 Antigen (Rapid) Negative (NEGATIVE) Erythrocyte Sedimentation Rate 43 mm/hr (0-20) Levetiracetam Level <2.0 ug/mL (10.0-40.0) Test 11/25/24 13:15 11/25/24 10:47 11/25/24 08:52 11/25/24 00:00 Troponin I High Sensitivity 25 ng/L (</=34) C-Reactive Protein High Sensitivity 7.48 mg/dL (<1.0) Plasma/Serum Blood Alcohol < 3.0 mg/dL (<10) Urine Opiates Screen Neg (NEGATIVE) Urine Fentanyl Screen Pos (NEGATIVE) Urine Barbiturates Screen Neg (NEGATIVE) Urine Phencyclidine Screen Neg (NEGATIVE) Urine Amphetamines Screen Pos (NEGATIVE) Urine Benzodiazepines Screen Pos (NEGATIVE) Urine Cocaine Screen Pos (NEGATIVE) Urine Cannabinoids Screen Neg (NEGATIVE) Urine Color Light-yellow (Yellow) Urine Clarity Clear (Clear) Urine pH 6.0 (5.0-9.0) Urine Specific Adams 1.009 (1.001-1.035) Urine Protein Negative (Negative) Urine Ketones Negative (Negative) Urine Blood Negative /uL (Negative) Urine Nitrite Negative (Negative) Urine Bilirubin Negative (Negative) Urine Urobilinogen Normal mg/dL (Negative) Urine Leukocyte Esterase Negative /uL (Negative) Urine RBC <1 /hpf (0 - 4) Urine WBC 1 /hpf (0 - 5) Urine Squamous Epithelial Cells Few /hpf (<5) Urine Bacteria None seen /hpf (None Seen) Urine Glucose Normal mg/dL (Normal) Other Laboratory Tests 12/13/24 05:01 Brief Hx & Hospital Course: History of Present Illness Kristina Crystal is a 49-year-old female with past medical history of hypertension and hypothyroidism who presents to the ED status post cardiac arrest on the field. Patient currently intubated and on the vent. Per James he states that they were at home and she was in the living room putting something is a way became diaphoretic then passed out, she did not strike her head on the floor as had caught it before her falling down to the ground. He reports that he called EMS and started chest compressions immediately. Patient's reports that she was recently sick with a sore throat and cough had called telemedicine for some steroids. 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 Patient's also denies any recent sick contacts or recent travels. Course of hospitalization: Patient had successful weaning from mechanical ventilation. Patient has been weaned off vasopressors. Postoperatively, the patient was noted to be in acute kidney injury which did resolve with the patient having improved BUN and creatinine as well as urinary output. Patient did present with questionable anoxic injury, being aphasic, with intermittent periods of being nonverbal then able to speak appropriately. Currently she was alert and oriented x2. Neurology consultation has been obtained with recommendations reviewed. Discussion was made with case management regarding discharge planning. Patient would benefit from going to a long term facility or other facility for the brain injury for continued speech therapy as well as physical therapy. Patient has ambulated greater than 40 ft while in the hospital. Patient was tolerating oral intake. At this time, patient is stable to be discharged home with her , James. Attempts were made to speak with James regarding discharge plan of care. Patient will be discharged with home health services for home safety evaluation, as well as PT, speech therapy, and to follow up with PCP. Patient will be continued on antihypertensives as well as p.o. Lasix per medication reconciliation. Physical examination General: Alert and Oriented x3. No acute distress. Well-nourished. Eyes: EOMI. Anicteric. HENT: Moist mucous membranes. Lungs: Clear to auscultation bilaterally. No accessory muscle use. Cardiovascular: Regular rate and rhythm. No murmur. No JVD. Abdomen: Soft, non-tender and non-distended. No palpable masses. Extremities: No edema. Non-tender. Skin: No rashes or lesions. Warm. Neurologic: No focal neurological deficits. CN II-XII grossly intact, but not individually tested. Alert and oriented x2 Psychiatric: Cooperative. Appropriate mood and affect. Total time spent with patient discussing and formulating plan of care: 35 minutes. This medical document was created using an electronic medical record system with [employer] dictation system. Although this document has been carefully reviewed, there may still be some phonetic and typographical errors. These areas are purely typographical due to imperfections of the software programs, and do not reflect any compromise in the patient's medical care. Consults/Reason for consult Neurology: Anoxic injury Nephrology: Acute kidney injury Pulmonology: Acute respiratory failure Condition at Discharge: Poor Final Diagnosis/Problems List Cardiopulmonary arrest Secondary Diagnosis: -acute hypoxic respiratory failure -toxic metabolic encephalopathy secondary to polysubstance abuse -polysubstance abuse -probable aspiration pneumonia -sepsis with shock -primary hypertension -hypothyroidism -acute kidney injury, hemodynamically mediated questionable ATN -anoxic encephalopathy Discharge Disposition: Home with Health Services Discharge Instruct/Medications Diet: Cardiac 2g Na,low cholest, Renal Activity: No Restrictions, As Tolerated Follow Up/Referral: PCP in 1-2 weeks Medications: Nifedipine XL 90mg po daily Lasix 40mg po daily Labetolol 100mg po BID 36 Discharge Statement: "Patient was advised to return to the ER or call 911 if any headaches, dizziness, shortness of breath, chest pain, abdominal pain, bleeding, fevers, or worsening of medical condition. Patient was counseled about treatment plan, medications, possible side effects, patientverbalized understanding. All questions were answered to the best of my ability. This discharge took greater then 30 minutes in planning, reviewing documentation, counseling the patient, and discussing with other team members." ASSESSMENT ASSESSMENT Assessment Cardiopulmonary arrest Date of Service: Dec 13, 2024 Billing Provider: LISA LARSON NP Common Visit Codes: 38421-ADC/OBS DAY >30min LISA LARSON NP Dec 13, 2024 15:20
[2024-12-13] MEDS: LABETALOL HCL 200 MG TAB PO SCH (21:12)
--- NOTE | 2024-12-13 23:56 | DVHPN2 ---
Progress Note - Dictate Date Seen: Dec 13, 2024 Medical Necessity Reason Pt with a Central, PICC or Fol: Yes The following are medically ne: Zhu Catheter Reason for zhu catheter: Strict I&O Subjective Patient seen and examined at bedside. Breathing comfortably on room air. Overnight events reviewed. vital signs Vital Sign Date Time Temp Pulse Resp B/P (MAP) Pulse Ox O2 Delivery O2 Flow Rate FiO2 12/13/24 23:53 165/85 12/13/24 22:12 88 12/13/24 22:11 98.2 12/13/24 21:00 18 98 12/13/24 15:56 Room Air 0.0 12/13/24 10:00 21 Total Intake and Output 12/12/24 12/12/24 12/13/24 15:00 23:00 07:00 Intake Total 75 ml 550 ml 240 ml Output Total 1425 ml 1900 ml Balance 75 ml -875 ml -1660 ml medications Current Medications Medications Dose Ordered Sig/Caterina Route Start Time Stop Time Status Last Admin Dose Admin Midazolam HCl 50 ml @ 1 mls/hr Q24H IV 11/25/24 10:15 UNV Fentanyl Citrate 250 ml @ 2.5 mls/hr Q24H IV 11/25/24 10:15 UNV Ondansetron HCl 4 mg Q4HP PRN IV 11/25/24 13:15 Nitroglycerin 0.4 mg Q5MINP PRN SL 11/25/24 13:15 Morphine Sulfate 2 mg Q30M PRN IV 11/25/24 13:15 Vancomycin HCl 0 ml @ 0 mls/hr UD IV 11/25/24 13:15 UNV Pantoprazole Sodium 40 mg DAILY IV 11/26/24 10:00 12/13/24 12:00 40 MG Propofol 100 ml @ 2.43 mls/hr Q24H IV 11/25/24 14:00 UNV Enoxaparin Sodium 30 mg DAILY SC 12/01/24 10:00 12/13/24 12:02 30 MG Acetaminophen 650 mg Q6H PRN PO 12/02/24 12:15 12/13/24 21:11 650 MG Morphine Sulfate 1 mg Q4HP PRN IV 12/02/24 13:45 12/13/24 13:17 1 MG Bumetanide 1 mg DAILY IV 12/04/24 10:00 12/13/24 10:00 1 MG Haloperidol Lactate 2.5 mg Q8HP PRN IM 12/05/24 00:15 12/12/24 10:53 2.5 MG Lorazepam 1 mg ONCE PRN IV 12/05/24 08:45 Cancel Labetalol HCl 20 mg Q3HR PRN IV 12/07/24 12:00 12/13/24 13:17 20 MG Hydralazine HCl 10 mg Q6HP PRN IV 12/07/24 23:15 12/13/24 23:53 10 MG Nifedipine 90 mg DAILY PO 12/14/24 10:00 Labetalol HCl 100 mg Q12HR PO 12/13/24 22:00 12/13/24 21:12 100 MG objective Gen.: Patient lying in bed in no apparent distress. On room air. Head: Normocephalic, atraumatic. Eyes: EOMI/PERRLA. Ears: Normal hearing. Normal anatomy. Neck/trachea: Trachea midline, supple. Nose: Normal external anatomy. Mouth: Moist mucous membranes. Chest: Decreased air entry bilaterally. No wheezing or rhonchi. Cardiovascular: Positive S1, positive S2. Regular rate and rhythm. Abdomen: Positive bowel sounds in all 4 quadrants. Soft, non-tender, non- distended. : Deferred. Rectal: Deferred. Skin: Warm, dry. Intact. Extremities: 2+ radial pulses bilaterally. No lower extremity edema. Neuro: Patient is altered, awake, alert. laboratory and microbiology Laboratory Tests 12/13/24 05:01 Test 12/13/24 05:01 Range/Units Serum Glucose 84 74-106 mg/dL Assessment/Plan Impression: Acute hypoxic respiratory failure Methamphetamine use Hyponatremia Leukocytosis Metabolic acidosis Events: Remains on room air. Supplemental oxygen PRN 1:1 monitoring for safety Elevated blood pressure Discharge held Patient is altered. Head of bed elevation Aspiration precautions Continue bronchodilators PRN Completed antibiotics Incentive spirometry Clinimix for nutritional support Wound care Monitor renal function Nephrology recs appreciated Awaiting transfer due to insurance issues Labs and imaging reviewed. Rest of plan as noted below. Plan: s/p extubation on 11/30/24 Supplemental oxygen PRN Titrate to keep sats above 92% Off sedation Off pressors, hemodynamically stable Continue bronchodilators PRN Completed antibiotics. Start pressors if necessary to maintain a mean arterial blood pressure greater than 65 mmHg. Monitor renal function Monitor electrolytes. Supplement as necessary. Monitor ins and outs. Monitor WBC. GI prophylaxis. DVT prophylaxis. Prognosis: Guarded given patient's multiple co-morbidities. Rest of plan per hospitalist and other consultants. Thank you, EXTRACTION SUPERVISOR Blake, for allowing me to participate in this patient's care. Further recommendations will depend on the patient's clinical course. Please do not hesitate to contact me if you have any questions or concerns. This medical document was created using an electronic medical record system with [employer] dictation system. Although these documentations are being carefully reviewed, there may still be some phonetic and typographical changes. The errors are purely typographical, due to imperfection on the software program, and do not reflect any compromise in the patient's medical care. Dietary Evaluation Review Comments: 1) If GI is accessible consider Jevity 1.2 @ 50 ml/hr x 24hr as tolerated (advance to 60ml/hr if GFR trends up to within normal range) 2) If pt remains NPO consider TPN to meet at least 75% of estimated needs 3) Advance pt diet when medically feasible to a 2gm Sodium diet modified per BILLING SPECIALIST recommendations Expected Outcomes/Goals: 1) Pt to receive nutrition support within 7 days of NPO status 2) Pt diet to advance 3) F/U in 2-3 days Plan discussed with: Patient, Other (CHRIS Willis) MARCIA BRIGGS MD Dec 13, 2024 23:56
[2024-12-14 01:00] VITALS: BP 118/67; PULSE 103; RESP 19; TEMP 99.1; O2SAT 95
[2024-12-14 05:00] VITALS: BP 121/70; PULSE 98; RESP 18; TEMP 98.7; O2SAT 95
[2024-12-14 06:03] LABS: Basophils # (auto) 0.2 10 ^3/uL (0-0.2); Basophils % (auto) 1.8 % (0.0-2.0); Eosinophils # (auto) 0.6 10 ^3/uL (0-0.8); Eosinophils % (auto) 5.4 % (0.0-7.0); Hematocrit 28.4 % (36.0-46.0); Hemoglobin 9.6 g/dL (12.2-16.2); Lymphocytes # (auto) 2.3 10 ^3/uL (0.4-5.4); Lymphocytes % (auto) 22.4 % (10.0-50.0); Mean Corpuscular Hemoglobin 29.7 pg (28.0-32.0); Mean Corpuscular Hgb Conc. 33.9 g/dL (32.0-36.0); Mean Corpuscular Volume 87.7 fL (80.0-100.0); Monocytes # (auto) 1.1 10 ^3/uL (0-1.3); Monocytes % (auto) 10.2 % (0.0-12.0); Neutrophils # (auto) 6.3 10 ^3/uL (1.6-8.6); Neutrophils % (auto) 60.2 % (37.0-80.0); Platelet Count (auto) 416 10^3/uL (140-450); Red Blood Cells 3.24 10^6/uL (4.0-5.20); Red Cell Distribution Width 14.4 % (11.8-14.3); White Blood Cell 10.4 10^3/uL (4.4-10.8)
[2024-12-14 06:14] LABS: Anion Gap 16 (5-15); Chloride 103 mmol/L (98-107); Potassium 3.6 mmol/L (3.5-5.1); Sodium 139 mmol/L (136-145)
[2024-12-14 06:16] LABS: Calcium 9.4 mg/dL (8.7-10.4)
[2024-12-14 06:17] LABS: Carbon Dioxide 20 mmol/L (20-31)
[2024-12-14 06:20] LABS: BUN/Creatinine Ratio 9.2 (10.0-20.0)
[2024-12-14 06:21] LABS: Blood Urea Nitrogen 24 mg/dL (9-23); Glucose 74 mg/dL (74-106)
[2024-12-14 08:00] VITALS: PULSE 99; RESP 18; O2SAT 96
[2024-12-14 09:00] VITALS: BP 134/76; PULSE 99; RESP 18; TEMP 99.3; O2SAT 96
--- NOTE | 2024-12-14 09:38 | DVHPN2 ---
Subjective Patient not responding during my assessment. According to greta, patient is verbal when she chooses to be. Reviewed: Care Plan, H&P, Labs, Medications, Previous Orders, Radiology Changes from previous H/P or p: No Changes General: Per HPI Objective Vitals Vital Signs Date Time Temp Pulse Resp B/P (MAP) Pulse Ox O2 Delivery O2 Flow Rate FiO2 12/14/24 09:00 99.3 99 18 134/76 (95) 96 99.3 12/13/24 15:56 Room Air 0.0 12/13/24 10:00 21 Intake/Output Intake and Output 12/14/24 07:00 Intake Total 250 ml Output Total 1200 ml Balance -950 ml Intake Oral 250 ml Output Urine Total 1200 ml General Appearance: Alert, Other (Patient with altered mental status. Not following any commands.) HEENT: PERRLA Lungs: Clear to auscultation Cardiovascular: Normal S1, Normal S2, No murmurs, Other (ST) Abdomen: Normal bowel sounds, Soft, No tenderness Rectal: Deferred Extremities: No clubbing, No cyanosis, Normal pulses Neuro: Other (Patient not following commands.) Skin: Dry, Intact Psych/Mental Status: Other (Encephalopathic) Medications Current Medications Medications Dose Ordered Sig/Caterina Route Start Time Stop Time Status Last Admin Dose Admin Midazolam HCl 50 ml @ 1 mls/hr Q24H IV 11/25/24 10:15 UNV Fentanyl Citrate 250 ml @ 2.5 mls/hr Q24H IV 11/25/24 10:15 UNV Ondansetron HCl 4 mg Q4HP PRN IV 11/25/24 13:15 Nitroglycerin 0.4 mg Q5MINP PRN SL 11/25/24 13:15 Morphine Sulfate 2 mg Q30M PRN IV 11/25/24 13:15 Vancomycin HCl 0 ml @ 0 mls/hr UD IV 11/25/24 13:15 UNV Pantoprazole Sodium 40 mg DAILY IV 11/26/24 10:00 12/13/24 12:00 40 MG Propofol 100 ml @ 2.43 mls/hr Q24H IV 11/25/24 14:00 UNV Enoxaparin Sodium 30 mg DAILY SC 12/01/24 10:00 12/13/24 12:02 30 MG Acetaminophen 650 mg Q6H PRN PO 12/02/24 12:15 12/13/24 21:11 650 MG Morphine Sulfate 1 mg Q4HP PRN IV 12/02/24 13:45 12/14/24 04:56 1 MG Bumetanide 1 mg DAILY IV 12/04/24 10:00 12/13/24 10:00 1 MG Haloperidol Lactate 2.5 mg Q8HP PRN IM 12/05/24 00:15 12/12/24 10:53 2.5 MG Lorazepam 1 mg ONCE PRN IV 12/05/24 08:45 Cancel Labetalol HCl 20 mg Q3HR PRN IV 12/07/24 12:00 12/13/24 13:17 20 MG Hydralazine HCl 10 mg Q6HP PRN IV 12/07/24 23:15 12/13/24 23:53 10 MG Nifedipine 90 mg DAILY PO 12/14/24 10:00 Labetalol HCl 100 mg Q12HR PO 12/13/24 22:00 12/13/24 21:12 100 MG Laboratory Results Laboratory Tests 12/14/24 04:49 Chemistry Test 12/14/24 04:49 Calcium Level 9.4 mg/dL (8.7-10.4) Urinalysis Test 11/25/24 00:00 Urine Color Light-yellow (Yellow) Urine Clarity Clear (Clear) Urine pH 6.0 (5.0-9.0) Urine Specific [place] 1.009 (1.001-1.035) Urine Protein Negative (Negative) Urine Ketones Negative (Negative) Urine Blood Negative /uL (Negative) Urine Nitrite Negative (Negative) Urine Bilirubin Negative (Negative) Urine Urobilinogen Normal mg/dL (Negative) Urine Leukocyte Esterase Negative /uL (Negative) Urine RBC <1 /hpf (0 - 4) Urine WBC 1 /hpf (0 - 5) Urine Squamous Epithelial Cells Few /hpf (<5) Urine Bacteria None seen /hpf (None Seen) Urine Glucose Normal mg/dL (Normal) Microbiology Microbiology Date/Time Source Procedure Growth Status 12/08/24 18:57 Urine - Li Port Urine Culture - Final Complete 12/08/24 14:55 Blood Blood Culture - Final NO GROWTH AFTER 5 DAYS OF INCUBATION. Complete 11/27/24 17:00 Nose MRSA Screen - Final Complete 11/25/24 09:07 Sputum Gram Stain - Final Complete 11/25/24 09:07 Sputum Respiratory Culture - Final Complete Labs and/or images reviewed: Labs reviewed by me, Image(s) reviewed by me Assessment/Plan Assessment/Plan Impression: -cardiopulmonary arrest -acute hypoxic respiratory failure -toxic metabolic encephalopathy secondary to polysubstance abuse -polysubstance abuse -probable aspiration pneumonia -sepsis with shock -primary hypertension -hypothyroidism -acute kidney injury, hemodynamically mediated questionable ATN -anoxic encephalopathy Plan: -events: No events overnight. Given safety concern with being discharged back to significant other, plans for facility placement has been initiated. -continue current p.o. antihypertensives -strict aspiration precaution -Bronchodilators -discussed case with nurse case management. Given patient's neurological deficits, recommend placement in a facility. Total time spent with patient discussing and formulating plan of care: 35 minutes. This medical document was created using an electronic medical record system with [employer] system. Although this document has been carefully reviewed, there may still be some phonetic and typographical errors. These areas are purely typographical due to imperfections of the software programs, and do not reflect any compromise in the patient's medical care. Plan discussed with: Patient, Other (RN) My Orders Orders - LISA LARSON NP Procedure Category Date Status Time Nifedipine Er PHA 12/14/24 In Process (Procardia Xl 10:00 Labetalol Hcl Tablet PHA 12/13/24 In Process (Normodyne Tablet) 22:00 Transfer Orders XFER 12/13/24 Transmitted 17:28 Discharge DISCHARGE 12/13/24 Transmitted 17:28 * Group Program Manager CONS 12/13/24 Transmitted Consult 17:28 Date of Service: Dec 14, 2024 Billing Provider: LISA LARSON NP Common Visit Codes: [id number] INP/OBS CARE(HIGH) LISA LARSON NP Dec 14, 2024 09:38
[2024-12-14 10:00] VITALS: O2SAT 96
[2024-12-14] MEDS: NIFEdipine ER 30 MG TAB PO SCH (10:21)
[2024-12-14 13:00] VITALS: BP 143/79; PULSE 94; RESP 17; TEMP 98.4; O2SAT 98
--- NOTE | 2024-12-14 14:14 | DVHPN2 ---
Progress Note Date Seen: Dec 14, 2024 Medical Necessity Reason Pt with a Central, PICC or Fol: Yes The following are medically ne: Zhu Catheter Reason for zhu catheter: Strict I&O Subjective Patient reports: Feels better Objective vital signs Vital Sign Date Time Temp Pulse Resp B/P (MAP) Pulse Ox O2 Delivery O2 Flow Rate FiO2 12/14/24 13:00 98.4 94 17 143/79 (100) 98 98.4 12/14/24 10:00 Room Air 0.0 12/14/24 10:00 21 Total Intake and Output 12/13/24 12/13/24 12/14/24 15:00 23:00 07:00 Intake Total 100 ml 150 ml Output Total 900 ml 300 ml Balance -800 ml -150 ml medications Current Medications Medications Dose Ordered Sig/Caterina Route Start Time Stop Time Status Last Admin Dose Admin Midazolam HCl 50 ml @ 1 mls/hr Q24H IV 11/25/24 10:15 UNV Fentanyl Citrate 250 ml @ 2.5 mls/hr Q24H IV 11/25/24 10:15 UNV Ondansetron HCl 4 mg Q4HP PRN IV 11/25/24 13:15 Nitroglycerin 0.4 mg Q5MINP PRN SL 11/25/24 13:15 Morphine Sulfate 2 mg Q30M PRN IV 11/25/24 13:15 Vancomycin HCl 0 ml @ 0 mls/hr UD IV 11/25/24 13:15 UNV Pantoprazole Sodium 40 mg DAILY IV 11/26/24 10:00 12/14/24 10:20 40 MG Propofol 100 ml @ 2.43 mls/hr Q24H IV 11/25/24 14:00 UNV Enoxaparin Sodium 30 mg DAILY SC 12/01/24 10:00 12/14/24 10:21 30 MG Acetaminophen 650 mg Q6H PRN PO 12/02/24 12:15 12/13/24 21:11 650 MG Morphine Sulfate 1 mg Q4HP PRN IV 12/02/24 13:45 12/14/24 04:56 1 MG Bumetanide 1 mg DAILY IV 12/04/24 10:00 12/14/24 10:20 1 MG Haloperidol Lactate 2.5 mg Q8HP PRN IM 12/05/24 00:15 12/12/24 10:53 2.5 MG Lorazepam 1 mg ONCE PRN IV 12/05/24 08:45 Cancel Labetalol HCl 20 mg Q3HR PRN IV 12/07/24 12:00 12/13/24 13:17 20 MG Hydralazine HCl 10 mg Q6HP PRN IV 12/07/24 23:15 12/13/24 23:53 10 MG Nifedipine 90 mg DAILY PO 12/14/24 10:00 12/14/24 10:21 90 MG Labetalol HCl 100 mg Q12HR PO 12/13/24 22:00 12/14/24 10:21 100 MG Examination: GENERAL:Normal laboratory and microbiology Laboratory Tests 12/14/24 04:49 Test 12/14/24 04:49 Range/Units Serum Glucose 74 74-106 mg/dL Microbiology Date/Time Source Procedure Growth Status 12/08/24 18:57 Urine - Zhu Port Urine Culture - Final Complete 12/08/24 14:55 Blood Blood Culture - Final NO GROWTH AFTER 5 DAYS OF INCUBATION. Complete 11/27/24 17:00 Nose MRSA Screen - Final Complete 11/25/24 09:07 Sputum Gram Stain - Final Complete 11/25/24 09:07 Sputum Respiratory Culture - Final Complete Problem List/Assessment/Plan Problem List/Assessment/Plan Acute kidney injury hemodynamically mediated in setting of cardiac arrest / ATN Acute respiratory failure resolved Cardiac arrest Methamphetamine abuse Metabolic acidosis resolved stable cr has not normalized but has remained same last several days monitor uop and renal function downtrend stop IVF increase BP meds continue daily loop diuretic to maintain UOP Monitor urinary output Avoid hypotension no new recs at this time Plan discussed with: Patient Dietary Evaluation Review Comments: 1) If GI is accessible consider Jevity 1.2 @ 50 ml/hr x 24hr as tolerated (advance to 60ml/hr if GFR trends up to within normal range) 2) If pt remains NPO consider TPN to meet at least 75% of estimated needs 3) Advance pt diet when medically feasible to a 2gm Sodium diet modified per PRIMARY CARE SALES REPRESENTATIVE recommendations Expected Outcomes/Goals: 1) Pt to receive nutrition support within 7 days of NPO status 2) Pt diet to advance 3) F/U in 2-3 days MICHAEL GUAJARDO MD Dec 14, 2024 14:14
--- NOTE | 2024-12-14 23:21 | DVHPN2 ---
Progress Note - Dictate Date Seen: Dec 14, 2024 Medical Necessity Reason Pt with a Central, PICC or Fol: Yes The following are medically ne: Zhu Catheter Reason for zhu catheter: Strict I&O Subjective Patient seen and examined at bedside. Breathing comfortably on room air. Overnight events reviewed. vital signs Vital Sign Date Time Temp Pulse Resp B/P (MAP) Pulse Ox O2 Delivery O2 Flow Rate FiO2 12/14/24 13:00 98.4 94 17 143/79 (100) 98 98.4 12/14/24 10:00 Room Air 0.0 12/14/24 10:00 21 Total Intake and Output 12/13/24 12/13/24 12/14/24 15:00 23:00 07:00 Intake Total 100 ml 150 ml Output Total 900 ml 300 ml Balance -800 ml -150 ml medications Current Medications Medications Dose Ordered Sig/Caterina Route Start Time Stop Time Status Last Admin Dose Admin Midazolam HCl 50 ml @ 1 mls/hr Q24H IV 11/25/24 10:15 UNV Fentanyl Citrate 250 ml @ 2.5 mls/hr Q24H IV 11/25/24 10:15 UNV Vancomycin HCl 0 ml @ 0 mls/hr UD IV 11/25/24 13:15 UNV Propofol 100 ml @ 2.43 mls/hr Q24H IV 11/25/24 14:00 UNV Lorazepam 1 mg ONCE PRN IV 12/05/24 08:45 Cancel objective Gen.: Patient lying in bed in no apparent distress. On room air. Head: Normocephalic, atraumatic. Eyes: EOMI/PERRLA. Ears: Normal hearing. Normal anatomy. Neck/trachea: Trachea midline, supple. Nose: Normal external anatomy. Mouth: Moist mucous membranes. Chest: Decreased air entry bilaterally. No wheezing or rhonchi. Cardiovascular: Positive S1, positive S2. Regular rate and rhythm. Abdomen: Positive bowel sounds in all 4 quadrants. Soft, non-tender, non- distended. : Deferred. Rectal: Deferred. Skin: Warm, dry. Intact. Extremities: 2+ radial pulses bilaterally. No lower extremity edema. Neuro: Patient is altered, awake, alert. laboratory and microbiology Laboratory Tests 12/14/24 04:49 Test 12/14/24 04:49 Range/Units Serum Glucose 74 74-106 mg/dL Assessment/Plan Impression: Acute hypoxic respiratory failure Methamphetamine use Hyponatremia Leukocytosis Metabolic acidosis Events: Remains on room air. Supplemental oxygen PRN 1:1 monitoring for safety Patient is altered. Head of bed elevation Aspiration precautions Continue bronchodilators PRN Completed antibiotics Incentive spirometry Clinimix for nutritional support Wound care Monitor renal function Nephrology recs appreciated Patient is stable for discharge from the pulmonary standpoint. Disposition per hospitalist. Awaiting transfer due to insurance issues Labs and imaging reviewed. Rest of plan as noted below. Plan: s/p extubation on 11/30/24 Supplemental oxygen PRN Titrate to keep sats above 92% Off sedation Off pressors, hemodynamically stable Continue bronchodilators PRN Completed antibiotics. Start pressors if necessary to maintain a mean arterial blood pressure greater than 65 mmHg. Monitor renal function Monitor electrolytes. Supplement as necessary. Monitor ins and outs. Monitor WBC. GI prophylaxis. DVT prophylaxis. Prognosis: Guarded given patient's multiple co-morbidities. Rest of plan per hospitalist and other consultants. Thank you, CYBER INCIDENT HANDLER Blake, for allowing me to participate in this patient's care. Further recommendations will depend on the patient's clinical course. Please do not hesitate to contact me if you have any questions or concerns. This medical document was created using an electronic medical record system with [employer] computerized dictation system. Although these documentations are being carefully reviewed, there may still be some phonetic and typographical changes. The errors are purely typographical, due to imperfection on the software program, and do not reflect any compromise in the patient's medical care. Dietary Evaluation Review Comments: 1) If GI is accessible consider Jevity 1.2 @ 50 ml/hr x 24hr as tolerated (advance to 60ml/hr if GFR trends up to within normal range) 2) If pt remains NPO consider TPN to meet at least 75% of estimated needs 3) Advance pt diet when medically feasible to a 2gm Sodium diet modified per LABOR UNION BUSINESS REPRESENTATIVE recommendations Expected Outcomes/Goals: 1) Pt to receive nutrition support within 7 days of NPO status 2) Pt diet to advance 3) F/U in 2-3 days Plan discussed with: Patient, Other (RN) MARCIA BRIGGS MD Dec 14, 2024 23:21
== END 2024-12-14 14:53 | DRG 720 ==
LOC: ER 08:43 → EDBD 08:43 → TELE 13:14 → ICU WEST 11-27 17:50 → TELE-WESTW 12-01 15:21 → WEST WING 12-13 20:38
PROVIDERS: ADMIT Nurse Practitioner Acute Care; ATTEND Nurse Practitioner Acute Care
PROC: 5A1955Z Respiratory Ventilation, Greater than 96 Consecutive Hours (ICD-10-PCS; principal; 2024-11-25)
PROC: 0BH17EZ Insertion of Endotracheal Airway into Trachea, Via Natural or Artificial Opening (ICD-10-PCS; 2024-11-25)
PROC: 05HD33Z Insertion of Infusion Device into Right Cephalic Vein, Percutaneous Approach (ICD-10-PCS; 2024-11-29)
PROC: B54MZZA Ultrasonography of Right Upper Extremity Veins, Guidance (ICD-10-PCS; 2024-11-29)
PROC: 05HD33Z Insertion of Infusion Device into Right Cephalic Vein, Percutaneous Approach (ICD-10-PCS; 2024-12-12)
PROC: B54MZZA Ultrasonography of Right Upper Extremity Veins, Guidance (ICD-10-PCS; 2024-12-12)
DX: A41.9 Sepsis, unspecified organism (principal); I46.9 Cardiac arrest, cause unspecified; J69.0 Pneumonitis due to inhalation of food and vomit; J96.01 Acute respiratory failure with hypoxia; N17.0 Acute kidney failure with tubular necrosis; R65.21 Severe sepsis with septic shock; G92.8 Other toxic encephalopathy; E87.1 Hypo-osmolality and hyponatremia; E03.9 Hypothyroidism, unspecified; E87.4 Mixed disorder of acid-base balance; E87.6 Hypokalemia; F14.10 Cocaine abuse, uncomplicated; I10 Essential (primary) hypertension; F09 Unspecified mental disorder due to known physiological condition; T40.415A Adverse effect of fentanyl or fentanyl analogs, initial encounter; T43.655A Adverse effect of methamphetamines, initial encounter; F15.10 Other stimulant abuse, uncomplicated; F41.9 Anxiety disorder, unspecified; G93.1 Anoxic brain damage, not elsewhere classified; R47.01 Aphasia; E87.0 Hyperosmolality and hypernatremia; E83.42 Hypomagnesemia; E66.01 Morbid (severe) obesity due to excess calories; Z88.1 Allergy status to other antibiotic agents; Z68.33 Body mass index [BMI] 33.0-33.9, adult; Z79.899 Other long term (current) drug therapy; Y92.89 Other specified places as the place of occurrence of the external cause
CPT/HCPCS: 31500; 36415; 36600; 70450; 70551; 71045; 76775; 80048; 80053; 80202; 80307; 80320; 81001; 82542; 82550; 82805; 82962; 83605; 83735; 84100; 84132; 84439; 84443; 84481; 84484; 85025; 85652; 86141; 87040; 87070; 87081; 87086; 87205; 87426; 87804; 92610; 93005; 93306; 94002; 94003; 94640; 97110; 97116; 97163; 97530; 99291; 99292; G0378; J0692; J1815; J2003; J2470; J2543; J2704; J3480; J3490; J7060

== ENCOUNTER 2025-09-01 11:39 | Emergency (ER) | payer MEDICAID ==
[~2025-09-01] VITALS: Ht 170.2 cm; Wt 96.0 kg
[~2025-09-01 11:39] MED LIST: FURO1TAB33 PO; LABE200T10 PO; NIFE1TAB31 PO
--- NOTE | 2025-09-01 12:39 | ED.PDOC ---
CPR-HPI HPI Comments 49 y/o F is CARLOS A from private residence for c/c of unwitnessed cardiac arrest. History of previous cardiopulmonary arrest, toxic metabolic encephalopathy secondary to polysubstance abuse, sepsis with shock, hypertension, hypothyroidism, ROSINA, and anoxic encephalopathy. Per EMS personnel report, family called after leaving the patient and returning to her 30x minutes later on the floor with agonal respirations and without a pulse. Call received at 1050. Patient contact by EMS at 1111. Arrival to ED at 1139. Estimated known down time of 49 minutes from initial call. Blood glucose of 112 on scene. Interventions en route: CPR, 8mg Narcan, 4x epinephrine rounds (last administered at 1139), 1mg Atropine, and 18G placement to right AC. No ROSC achieved with interventions. Additional recent history of previous hospitalization for stroke at [facility]. Time Seen by MD: 11:39 Primary Care Provider: UNABLE TO OBTAIN Reviewed Notes: Nurses Notes, Receivable Manager Notes, Medications, Allergies Allergies: Coded Allergies: Cephalexin (Verified Allergy, Unknown, 11/25/24) Ciprofloxacin (Verified Allergy, Unknown, 11/25/24) Home Meds Active Scripts Furosemide (Lasix) 20 Mg Tb, 1 TAB PO DAILY, #90 TAB 1 Refill Prov:LISA LARSON FACTORY HAND 12/13/24 Labetalol HCl (Labetalol HCl) 200 Mg Tab, 100 MG PO BID for 30 Days, #30 TAB 1 Refill Prov:LISA LARSON FACTORY HAND 12/13/24 Nifedipine (Nifedipine Er) 30 Mg Tab, 90 MG PO DAILY for 30 Days, #90 TAB 1 Refill Prov:LISA LARSON FACTORY HAND 12/13/24 Information Source: Emergency Med Personnel Mode of Arrival: EMS Timing: Hours Onset: Unknown Available Hx: Drug Overdose, Other (Previous cardiac arrest ) Past Medical History PAST MEDICAL HISTORY: HTN, Thyroid Surgical History: Denies all surgeries RESEARCH FELLOW History: No Pertinent RESEARCH FELLOW History Family History Family History: Reviewed,noncontributory to illness, No family hx of Cancer, No family hx of DM, No family hx of Heart landen, No family hx of HTN, No family hx ofKidney landen, No family hx of Liver landen, No family hx of Lung landen, No family hx of Stroke Social History Smoker: Non-Smoker Alcohol: Denies ETOH Use Drugs: Cocaine, Methamphetamine, Other (Fentanyl ) Lives In: Home All Other Systems: Reviewed and Negative (Comprehensive review of systems are negative unless stated in HPI) Physical Exam General Appearance: Severe Distress HEENT: Other (Pupils fixed dilated) Neck: Full Range of Motion, Non-Tender, Normal, Normal Inspection Respiratory: Other (Intubated) Cardiovascular: Other (No pulse) Breast Exam: Deferred Gastrointestinal: Soft Genitalia: Deferred Pelvic: Deferred Rectal: Deferred Extremities: No pedal edema Musculoskeletal : Apperance: Normal Neurologic: NOT DONE (Unconscious) Cerebellar Function: NOT DONE Reflexes: NOT DONE Skin: Pallor Peripheral Pulses: 0 Radial (R), 0 Radial (L) Lymphatic: NOT DONE Was a procedure done? Was a procedure done?: No Differential Dx CPR Differential Diagnosis: Cardiopulmonary arrest, Cardiogenic shock, Dysrhythmia, Electrolyte disorder, Myocardial Infarction, Respiratory Failure, Other (substance overdose ) X-Ray, Labs, Meds, VS Vital Signs Date Time Temp Pulse Resp B/P (MAP) Pulse Ox O2 Delivery O2 Flow Rate FiO2 09/01/25 13:19 209.5 0 09/01/25 13:09 0 89 Ambu-Bag 0 Patient unconscious. Pupils fixed and dilated. Possibly drug induced pain Was given Narcan. Was given 8 mg of Narcan. No response. No pulse pain Continuous CPR. Was given ACLS drugs. Downtime has been long. Has been here many times for similar condition where she was able to be revived. She did have a rhythm of ventricular fibrillation for which she was shocked. Continuous CPR. Unable to revive the patient. Spoke with the team. Pronounced. Waiting for family. Time of 1ST Reevaluation: 11:46 Reevaluation 1ST: Patient Education/Counseling: Other ( ) Family Education/Counseling: Other (Patient's expiration ) SEPSIS Sepsis Screen Vital Signs Date Time Temp Pulse Resp B/P (MAP) Pulse Ox O2 Delivery O2 Flow Rate FiO2 09/01/25 13:19 209.5 0 09/01/25 13:09 0 89 Ambu-Bag 0 Departure 1 Departure Time of Disposition: 12:48 Impression: Primary Impression: Cardiac arrest Disposition: 20 Condition: Other ( ) Critical Care Note Critical Care Time?: Yes (35 min-critical care time only) Heart Score Heart Score: Heart Score Response (Comments) Value History N/A 0 EKG N/A 0 Age N/A 0 Risk Factors N/A 0 Troponin N/A 0 Total 0 Stability Stability form required: No I personally scribed for RUTH SIERRA MD ([email or web address]) on 09/01/25 at 12:39. Electronically submitted by Jerardo Hutchison ([email or web address]). I personally scribed for RUTH SIERRA MD ([email or web address]) on 09/01/25 at 12:40. Electronically submitted by Jerardo Hutchison ([email or web address]). RUTH SIERRA MD Sep 01, 2025 12:39
--- NOTE | 2025-09-01 13:09 | RESUS ---
CODE BLUE ASSESSSMENT History of Events History of Events: Patient arrived via EMS unresponsive, pulseless and apneic with manual CPR in progress. Upon EMS arrival to residence, patient was found pulseless, apneic in PEA. Family reported they had left patient 30 minutes prior and upon returning she was found unresponsive on the floor. Family initiated CPR. Prior to arrival, patient received total Epinephrine 4 mg, Atropine 1 mg, Narcan 8 mg and 500 ml 0.9% NS with no response. Blood sugar in the field 112. Initial Information Date: Sep 01, 2025 Time: 11:39 Location of Arrest: In Field Arrest Witnessed: Yes CPR started by whom: Bystander Last seen well: 30 minutes prior to 911 call Pre-Hospital Care: ACLS Type of arrest: Cardiac, Respiratory, Adult, Unwitnessed Spontaneous Respirations: No Pulse Present: No Monitoring: ECG, Pulse Oximetry, Telemetry Crash Cart Opened and Supplies: Yes Airway Ventilation Breathing at Onset: Apneic Oxygen Delivery Method: Ambu-Bag Artificial Ventilation: Bag/Endo tube Intubation Size: 7.0 cuffed Intubated by: EMS Intubation Attempts: 1 Intubated orally: Yes Intubated Nasaly: No Tube secured at: 19 CO2 indicator used: Yes Confirmation: Auscultation, Exhaled CO2 Suctioning (Oral/Tracheal): No Comments: Assisted ventilations continued by RT upon arrival to ER. Circulation Circulation #1: Time: 11:39 Pulse Rate (adult): 0 Blood Pressure Systolic: 0 Blood Pressure Diastolic: 0 Circulation #2: Time: 11:44 Pulse Rate (adult): 0 Blood Pressure Systolic: 0 Blood Pressure Diastolic: 0 Circulation Comment: O2sat 89% Circulation #3: Time: 11:46 Pulse Rate (adult): 0 Blood Pressure Systolic: 0 Blood Pressure Diastolic: 0 Temperature (Fahrenheit): 98.6 (Rectal) Defibrillation Defbrillation #1: Time Defibrillator Applied: 11:39 EKG Rhythm: V-Tachycardia Compressions: Manual Time Defibrillator Shocked Pt.: 11:43 Defib. Joules: 120 Pulse Present: No EKG Rhythm: V-Fibrillation Defbrillation #2: EKG Rhythm: V-Fibrillation Compressions: Manual Time Defibrillator Shocked Pt.: 11:44 Defib. Joules: 150 Pulse Present: No EKG Rhythm: PEA Procedure - IV Procedure - IV : IV Side: Right IV Location: Antecubital IV Catheter Type: Peripheral IV IV Placed: Pre-Hospital IV Placed by EMS IV Gauge: 18 IV Line Care: Saline Flush Medications & Response Medications and Responses #1: Medication Time: 11:40 ADULT Medications Given ADULT: Epinephrine 1 mg Route of Administration: IV Heart Rate: 0 EKG Rhythm: Asystole Blood Pressure Systolic: 0 Blood Pressure Diastolic: 0 EKG Rhythm: Asystole Medications and Responses #2: Medication Time: 11:41 ADULT Medications Given ADULT: Sodium Bacarbinate 50 meq Route of Administration: IV Heart Rate: 0 EKG Rhythm: Asystole Blood Pressure Systolic: 0 Blood Pressure Diastolic: 0 EKG Rhythm: V-Tachycardia Medications and Responses #3: Medication Time: 11:44 ADULT Medications Given ADULT: Epinephrine 1 mg Route of Administration: IV Heart Rate: 0 EKG Rhythm: V-Fibrillation Blood Pressure Systolic: 0 Blood Pressure Diastolic: 0 O2 Sat by Pulse Oximetry: 89 EKG Rhythm: PEA Nurses Notes Nicole Coma Scale Eye Opening: None (1) [place] Coma Scale Verbal: None (1) [place] Coma Scale Motor: None (1) [place] Total: 3 Pupil Reaction: Non Reactive Bedside Blood Glucose: 163 EKG Rhythm: V-Tachycardia, V-Fibrillation, PEA Time Code Ended Time Code Ended: 11:46 Post Arrest Status: Outcome of code: Unsuccessful Patient pronounced by: Dr. Gannon Time patient pronounced: 11:46 Code Team Present: Jackie Ballesteros RT, Benja RT, Nella RT, Henry ERTYa RN, Coleen Gabriel RN, Maria Luisa RN, Martin RN, Jessika RN Post Resuscitation Neurologica Pupil Size: 4 Comment: Fixed and dilated. Jessika Childers Sep 01, 2025 13:09
== END 2025-09-01 11:46 ==
LOC: ER 11:39 → EDBD 11:39 → ER 11:46
DX: I46.9 Cardiac arrest, cause unspecified (principal); I10 Essential (primary) hypertension; E03.9 Hypothyroidism, unspecified; Z79.899 Other long term (current) drug therapy; Z86.73 Personal history of transient ischemic attack (TIA), and cerebral infarction without residual deficits; Z88.1 Allergy status to other antibiotic agents
CPT/HCPCS: 92950